=== PATIENT | male | born 1960 | race Caucasian/White ===

== ENCOUNTER 2021-11-06 17:05 | Inpatient (IN) ==
[2021-11-06 17:50] LABS: Basophils # (auto) 0.03 K/uL (0-0.2); Basophils % (auto) 0.2 %; Eosinophils % (auto) 1.3 %; Hematocrit (blood only) 43.1 % (42-52); Hemoglobin 15.1 g/dL (14.0-18.0); Immature Granulocytes # (auto) 0.04 K/uL (0.00-0.02); Immature Granulocytes % (auto) 0.3 %; Lymphocytes # (auto) 2.11 K/uL (1.2-3.4); Lymphocytes % (auto) 13.8 %; Mean Corpuscular Hemoglobin 33.6 pg (25-34); Mean Platelet Volume 9.6 fL (7.4-10.4); Monocytes # (auto) 1.15 K/uL (0.11-0.59); Monocytes % (auto) 7.5 %; Neutrophils # (auto) 11.71 K/uL (1.4-6.5); Neutrophils % (auto) 76.9 %; Platelet Count 227 K/uL (130-400); RDW Coefficient of Variation 13.4 % (11.5-14.5); RDW Standard Deviation 46.8 fL (36.4-46.3); Red Blood Count 4.49 M/uL (4.7-6.1); White Blood Count 15.24 K/uL (4.8-10.8)
[2021-11-06] MEDS ORDERED: SODIUM CHLORIDE 0.9% 1000ML 500 ML IV ONE (17:53)
[2021-11-06] MEDS ORDERED: ONDANSETRON INJ 2 MG/ML 2 ML VIAL IV STA (17:53)
[2021-11-06] MEDS ORDERED: MoRPHine SULFATE 4 MG/ML 1 ML CARP\\VIAL IV PRN (17:53)
--- NOTE | 2021-11-06 18:00 | Emergency Department Note ---
Impression & Plan Pneumothorax, Right rib fracture, Hemothorax, Fall ED Provider Note NAME: FLORENTINO SUGGS JR AGE: 61 SEX: M : 1960 ARRIVES VIA: Walk-In INFORMANT: [Patient] ED PROVIDER(S): [Jensen Banuelos MD] CHIEF COMPLAINT: Rib injury HISTORY OF PRESENT ILLNESS: The patient is a 61-year-old male who states that around 11 hours ago, he slipped while walking outside injuring his right ribs. He had x-rays done in the morning and he had some rib fractures, he believes 3. He has a small pneumothorax. He had a repeat chest x-ray just several hours ago and was told to come to the hospital as his pneumothorax had enlarged a bit. The patient complains of 7/10 chest pain from his rib injury. He was prescribed hydrocodone for pain. He is not really short of breath. His pain worsens if he moves or coughs. He denies hitting his head or injuring his neck. No extremity pain. No back pain, no abdominal pain. He does not take any blood thinning medications. REVIEW OF SYSTEMS: See HPI for pertinent positives and negatives. A total of ten systems were reviewed and were otherwise negative. PMHx/PSHx: See Below SOCIAL HISTORY: See Below. PHYSICAL EXAM: GENERAL: Patient is in no acute distress. HEENT: No acute trauma, normocephalic atraumatic, mucous membranes moist, no nasal congestion, no scleral icterus. NECK: No stridor, no adenopathy, no meningismus, trachea is midline. LUNGS: Slightly diminished breath sounds on the right when compared to left, no wheezing, no respiratory distress. Chest: Tender to the right lateral lower ribs. No contusion. HEART: Without murmurs gallops or rubs, regular rate and rhythm. ABDOMEN: Soft, nontender, bowel sounds positive, no hernias, no peritonitis. No tenderness in the right upper quadrant. EXTREMITIES: No cyanosis or edema, full range of motion of all the joints without pain or difficulty, no signs for acute trauma. NEUROLOGIC: Oriented x 3, no acute motor or sensory deficits, no focal weakness. SKIN: No rash, no jaundice, no diaphoresis. DIFFERENTIAL DIAGNOSIS: Rib fracture, pneumothorax, hemothorax, pulmonary contusion, liver injury, extremity trauma, abdominal trauma, head or neck injury, among others. EMERGENCY DEPARTMENT COURSE/PROCEDURES: MEDICAL DECISION MAKING: There is a moderate leukocytosis, possibly from his pain. There is a normal hemoglobin and platelet count. No coagulopathy. Sodium a bit low but not in need of emergent correction. No renal failure. No evidence for liver enzyme elevation. Urinalysis does not show hematuria or infection. COVID testing returned negative. Chest CT shows 2 rib fractures, a small hemothorax and a small to moderate sized right pneumothorax. The patient only complains of right rib pain. I could not find any other areas of injury by exam. I did speak with the director of assisted living/pulmonary physician instrumentation and controls technician. The patient does not need an emergent chest tube. He was placed on oxygen and is going to be admitted to the hospital for observation. If he does well, he can avoid chest tube placement. If he worsens, a chest tube will be inserted. The patient was told the results of his imaging, he understands the need for a hospital stay. He is currently resting comfortably. I did place the patient on nasal cannula O2. He was given IV morphine and IV Zofran for pain control. He received IV saline, 500 cc. Past Med/Surg History Medical History Acid reflux COPD (chronic obstructive pulmonary disease) WELL CONTROLLED PER PT> RARE INH USE Hx of bronchitis Hyperlipidemia Hypertension Hyponatremia Hypothyroidism Insomnia LPRD (laryngopharyngeal reflux disease) Obesity Osteoarthritis Pancreatitis RESOLVED Trouble swallowing reason for procedure Surgical History History of biopsy History of colonoscopy History of ERCP History of esophagogastroduodenoscopy (EGD) History of oral surgery Hx of LASIK Hx of vasectomy Family History Father Stroke Heart disease Brother Hypertension Mother Hypertension Grandfather (Maternal) Stroke Grandmother (Maternal) Colorectal cancer Other No family history of adverse response to anesthesia No family history of bleeding disorder Social History Smoking Status: Current some day smoker Tobacco Type: Cigarettes packs per day: 0.5; Years Smoked: 45; Second Hand Exposure: Yes; Hx Alcohol Use: Yes Alcohol type: beer, wine and hard liquor Alcohol Intake Frequency Comment: 2-3 drinks/day Hx Substance Use: No Preferred Language: Haitian Communication Ability: Effective Reed Dipper Required: No Beliefs That Will Affect Care: None marital status: Current Living Situation: Spouse current occupational status: employed 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 Feels Safe at Home: Yes Assistive Devices: None Allergies Allergies Allergy/AdvReac Type Severity Reaction Status Date / Time No Known Drug Allergies Allergy Unknown Verified 11/06/21 19:48 Home Meds Home Medications Medication Instructions Recorded Confirmed atorvastatin 20 mg tablet 20 mg PO PM 01/08/21 11/06/21 cholecalciferol (vitamin D3) 125 250 mcg PO QAM 01/08/21 11/06/21 mcg (5,000 unit) capsule hydrochlorothiazide 25 mg tablet 25 mg PO QAM 01/08/21 11/06/21 levothyroxine 137 mcg tablet 137 mcg PO QAM 01/08/21 11/06/21 (Levoxyl) losartan 100 mg tablet 100 mg PO QAM 01/08/21 11/06/21 Beet Juice Extract 1 dose PO DAILY 01/17/21 11/06/21 albuterol sulfate 90 mcg/actuation 2 puff INHALATION QID PRN 01/17/21 11/06/21 aerosol inhaler psyllium 2 packet PO TID 01/17/21 11/06/21 L-Citrine 0 mg PO BID 11/06/21 11/06/21 ascorbic acid (vitamin C) 250 mg 0 mg PO DAILY 11/06/21 11/06/21 tablet (Vitamin C) cyanocobalamin (vitamin B-12) 0 mcg PO DAILY 11/06/21 11/06/21 1,000 mcg tablet (Vitamin B-12) elderberry fruit 200 mg capsule 0 mg PO DAILY 11/06/21 11/06/21 fluticasone 250 mcg-salmeterol 50 1 ea INHALATION BID 11/06/21 11/06/21 mcg/dose blistr powdr for inhalation (Advair Diskus) fluticasone propionate 50 2 spray INTRANASAL DAILY PRN 11/06/21 11/06/21 mcg/actuation nasal spray,suspension hydrocodone 5 mg-acetaminophen 325 1 tab PO Q8 PRN 11/06/21 11/06/21 mg tablet magnesium 250 mg tablet 0 mg PO DAILY 11/06/21 11/06/21 prasterone (dhea) 50 mg tablet 50 mg PO DAILY 11/06/21 11/06/21 (DHEA) trazodone 50 mg tablet 50 - 100 mg PO HS 11/06/21 11/06/21 zinc 50 mg tablet 50 mg PO DAILY 11/06/21 11/06/21 Previous Rx's Medication Instructions Recorded famotidine 20 mg tablet (Acid 20 mg PO DAILY 42 Days #42 tab 07/29/21 Technology And Engineering Teacher (famotidine)) Results & Data (ED) Vital Signs Vital Signs - 24 hr 11/06/21 17:20 11/06/21 18:32 11/06/21 20:35 Temperature 37.3 C Temperature Source Temporal Artery Scan Pulse Rate 79 Pulse Rate [Apical] 75 74 Respiratory Rate 16 20 Respiratory Effort / Characteristics Non-Labored Respiratory Depth Normal Blood Pressure 162/97 H Blood Pressure [Right Arm] 159/91 H Blood Pressure Mean 118 Blood Pressure Mean [Right Arm] 113 Pulse Oximetry 97 98 97 Oxygen Delivery Method Room Air Room Air Sepsis Recent Fever Within 48 Hours No Sepsis New/Unexplained Change in Mental Status N/A Sepsis Action Taken by Nursing No Action Required Home Medications Current Medication List: was personally reviewed by me Laboratory Data Attestation: I reviewed the patient's lab results. Result diagrams: 11/06/21 17:35 11/06/21 17:35 Lab Results 11/06/21 11/06/21 11/06/21 Range/Units 17:35 17:35 17:35 WBC 15.24 H (4.8-10.8) K/uL RBC 4.49 L (4.7-6.1) M/uL Hgb 15.1 (14.0-18.0) g/dL Hct 43.1 (42-52) % MCV 96.0 (80-100) fL MCH 33.6 (25-34) pg MCHC 35.0 (32-36) g/dL RDW Std Deviation 46.8 H (36.4-46.3) fL RDW Coeff of Shaylee 13.4 (11.5-14.5) % Plt Count 227 (130-400) K/uL MPV 9.6 (7.4-10.4) fL Immature Gran % (Auto) 0.3 % Neut % (Auto) 76.9 % Lymph % (Auto) 13.8 % Mayes % (Auto) 7.5 % Eos % (Auto) 1.3 % Baso % (Auto) 0.2 % Neut # (Auto) 11.71 H (1.4-6.5) K/uL Lymph # (Auto) 2.11 (1.2-3.4) K/uL Mayes # (Auto) 1.15 H (0.11-0.59) K/uL Eos # (Auto) 0.20 (0-0.5) K/uL Baso # (Auto) 0.03 (0-0.2) K/uL Immature Gran # (Auto) 0.04 H (0.00-0.02) K/uL PT 10.0 (9.0-12.0) Seconds INR 1.0 (0.9-1.1) APTT 26.4 (21.0-31.0) Seconds PTT Ratio 1.0 Sodium 133 L (136-145) mmol/L Potassium 4.4 (3.5-5.1) mmol/L Chloride 99 (98-107) mmol/L Carbon Dioxide 27 (21-32) mmol/L Anion Gap 7 (3-11) BUN 11 (6-23) mg/dl Creatinine 0.93 (0.6-1.4) mg/dl Est Cr Clr Drug Dosing 85.2 ml/min Est GFR ( Amer) 103.8 ml/min Est GFR (Non-Af Amer) 89.5 ml/min BUN/Creatinine Ratio 11.8 (10-20) Glucose 98 (70-99(Fasting)) mg/dl Calcium 9.8 (8.5-10.1) mg/dl Total Bilirubin 1.0 (0.2-1.0) mg/dl AST 19 (13-39) U/L ALT 16 (7-52) U/L Alkaline Phosphatase 49 (34-104) U/L Total Protein 7.0 (6.0-8.3) gm/dl Albumin 4.5 (3.4-5.0) gm/dl Globulin 2.5 (2.5-4.0) gm/dl Albumin/Globulin Ratio 1.8 (0.9-2) Urine Color Urine Appearance (Clear) Urine pH (4.5-7.5) Ur Specific [place] (1.000-1.030) Urine Protein (Negative) Urine Glucose (UA) (Negative) Urine Ketones (Negative) Urine Blood (Negative) Urine Nitrite (Negative) Urine Bilirubin (Negative) Urine Urobilinogen (Negative) Ur Leukocyte Esterase (Negative) SARS-CoV-2, RNA, NAAT (NEGATIVE) 11/06/21 11/06/21 Range/Units 17:35 17:40 WBC (4.8-10.8) K/uL RBC (4.7-6.1) M/uL Hgb (14.0-18.0) g/dL Hct (42-52) % MCV (80-100) fL MCH (25-34) pg MCHC (32-36) g/dL RDW Std Deviation (36.4-46.3) fL RDW Coeff of Shaylee (11.5-14.5) % Plt Count (130-400) K/uL MPV (7.4-10.4) fL Immature Gran % (Auto) % Neut % (Auto) % Lymph % (Auto) % Mayes % (Auto) % Eos % (Auto) % Baso % (Auto) % Neut # (Auto) (1.4-6.5) K/uL Lymph # (Auto) (1.2-3.4) K/uL Mayes # (Auto) (0.11-0.59) K/uL Eos # (Auto) (0-0.5) K/uL Baso # (Auto) (0-0.2) K/uL Immature Gran # (Auto) (0.00-0.02) K/uL PT (9.0-12.0) Seconds INR (0.9-1.1) APTT (21.0-31.0) Seconds PTT Ratio Sodium (136-145) mmol/L Potassium (3.5-5.1) mmol/L Chloride (98-107) mmol/L Carbon Dioxide (21-32) mmol/L Anion Gap (3-11) BUN (6-23) mg/dl Creatinine (0.6-1.4) mg/dl Est Cr Clr Drug Dosing ml/min Est GFR ( Amer) ml/min Est GFR (Non-Af Amer) ml/min BUN/Creatinine Ratio (10-20) Glucose (70-99(Fasting)) mg/dl Calcium (8.5-10.1) mg/dl Total Bilirubin (0.2-1.0) mg/dl AST (13-39) U/L ALT (7-52) U/L Alkaline Phosphatase (34-104) U/L Total Protein (6.0-8.3) gm/dl Albumin (3.4-5.0) gm/dl Globulin (2.5-4.0) gm/dl Albumin/Globulin Ratio (0.9-2) Urine Color Yellow Urine Appearance Clear (Clear) Urine pH 7.0 (4.5-7.5) Ur Specific [place] 1.007 (1.000-1.030) Urine Protein Negative (Negative) Urine Glucose (UA) Negative (Negative) Urine Ketones Negative (Negative) Urine Blood Negative (Negative) Urine Nitrite Negative (Negative) Urine Bilirubin Negative (Negative) Urine Urobilinogen Negative (Negative) Ur Leukocyte Esterase Negative (Negative) SARS-CoV-2, RNA, NAAT NEGATIVE (NEGATIVE) Administered Medications Morphine Sulfate (Morphine Sulfate 4 Mg/Ml 1 Ml Carp\Vial) 4 mg IV Q30M PRN PRN Reason: Pain Stop: 11/20/21 17:52 Last Admin: 11/06/21 18:26 Dose: 4 mg Documented by: [id number] Discontinued Medications Sodium Chloride (Nss 1000ml) 500 mls @ 999 mls/hr IV .Q31M ONE Stop: 11/06/21 18:23 Last Infusion: 11/06/21 19:01 Dose: 0 mls/hr Documented by: [id number] Admin: 11/06/21 18:26 Dose: 999 mls/hr Documented by: [id number] Ondansetron HCl (Ondansetron Inj 2 Mg/Ml 2 Ml Vial) 4 mg IV NOW STA Stop: 11/06/21 17:54 Last Admin: 11/06/21 18:26 Dose: 4 mg Documented by: [id number] Imaging Data Radiologist's Impression: Chest CT 11/06/21 17:53 CT SCAN OF THE CHEST WITHOUT IV CONTRAST CLINICAL HISTORY: Fall. Pneumothorax. COMPARISON STUDY: Chest CT dated 11/29/2020. Chest radiographs dated 11/06/2021. TECHNIQUE: CT scan of the thorax was performed from the thoracic inlet to the upper abdomen. Images are reviewed in the axial, sagittal, and coronal planes. IV contrast was not administered for this examination as per the referring clinician. A dose lowering technique was utilized adhering to the principles of ALARA. CT DOSE: 478.50 mGy.cm FINDINGS: Thyroid: Atrophic. Thoracic aorta: There is atherosclerotic calcification of the thoracic aorta, which is normal in caliber and demonstrates standard 3-vessel arch anatomy. Heart: The heart is normal in size and without pericardial effusion. The coronary arteries are densely calcified. Lungs and pleural spaces: Emphysematous change is noted. The trachea is clear. Secretions are noted in the right mainstem bronchus. A small amount of hemothorax is seen at the right lung base with dense right lower lobe airspace consolidation. There is a small to moderate right pneumothorax, greatest at the right lung base. A 5 mm pulmonary nodule is again seen at the left lung base on image #232. Mediastinum: There is no mediastinal hematoma or lymphadenopathy. Janiya: Not well assessed without IV contrast. Axillae: There is no axillary lymphadenopathy. Upper abdomen: There is a small hiatal hernia. A 3.1 cm cyst is partially visualized in the interpolar right kidney. Skeletal structures: There are comminuted right posterior 7th and 8th rib fractures. No lytic or blastic bony lesions are seen. IMPRESSION: 1. There are acute comminuted right posterior 7th and 8th rib fractures. 2. Small to moderate right-sided pneumothorax. 3. There is a small amount of hemothorax at the right lung base. 4. Dense airspace consolidation is seen throughout the right lower lobe. 5. Emphysema. 6. Additional findings as above. ACT 112: Negative or not required by law. Electronically signed by: Jensen Chapman M.D. 11/06/2021 7:15 PM Discharge Plan Visit Data Chief Complaint: Rib Injury/Pain Stated Complaint: fall, 3 cracked ribs, lung puncture, DrHermelindo Ref ED Provider: Jensen Banuelos Discharge Problem: Pneumothorax, Right rib fracture, Hemothorax, Fall Patient Disposition: Admitted As Inpatient Condition: Good Forms Stand Alone Forms: My [facility] [employer] Prescriptions Prescriptions: No Action levothyroxine [Levoxyl] 137 mcg tablet 137 mcg PO QAM RF: 0 losartan 100 mg tablet 100 mg PO QAM RF: 0 hydrochlorothiazide 25 mg tablet 25 mg PO QAM RF: 0 atorvastatin 20 mg tablet 20 mg PO PM RF: 0 cholecalciferol (vitamin D3) 125 mcg (5,000 unit) capsule 250 mcg PO QAM RF: 0 famotidine [Acid Technology And Engineering Teacher (famotidine)] 20 mg tablet 20 mg PO DAILY 42 Days Qty: 42 RF: 3 fluticasone propion-salmeterol [Advair Diskus] 250-50 mcg/dose blister with device 1 ea INHALATION BID RF: 0 trazodone 50 mg tablet 50 - 100 mg PO HS RF: 0 hydrocodone-acetaminophen 5-325 mg tablet 1 tab PO Q8 PRN (Reason: Pain) RF: 0 cyanocobalamin (vitamin B-12) [Vitamin B-12] 1,000 mcg Tablet 0 mcg PO DAILY RF: 0 ascorbic acid (vitamin C) [Vitamin C] 250 mg Tablet 0 mg PO DAILY RF: 0 zinc 50 mg Tablet 50 mg PO DAILY RF: 0 magnesium 250 mg Tablet 0 mg PO DAILY RF: 0 Elderberry 200 mg Capsule 0 mg PO DAILY RF: 0 DHEA 50 mg Tablet 50 mg PO DAILY RF: 0 L-Citrine 0 mg PO BID RF: 0 fluticasone propionate 50 mcg/actuation spray,suspension 2 spray intranasal DAILY PRN (Reason: allergies) RF: 0 psyllium Packet 2 packet PO TID RF: 0 albuterol sulfate 90 mcg/actuation Hfa Aerosol Inhaler 2 puff INHALATION QID PRN (Reason: Wheezing) RF: 0 Beet Juice Extract 1 dose PO DAILY RF: 0 Referrals Referrals: Clay Schmidt [Primary Care Provider] -
[2021-11-06 18:02] LABS: Partial Thromboplastin Time 26.4 Seconds (21.0-31.0)
[2021-11-06 18:09] LABS: Albumin Globulin Ratio 1.8 (0.9-2); Albumin Level 4.5 gm/dl (3.4-5.0); BUN Creatinine Ratio 11.8 (10-20); Calcium 9.8 mg/dl (8.5-10.1); Creatinine Clr Calc Pharmacy 85.2 ml/min; Est GFR (African American) 103.8 ml/min; Est GFR (Non-African American) 89.5 ml/min; Globulin 2.5 gm/dl (2.5-4.0); Potassium 4.4 mmol/L (3.5-5.1)
--- NOTE | 2021-11-06 19:17 | CT Scan Report ---
CT SCAN OF THE CHEST WITHOUT IV CONTRAST CLINICAL HISTORY: Fall. Pneumothorax. COMPARISON STUDY: Chest CT dated 11/29/2020. Chest radiographs dated 11/06/2021. TECHNIQUE: CT scan of the thorax was performed from the thoracic inlet to the upper abdomen. Images are reviewed in the axial, sagittal, and coronal planes. IV contrast was not administered for this ex amination as per the referring clinician. A dose lowering technique was utilized adhering to the [facility] [place]. CT DOSE: 478.50 mGy.cm FINDINGS: Thyroid: Atrophic. Thoracic aorta: There is atherosclerotic calcification of the thoracic aorta, which is normal in [place] emma and demonstrates standard 3-vessel arch anatomy. Heart: The heart is normal in size and without pericardial effusion. The coronary arteries are densel y calcified. Lungs and pleural spaces: Emphysematous change is noted. The trachea is clear. Secretions are noted i n the right mainstem bronchus. A small amount of hemothorax is seen at the right lung base with dense right lower lobe airspace consolidation. There is a small to moderate right pneumothorax, greatest a t the right lung base. A 5 mm pulmonary nodule is again seen at the left lung base on image #232. Mediastinum: There is no mediastinal hematoma or lymphadenopathy. Janiya: Not well assessed without IV contrast. Axillae: There is no axillary lymphadenopathy. Upper abdomen: There is a small hiatal hernia. A 3.1 cm cyst is partially visualized in the interpola r right kidney. Skeletal structures: There are comminuted right posterior 7th and 8th rib fractures. No lytic or arben tic bony lesions are seen. IMPRESSION: 1. There are acute comminuted right posterior 7th and 8th rib fractures. 2. Small to moderate right-sided pneumothorax. 3. There is a small amount of hemothorax at the right lung base. 4. Dense airspace consolidation is seen throughout the right lower lobe. 5. Emphysema. 6. Additional findings as above. ACT 112: Negative or not required by law. Electronically signed by: Jensen Chapman M.D. 11/06/2021 7:15 PM
[2021-11-06 20:16] LABS: Appearance Urine Clear (Clear); Bilirubin Urine Negative (Negative); Blood Urine Negative (Negative); Color Urine Yellow; Glucose Urine UA Negative (Negative); Ketones Urine Negative (Negative); Leukocyte Esterase Urine Negative (Negative); Nitrite Urine Negative (Negative); Protein Urine Negative (Negative); Specific Gravity Urine 1.007 (1.000-1.030); Urobilinogen Urine Negative (Negative)
--- NOTE | 2021-11-06 20:55 | History & Physical Report ---
Date of Service November 06, 2021 Assessment & Plan (1) Pneumothorax: Plan: Small to moderate pneumothorax/right posterior seventh and eighth rib fractures/right hemothorax/COPD Admit to monitored bed, with plans to repeat CT scan in a.m. Consult pulmonology Pain control: Acetaminophen 650 mg p.o. every 6 hours. Mild pain or fever Continue hydrocodone/APAP 5/325, 1 p.o. every 6 hours as needed moderate pain Morphine sulfate 2 mg IV every 4 hours as needed severe pain Continue usual inhalers (2) Right rib fracture: Plan: See above (3) Hemothorax: Plan: See above (4) Fall: Plan: Status post fall on black ice (5) HTN (hypertension): Plan: Continue HCTZ and losartan (6) High cholesterol: Plan: Continue atorvastatin 20 mg daily (7) Acid reflux: Plan: Continue famotidine (8) COPD (chronic obstructive pulmonary disease): Plan: See above (9) Hypothyroidism: Plan: Continue levothyroxine 137 mcg every morning (10) Insomnia: Plan: Continue trazodone at 50 mg in the evening History of Present Illness Chief Complaint: The patient presents to the emergency department at the referral from his PCP due to a progression of pneumothorax noted on initial x-ray in the morning that was repeated later in the day Primary Care Provider: Clay Schmidt The patient is a 61-year-old male with a past medical history including hyperlipidemia, hypertension, hypothyroidism, COPD, GERD, [place] B12 deficiency, pancreatitis and insomnia. He reports he is going for a walk this morning, slipped and fell on the ice, and developed acute chest wall pain on the right side. Initial x-ray performed in the outpatient setting showed right rib fractures and a small pneumothorax. Follow-up chest x-ray later in the day was performed as his pain worsened, and pneumothorax had increased in size, and he was advised to come to the ED for assessment. Allergies Allergy/AdvReac Type Severity Reaction Status Date / Time No Known Drug Allergies Allergy Unknown Verified 11/06/21 19:48 Home Medications Medication Instructions Recorded Confirmed Type atorvastatin 20 mg tablet 20 mg PO PM 01/08/21 11/06/21 History cholecalciferol (vitamin D3) 125 250 mcg PO QAM 01/08/21 11/06/21 History mcg (5,000 unit) capsule hydrochlorothiazide 25 mg tablet 25 mg PO QAM 01/08/21 11/06/21 History levothyroxine 137 mcg tablet 137 mcg PO QAM 01/08/21 11/06/21 History (Levoxyl) losartan 100 mg tablet 100 mg PO QAM 01/08/21 11/06/21 History Beet Juice Extract 1 dose PO DAILY 01/17/21 11/06/21 History albuterol sulfate 90 mcg/actuation 2 puff INHALATION QID PRN 01/17/21 11/06/21 History aerosol inhaler psyllium 2 packet PO TID 01/17/21 11/06/21 History famotidine 20 mg tablet (Acid 20 mg PO DAILY 42 Days #42 tab 07/29/21 11/06/21 Rx Forecast Analyst (famotidine)) L-Citrine 0 mg PO BID 11/06/21 11/06/21 History ascorbic acid (vitamin C) 250 mg 0 mg PO DAILY 11/06/21 11/06/21 History tablet (Vitamin C) cyanocobalamin (vitamin B-12) 0 mcg PO DAILY 11/06/21 11/06/21 History 1,000 mcg tablet (Vitamin B-12) elderberry fruit 200 mg capsule 0 mg PO DAILY 11/06/21 11/06/21 History fluticasone 250 mcg-salmeterol 50 1 ea INHALATION BID 11/06/21 11/06/21 History mcg/dose blistr powdr for inhalation (Advair Diskus) fluticasone propionate 50 2 spray INTRANASAL DAILY PRN 11/06/21 11/06/21 History mcg/actuation nasal spray,suspension hydrocodone 5 mg-acetaminophen 325 1 tab PO Q8 PRN 11/06/21 11/06/21 History mg tablet magnesium 250 mg tablet 0 mg PO DAILY 11/06/21 11/06/21 History prasterone (dhea) 50 mg tablet 50 mg PO DAILY 11/06/21 11/06/21 History (DHEA) trazodone 50 mg tablet 50 - 100 mg PO HS 11/06/21 11/06/21 History zinc 50 mg tablet 50 mg PO DAILY 11/06/21 11/06/21 History Past Med/Surg History Medical History (Updated 11/07/21 @ 02:29 by Mulugeta Romero MD) Acid reflux COPD (chronic obstructive pulmonary disease) WELL CONTROLLED PER PT> RARE INH USE Hx of bronchitis Hyperlipidemia Hypertension Hyponatremia Hypothyroidism Insomnia LPRD (laryngopharyngeal reflux disease) Obesity Osteoarthritis Pancreatitis RESOLVED Trouble swallowing reason for procedure Surgical History History of biopsy 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 Schulz on 01/24/21 History of colonoscopy History of ERCP History of esophagogastroduodenoscopy (EGD) History of oral surgery TOOTH EXTRACTIONS Hx of LASIK Hx of vasectomy Family History Father Stroke Heart disease Brother Hypertension Mother Hypertension Grandfather (Maternal) Stroke Grandmother (Maternal) Colorectal cancer Other No family history of adverse response to anesthesia No family history of bleeding disorder Social History Smoking Status: Current every day smoker Tobacco Type: Cigarettes packs per day: 0.5; Years Smoked: 45; Cigarettes Per Day: 1 pack per day; Second Hand Exposure: Yes; Do You Dip or Chew Tobacco: No; Hx Alcohol Use: Yes Alcohol type: beer, wine and hard liquor Alcohol Intake Frequency Comment: 2-3 drinks/day Hx Substance Use: No Preferred Language: Dutch Communication Ability: Effective Returns Supervisor Required: No Beliefs That Will Affect Care: None marital status: Current Living Situation: Spouse current occupational status: employed 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 Feels Safe at Home: Yes Safety Concerns: Feels Safe At This Time Assistive Devices: Oxygen - Continuous Review of Systems Review of Systems: The patient denies palpitations, cough, lower extremity swelling, sore throat, fevers, chills, sweats, nausea, vomiting, diarrhea , constipation, abdominal pain, pelvic pain, blood in urine or stool, dysuria, urinary frequency or urgency, lightheadedness, dizziness, headache, memory loss, loss of consciousness, rash, abnormal bruising or bleeding, imbalance, focal or generalized weakness, numbness or tingling in arms or legs, generalized arthralgias or myalgias, neck pain, or night sweats. The review of systems is otherwise negative other than for that already noted above, and at least 10 systems have been reviewed. Physical Exam Physical Exam: The patient is awake, alert and oriented 3, well developed and well nourished, normocephalic and atraumatic, lying in bed and in no acute distress at rest HEENT--PERRL, EOMI, mucous membranes and oropharynx normal Neck--supple. No JVD. No bruits. Thyroid normal, trachea midline, no adenopathy. Heart--normal S1 and S2. No murmurs, rubs or gallops. Lungs--clear bilaterally, no respiratory distress, no accessory muscle use. Abdomen--normal bowel sounds and soft. Nontender. Nondistended, no hernias or masses, no organomegaly. Extremities--no cyanosis or clubbing. No edema. Dermatologic--normal skin turgor, normal color, no abnormal lymph nodes, no rash. Neurologic--cranial nerves II through XII grossly intact. Rheumatologic--limited by pain Psychiatric--normal affect. Results & Data Results & Data ([facility]) Vital Signs (Past 12 Hours) Vital Signs Temp Pulse Pulse Resp BP BP Pulse Ox 11/06/21 20:35 74 97 11/06/21 18:32 75 20 159/91 H 98 11/06/21 17:20 37.3 C 79 16 162/97 H 97 Laboratory Results Laboratory Results WBC 15.24 K/uL (4.8-10.8) H 11/06/21 17:35 RBC 4.49 M/uL (4.7-6.1) L 11/06/21 17:35 Hgb 15.1 g/dL (14.0-18.0) 11/06/21 17:35 Hct 43.1 % (42-52) 11/06/21 17:35 MCV 96.0 fL (80-100) 11/06/21 17:35 MCH 33.6 pg (25-34) 11/06/21 17:35 MCHC 35.0 g/dL (32-36) 11/06/21 17:35 RDW Std Deviation 46.8 fL (36.4-46.3) H 11/06/21 17:35 RDW Coeff of Shaylee 13.4 % (11.5-14.5) 11/06/21 17:35 Plt Count 227 K/uL (130-400) 11/06/21 17:35 MPV 9.6 fL (7.4-10.4) 11/06/21 17:35 Immature Gran % (Auto) 0.3 % 11/06/21 17:35 Neut % (Auto) 76.9 % 11/06/21 17:35 Lymph % (Auto) 13.8 % 11/06/21 17:35 [place] % (Auto) 7.5 % 11/06/21 17:35 Eos % (Auto) 1.3 % 11/06/21 17:35 Baso % (Auto) 0.2 % 11/06/21 17:35 Neut # (Auto) 11.71 K/uL (1.4-6.5) H 11/06/21 17:35 Lymph # (Auto) 2.11 K/uL (1.2-3.4) 11/06/21 17:35 [place] # (Auto) 1.15 K/uL (0.11-0.59) H 11/06/21 17:35 Eos # (Auto) 0.20 K/uL (0-0.5) 11/06/21 17:35 Baso # (Auto) 0.03 K/uL (0-0.2) 11/06/21 17:35 Immature Gran # (Auto) 0.04 K/uL (0.00-0.02) H 11/06/21 17:35 PT 10.0 Seconds (9.0-12.0) 11/06/21 17:35 INR 1.0 (0.9-1.1) 11/06/21 17:35 APTT 26.4 Seconds (21.0-31.0) 11/06/21 17:35 PTT Ratio 1.0 11/06/21 17:35 Sodium 133 mmol/L (136-145) L 11/06/21 17:35 Potassium 4.4 mmol/L (3.5-5.1) 11/06/21 17:35 Chloride 99 mmol/L (98-107) 11/06/21 17:35 Carbon Dioxide 27 mmol/L (21-32) 11/06/21 17:35 Anion Gap 7 (3-11) 11/06/21 17:35 BUN 11 mg/dl (6-23) 11/06/21 17:35 Creatinine 0.93 mg/dl (0.6-1.4) 11/06/21 17:35 Est Cr Clr Drug Dosing 85.2 ml/min 11/06/21 17:35 Est GFR ( Amer) 103.8 ml/min 11/06/21 17:35 Est GFR (Non-Af Amer) 89.5 ml/min 11/06/21 17:35 BUN/Creatinine Ratio 11.8 (10-20) 11/06/21 17:35 Glucose 98 mg/dl (70-99(Fasting)) 11/06/21 17:35 Calcium 9.8 mg/dl (8.5-10.1) 11/06/21 17:35 Total Bilirubin 1.0 mg/dl (0.2-1.0) 11/06/21 17:35 AST 19 U/L (13-39) 11/06/21 17:35 ALT 16 U/L (7-52) 11/06/21 17:35 Alkaline Phosphatase 49 U/L (34-104) 11/06/21 17:35 Total Protein 7.0 gm/dl (6.0-8.3) 11/06/21 17:35 Albumin 4.5 gm/dl (3.4-5.0) 11/06/21 17:35 Globulin 2.5 gm/dl (2.5-4.0) 11/06/21 17:35 Albumin/Globulin Ratio 1.8 (0.9-2) 11/06/21 17:35 Urine Color Yellow 11/06/21 17:35 Urine Appearance Clear (Clear) 11/06/21 17:35 Urine pH 7.0 (4.5-7.5) 11/06/21 17:35 Ur Specific [place] 1.007 (1.000-1.030) 11/06/21 17:35 Urine Protein Negative (Negative) 11/06/21 17:35 Urine Glucose (UA) Negative (Negative) 11/06/21 17:35 Urine Ketones Negative (Negative) 11/06/21 17:35 Urine Blood Negative (Negative) 11/06/21 17:35 Urine Nitrite Negative (Negative) 11/06/21 17:35 Urine Bilirubin Negative (Negative) 11/06/21 17:35 Urine Urobilinogen Negative (Negative) 11/06/21 17:35 Ur Leukocyte Esterase Negative (Negative) 11/06/21 17:35 SARS-CoV-2, RNA, NAAT NEGATIVE (NEGATIVE) 11/06/21 17:[address] 11/06/21 17:53 CT SCAN OF THE CHEST WITHOUT IV CONTRAST CLINICAL HISTORY: Fall. Pneumothorax. COMPARISON STUDY: Chest CT dated 11/29/2020. Chest radiographs dated 11/06/2021. TECHNIQUE: CT scan of the thorax was performed from the thoracic inlet to the upper abdomen. Images are reviewed in the axial, sagittal, and coronal planes. IV contrast was not administered for this examination as per the referring clinician. A dose lowering technique was utilized adhering to the principles of ALARA. CT DOSE: 478.50 mGy.cm FINDINGS: Thyroid: Atrophic. Thoracic aorta: There is atherosclerotic calcification of the thoracic aorta, which is normal in caliber and demonstrates standard 3-vessel arch anatomy. Heart: The heart is normal in size and without pericardial effusion. The coronary arteries are densely calcified. Lungs and pleural spaces: Emphysematous change is noted. The trachea is clear. Secretions are noted in the right mainstem bronchus. A small amount of hemothorax is seen at the right lung base with dense right lower lobe airspace consolidation. There is a small to moderate right pneumothorax, greatest at the right lung base. A 5 mm pulmonary nodule is again seen at the left lung base on image #232. Mediastinum: There is no mediastinal hematoma or lymphadenopathy. Janiya: Not well assessed without IV contrast. Axillae: There is no axillary lymphadenopathy. Upper abdomen: There is a small hiatal hernia. A 3.1 cm cyst is partially visualized in the interpolar right kidney. Skeletal structures: There are comminuted right posterior 7th and 8th rib fractures. No lytic or blastic bony lesions are seen. IMPRESSION: 1. There are acute comminuted right posterior 7th and 8th rib fractures. 2. Small to moderate right-sided pneumothorax. 3. There is a small amount of hemothorax at the right lung base. 4. Dense airspace consolidation is seen throughout the right lower lobe. 5. Emphysema. 6. Additional findings as above. ACT 112: Negative or not required by law. Electronically signed by: Jensen Chapman M.D. 11/06/2021 7:15 PM Code Status & VTE Plan Code Status Full code VTE Prophylaxis Plan VTE Prophylaxis will be ordered: Yes PG Care Time/CCT Total # of Minutes Spent Total Time Spent with Patient: Total time spent is greater than 50% in coordination of care (as documented) at patient's floor/unit and/or counseling patient: Coding Level of Care Code INT OBSERVATION CARE 70M LVL 3 Diagnoses Pneumothorax S27.0XXA Encounter type: initial encounter Pneumothorax type: traumatic Right rib fracture S22.41XA Encounter type: initial encounter Fracture type: closed Rib fracture type: multiple ribs Hemothorax J94.2 Fall W19.XXXA Encounter type: initial encounter HTN (hypertension) I10 High cholesterol E78.00 Acid reflux K21.9 COPD (chronic obstructive pulmonary disease) J44.9 Hypothyroidism E03.9 Insomnia G47.00 (1) Pneumothorax Encounter type: initial encounter Pneumothorax type: traumatic Qualified Code(s): S27.0XXA - Traumatic pneumothorax, initial encounter (2) Right rib fracture Encounter type: initial encounter Fracture type: closed Rib fracture type: multiple ribs Qualified Code(s): S22.41XA - Multiple fractures of ribs, right side, initial encounter for closed fracture (3) Fall Encounter type: initial encounter Qualified Code(s): W19.XXXA - Unspecified fall, initial encounter
[2021-11-06] MEDS ORDERED: MoRPHine SULFATE 2 MG/ML CARP IV PRN (22:47)
[2021-11-06] MEDS ORDERED: ONDANSETRON INJ 2 MG/ML 2 ML VIAL IV PRN (22:47)
[2021-11-06] MEDS ORDERED: ALBUTEROL HFA 8 GM INHALER INH PRN (22:47)
[2021-11-06] MEDS ORDERED: ACETAMINOPHEN 325 MG TAB PO PRN (22:47)
[2021-11-06] MEDS ORDERED: HYDROCODONE/ACETAMOPHEN 5/325MG TAB PO PRN (22:47)
[2021-11-07] MEDS: ATORVASTATIN 20 MG TAB PO SCH ×2 (00:13→20:11)
[2021-11-07] MEDS: PSYLLIUM 58.6% POWDER PACKET PO SCH ×4 (00:15→20:11)
[2021-11-07] MEDS: traZODone HCL 50 MG TAB PO SCH ×2 (00:15→20:10)
[2021-11-07] MEDS: LEVOTHYROXINE SODIUM 137 MCG TABLET PO SCH (06:06)
--- NOTE | 2021-11-07 07:39 | Critical Care Consultation ---
Date of Consultation November 07, 2021 Assessment & Plan (1) Hypothyroidism: (2) Pneumothorax: (3) Right rib fracture: (4) Hemothorax: Reason Critically Ill: 61-year-old male here with a PMHx significant for HTN, HLD, insomnia, COPD, GERD who presented with acute right-sided rib fractures and pneumothorax and was admitted for worsening of his pneumothorax on imaging as well as worsening pain and shortness of breath. Neuro Continue home trazodone for insomnia. Cardiac Hypertension -- continue HCTZ, losartan HLD -- continue home atorvastatin Respiratory Pneumothorax -- right-sided, secondary to fall resulting in right posterior comminuted fractures. Requiring 2L NC to maintain oxygenation at 93%. Not currently tachypneic. Reports coughing and associated pain but no current hemoptysis. Chest tube placed at bedside today -- tolerated procedure well without complications. GI Regular diet Famotidine 20mg daily for reflux. Renal/Electrolytes No significant electrolyte derangement. Replace lytes as needed. No concerns at this time. Endo Hypothyroidism -- continue home Synthroid Heme Stable H&H. Monitor in the setting of small hemothorax. ID No concerns for infection at this point. Leukocytosis that is likely reactive to stress/pain. Monitor fever curve. Lines/IV Access - PIVs intact. DVT Prophylaxis No chemoppx with current hemothorax. Thank you for allowing us to be part of this patient's care. Please refer to Dr. Oropeza's documentation for any further recommendations. Supervising Physician Co-Signing Physician Notes Dr. Fraga was resident physician during care of patient. I separately evaluated patient for mccauley portions of the history and the exam. I was present during the critical portion of medical decision making, and I discussed the case with the resident. I generally agree with the findings and plan. Interval worsening of right-sided pneumothorax will place chest tube today in place on suction hopefully will be able to place on waterseal within next 12 to 24 hours. History of Present Illness Attending Physician: Jose Lee MD History of Present Illness Jey Auguste is a 60-year-old male with PMH of hyperlipidemia, hypertension, hypothyroidism, COPD, GERD, [place] B12 deficiency, pancreatitis, and insomnia who was admitted due to pneumothorax in the setting of rib fracture. 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 He was seen in the outpatient setting and had CXR done, which showed some rib fractures and a small pneumothorax. Later in the day his right-sided pain continued to worsen, and a repeat CXR showed worsening pneumothorax so he was advised to go to the ED. Chest CT done at that time showed comminuted right posterior 7th and 8th rib fractures, small to moderate right-sided pneumothorax, small hemothorax at right lung base. He is currently breathing comfortably on 2LNC and satting adequately. Not currently tachypneic or with increased WOB. Says his pain is worse when moving or coughing. Allergies Allergy/AdvReac Type Severity Reaction Status Date / Time No Known Drug Allergies Allergy Unknown Verified 11/06/21 19:48 Home Medications Medication Instructions Recorded Confirmed Type atorvastatin 20 mg tablet 20 mg PO PM 01/08/21 11/06/21 History cholecalciferol (vitamin D3) 125 250 mcg PO QAM 01/08/21 11/06/21 History mcg (5,000 unit) capsule hydrochlorothiazide 25 mg tablet 25 mg PO QAM 01/08/21 11/06/21 History levothyroxine 137 mcg tablet 137 mcg PO QAM 01/08/21 11/06/21 History (Levoxyl) losartan 100 mg tablet 100 mg PO QAM 01/08/21 11/06/21 History Beet Juice Extract 1 dose PO DAILY 01/17/21 11/06/21 History albuterol sulfate 90 mcg/actuation 2 puff INHALATION QID PRN 01/17/21 11/06/21 History aerosol inhaler psyllium 2 packet PO TID 01/17/21 11/06/21 History famotidine 20 mg tablet (Acid 20 mg PO DAILY 42 Days #42 tab 07/29/21 11/06/21 Rx Biophysics Scientist (famotidine)) L-Citrine 0 mg PO BID 11/06/21 11/06/21 History ascorbic acid (vitamin C) 250 mg 0 mg PO DAILY 11/06/21 11/06/21 History tablet (Vitamin C) cyanocobalamin (vitamin B-12) 0 mcg PO DAILY 11/06/21 11/06/21 History 1,000 mcg tablet (Vitamin B-12) elderberry fruit 200 mg capsule 0 mg PO DAILY 11/06/21 11/06/21 History fluticasone 250 mcg-salmeterol 50 1 ea INHALATION BID 11/06/21 11/06/21 History mcg/dose blistr powdr for inhalation (Advair Diskus) fluticasone propionate 50 2 spray INTRANASAL DAILY PRN 11/06/21 11/06/21 History mcg/actuation nasal spray,suspension hydrocodone 5 mg-acetaminophen 325 1 tab PO Q8 PRN 11/06/21 11/06/21 History mg tablet magnesium 250 mg tablet 0 mg PO DAILY 11/06/21 11/06/21 History prasterone (dhea) 50 mg tablet 50 mg PO DAILY 11/06/21 11/06/21 History (DHEA) trazodone 50 mg tablet 50 - 100 mg PO HS 11/06/21 11/06/21 History zinc 50 mg tablet 50 mg PO DAILY 11/06/21 11/06/21 History Patient History Medical History (Updated 11/07/21 @ 10:59 by Jose Lee MD) Acid reflux COPD (chronic obstructive pulmonary disease) WELL CONTROLLED PER PT> RARE INH USE Hx of bronchitis Hyperlipidemia Hypertension Hyponatremia Hypothyroidism Insomnia LPRD (laryngopharyngeal reflux disease) Obesity Osteoarthritis Pancreatitis RESOLVED Trouble swallowing reason for procedure Surgical History History of biopsy 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 Schulz on 01/24/21 History of colonoscopy History of ERCP History of esophagogastroduodenoscopy (EGD) History of oral surgery TOOTH EXTRACTIONS Hx of LASIK Hx of vasectomy Family History Father Stroke Heart disease Brother Hypertension Mother Hypertension Grandfather (Maternal) Stroke Grandmother (Maternal) Colorectal cancer Other No family history of adverse response to anesthesia No family history of bleeding disorder Social History Smoking Status: Current every day smoker Tobacco Type: Cigarettes packs per day: 0.5; Years Smoked: 45; Cigarettes Per Day: 1 pack per day; Second Hand Exposure: Yes; Do You Dip or Chew Tobacco: No; Hx Alcohol Use: Yes Alcohol type: beer, wine and hard liquor Alcohol Intake Frequency Comment: 2-3 drinks/day Hx Substance Use: No Preferred Language: Pashto Communication Ability: Effective Constitutional Law Professor Required: No Beliefs That Will Affect Care: None marital status: Current Living Situation: Spouse current occupational status: employed 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 Denies f/c, n/v, abd pain, numbness, tingling, hemoptysis, RANGEL, dizziness. Physical Exam Physical Exam: GENERAL: A&Ox3. NAD. HEENT: Atraumatic, normocephalic. PERRL, EOMI. NECK: No JVD. No lymphadenopathy. CHEST/LUNGS: No crackles, wheezes, rales, rhonchi. Decreased air movement on right side. HEART: RRR. No m/g/r. ABDOMEN: NT/ND, soft. BS+ x4 EXTREMITIES: No cyanosis, no clubbing, no edema. Moves all 4 extremities. SKIN: Warm and dry. No rashes or lesions. PSYCHIATRIC: Euthymic affect, no SI, no pressured speech, no hallucinations NEUROLOGIC: No FND. Results & Data Results & Data ([facility]) Vital Signs (Past 12 Hours) Vital Signs Temp Pulse Pulse Pulse Resp BP Pulse Ox 11/07/21 07:08 81 11/07/21 06:44 36.8 C 74 19 138/88 93 11/07/21 03:16 37.0 C 76 18 108/71 92 11/07/21 00:19 36.6 C 75 20 150/85 H 95 11/06/21 22:53 68 11/06/21 22:47 36.6 C 75 20 150/85 H 95 11/06/21 20:35 74 97 Pulse Ox 11/07/21 07:08 11/07/21 06:44 11/07/21 03:16 11/07/21 00:19 11/06/21 22:53 11/06/21 22:47 95 11/06/21 20:35 Critical Care Results & Data Vital Signs (Past 12 Hours) Vital Signs Temp Pulse Pulse Pulse Resp BP Pulse Ox 11/07/21 07:08 81 11/07/21 06:44 36.8 C 74 19 138/88 93 11/07/21 03:16 37.0 C 76 18 108/71 92 11/07/21 00:19 36.6 C 75 20 150/85 H 95 11/06/21 22:53 68 11/06/21 22:47 36.6 C 75 20 150/85 H 95 11/06/21 20:35 74 97 Pulse Ox 11/07/21 07:08 11/07/21 06:44 11/07/21 03:16 11/07/21 00:19 11/06/21 22:53 11/06/21 22:47 95 11/06/21 20:35 Lab & Micro Results (Past 24 Hours) RBC 4.49 M/uL (4.7-6.1) L 11/06/21 WBC 15.24 K/uL (4.8-10.8) H 11/06/21 Hgb 15.1 g/dL (14.0-18.0) 11/06/21 Hct 43.1 % (42-52) 11/06/21 MCV 96.0 fL (80-100) 11/06/21 MCH 33.6 pg (25-34) 11/06/21 MCHC 35.0 g/dL (32-36) 11/06/21 RDW Standard Deviation 46.8 fL (36.4-46.3) H 11/06/21 RDW Coefficient of Variation 13.4 % (11.5-14.5) 11/06/21 Plt Count 227 K/uL (130-400) 11/06/21 MPV 9.6 fL (7.4-10.4) 11/06/21 Neutrophils (%) (Auto) 76.9 % 11/06/21 Lymphocytes (%) (Auto) 13.8 % 11/06/21 Monocytes # (Auto) 1.15 K/uL (0.11-0.59) H 11/06/21 Eosinophils # (Auto) 0.20 K/uL (0-0.5) 11/06/21 Immature Granulocyte % (Auto) 0.3 % 11/06/21 Neutrophils # (Auto) 11.71 K/uL (1.4-6.5) H 11/06/21 Lymphocytes # (Auto) 2.11 K/uL (1.2-3.4) 11/06/21 Monocytes # (Auto) 1.15 K/uL (0.11-0.59) H 11/06/21 Eosinophils # (Auto) 0.20 K/uL (0-0.5) 11/06/21 Basophils # (Auto) 0.03 K/uL (0-0.2) 11/06/21 Immature Granulocyte # (Auto) 0.04 K/uL (0.00-0.02) H 11/06/21 Na 133 mmol/L (136-145) L 11/06/21 K 4.4 mmol/L (3.5-5.1) 11/06/21 Cl 99 mmol/L (98-107) 11/06/21 CO2 27 mmol/L (21-32) 11/06/21 Anion Gap 7 (3-11) 11/06/21 BUN 11 mg/dl (6-23) 11/06/21 Creatinine 0.93 mg/dl (0.6-1.4) 11/06/21 Estimated GFR ( Amer) 103.8 ml/min 11/06/21 Estimated GFR (Non-Af Amer) 89.5 ml/min 11/06/21 BUN/Creatinine Ratio 11.8 (10-20) 11/06/21 Glu 98 mg/dl (70-99(Fasting)) 11/06/21 Ca 9.8 mg/dl (8.5-10.1) 11/06/21 Total Bilirubin 1.0 mg/dl (0.2-1.0) 11/06/21 AST 19 U/L (13-39) 11/06/21 ALT 16 U/L (7-52) 11/06/21 Alkaline Phosphatase 49 U/L (34-104) 11/06/21 TP 7.0 gm/dl (6.0-8.3) 11/06/21 Albumin 4.5 gm/dl (3.4-5.0) 11/06/21 Globulin 2.5 gm/dl (2.5-4.0) 11/06/21 Albumin/Globulin Ratio 1.8 (0.9-2) 11/06/21 Calcium Level 9.8 mg/dl (8.5-10.1) 11/06/21 17:35 11/06/21 Prothromb Time International Ratio 1.0 (0.9-1.1) 11/06/21 17:35 11/06/21 Diagnostic Findings (Past 24 Hours) Chest CT 11/06/21 17:53 CT SCAN OF THE CHEST WITHOUT IV CONTRAST CLINICAL HISTORY: Fall. Pneumothorax. COMPARISON STUDY: Chest CT dated 11/29/2020. Chest radiographs dated 11/06/2021. TECHNIQUE: CT scan of the thorax was performed from the thoracic inlet to the upper abdomen. Images are reviewed in the axial, sagittal, and coronal planes. IV contrast was not administered for this examination as per the referring clinician. A dose lowering technique was utilized adhering to the principles of ALARA. CT DOSE: 478.50 mGy.cm FINDINGS: Thyroid: Atrophic. Thoracic aorta: There is atherosclerotic calcification of the thoracic aorta, which is normal in caliber and demonstrates standard 3-vessel arch anatomy. Heart: The heart is normal in size and without pericardial effusion. The coronary arteries are densely calcified. Lungs and pleural spaces: Emphysematous change is noted. The trachea is clear. Secretions are noted in the right mainstem bronchus. A small amount of hemothorax is seen at the right lung base with dense right lower lobe airspace c onsolidation. There is a small to moderate right pneumothorax, greatest at the right lung base. A 5 mm pulmonary nodule is again seen at the left lung base on image #232. Mediastinum: There is no mediastinal hematoma or lymphadenopathy. Janiya: Not well assessed without IV contrast. Axillae: There is no axillary lymphadenopathy. Upper abdomen: There is a small hiatal hernia. A 3.1 cm cyst is partially visualized in the interpolar right kidney. Skeletal structures: There are comminuted right posterior 7th and 8th rib fractures. No lytic or blastic bony lesions are seen. IMPRESSION: 1. There are acute comminuted right posterior 7th and 8th rib fractures. 2. Small to moderate right-sided pneumothorax. 3. There is a small amount of hemothorax at the right lung base. 4. Dense airspace consolidation is seen throughout the right lower lobe. 5. Emphysema. 6. Additional findings as above. ACT 112: Negative or not required by law. Electronically signed by: Jensen Chapman M.D. 11/06/2021 7:15 PM I & O Totals 24 Hours 11/06/21 11/07/21 11/08/21 06:59 06:59 06:59 Intake Total 900 / 900 Output Total 600 / 600 Balance 300 / 300 Cumulative 11/06/21 17:05 thru 11/07/21 06:00 Intake Total 900 Output Total 600 Balance 300 RT Ventilator Mngmt (Last Documented) Ventilator Ordered Settings Respiratory Rate 19 11/07/21 06:44 Ventilator - PT Measurements Respiratory Rate 19 Resident Activity Tracking Resident Involvement: Resident Care Provided Care Provided: Adult Hospital Medicine (1) Right rib fracture Encounter type: initial encounter Fracture type: closed Rib fracture type: multiple ribs Qualified Code(s): S22.41XA - Multiple fractures of ribs, right side, initial encounter for closed fracture (2) Pneumothorax Encounter type: initial encounter Pneumothorax type: traumatic Qualified Code(s): S27.0XXA - Traumatic pneumothorax, initial encounter
[2021-11-07] MEDS: FAMOTIDINE 20 MG TAB PO SCH (08:18)
[2021-11-07] MEDS: ASCORBIC ACID 500 MG TAB PO SCH (08:18)
[2021-11-07] MEDS: CHOLECALCIFEROL 5,000 UNITS 125 MCG TAB PO SCH (08:19)
[2021-11-07] MEDS: LOSARTAN POTASSIUM 50 MG TAB PO SCH (08:19)
[2021-11-07] MEDS: hydroCHLOROthiazide 25 MG TAB PO SCH (08:19)
[2021-11-07] MEDS: MAGNESIUM OXIDE 400 MG TAB PO SCH (08:19)
[2021-11-07] MEDS: FLUTICASONE/VILANTEROL 100/25MCG 14 PUFFS/INHALER INH SCH (08:20)
[2021-11-07] MEDS: ZINC SULFATE 220 MG CAPSULE PO SCH (08:20)
--- NOTE | 2021-11-07 09:07 | XRay Report ---
SINGLE VIEW CHEST CLINICAL HISTORY: Pneumothorax. FINDINGS: An AP, portable, upright chest radiograph is compared to chest x-ray and chest CT dated 10/19. The cardiomediastinal silhouette is unremarkable noting atherosclerotic calcification of the thoracic aorta. Sulaiman is edematous change is again noted. There is dense airspace consolidation and atelectasis at the medial right lung base. A small right pleural effusion is observed. A small to mod erate right pneumothorax is similar in appearance to yesterday. This extends from the apex to the sandra g base, with approximately 2 cm of apical pleural separation. Right posterior rib fractures were bett er assessed on the recent CT scan. IMPRESSION: 1. A small to moderate right-sided pneumothorax is similar in appearance to yesterday. 2. There is dense airspace consolidation/atelectasis and a small pleural effusion at the right lung b ase. 3. Right posterior rib fractures were better assessed on CT. ACT 112: Negative or not required by law. Electronically signed by: Jensen Chapman M.D. 11/07/2021 9:06 AM
[2021-11-07] MEDS ORDERED: traMADol HCL 50 MG TABLET PO PRN (10:08)
[2021-11-07] MEDS ORDERED: HYDROmorphone INJ 0.5 MG/0.5 ML SYR IV STA (10:08)
[2021-11-07] MEDS ORDERED: oxyCODONE HCL IR 5 MG TAB (IMMEDIATE RELEASE) PO PRN (10:08)
[2021-11-07] MEDS: ACETAMINOPHEN 500 MG TAB PO SCH ×2 (10:33→18:13)
--- NOTE | 2021-11-07 10:59 | Hospitalist Progress Note ---
Date of Service November 07, 2021 Assessment & Plan (1) Pneumothorax: Plan: Due to fall on ice. CT chest on 11/06 showed acute comminuted right posterior 7th and 8th rib fractures, small/moderate right-sided PTX, and small hemothorax. - CC doctor consulted - Plan for right chest tube - Continue oxygen - Pain control (2) Hemothorax: Plan: See above (3) HTN (hypertension): Plan: BP is 140/90 today. - Continue HCTZ and losartan (4) High cholesterol: Plan: - Continue atorvastatin 20 mg daily (5) Acid reflux: Plan: - Continue famotidine (6) COPD (chronic obstructive pulmonary disease): Plan: No wheezing today. - Continue home maintenance inhaler - Continue albuterol PRN (7) Hypothyroidism: Plan: Last TSH from 2017. - Continue levothyroxine 137 mcg every morning - Repeat TSH (8) Insomnia: Plan: - Continue trazodone at 50 mg in the evening (9) DVT prophylaxis: Plan: SCDs - Defer heparin for hemothorax and plan for chest tube Admission and Anticipated Discharge Date Admission Date: November 06, 2021 Subjective With continue right rib pain. No major shortness of breath. Reports no fevers/chills, shortness of breath, abdominal pain, nausea, or vomiting. Physical Exam Constitutional: WD/WN, vitals as above Eyes: EOM intact bilaterally; no conjunctival abnormality ENMT: external ear and nose normal, oropharynx normal Neck: trachea midline, no thyromegaly normal visual inspection Respiratory: normal respiratory effort, lungs clear to auscultation no respiratory distress Cardiovascular: RRR, no murmur, no edema Gastrointestinal (Abdomen): Inspection/Auscultation: abdomen normal to inspection; abdomen not distended Musculoskeletal: no cyanosis or clubbing, extremities motor strength 5/5 Head/Neck/Chest: + chest tenderness (Right) Skin: no rashes, warm and dry Neurologic: moves all extremities and awake Psychiatric: Orientation: alert, oriented to person and cooperative Results & Data Results & Data ([facility]) Vital Signs (Past 12 Hours) Vital Signs Temp Pulse Pulse Pulse Resp BP Pulse Ox 11/07/21 07:08 81 11/07/21 06:44 36.8 C 74 19 138/88 93 11/07/21 03:16 37.0 C 76 18 108/71 92 11/07/21 00:19 36.6 C 75 20 150/85 H 95 11/06/21 22:53 68 PG Care Time/CCT Total # of Minutes Spent Total Time Spent with Patient: Total time spent is greater than 50% in coordination of care (as documented) at patient's floor/unit and/or counseling patient: Coding Level of Care Code 30642 Subseq Hosp Care Lvl 3 Diagnoses Pneumothorax S27.0XXA Encounter type: initial encounter Pneumothorax type: traumatic Hemothorax J94.2 HTN (hypertension) I10 High cholesterol E78.00 Acid reflux K21.9 COPD (chronic obstructive pulmonary disease) J44.9 Hypothyroidism E03.9 Insomnia G47.00 DVT prophylaxis Z29.9 (1) Pneumothorax Encounter type: initial encounter Pneumothorax type: traumatic Qualified Code(s): S27.0XXA - Traumatic pneumothorax, initial encounter
[2021-11-07] MEDS ORDERED: LIDOCAINE 1% LOCAL 20 ML VIAL ONE (11:06)
--- NOTE | 2021-11-07 12:08 | Billing Data ---
Date of Service November 07, 2021 Coding Level of Care Code 57801 Inpt Consult Level 4
--- NOTE | 2021-11-07 12:10 | Procedure Note ---
Procedure Note Date of Service November 07, 2021 Note Procedure Date: noted above Procedure: Tube thoracostomy Pre-procedure Diagnosis: Pneumothorax Post-procedure Diagnosis: same as above Prior to Procedure: Informed Consent: The risks, benefits, indications, potential complications, and alternatives were explained to the patient and informed consent obtained. Attending Staff: Yinka Oropeza DO Resident/Physician Hydrometeorologist: Philly Indications: The patient is a 61-year-old male with recent fall on ice and traumatic pneumothorax requiring tube thoracostomy The identity of the patient was confirmed and a bedside time out was performed. Description of Procedure: Patient positioned, the right mid clavicular line at the second intercostal space was prepped with chlorhexidine and draped in usual sterile fashion. 5 mL of 1% Lidocaine without epinephrine was used to anesthetize the area. A stab incision was made in the mid mid clavicular line. The Thora vent device was inserted with care over the superior portion of the rib and deflection of the valve was noted. The device was secured. This was connected to a Pleur-evac which did demonstrate a grade 1 air leak. Specimen: Not applicable Complications: None Estimated blood loss: Trace Post procedure chest x-ray has been ordered and reviewed Coding CPT Codes Pulmonary/Thoracic - Pulmonary and Thoracic: 35663 Tube thoracostomy ([id number]) [facility] [place] Procedure Codes ([place]) Pulmonary/Thoracic Procedure 1: Pulmonary and Thoracic: 83739 Tube thoracostomy
--- NOTE | 2021-11-07 12:58 | XRay Report ---
XR chest 1V portable at 12:24 PM CLINICAL HISTORY: Status post chest tube placement on the right. Follow-up pneumothorax.. COMPARISON STUDY: Portable chest from 11/07/2021 and TECHNIQUE: 1 view of the chest FINDINGS: Single frontal view of the chest demonstrates the cardiomediastinal silhouette to be within normal li mits. There has been interval placement of a right-sided chest tube superiorly for pneumothorax. Joshi josie, the pneumothorax is actually increased in size. The left hemithorax is clear. There is no eviden ce for pleural effusion. There is no evidence for vascular congestion. There is no acute osseous path ology. IMPRESSION: Status post placement of right-sided chest tube. However, the previously identified right pneumothorax has actually increased in size. The referring clinician was contacted with these results by [employer] (acquired by [employer] in 2014) ACT 112: Negative or not required by law. Electronically signed by: Altaf Brenner M.D. 11/07/2021 12:56 PM
[2021-11-07] MEDS: HYDROmorphone INJ 0.5 MG/0.5 ML SYR IV PRN ×3 (15:46→23:18)
[2021-11-08] MEDS: ACETAMINOPHEN 500 MG TAB PO SCH ×3 (02:20→17:52)
[2021-11-08] MEDS: LEVOTHYROXINE SODIUM 137 MCG TABLET PO SCH (05:30)
[2021-11-08] MEDS: HYDROmorphone INJ 0.5 MG/0.5 ML SYR IV PRN ×3 (05:38→22:17)
[2021-11-08 06:06] LABS: Hematocrit (blood only) 41.1 % (42-52); Hemoglobin 14.1 g/dL (14.0-18.0); Mean Corpuscular Hemoglobin 33.8 pg (25-34); Mean Corpuscular Hgb Conc 34.3 g/dL (32-36); Mean Corpuscular Volume 98.6 fL (80-100); Mean Platelet Volume 9.9 fL (7.4-10.4); Platelet Count 206 K/uL (130-400); RDW Coefficient of Variation 13.7 % (11.5-14.5); RDW Standard Deviation 49.2 fL (36.4-46.3); Red Blood Count 4.17 M/uL (4.7-6.1); White Blood Count 11.79 K/uL (4.8-10.8)
[2021-11-08 06:34] LABS: Calcium 8.7 mg/dl (8.5-10.1); Creatinine Clr Calc Pharmacy 116.4 ml/min; Est GFR (African American) 116.4 ml/min; Est GFR (Non-African American) 100.4 ml/min
[2021-11-08 06:59] LABS: Thyroid Stimulating Hormone 8.339 uIu/ml (0.300-4.500)
--- NOTE | 2021-11-08 07:13 | XRay Report ---
SINGLE VIEW CHEST CLINICAL HISTORY: Pneumothorax status post chest tube. FINDINGS: An AP, portable, upright chest radiograph is compared to studies dated 11/07/2021. Correlati on is made with chest CT dated 11/06/2021. The cardiomediastinal silhouette is unremarkable noting ath erosclerotic calcification of the thoracic aorta. Emphysematous change is again noted. There is dense airspace consolidation and atelectasis at the medial right lung base. A chest tube has been placed i n the right upper thorax. There is a small residual right apical pneumothorax A small right pleural e ffusion is again noted. Atelectasis is seen at the left lung base. Right posterior rib fractures were better assessed on the recent CT scan. IMPRESSION: 1. A right-sided chest tube has been placed. There is only a small residual right apical pneumothorax . 2. There is dense airspace consolidation/atelectasis and a small pleural effusion at the right lung b ase. 3. Right posterior rib fractures were better assessed on CT. ACT 112: Negative or not required by law. Electronically signed by: Jensen Chapman M.D. 11/08/2021 7:12 AM
[2021-11-08 07:44] LABS: T4 Free Thyroxine 0.85 ng/dl (0.61-1.60)
--- NOTE | 2021-11-08 08:27 | Critical Care Progress Note ---
Date of Service November 08, 2021 Assessment & Plan (1) Pneumothorax: Plan: Continue current chest tube management -Increase wall suction to -20 cm water (2) Bullous emphysema: Plan: Emphysematous changes most likely secondary to tobacco dependence (3) Tobacco dependence: Plan: Discussed need for tobacco abstinence Admission and Anticipated Discharge Date Admission Date: November 07, 2021 Subjective Overnight patient's suction inadvertently became disconnected repeat x-ray was obtained which showed mild improvement and he was reattached to suction Review of Systems Review of Systems: No shortness of breath chest pain at chest tube site when moving as well as pain when coughing secondary to rib fractures Physical Exam Physical Exam: General: Alert. nontoxic. Winces when coughs Skin: Warm, dry, Head: Atraumatic Ears, nose, mouth and throat: airway patent Cardiovascular: Normal peripheral perfusion Respiratory: no respiratory distress, Thora vent present anterior chest mid axillary line -Continued grade 1 airleak Gastrointestinal: Non distended Musculoskeletal: No deformity Results & Data Results & Data ([facility]) Vital Signs (Past 12 Hours) Vital Signs Temp Pulse Resp BP Pulse Ox 11/07/21 23:07 36.6 C 69 18 119/79 94 Critical Care Results & Data Vital Signs (Past 12 Hours) Vital Signs Temp Pulse Resp BP Pulse Ox 11/07/21 23:07 36.6 C 69 18 119/79 94 Lab & Micro Results (Past 24 Hours) RBC 4.17 M/uL (4.7-6.1) L 11/08/21 WBC 11.79 K/uL (4.8-10.8) H 11/08/21 Hgb 14.1 g/dL (14.0-18.0) 11/08/21 Hct 41.1 % (42-52) L 11/08/21 MCV 98.6 fL (80-100) 11/08/21 MCH 33.8 pg (25-34) 11/08/21 MCHC 34.3 g/dL (32-36) 11/08/21 RDW Standard Deviation 49.2 fL (36.4-46.3) H 11/08/21 RDW Coefficient of Variation 13.7 % (11.5-14.5) 11/08/21 Plt Count 206 K/uL (130-400) 11/08/21 MPV 9.9 fL (7.4-10.4) 11/08/21 Na 134 mmol/L (136-145) L 11/08/21 K 4.0 mmol/L (3.5-5.1) 11/08/21 Cl 102 mmol/L (98-107) 11/08/21 CO2 28 mmol/L (21-32) 11/08/21 Anion Gap 4 (3-11) 11/08/21 BUN 9 mg/dl (6-23) 11/08/21 Creatinine 0.75 mg/dl (0.6-1.4) 11/08/21 Estimated GFR ( Amer) 116.4 ml/min 11/08/21 Estimated GFR (Non-Af Amer) 100.4 ml/min 11/08/21 BUN/Creatinine Ratio 12.0 (10-20) 11/08/21 Glu 114 mg/dl (70-99(Fasting)) H 11/08/21 Ca 8.7 mg/dl (8.5-10.1) 11/08/21 Calcium Level 8.7 mg/dl (8.5-10.1) 11/08/21 05:27 11/08/21 Diagnostic Findings (Past 24 Hours) Chest X-Ray 11/07/21 07:34 SINGLE VIEW CHEST CLINICAL HISTORY: Pneumothorax. FINDINGS: An AP, portable, upright chest radiograph is compared to chest x-ray and chest CT dated 11/06/2021. The cardiomediastinal silhouette is unremarkable noting atherosclerotic calcification of the thoracic aorta. Sulaiman is edematous change is again noted. There is dense airspace consolidation and atelectasis at the medial right lung base. A small right pleural effusion is observed. A small to moderate right pneumothorax is similar in appearance to yesterday. This extends from the apex to the lung base, with approximately 2 cm of apical pleural separation. Right posterior rib fractures were better assessed on the recent CT scan. IMPRESSION: 1. A small to moderate right-sided pneumothorax is similar in appearance to yesterday. 2. There is dense airspace consolidation/atelectasis and a small pleural effusion at the right lung base. 3. Right posterior rib fractures were better assessed on CT. ACT 112: Negative or not required by law. Electronically signed by: Jensen Chapman M.D. 11/07/2021 9:06 AM Chest X-Ray 11/07/21 12:04 XR chest 1V portable at 12:24 PM CLINICAL HISTORY: Status post chest tube placement on the right. Follow-up pneumothorax.. COMPARISON STUDY: Portable chest from 11/07/2021 and TECHNIQUE: 1 view of the chest FINDINGS: Single frontal view of the chest demonstrates the cardiomediastinal silhouette to be within normal limits. There has been interval placement of a right-sided chest tube superiorly for pneumothorax. However, the pneumothorax is actually increased in size. The left hemithorax is clear. There is no evidence for pleural effusion. There is no evidence for vascular congestion. There is no acute osseous pathology. IMPRESSION: Status post placement of right-sided chest tube. However, the previously identified right pneumothorax has actually increased in size. The referring clinician was contacted with these results by [employer] ACT 112: Negative or not required by law. Electronically signed by: Altaf Brenner M.D. 11/07/2021 12:56 PM Chest X-Ray 11/07/21 23:53 SINGLE VIEW CHEST CLINICAL HISTORY: Pneumothorax status post chest tube. FINDINGS: An AP, portable, upright chest radiograph is compared to studies dated 11/07/2021. Correlation is made with chest CT dated 11/06/2021. The cardiomediastinal silhouette is unremarkable noting atherosclerotic calcification of the thoracic aorta. Emphysematous change is again noted. There is dense airspace consolidation and atelectasis at the medial right lung base. A chest tube has been placed in the right upper thorax. There is a small residual right apical pneumothorax A small right pleural effusion is again noted. At electasis is seen at the left lung base. Right posterior rib fractures were better assessed on the recent CT scan. IMPRESSION: 1. A right-sided chest tube has been placed. There is only a small residual right apical pneumothorax. 2. There is dense airspace consolidation/atelectasis and a small pleural effusion at the right lung base. 3. Right posterior rib fractures were better assessed on CT. ACT 112: Negative or not required by law. Electronically signed by: Jensen Chapman M.D. 11/08/2021 7:12 AM I & O Totals 24 Hours 11/07/21 11/08/21 11/09/21 06:59 06:59 06:59 Intake Total 900 / 900 Output Total 600 / 600 948 / 948 Balance 300 / 300 -948 / -948 Cumulative 11/06/21 17:05 thru 11/08/21 05:29 Intake Total 900 Output Total 1548 Balance -648 RT Ventilator Mngmt (Last Documented) Ventilator Ordered Settings Respiratory Rate 18 11/07/21 23:07 Ventilator - PT Measurements Respiratory Rate 18 Coding Level of Care Code 37352 Subseq Hosp Care Lvl 2 Diagnoses Pneumothorax S27.0XXA Encounter type: initial encounter Pneumothorax type: traumatic Bullous emphysema J43.9 Tobacco dependence F17.200 (1) Pneumothorax Encounter type: initial encounter Pneumothorax type: traumatic Qualified Code(s): S27.0XXA - Traumatic pneumothorax, initial encounter
[2021-11-08] MEDS: ZINC SULFATE 220 MG CAPSULE PO SCH (08:42)
[2021-11-08] MEDS: CHOLECALCIFEROL 5,000 UNITS 125 MCG TAB PO SCH (08:43)
[2021-11-08] MEDS: hydroCHLOROthiazide 25 MG TAB PO SCH (08:43)
[2021-11-08] MEDS: ASCORBIC ACID 500 MG TAB PO SCH (08:43)
[2021-11-08] MEDS: LOSARTAN POTASSIUM 50 MG TAB PO SCH (08:43)
[2021-11-08] MEDS: MAGNESIUM OXIDE 400 MG TAB PO SCH (08:43)
[2021-11-08] MEDS: PSYLLIUM 58.6% POWDER PACKET PO SCH ×2 (08:44→14:06)
[2021-11-08] MEDS: FAMOTIDINE 20 MG TAB PO SCH (08:44)
[2021-11-08] MEDS: FLUTICASONE/VILANTEROL 100/25MCG 14 PUFFS/INHALER INH SCH (08:45)
--- NOTE | 2021-11-08 17:34 | Hospitalist Progress Note ---
Date of Service November 08, 2021 Assessment & Plan (1) Pneumothorax: Plan: 2nd to trauma with resulting rib fractures. CT chest on 11/06 showed acute comminuted right posterior 7th and 8th rib fractures, small/moderate right-sided PTX, and small hemothorax. Rib fractures could have caused the pneumo OR a bullae ruptured OR both. Either way s/p chest tube on right hospital day #1. Defer management to Dr Oropeza. CXR in am. Pain control. add lidoderm for pain. cont scheduled tylenol. (2) Hemothorax: Plan: See above 2nd trauma (3) Pneumonia: Plan: right basilar consolidation likely RLL collapse but given the purulent sputum can't rule out element of infection start augmentin 875mg BID (4) HTN (hypertension): Plan: continue HCTZ and losartan (5) Hyponatremia: Plan: appears chronic 2nd HCTZ? repeat BMP am (6) High cholesterol: Plan: Continue atorvastatin 20 mg daily (7) Acid reflux: Plan: Continue famotidine (8) COPD (chronic obstructive pulmonary disease): Plan: Cont home inhalers no exacerbation at this time cont O2 for #1 (9) Hypothyroidism: Plan: TSH this am mildly elevated will ask about compliance with levothyroxine 137 mcg daily if compliant then increase to 150mcg/day (10) Insomnia: Plan: Continue trazodone at 50 mg in the evening (11) Constipation: Plan: add senna add miralax (12) Tobacco dependence: Plan: offered nicoderm he declined (13) DVT prophylaxis: Plan: SCDs - Defer heparin 2nd hemothorax Admission and Anticipated Discharge Date Admission Date: November 07, 2021 Subjective pt c/o pleuritic pain over right chest - chest tube site, rib fracture site, etc c/o constipation - no BM since prior to admission also with productive cough with sputum - purulent prior to his fall with rib Fx's/pneumo - was "feeling fine" ongoing tobacco use at home Review of Systems Review of Systems: gen - no fevers cv - see HPI; no central chest pain pulm - no hemoptysis; chest tube is draining some bloody fluid GI - bloating, constipation Physical Exam Physical Exam: gen - sitting at side of bed eating dinner, at bedside; occasional splinting from cough/pleuritic pain mouth - MMM neck - no JVD heart - RRR, s1 s2 lungs - decreased BS right base, occasional wheeze, no rales abd - soft NT; minimal distension; BS+ ext - no edema, pulses 2+ b/l Results & Data Results & Data ([facility]) Vital Signs (Past 12 Hours) Vital Signs Temp Pulse Resp BP BP Pulse Ox 11/08/21 15:10 36.7 C 70 17 131/86 92 11/08/21 11:25 36.5 C 65 17 129/79 92 11/08/21 08:39 36.9 C 68 17 131/80 91 PG Care Time/CCT Total # of Minutes Spent Total Time Spent with Patient: Total time spent is greater than 50% in coordination of care (as documented) at patient's floor/unit and/or counseling patient: Coding Level of Care Code 90592 Subseq Hosp Care Lvl 3 Diagnoses Pneumothorax S27.0XXA Encounter type: initial encounter Pneumothorax type: traumatic Hemothorax J94.2 HTN (hypertension) I10 High cholesterol E78.00 Acid reflux K21.9 COPD (chronic obstructive pulmonary disease) J44.9 Hypothyroidism E03.9 Insomnia G47.00 DVT prophylaxis Z29.9 Hyponatremia E87.1 Constipation K59.00 Pneumonia J18.9 Tobacco dependence F17.200 (1) Pneumothorax Encounter type: initial encounter Pneumothorax type: traumatic Qualified Code(s): S27.0XXA - Traumatic pneumothorax, initial encounter
[2021-11-08] MEDS: SENNA 8.6 MG TAB PO SCH (19:08)
[2021-11-08] MEDS: AMOXICILLIN/CLAVULANATE 875 MG TAB PO SCH (19:08)
[2021-11-08] MEDS: LIDOCAINE 5% 1 PATCH TD SCH (19:09)
[2021-11-08] MEDS: guaiFENesin 600 MG TABCR PO SCH (19:28)
[2021-11-08] MEDS: traZODone HCL 50 MG TAB PO SCH (19:29)
[2021-11-08] MEDS: ATORVASTATIN 20 MG TAB PO SCH (19:29)
[2021-11-09] MEDS: ACETAMINOPHEN 500 MG TAB PO SCH (02:18)
[2021-11-09] MEDS: LEVOTHYROXINE SODIUM 137 MCG TABLET PO SCH (05:38)
[2021-11-09] MEDS: HYDROmorphone INJ 0.5 MG/0.5 ML SYR IV PRN (06:56)
[2021-11-09 08:10] LABS: BUN Creatinine Ratio 11.3 (10-20); Calcium 9.3 mg/dl (8.5-10.1); Creatinine Clr Calc Pharmacy 109.1 ml/min; Est GFR (African American) 113.3 ml/min; Est GFR (Non-African American) 97.8 ml/min; Potassium 4.5 mmol/L (3.5-5.1)
--- NOTE | 2021-11-09 08:39 | Critical Care Progress Note ---
Date of Service November 09, 2021 Assessment & Plan (1) Pneumothorax: Plan: Continue current chest tube management -wall suction to -15 cm water -Chest x-ray improved and air leak is less I am hopeful in the next 24 to 48 hours were able to get on waterseal and discontinue the chest tube. (2) Bullous emphysema: Plan: Emphysematous changes most likely secondary to tobacco dependence (3) Tobacco dependence: Plan: Discussed need for tobacco abstinence Admission and Anticipated Discharge Date Admission Date: November 07, 2021 Subjective Feels improved today still having pain with coughs and deep inspiration Review of Systems Review of Systems: As per subjective Physical Exam Physical Exam: General: Alert. nontoxic. Winces when coughs Skin: Warm, dry, Head: Atraumatic Ears, nose, mouth and throat: airway patent Cardiovascular: Normal peripheral perfusion Respiratory: no respiratory distress, Thora vent present anterior chest mid axillary line -Occasional grade 1 airleak with cough and deep inspiration -Improved when compared to yesterday Gastrointestinal: Non distended Musculoskeletal: No deformity Results & Data Results & Data ([facility]) Vital Signs (Past 12 Hours) Vital Signs Temp Pulse Resp BP Pulse Ox 11/09/21 07:34 36.9 C 73 16 145/91 H 91 11/08/21 22:52 36.6 C 67 16 131/82 93 Coding Level of Care Code 59231 Subseq Hosp Care Lvl 2 Diagnoses Pneumothorax S27.0XXA Encounter type: initial encounter Pneumothorax type: traumatic Bullous emphysema J43.9 Tobacco dependence F17.200 (1) Pneumothorax Encounter type: initial encounter Pneumothorax type: traumatic Qualified Code(s): S27.0XXA - Traumatic pneumothorax, initial encounter
[2021-11-09] MEDS: ASCORBIC ACID 500 MG TAB PO SCH (09:18)
[2021-11-09] MEDS: CHOLECALCIFEROL 5,000 UNITS 125 MCG TAB PO SCH (09:18)
[2021-11-09] MEDS: AMOXICILLIN/CLAVULANATE 875 MG TAB PO SCH ×2 (09:18→18:50)
[2021-11-09] MEDS: guaiFENesin 600 MG TABCR PO SCH ×2 (09:19→19:33)
[2021-11-09] MEDS: FLUTICASONE/VILANTEROL 100/25MCG 14 PUFFS/INHALER INH SCH (09:19)
[2021-11-09] MEDS: SENNA 8.6 MG TAB PO SCH (09:19)
[2021-11-09] MEDS: ZINC SULFATE 220 MG CAPSULE PO SCH (09:19)
[2021-11-09] MEDS: MAGNESIUM OXIDE 400 MG TAB PO SCH (09:20)
[2021-11-09] MEDS: LOSARTAN POTASSIUM 50 MG TAB PO SCH (09:20)
[2021-11-09] MEDS: hydroCHLOROthiazide 25 MG TAB PO SCH (09:20)
[2021-11-09] MEDS: LIDOCAINE 5% 1 PATCH TD SCH (09:20)
[2021-11-09] MEDS: POLYETHYLENE (MIRALAX) 17 GM PACK PO SCH (09:21)
--- NOTE | 2021-11-09 11:26 | XRay Report ---
XR chest 1V portable CLINICAL HISTORY: PTX TECHNIQUE: Single frontal radiograph of the chest was obtained. Comparison: Comparison is made to chest one view 11/07/2021 FINDINGS: A right chest tube is seen. Calcified aortic knob is seen. Lungs are underinflated. A small right api evan pneumothorax is again seen. Small airspace opacities are seen in the right lung base. No evidence of pleural effusion or pneumothorax. IMPRESSION: Stable small right apical pneumothorax. Chest tube is in place. ACT 112: Negative or not required by law. Electronically signed by: Melvin Lora M.D. 11/09/2021 11:24 AM
[2021-11-09] MEDS: FAMOTIDINE 20 MG TAB PO SCH (11:41)
--- NOTE | 2021-11-09 13:56 | Hospitalist Progress Note ---
Date of Service November 09, 2021 Assessment & Plan (1) Pneumothorax: Plan: 2nd to trauma with resulting rib fractures. CT chest on 11/06 showed acute comminuted right posterior 7th and 8th rib fractures, small/moderate right-sided PTX, and small hemothorax. Rib fractures could have caused the pneumo OR a bullae ruptured OR both. Either way s/p chest tube on right hospital day #1. Defer management to Dr Oropeza and pulmonary team. CXR this am with decreasing size of the pneumo. O2 sats on small amount NC O2 stable. Pain control with narcotics. lidoderm for pain. cont scheduled tylenol. pulmonary toilet. (2) Hemothorax: Plan: See above 2nd trauma small, improving (3) Pneumonia: Plan: right basilar consolidation likely RLL collapse but given the purulent sputum can't rule out element of infection cont augmentin 875mg BID - day #2 of such plan 7 days in total of Rx (4) HTN (hypertension): Plan: continue HCTZ and losartan (5) Hyponatremia: Plan: appears chronic 2nd HCTZ? Na today 130 would repeat BMP QOD for stability if any worsening consider serum osm, urine osm, urine Na levels (6) High cholesterol: Plan: Continue atorvastatin 20 mg daily (7) Acid reflux: Plan: Continue famotidine (8) COPD (chronic obstructive pulmonary disease): Plan: Cont home inhalers schedule albuterol 2 puffs QID for wheezing and to aid with cough/mucous clearance/pulm toilet (9) Hypothyroidism: Plan: TSH this am mildly elevated will ask about compliance with levothyroxine 137 mcg daily if compliant then increase to 150mcg/day (10) Insomnia: Plan: Continue trazodone at 50 mg in the evening (11) Constipation: Plan: cont senna cont miralax no evidence of ileus may need increase in 1 or both meds above (12) Tobacco dependence: Plan: offered nicoderm he declined (13) DVT prophylaxis: Plan: SCDs - Defer heparin 2nd hemothorax ambulation Admission and Anticipated Discharge Date Admission Date: November 07, 2021 Subjective no changes since yesterday still no bowel movement passing flatus, however, and denies nausea eating well still coughing - sputum production is ongoing - but a little better main issue still is that of right-sided pleuritic pain Review of Systems Review of Systems: gen - no fevers cv - no central cp; right-sided pain only (pleuritic) pulm - wheezing, cough, sputum production, mild REYES GI - no abd pain despite constipation Physical Exam Physical Exam: gen - looks better today than yesterday mouth - MMM neck - no JVD heart - RRR, s1 s2, 1/6 TRICIA LSB chest - right chest tube present 2nd intercostal space lungs - decreased BS right base, b/l wheezes, no rales abd - soft, NT, ND, BS+ ext - no edema, pulses 2+ b/l Results & Data Results & Data ([facility]) Vital Signs (Past 12 Hours) Vital Signs Temp Pulse Resp BP Pulse Ox 11/09/21 07:34 36.9 C 73 16 145/91 H 91 PG Care Time/CCT Total # of Minutes Spent Total Time Spent with Patient: Total time spent is greater than 50% in coordination of care (as documented) at patient's floor/unit and/or counseling patient: Coding Level of Care Code 15522 Subseq Hosp Care Lvl 2 Diagnoses Pneumothorax S27.0XXA Encounter type: initial encounter Pneumothorax type: traumatic Hemothorax J94.2 Pneumonia J18.9 HTN (hypertension) I10 Hyponatremia E87.1 High cholesterol E78.00 Acid reflux K21.9 COPD (chronic obstructive pulmonary disease) J44.9 Hypothyroidism E03.9 Insomnia G47.00 Constipation K59.00 Tobacco dependence F17.200 DVT prophylaxis Z29.9 (1) Pneumothorax Encounter type: initial encounter Pneumothorax type: traumatic Qualified Code(s): S27.0XXA - Traumatic pneumothorax, initial encounter
[2021-11-09] MEDS: ALBUTEROL HFA 8 GM INHALER INH SCH ×2 (15:37→20:12)
[2021-11-09] MEDS: ATORVASTATIN 20 MG TAB PO SCH (19:33)
[2021-11-09] MEDS: traZODone HCL 50 MG TAB PO SCH (21:24)
[2021-11-10] MEDS: LEVOTHYROXINE SODIUM 137 MCG TABLET PO SCH (05:39)
--- NOTE | 2021-11-10 08:05 | XRay Report ---
XR chest 1V portable HISTORY: 61 years-old Male PTX follow-up study in a patient with right-sided pneumothorax COMPARISON: Chest radiograph 11/09/2021 TECHNIQUE: Portable AP view of the chest FINDINGS: Tiny right apical pneumothorax with pleural separation of 7 mm slightly decreased in size from prior where it measured 10 mm. Chest tube distal tip terminates adjacent to the right lung apex. Cardiomediastinal and hilar silhouettes are unchanged. Trace right pleural effusion with unchanged bi basilar densities. Mild emphysema with interstitial coarsening. Bones appear grossly intact. Calcifie d plaque of the thoracic aorta. IMPRESSION: 1. Right hydropneumothorax with stable to slightly decreased size of the apical pneumothorax componen t. 2. Satisfactory positioning of the right-sided chest tube. 3. Emphysema with chronic interstitial coarsening. ACT 112: Negative or not required by law. The above report was generated using voice recognition software. It may contain grammatical, syntax o r spelling errors. Electronically signed by: Filippo Dwyer M.D. 11/10/2021 8:04 AM
[2021-11-10] MEDS: ALBUTEROL HFA 8 GM INHALER INH SCH ×4 (08:19→21:27)
[2021-11-10] MEDS: POLYETHYLENE (MIRALAX) 17 GM PACK PO SCH ×2 (08:38→21:21)
[2021-11-10] MEDS: FAMOTIDINE 20 MG TAB PO SCH (08:38)
[2021-11-10] MEDS: SENNA 8.6 MG TAB PO SCH (08:38)
[2021-11-10] MEDS: LOSARTAN POTASSIUM 50 MG TAB PO SCH (08:38)
[2021-11-10] MEDS: guaiFENesin 600 MG TABCR PO SCH ×2 (08:39→21:21)
[2021-11-10] MEDS: CHOLECALCIFEROL 5,000 UNITS 125 MCG TAB PO SCH (08:39)
[2021-11-10] MEDS: MAGNESIUM OXIDE 400 MG TAB PO SCH (08:39)
[2021-11-10] MEDS: ZINC SULFATE 220 MG CAPSULE PO SCH (08:39)
[2021-11-10] MEDS: ASCORBIC ACID 500 MG TAB PO SCH (08:39)
[2021-11-10] MEDS: hydroCHLOROthiazide 25 MG TAB PO SCH (08:39)
[2021-11-10] MEDS: AMOXICILLIN/CLAVULANATE 875 MG TAB PO SCH ×2 (08:39→17:29)
[2021-11-10] MEDS: LIDOCAINE 5% 1 PATCH TD SCH (08:40)
[2021-11-10] MEDS: FLUTICASONE/VILANTEROL 100/25MCG 14 PUFFS/INHALER INH SCH (08:40)
--- NOTE | 2021-11-10 09:22 | Hospitalist Progress Note ---
Date of Service November 10, 2021 Assessment & Plan (1) Pneumothorax: Plan: 2nd to trauma with resulting rib fractures. CT chest on 11/06 showed acute comminuted right posterior 7th and 8th rib fractures, small/moderate right-sided PTX, and small hemothorax. Rib fractures could have caused the pneumo OR a bullae ruptured OR both. Either way s/p chest tube on right hospital day #1. Defer management to Dr Oropeza and pulmonary team --> Dr Henry to see later today. Discussed and will place on water seal, repeat CXR in 4 hours CXR with stable/slight improvement as above O2 sats on small amount NC O2 stable -- remaining on 2L continuous for pneumothorax, SpO2 96% Pain control with narcotics. lidoderm for pain. cont scheduled tylenol pulmonary toilet, + mucinex (2) Hemothorax: Plan: See above 2nd trauma small, improving (3) Pneumonia: Plan: right basilar consolidation likely RLL collapse but given the purulent sputum can't rule out element of infection cont augmentin 875mg BID - day #3 of such plan 7 days in total of Rx (4) HTN (hypertension): Plan: continue HCTZ and losartan --> Will hold HCTZ for AM BP controlled, 112/73 currently. Slightly dry mm (5) Hyponatremia: Plan: appears chronic 2nd HCTZ? Na today 127 today --> States taking levothyroxine as prescribed. TSH elevated and will increase synthroid to 150mcg daily. Will need repeat TFT outpatient 4-6 weeks//further adjustments if any worsening consider serum osm, urine osm, urine Na levels -- pending (6) High cholesterol: Plan: Continue atorvastatin 20 mg daily (7) Acid reflux: Plan: Continue famotidine (8) COPD (chronic obstructive pulmonary disease): Plan: Cont home inhalers schedule albuterol 2 puffs QID for wheezing and to aid with cough/mucous clearance/pulm toilet (9) Hypothyroidism: Plan: TSH this am mildly elevated will ask about compliance with levothyroxine 137 mcg daily --> compliant and will increase to 150mcg daily. Need new rx at d/c and f/u PCP for repeat TFT outpatient (10) Insomnia: Plan: Continue trazodone at 50 mg in the evening (11) Constipation: Plan: cont senna cont miralax -- increase to BID no evidence of ileus may need increase in 1 or both meds above (12) Tobacco dependence: Plan: offered nicoderm he declined (13) DVT prophylaxis: Plan: SCDs - Defer heparin 2nd hemothorax ambulation encouraged (14) Vitamin D imbalance: Plan: Ca not elevated, but on supplementation Vit D checked, elevated. Holding futher supplementation Check PTH Monitor calcium levels -- of note, also on HCTZ which can contribute to elevations Plan: continued inpatient stay, repeat CXR this evening as hooking chest tube to suction per discussion with pulmonary who will see later today Admission and Anticipated Discharge Date Admission Date: November 07, 2021 Supervising Physician Co-Signing Physician Notes Attending Attestation - Chart reviewed, care plan d/w NANCIE Oleary. I agree w/ the mccauley components of her documentation. 61yo male with right-sided traumatic rib fractures and pneumothorax/hemothorax on right, s/p chest tube placement the day of presentation. CT management per pulmonary. Pain control. Other plans per Ms Oleary. Kalpesh Cordero MD Subjective patient seen this afternoon sitting up at side of bed eating lunch didn't take anything for pain yet but thinks he may need something -- discussed with RN and to check in 15 min and administer if needed. Clearing up more sputum with the mucinex and states breathing improved. Continued use incentive spirometer. Patient did have TSH slightly elevated in past but no increase and then was over treated prior to that. Had been taking correctly in am prior to other medications and discussed elevation/low sodium and increase to 150mcg daily and will need repeat TFT as outpatient for further adjustments if needed. He noted alternating doses was not ideal in the past but discussed undertreated currently. Review of Systems Review of Systems: All systems reviewed & are unremarkable except as noted in HPI & below Physical Exam Physical Exam: gen - WN, WD, no acute distress, sitting up at side of bed eating lunch mouth - slightly dry MM neck - no JVD heart - RRR, s1 s2, 1/6 TRICIA LSB chest - right chest tube present 2nd intercostal space lungs - decreased BS right base, b/l wheezes, no rales abd - soft, NT, ND, BS+ ext - no edema, pulses 2+ b/l Results & Data Results & Data ([facility]) Vital Signs (Past 12 Hours) Vital Signs Temp Pulse Resp BP Pulse Ox 11/10/21 08:19 60 16 95 11/10/21 07:54 36.5 C 66 16 112/73 90 11/09/21 22:29 36.7 C 77 17 114/75 94 Laboratory Results 11/10/21 11/10/21 11/10/21 Range/Units 11:24 11:24 11:05 WBC (4.8-10.8) K/uL RBC (4.7-6.1) M/uL Hgb (14.0-18.0) g/dL Hct (42-52) % MCV (80-100) fL MCH (25-34) pg MCHC (32-36) g/dL RDW Std Deviation (36.4-46.3) fL RDW Coeff of Shaylee (11.5-14.5) % Plt Count (130-400) K/uL MPV (7.4-10.4) fL Sodium (136-145) mmol/L Potassium (3.5-5.1) mmol/L Chloride (98-107) mmol/L Carbon Dioxide (21-32) mmol/L Anion Gap (3-11) BUN (6-23) mg/dl Creatinine (0.6-1.4) mg/dl Est Cr Clr Drug Dosing ml/min Est GFR ( Amer) ml/min Est GFR (Non-Af Amer) ml/min BUN/Creatinine Ratio (10-20) Glucose (70-99(Fasting)) mg/dl Osmolality 276 L (280-300) mOsm/kg Calcium (8.5-10.1) mg/dl PTH Intact (12.0-88.0) pg/ml Urine Osmolality Pending Ur Random Sodium 45 mmol/L 11/10/21 11/10/21 11/10/21 Range/Units 11:05 09:45 09:45 WBC 12.30 H (4.8-10.8) K/uL RBC 4.21 L (4.7-6.1) M/uL Hgb 14.2 (14.0-18.0) g/dL Hct 40.5 L (42-52) % MCV 96.2 (80-100) fL MCH 33.7 (25-34) pg MCHC 35.1 (32-36) g/dL RDW Std Deviation 46.4 H (36.4-46.3) fL RDW Coeff of Shaylee 13.3 (11.5-14.5) % Plt Count 213 (130-400) K/uL MPV 9.6 (7.4-10.4) fL Sodium 127 L (136-145) mmol/L Potassium 4.0 (3.5-5.1) mmol/L Chloride 92 L (98-107) mmol/L Carbon Dioxide 30 (21-32) mmol/L Anion Gap 5 (3-11) BUN 11 (6-23) mg/dl Creatinine 0.79 (0.6-1.4) mg/dl Est Cr Clr Drug Dosing 110.5 ml/min Est GFR ( Amer) 113.9 ml/min Est GFR (Non-Af Amer) 98.3 ml/min BUN/Creatinine Ratio 13.9 (10-20) Glucose 130 H (70-99(Fasting)) mg/dl Osmolality (280-300) mOsm/kg Calcium 8.9 (8.5-10.1) mg/dl PTH Intact 27.6 (12.0-88.0) pg/ml Urine Osmolality Ur Random Sodium mmol/L Diagnostic Findings Chest X-Ray 11/10/21 07:00 XR chest 1V portable HISTORY: 61 years-old Male PTX follow-up study in a patient with right-sided pneumothorax COMPARISON: Chest radiograph 11/09/2021 TECHNIQUE: Portable AP view of the chest FINDINGS: Tiny right apical pneumothorax with pleural separation of 7 mm slightly decreased in size from prior where it measured 10 mm. Chest tube distal tip terminates adjacent to the right lung apex. Cardiomediastinal and hilar silhouettes are unchanged. Trace right pleural effusion with unchanged bibasilar densities. Mild emphysema with interstitial coarsening. Bones appear grossly intact. Calcified plaque of the thoracic aorta. IMPRESSION: 1. Right hydropneumothorax with stable to slightly decreased size of the apical pneumothorax component. 2. Satisfactory positioning of the right-sided chest tube. 3. Emphysema with chronic interstitial coarsening. ACT 112: Negative or not required by law. The above report was generated using voice recognition software. It may contain grammatical, syntax or spelling errors. Electronically signed by: Filippo Dwyer M.D. 11/10/2021 8:04 AM PG Care Time/CCT Total # of Minutes Spent Total Time Spent with Patient: Total time spent is greater than 50% in coordination of care (as documented) at patient's floor/unit and/or counseling patient: Coding Level of Care Code 52953 Subseq Hosp Care Lvl 3 Diagnoses Pneumothorax S27.0XXA Encounter type: initial encounter Pneumothorax type: traumatic Hemothorax J94.2 Pneumonia J18.9 HTN (hypertension) I10 Hyponatremia E87.1 High cholesterol E78.00 Acid reflux K21.9 COPD (chronic obstructive pulmonary disease) J44.9 Hypothyroidism E03.9 Insomnia G47.00 Constipation K59.00 Tobacco dependence F17.200 DVT prophylaxis Z29.9 Vitamin D imbalance (1) Pneumothorax Encounter type: initial encounter Pneumothorax type: traumatic Qualified Code(s): S27.0XXA - Traumatic pneumothorax, initial encounter
[2021-11-10 10:00] LABS: Hematocrit (blood only) 40.5 % (42-52); Hemoglobin 14.2 g/dL (14.0-18.0); Mean Corpuscular Hemoglobin 33.7 pg (25-34); Mean Corpuscular Hgb Conc 35.1 g/dL (32-36); Mean Corpuscular Volume 96.2 fL (80-100); Mean Platelet Volume 9.6 fL (7.4-10.4); Platelet Count 213 K/uL (130-400); RDW Coefficient of Variation 13.3 % (11.5-14.5); RDW Standard Deviation 46.4 fL (36.4-46.3); Red Blood Count 4.21 M/uL (4.7-6.1)
[2021-11-10 10:18] LABS: BUN Creatinine Ratio 13.9 (10-20); Calcium 8.9 mg/dl (8.5-10.1); Creatinine Clr Calc Pharmacy 110.5 ml/min; Est GFR (African American) 113.9 ml/min; Est GFR (Non-African American) 98.3 ml/min
[2021-11-10] MEDS ORDERED: SODIUM CHLORIDE 0.9% 1000ML 1,000 ML IV SCH (12:30)
[2021-11-10] MEDS: HYDROmorphone INJ 0.5 MG/0.5 ML SYR IV PRN (15:46)
--- NOTE | 2021-11-10 17:24 | Pulmonology Progress Note ---
Date of Service November 10, 2021 Assessment & Plan (1) Traumatic pneumothorax: (2) Pulmonary emphysema: Plan: Thora vent placed to waterseal. We will repeat a chest x-ray at 6 PM. If chest x-ray show stability, will clamp the Thora vent and repeat a chest x-ray in another 4 hours. Continue supplemental oxygen to maintain sats above 92%. May need to consider VATS for definitive management if he continues with the prolonged air leak Discussed with hospitalist team. Admission and Anticipated Discharge Date Admission Date: November 07, 2021 Subjective Patient seen and examined. His is present at bedside. He denies any significant chest pain or shortness of breath. He was on suction earlier and is now on waterseal. He continues to have a small air leak. Review of Systems Review of Systems: All systems reviewed & are unremarkable except as noted in HPI & below Physical Exam Physical Exam: General: Alert. nontoxic. Winces when coughs Skin: Warm, dry, Head: Atraumatic Ears, nose, mouth and throat: airway patent Cardiovascular: Normal peripheral perfusion Respiratory: no respiratory distress, Thora vent present anterior chest mid ax illary line -Occasional grade 1 airleak with cough and deep inspiration Gastrointestinal: Non distended Musculoskeletal: No deformity Neuro: Nonfocal Results & Data Results & Data ([facility]) Vital Signs (Past 12 Hours) Vital Signs Temp Pulse Resp BP Pulse Ox 11/10/21 10:48 58 L 96 11/10/21 08:19 60 16 95 11/10/21 07:54 36.5 C 66 16 112/73 90 PG Care Time/CCT Total # of Minutes Spent Total Time Spent with Patient: Total time spent is greater than 50% in coordination of care (as documented) at patient's floor/unit and/or counseling patient: Coding Level of Care Code 53460 Subseq Hosp Care Lvl 2 Diagnoses Traumatic pneumothorax S27.0XXA Pulmonary emphysema J43.9
--- NOTE | 2021-11-10 21:04 | XRay Report ---
XR chest 1V portable CLINICAL HISTORY: f/u TECHNIQUE: Single frontal radiograph of the chest was obtained. Comparison: Comparison is made to chest one view 11/10/2021 FINDINGS: Right chest tube is seen. Calcified aortic knob is seen. Interval significant enlargement of right pn eumothorax. IMPRESSION: Interval significant increase in right pneumothorax with collapse of the right lower lung. Right ches t tube projects over the right thoracic cavity. A call was placed with the patient's provider Dr. Connelly at the time of dictation. ACT 112: Negative or not required by law. Electronically signed by: Melvin Lora M.D. 11/10/2021 9:02 PM
--- NOTE | 2021-11-10 21:09 | XRay Report ---
XR chest 1V portable CLINICAL HISTORY: follow up enlarging ptx TECHNIQUE: Single frontal radiograph of the chest was obtained. Comparison: Comparison is made to chest one view 11/10/2021 at 1730 hours FINDINGS: Right chest tube is seen. The cardiomediastinal silhouette is normal. Atelectasis is seen at the righ t greater than left lower lung. There is a right pneumothorax which is significantly decreased from p rior exam. IMPRESSION: Interval significant decrease in right pneumothorax. Bilateral atelectatic changes are seen. ACT 112: Negative or not required by law. Electronically signed by: Melvin Lora M.D. 11/10/2021 9:07 PM
[2021-11-10] MEDS: traZODone HCL 50 MG TAB PO SCH (21:21)
[2021-11-10] MEDS: ATORVASTATIN 20 MG TAB PO SCH (21:21)
[2021-11-11] MEDS: LEVOTHYROXINE SODIUM 150 MCG TABLET PO SCH (05:47)
--- NOTE | 2021-11-11 07:41 | Hospitalist Progress Note ---
Date of Service November 11, 2021 Assessment & Plan (1) Pneumothorax: Plan: 2nd to trauma with resulting rib fractures. CT chest on 11/06 showed acute comminuted right posterior 7th and 8th rib fractures, small/moderate right-sided PTX, and small hemothorax. Rib fractures could have caused the pneumo OR a bullae ruptured OR both. Either way s/p chest tube on right hospital day #1. Defer management to Dr Oropeza and pulmonary team --> Dr Henry to see later today. Discussed and will place on water seal, repeat CXR in 4 hours CXR with stable/slight improvement as above O2 sats on small amount NC O2 stable -- remaining on 2L continuous for pneumothorax, SpO2 96% 11/11/21 --> hooked to water seal yesterday, repeat CXR in 4 hours with significant worsening of PTX/collapse of R lobe --> placed back to suction, repeat CXR with some improvement and continued overnight Repeat CXR this morning with improvement and almost resolution, continued opacity r lobe, likely atelectatic Discussed with pulm and would likely need to pursue transfer for consideration for VATS given continued air leak and 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 encouraged use to allow for better inspiration/use of incentive spirometer lidoderm for pain. cont scheduled tylenol pulmonary toilet, + mucinex augmentin for pneumonia (day 4/7) (2) Hemothorax: Plan: See above 2nd trauma small, improving (3) Pneumonia: Plan: right basilar consolidation likely RLL collapse but given the purulent sputum can't rule out element of infection cont augmentin 875mg BID - day #4 of such plan 7 days in total of Rx WBC now wnl, afebrile (4) HTN (hypertension): Plan: continue HCTZ and losartan --> Will hold HCTZ currently for slightly drm mm --> improved BP controlled, 123/77 currently. resume HCTZ in am (5) Hyponatremia: Plan: appears chronic 2nd HCTZ? Na today 127 today --> States taking levothyroxine as prescribed. TSH elevated and will increase synthroid to 150mcg daily. Will need repeat TFT outpatient 4-6 weeks//further adjustments if any worsening consider serum osm, urine osm, urine Na levels -- pending (6) High cholesterol: Plan: Continue atorvastatin 20 mg daily (7) Acid reflux: Plan: Continue famotidine (8) COPD (chronic obstructive pulmonary disease): Plan: Cont home inhalers schedule albuterol 2 puffs QID for wheezing and to aid with cough/mucous clearance/pulm toilet (9) Hypothyroidism: Plan: TSH this am mildly elevated will ask about compliance with levothyroxine 137 mcg daily --> compliant and will increase to 150mcg daily. Need new rx at d/c and f/u PCP for repeat TFT outpatient (10) Insomnia: Plan: Continue trazodone at 50 mg in the evening (11) Constipation: Plan: cont senna cont miralax -- increase to BID no evidence of ileus may need increase in 1 or both meds above half dose mag citrate for today, but continues to pass gas (12) Tobacco dependence: Plan: offered nicoderm he declined (13) DVT prophylaxis: Plan: SCDs - Defer heparin 2nd hemothorax ambulation encouraged (14) Vitamin D imbalance: Plan: Ca not elevated, but on supplementation Vit D checked, elevated. Holding futher supplementation -- STOP at discharge Check PTH -- wnl Monitor calcium levels -- of note, also on HCTZ which can contribute to elevations Plan: [facility] for possible [facility]ATS but continued inpatient stay, stable at this time with chest tube continued hooked to suction Admission and Anticipated Discharge Date Admission Date: November 07, 2021 Supervising Physician Co-Signing Physician Notes Attending Attestation - Chart reviewed, care plan d/w NANCIE Oleary. I agree w/ the mccauley components of her documentation. 61yo male with right-sided traumatic rib fractures and pneumothorax/hemothorax on right, s/p chest tube placement the day of presentation. CT management per pulmonary. Unfortunately he continues to have an air leak. Chest tube placed back to suction today after chest x-ray following water seal showed worsening pneumothorax. Ultimately patient may need a VATS procedure. Cont pain control. Kalpesh Cordero MD Subjective patient eval this morning had increased sob/discomfort last evening after hooking chest tube to water seal. discussed worsening on repeat cxr prior to re-hooking back up to suction. cxr today with improvement. continues to have small air leak -- messaged pulm for review but did discuss with patient possibility of need for transfer for consideration for VATS. He would like some time to discuss with about kehinde vs michelle for preference. having pain today with inspiration but not taking anything -- states he wants to wait a little bit and see prior to when gets here so that he can walk the halls a little. still coughing up sputum. no fever/chills. No increased shortness of breath or chest pain. no fever, chills, abdominal pain, nausea/vomiting or difficulty with eating. Review of Systems Review of Systems: All systems reviewed & are unremarkable except as noted in HPI & below Physical Exam Physical Exam: gen - WN, WD, no acute distress, sitting up in bed, no acute distress mouth - MMM neck - no JVD heart - RRR, s1 s2, 1/6 TRICIA LSB chest - right chest tube present 2nd intercostal space, drain with continued 1+ air leak, bloody drainage lungs - decreased BS right base, b/l wheezes, no rales abd - soft, NT, ND, BS+ ext - no edema, pulses 2+ b/l Results & Data Results & Data ([facility]) Vital Signs (Past 12 Hours) Vital Signs Temp Pulse Resp BP BP Pulse Ox 11/11/21 07:37 36.5 C 65 16 111/75 95 11/10/21 23:29 36.9 C 73 18 115/72 93 Laboratory Results 11/11/21 11/11/21 11/10/21 Range/Units 08:07 08:07 11:24 WBC 9.65 (4.8-10.8) K/uL RBC 4.31 L (4.7-6.1) M/uL Hgb 14.5 (14.0-18.0) g/dL Hct 41.4 L (42-52) % MCV 96.1 (80-100) fL MCH 33.6 (25-34) pg MCHC 35.0 (32-36) g/dL RDW Std Deviation 46.2 (36.4-46.3) fL RDW Coeff of Shaylee 13.2 (11.5-14.5) % Plt Count 232 (130-400) K/uL MPV 9.6 (7.4-10.4) fL Immature Gran % (Auto) 0.2 % Neut % (Auto) 69.9 % Lymph % (Auto) 13.1 % Mathews % (Auto) 9.6 % Eos % (Auto) 6.9 % Baso % (Auto) 0.3 % Neut # (Auto) 6.74 H (1.4-6.5) K/uL Lymph # (Auto) 1.26 (1.2-3.4) K/uL Mathews # (Auto) 0.93 H (0.11-0.59) K/uL Eos # (Auto) 0.67 H (0-0.5) K/uL Baso # (Auto) 0.03 (0-0.2) K/uL Immature Gran # (Auto) 0.02 (0.00-0.02) K/uL Sodium 128 L (136-145) mmol/L Potassium 4.5 (3.5-5.1) mmol/L Chloride 93 L (98-107) mmol/L Carbon Dioxide 29 (21-32) mmol/L Anion Gap 6 (3-11) BUN 13 (6-23) mg/dl Creatinine 0.76 (0.6-1.4) mg/dl Est Cr Clr Drug Dosing 114.9 ml/min Est GFR ( Amer) 115.7 ml/min Est GFR (Non-Af Amer) 99.9 ml/min BUN/Creatinine Ratio 17.1 (10-20) Glucose 109 H (70-99(Fasting)) mg/dl Calcium 8.9 (8.5-10.1) mg/dl Urine Osmolality (500-800) mOsm/kg Ur Random Sodium 45 mmol/L 11/10/ Range/Units 11:24 WBC (4.8-10.8) K/uL RBC (4.7-6.1) M/uL Hgb (14.0-18.0) g/dL Hct (42-52) % MCV (80-100) fL MCH (25-34) pg MCHC (32-36) g/dL RDW Std Deviation (36.4-46.3) fL RDW Coeff of Shaylee (11.5-14.5) % Plt Count (130-400) K/uL MPV (7.4-10.4) fL Immature Gran % (Auto) % Neut % (Auto) % Lymph % (Auto) % Mathews % (Auto) % Eos % (Auto) % Baso % (Auto) % Neut # (Auto) (1.4-6.5) K/uL Lymph # (Auto) (1.2-3.4) K/uL Mathews # (Auto) (0.11-0.59) K/uL Eos # (Auto) (0-0.5) K/uL Baso # (Auto) (0-0.2) K/uL Immature Gran # (Auto) (0.00-0.02) K/uL Sodium (136-145) mmol/L Potassium (3.5-5.1) mmol/L Chloride (98-107) mmol/L Carbon Dioxide (21-32) mmol/L Anion Gap (3-11) BUN (6-23) mg/dl Creatinine (0.6-1.4) mg/dl Est Cr Clr Drug Dosing ml/min Est GFR ( Amer) ml/min Est GFR (Non-Af Amer) ml/min BUN/Creatinine Ratio (10-20) Glucose (70-99(Fasting)) mg/dl Calcium (8.5-10.1) mg/dl Urine Osmolality 255 L (500-800) mOsm/kg Ur Random Sodium mmol/L Diagnostic Findings Chest X-Ray 11/10/21 07:00 XR chest 1V portable HISTORY: 61 years-old Male PTX follow-up study in a patient with right-sided pneumothorax COMPARISON: Chest radiograph 11/09/2021 TECHNIQUE: Portable AP view of the chest FINDINGS: Tiny right apical pneumothorax with pleural separation of 7 mm slightly decreased in size from prior where it measured 10 mm. Chest tube distal tip terminates adjacent to the right lung apex. Cardiomediastinal and hilar silhouettes are unchanged. Trace right pleural effusion with unchanged bibasilar densities. Mild emphysema with interstitial coarsening. Bones appear grossly intact. Calcified plaque of the thoracic aorta. IMPRESSION: 1. Right hydropneumothorax with stable to slightly decreased size of the apical pneumothorax component. 2. Satisfactory positioning of the right-sided chest tube. 3. Emphysema with chronic interstitial coarsening. ACT 112: Negative or not required by law. The above report was generated using voice recognition software. It may contain grammatical, syntax or spelling errors. Electronically signed by: Filippo Dwyer M.D. 11/10/2021 8:04 AM Chest X-Ray 11/10/21 18:00 XR chest 1V portable CLINICAL HISTORY: f/u TECHNIQUE: Single frontal radiograph of the chest was obtained. Comparison: Comparison is made to chest one view 11/10/2021 FINDINGS: Right chest tube is seen. Calcified aortic knob is seen. Interval significant enlargement of right pneumothorax. IMPRESSION: Interval significant increase in right pneumothorax with collapse of the right lower lung. Right chest tube projects over the right thoracic cavity. A call was placed with the patient's provider Dr. Connelly at the time of dictation. ACT 112: Negative or not required by law. Electronically signed by: Melvin Lora M.D. 11/10/2021 9:02 PM Chest X-Ray 11/10/21 20:00 XR chest 1V portable CLINICAL HISTORY: follow up enlarging ptx TECHNIQUE: Single frontal radiograph of the chest was obtained. Comparison: Comparison is made to chest one view 11/10/2021 at 1730 hours FINDINGS: Right chest tube is seen. The cardiomediastinal silhouette is normal. Atelectasis is seen at the right greater than left lower lung. There is a right pneumothorax which is significantly decreased from prior exam. IMPRESSION: Interval significant decrease in right pneumothorax. Bilateral atelectatic changes are seen. ACT 112: Negative or not required by law. Electronically signed by: Melvin Lora M.D. 11/10/2021 9:07 PM PG Care Time/CCT Total # of Minutes Spent Total Time Spent with Patient: Total time spent is greater than 50% in coordination of care (as documented) at patient's floor/unit and/or counseling patient: Coding Level of Care Code 44308 Subseq Hosp Care Lvl 3 Diagnoses Pneumothorax S27.0XXA Encounter type: initial encounter Pneumothorax type: traumatic Hemothorax J94.2 Pneumonia J18.9 HTN (hypertension) I10 Hyponatremia E87.1 High cholesterol E78.00 Acid reflux K21.9 COPD (chronic obstructive pulmonary disease) J44.9 Hypothyroidism E03.9 Insomnia G47.00 Constipation K59.00 Tobacco dependence F17.200 DVT prophylaxis Z29.9 Vitamin D imbalance (1) Pneumothorax Encounter type: initial encounter Pneumothorax type: traumatic Qualified Code(s): S27.0XXA - Traumatic pneumothorax, initial encounter
[2021-11-11] MEDS: POLYETHYLENE (MIRALAX) 17 GM PACK PO SCH ×2 (08:04→21:02)
[2021-11-11] MEDS: FLUTICASONE/VILANTEROL 100/25MCG 14 PUFFS/INHALER INH SCH (08:04)
[2021-11-11] MEDS: LOSARTAN POTASSIUM 50 MG TAB PO SCH (08:05)
[2021-11-11] MEDS: AMOXICILLIN/CLAVULANATE 875 MG TAB PO SCH ×2 (08:05→17:03)
[2021-11-11] MEDS: guaiFENesin 600 MG TABCR PO SCH ×2 (08:05→21:04)
[2021-11-11] MEDS: SENNA 8.6 MG TAB PO SCH (08:05)
[2021-11-11] MEDS: ZINC SULFATE 220 MG CAPSULE PO SCH (08:05)
[2021-11-11] MEDS: ASCORBIC ACID 500 MG TAB PO SCH (08:05)
[2021-11-11] MEDS: LIDOCAINE 5% 1 PATCH TD SCH (08:05)
[2021-11-11] MEDS: MAGNESIUM OXIDE 400 MG TAB PO SCH (08:05)
[2021-11-11] MEDS ORDERED: ALBUTEROL HFA 8 GM INHALER INH PRN (08:15)
[2021-11-11] MEDS: ALBUTEROL HFA 8 GM INHALER INH SCH (08:16)
--- NOTE | 2021-11-11 08:21 | XRay Report ---
XR chest 1V portable CLINICAL HISTORY: f/u ptx TECHNIQUE: Single frontal radiograph of the chest was obtained. Comparison: Comparison is made to chest one view 11/10/2021 FINDINGS: A right chest tube is again noted. The cardiomediastinal silhouette is stable. Minimal right lung bas e opacity is seen. A right pneumothorax is almost completely resolved and is visible most prominent i n the right lung base. IMPRESSION: Right pneumothorax has almost completely resolved. Right chest tube is in place. Redemonstration of o pacity in the right lung base which may represent atelectasis. ACT 112: Negative or not required by law. Electronically signed by: Melvin Lora M.D. 11/11/2021 8:20 AM
[2021-11-11] MEDS: FAMOTIDINE 20 MG TAB PO SCH (08:36)
[2021-11-11 08:40] LABS: Basophils # (auto) 0.03 K/uL (0-0.2); Basophils % (auto) 0.3 %; Eosinophils # (auto) 0.67 K/uL (0-0.5); Eosinophils % (auto) 6.9 %; Hematocrit (blood only) 41.4 % (42-52); Hemoglobin 14.5 g/dL (14.0-18.0); Immature Granulocytes # (auto) 0.02 K/uL (0.00-0.02); Immature Granulocytes % (auto) 0.2 %; Lymphocytes # (auto) 1.26 K/uL (1.2-3.4); Lymphocytes % (auto) 13.1 %; Mean Corpuscular Hemoglobin 33.6 pg (25-34); Mean Corpuscular Volume 96.1 fL (80-100); Mean Platelet Volume 9.6 fL (7.4-10.4); Monocytes # (auto) 0.93 K/uL (0.11-0.59); Monocytes % (auto) 9.6 %; Neutrophils # (auto) 6.74 K/uL (1.4-6.5); Neutrophils % (auto) 69.9 %; Platelet Count 232 K/uL (130-400); RDW Coefficient of Variation 13.2 % (11.5-14.5); RDW Standard Deviation 46.2 fL (36.4-46.3); Red Blood Count 4.31 M/uL (4.7-6.1); White Blood Count 9.65 K/uL (4.8-10.8)
[2021-11-11 09:00] LABS: BUN Creatinine Ratio 17.1 (10-20); Calcium 8.9 mg/dl (8.5-10.1); Creatinine Clr Calc Pharmacy 114.9 ml/min; Est GFR (African American) 115.7 ml/min; Est GFR (Non-African American) 99.9 ml/min; Potassium 4.5 mmol/L (3.5-5.1)
[2021-11-11] MEDS ORDERED: MAGNESIUM CITRATE 296 ML/BTL PO ONE (13:29)
[2021-11-11] MEDS: HYDROmorphone INJ 0.5 MG/0.5 ML SYR IV PRN (15:30)
--- NOTE | 2021-11-11 17:38 | Pulmonology Progress Note ---
Date of Service November 11, 2021 Assessment & Plan (1) Hemothorax: (2) COPD (chronic obstructive pulmonary disease): (3) Pulmonary emphysema: (4) Traumatic pneumothorax: Plan: Attending: Dr. Henry Impression: 61-year-old male status post fall with multiple rib fractures on the right that are comminuted. Patient with hemothorax as well as pneumothorax from trauma. A Thora vent was placed in the right upper chest wall region by Dr. Oropeza 11/07/2021. This continue to be hooked to suction and currently demonstrates a grade 1-2 airleak. Repeat chest x-ray with vent to suction shows near resolution of pneumothorax while on suction. Previously placed to waterseal and pneumothorax recurred. Recommendations: 1. Traumatic right pneumothorax: * Recommend transfer to tertiary care facility for evaluation and consideration of VATS procedure due to persistent air leak * Call made to [facility] by primary team. At this time they are recommending observation for couple more days with serial chest x-rays * Will reduce suction to negative 10 cm of water and repeat chest x-ray in the morning * If pneumothorax recurs, may need to consider surgical chest tube. 2. Right hemothorax: * Secondary to trauma from falls with multiple comminuted rib fractures * Thora vent placed in the right upper chest field * While there is some bloody discharge in the Dai Pleur-evac, patient may require chest tube for hemothorax * Recommended VATS procedure to address hemothorax as well as air leak. At this time, [facility] advises to monitor here * Repeat chest x-ray in the morning 3. COPD with emphysema: * No record of pulmonary function testing * Patient currently on albuterol rescue inhaler and Advair Diskus * Patient currently on supplemental oxygen for traumatic pneumothorax. Maintain supplemental oxygen for a targeted SaO2 of 90 to 92% * Advised patient to abstain from tobacco products 4. Tobacco abuse: * Patient continues to be an every day smoker * Recommend complete abstinence from tobacco products 5. DVT prophylaxis: * Patient currently not on any chemical prophylaxis. We will continue this for now in the event the patient needs surgical chest tube inserted tomorrow * Out of bed to chair as tolerated * Increase activity in room as tolerated Thank you for including us in the care of this patient. We will continue to follow along with you. Admission and Anticipated Discharge Date Admission Date: November 07, 2021 Subjective Attending: Dr. Henry Patient seen and examined in room 355. He continues with Thora vent in the midclavicular right upper chest field hooked to suction. Dai demonstrates a grade 1 to grade 2 airleak. Patient currently is on supplemental oxygen due to pneumothorax and is currently 2 L/min and is saturating 95%. Patient denies any significant discomfort at the site of the insertion of the Thora vent. He has no significant cough. He has no hemoptysis. He has no chest pain. He has no other acute complaints. Review of Systems Review of Systems: All systems reviewed & are unremarkable except as noted in Subjective Physical Exam Physical Exam: GENERAL : No acute distress EYES: No icterus, gaze conjugate NOSE: No evidence of epistaxis MOUTH: No lesions or candidiasis NECK: Supple LUNGS: CTA B/L, no wheezes, rales or rhonchi CHEST: Thora vent placed at the second rib space in the right midclavicular re gion. Appears to be well sealed. Hooked to suction HEART: Regular, rate controlled ABDOMEN: Soft, NT, ND, BS Present EXTREMITIES: No LE edema, pedal pulses intact NEURO: A&OX3 Results & Data Results & Data ([facility]) Vital Signs (Past 12 Hours) Vital Signs Temp Pulse Resp BP BP Pulse Ox 11/11/21 15:45 36.6 C 78 16 129/84 95 11/11/21 11:24 36.5 C 70 18 123/77 96 11/11/21 07:37 36.5 C 65 16 111/75 95 Laboratory Results 11/11/21 08:07 11/11/21 08:07 INR 1.0 (0.9-1.1) 11/06/21 17:35 Diagnostic Findings Chest X-Ray 11/10/21 18:00 XR chest 1V portable CLINICAL HISTORY: f/u TECHNIQUE: Single frontal radiograph of the chest was obtained. Comparison: Comparison is made to chest one view 11/10/2021 FINDINGS: Right chest tube is seen. Calcified aortic knob is seen. Interval significant enlargement of right pneumothorax. IMPRESSION: Interval significant increase in right pneumothorax with collapse of the right lower lung. Right chest tube projects over the right thoracic cavity. A call was placed with the patient's provider Dr. Connelly at the time of dictation. ACT 112: Negative or not required by law. Electronically signed by: Melvin Lora M.D. 11/10/2021 9:02 PM Chest X-Ray 11/10/21 20:00 XR chest 1V portable CLINICAL HISTORY: follow up enlarging ptx TECHNIQUE: Single frontal radiograph of the chest was obtained. Comparison: Comparison is made to chest one view 11/10/2021 at 1730 hours FINDINGS: Right chest tube is seen. The cardiomediastinal silhouette is normal. Atelectasis is seen at the right greater than left lower lung. There is a right pneumothorax which is significantly decreased from prior exam. IMPRESSION: Interval significant decrease in right pneumothorax. Bilateral atelectatic changes are seen. ACT 112: Negative or not required by law. Electronically signed by: Melvin Lora M.D. 11/10/2021 9:07 PM Chest X-Ray 11/11/21 07:36 XR chest 1V portable CLINICAL HISTORY: f/u ptx TECHNIQUE: Single frontal radiograph of the chest was obtained. Comparison: Comparison is made to chest one view 11/10/2021 FINDINGS: A right chest tube is again noted. The cardiomediastinal silhouette is stable. Minimal right lung base opacity is seen. A right pneumothorax is almost completely resolved and is visible most prominent in the right lung base. IMPRESSION: Right pneumothorax has almost completely resolved. Right chest tube is in place. Redemonstration of opacity in the right lung base which may represent atelectasis. ACT 112: Negative or not required by law. Electronically signed by: Melvin Lora M.D. 11/11/2021 8:20 AM PG Care Time/CCT Total # of Minutes Spent Total Time Spent with Patient: Total time spent is greater than 50% in coordination of care (as documented) at patient's floor/unit and/or counseling patient: 35 minutes Coding Level of Care Code 17568 Subseq Hosp Care Lvl 2 Diagnoses Hemothorax J94.2 COPD (chronic obstructive pulmonary disease) J44.9 Pulmonary emphysema J43.9 Traumatic pneumothorax S27.0XXA Time Spent (min) 35
--- NOTE | 2021-11-11 20:00 | XRay Report ---
XR chest 1V portable HISTORY: 61 years-old Male f/u ptx follow-up study in a patient with right-sided pneumothorax COMPARISON: Chest radiograph of same day at 7:40 AM TECHNIQUE: Portable AP view of the chest FINDINGS: Cardiomediastinal and hilar silhouettes are unchanged. A right-sided chest tube is noted with distal tip projected within the right suprahilar distribution. Small right apical pneumothorax with pleural separation of 1.6 cm has mildly increased in size from prior where there is approximately 5 mm of ple ural separation. There are persistent right greater left bibasilar densities. Suggested trace pleural effusions. Calcified plaque of the thoracic aorta. Emphysema with chronic interstitial coarsening. T he bones of the chest appear grossly intact. IMPRESSION: 1. Small right apical pneumothorax has mildly increased in size from prior. 2. Emphysema with chronic interstitial coarsening. 3. Persistent right greater than left bibasilar densities suggestive of atelectasis. ACT 112: Negative or not required by law. The above report was generated using voice recognition software. It may contain grammatical, syntax o r spelling errors. Electronically signed by: Filippo Dwyer M.D. 11/11/2021 7:58 PM
[2021-11-11] MEDS: ATORVASTATIN 20 MG TAB PO SCH (21:02)
[2021-11-11] MEDS: traZODone HCL 50 MG TAB PO SCH (21:02)
[2021-11-12] MEDS: HYDROmorphone INJ 0.5 MG/0.5 ML SYR IV PRN ×4 (04:26→19:43)
[2021-11-12] MEDS: LEVOTHYROXINE SODIUM 150 MCG TABLET PO SCH (05:31)
[2021-11-12 08:57] LABS: Basophils # (auto) 0.03 K/uL (0-0.2); Basophils % (auto) 0.3 %; Eosinophils # (auto) 0.66 K/uL (0-0.5); Eosinophils % (auto) 7.5 %; Hematocrit (blood only) 43.5 % (42-52); Immature Granulocytes # (auto) 0.03 K/uL (0.00-0.02); Immature Granulocytes % (auto) 0.3 %; Lymphocytes # (auto) 1.29 K/uL (1.2-3.4); Lymphocytes % (auto) 14.7 %; Mean Corpuscular Hemoglobin 33.6 pg (25-34); Mean Corpuscular Hgb Conc 34.5 g/dL (32-36); Mean Corpuscular Volume 97.3 fL (80-100); Mean Platelet Volume 9.7 fL (7.4-10.4); Monocytes # (auto) 0.84 K/uL (0.11-0.59); Monocytes % (auto) 9.6 %; Neutrophils # (auto) 5.93 K/uL (1.4-6.5); Neutrophils % (auto) 67.6 %; Platelet Count 263 K/uL (130-400); RDW Coefficient of Variation 13.3 % (11.5-14.5); RDW Standard Deviation 47.4 fL (36.4-46.3); Red Blood Count 4.47 M/uL (4.7-6.1); White Blood Count 8.78 K/uL (4.8-10.8)
[2021-11-12] MEDS: AMOXICILLIN/CLAVULANATE 875 MG TAB PO SCH ×2 (09:00→18:00)
--- NOTE | 2021-11-12 09:04 | XRay Report ---
SINGLE VIEW CHEST CLINICAL HISTORY: Follow-up pneumothorax. FINDINGS: An AP, portable, upright chest radiograph is compared to study performed earlier the same d ay 11/11/2021. The cardiomediastinal silhouette is unremarkable. A chest tube is again seen at the rig ht apex. Positioning is changed from today's earlier examination. There is a small residual right-davidson ed pneumothorax. This has decreased in size from today's earlier examination. A small pleural effusio n and consolidation is seen at the right lung base. No left-sided pneumothorax is seen. The bony thor ax is grossly intact. IMPRESSION: 1. A right-sided chest tube has been repositioned. 2. There is a small residual right apical pneumothorax. This has decreased in size from today's earli er examination. 3. Small right pleural effusion with right basilar consolidation. ACT 112: Negative or not required by law. Electronically signed by: Jensen Chapman M.D. 11/12/2021 9:02 AM
--- NOTE | 2021-11-12 09:05 | XRay Report ---
SINGLE VIEW CHEST CLINICAL HISTORY: Follow-up pneumothorax. FINDINGS: An AP, portable, upright chest radiograph is compared to studies dated 11/11/2021. The cardi omediastinal silhouette is unremarkable. A chest tube is again seen at the right apex. A right-sided chest tube is in place. A right apical pneumothorax has increased in size from yesterday with 1.8 cm of pleural separation. This now tracks to the right lung base. A small pleural effusion and consolida tion is seen at the right lung base. Atelectasis is noted at the left lung base. No left-sided pneumo thorax is identified. The bony thorax is grossly intact. IMPRESSION: 1. A right-sided chest tube is in place. A right-sided pneumothorax has significantly increased in si ze from yesterday. 2. Small right pleural effusion with right basilar consolidation. ACT 112: Negative or not required by law. Electronically signed by: Jensen Chapman M.D. 11/12/2021 9:04 AM
--- NOTE | 2021-11-12 09:18 | Hospitalist Progress Note ---
Date of Service November 12, 2021 Assessment & Plan (1) Pneumothorax: Plan: 2nd to trauma with resulting rib fractures. CT chest on 11/06 showed acute comminuted right posterior 7th and 8th rib fractures, small/moderate right-sided PTX, and small hemothorax. Rib fractures could have caused the pneumo OR a bullae ruptured OR both. Either way s/p chest tube on right hospital day #1. Defer management to Dr Oropeza and pulmonary team --> Dr Henry on service now 11/12 --> discussed with [facility] last evening Dr Sandoval. no need for tx. consideration for placement of surgical chest tube/Heimlich valve if able to perform and discharge that way. --> did not feel need for VATS at this time. Turned suction to 10cm and repeat CXr with worsening, backed up to 15cm and remained stable overnight but did report increased pain. Has been using IS faithfully CXR this morning with signiciant worsening --> CT chest obtained * 1. A chest tube is in place at the anterior right apex. This is located just deep to the pleura and a portion appears to be extrapleural. * 2. Large right-sided hydropneumothorax. The trachea is midline * 3. There is near complete atelectasis/consolidation of the right lower lobe. * 4. Acute right-sided rib fractures as above. * 5. Emphysema. * 6. A 5 mm pulmonary nodule at the left lung base is unchanged. Also noted possible concerns for 9/10th rib fx not previously noted (7/8 on admission comminuted). no displacement/flail chest at this time Reached back out to [facility] today --> Dr. Rachid Sofia. Again no need for transfer at this time Pulmonary team placed chest tube today --> repeat CXR with improvement and plans to remove the thoravent later today --> May still require definitive therapy such as VATS if there continues to be a persistent air leak. --> Dr Sofia able to discuss if needed if continued issues. Placed to [facility] suction currently Continue to monitor Pain control with tylenol/narcotics lidoderm for pain. cont scheduled tylenol pulmonary toilet, + mucinex augmentin for pneumonia (day 5/7) (2) Hemothorax: Plan: See above 2nd trauma (3) Pneumonia: Plan: right basilar consolidation likely RLL collapse but given the purulent sputum can't rule out element of infection cont augmentin 875mg BID - day #5 of such plan 7 days in total of Rx WBC wnl, afebrile (4) HTN (hypertension): Plan: continue losartan --> Will hold HCTZ currently for slightly drm mm --> improved but will continue to hold for now (5) Hyponatremia: Plan: appears chronic 2nd HCTZ? Na today 131 today --> States taking levothyroxine as prescribed. TSH elevated and increased sy nthroid to 150mcg daily. Will need repeat TFT outpatient 4-6 weeks//further adjustments (6) High cholesterol: Plan: Continue atorvastatin 20 mg daily (7) Acid reflux: Plan: Continue famotidine (8) COPD (chronic obstructive pulmonary disease): Plan: Cont home inhalers schedule albuterol 2 puffs QID for wheezing and to aid with cough/mucous clearance/pulm toilet (9) Hypothyroidism: Plan: TSH this am mildly elevated will ask about compliance with levothyroxine 137 mcg daily --> compliant and will increase to 150mcg daily. Need new rx at d/c and f/u PCP for repeat TFT outpatient (10) Insomnia: Plan: Continue trazodone at 50 mg in the evening (11) Constipation: Plan: cont senna cont miralax -- increase to BID no evidence of ileus may need increase in 1 or both meds above half dose mag citrate for today, but continues to pass gas +BM 1/25 (12) Tobacco dependence: Plan: offered nicoderm he declined (13) DVT prophylaxis: Plan: SCDs - Defer heparin 2nd hemothorax and placement of chest tube today as above ambulation encouraged (14) Vitamin D imbalance: Plan: Ca not elevated, but on supplementation Vit D checked, elevated. Holding futher supplementation -- STOP at discharge Check PTH -- wnl Monitor calcium levels -- of note, also on HCTZ which can contribute to elevations Plan: chest tube placed today by Dr Carl Jennings to be removed later today --> if continued leak may still require definitive therapy such as VATS Admission and Anticipated Discharge Date Admission Date: November 07, 2021 Supervising Physician Co-Signing Physician Notes Attending Attestation - Chart reviewed, care plan d/w NANCIE Oleary. I agree w/ the mcaculey components of her documentation. 61yo male with right-sided traumatic rib fractures and pneumothorax/hemothorax on right, s/p chest tube (Thoravent) placement the day of presentation. CT management per pulmonary. Unfortunately he continues to have an air leak. Today his Thoravent was swapped for a larger, traditional chest tube. Ms Oleary discussed his care with [facility] thoracic surgery; Tx for VATs not advised as of today, but remains option in future if hydropneumothorax continues. Kalpesh Cordero MD Subjective patient evaluated this morning slight increase in discomfort today, especially with coughing. continues 2+ air leak today despite having suction turned back up cxr with R sided ptx significantly increase with small R effusion/basilar consolidation ordered CT and call out to [facility] for further discussion for consideration for VATS per pulmonary recommendation at this time no fever/chills. eating/drinking no issue. +BM yesterday. Ambulating halls and has been continually using the incentive spirometer consistently. CT with worsening/possible extrapleural placement of tube. PA at bedside placement of chest tube currently Called [facility] and spoke with Dr Rachid Sofia. No indication for tx at this time and rec surgical chest tube, suction, continued monitoring/no need for surgical intervention at this time. Happy to speak with pulmonary if they would like to call back to transfer center as well as review imaging. Review of Systems Review of Systems: All systems reviewed & are unremarkable except as noted in HPI & below Physical Exam Physical Exam: gen - WD male sitting up in bed, minimally uncomfortable appearing sitting up at side of the bed, on 2L eyes- anicteric, pupils equal, EOMI Mouth- slightly dry mm Neck- no tracheal deviation Resp- anterior chest with crepitus, thoravent to 2nd ICS, 2+ airleak noted on Dai, R base absent breath sounds, crackles above area of absent sounds, no wheezing, on 2L NC. Lidocaine patch to posterior chest wall, no cough, not tachypneic CV: RRR, 1/6 TRICIA LSB, no edema Abd: +BS, soft, non-tender Ext_ no edema Results & Data Results & Data ([facility]) Vital Signs (Past 12 Hours) Vital Signs Temp Pulse Resp BP BP Pulse Ox 11/12/21 11:00 36.7 C 71 18 125/81 92 11/12/21 07:41 37 C 61 18 111/72 94 11/12/21 00:18 36.7 C 59 L 18 107/67 96 11/11/21 15:45 36.6 C 78 16 129/84 95 Intake and Output 11/11/21 11/12/21 11/12/21 22:59 06:59 14:59 Intake Total 675 / 675 Output Total 50 / 1550 700 / 1550 1700 / 1700 Balance -50 / -1000 -700 / -1000 -1025 / -1025 Intake: Oral 675 / 675 Output: Urine 650 / 1450 1400 / 1400 Chest Tube Drainage 50 / 100 50 / 100 300 / 300 Right Mid-Axillary Chest 250 / 250 Right Pleur-Evac Dai 50 / 100 50 / 100 50 / 50 Other: Weight 84.1 kg Patient Weight 11/13/21 06:59 Weight 84.1 kg Laboratory Results 11/12/21 11/12/21 Range/Units 08:43 08:43 WBC 8.78 (4.8-10.8) K/uL RBC 4.47 L (4.7-6.1) M/uL Hgb 15.0 (14.0-18.0) g/dL Hct 43.5 (42-52) % MCV 97.3 (80-100) fL MCH 33.6 (25-34) pg MCHC 34.5 (32-36) g/dL RDW Std Deviation 47.4 H (36.4-46.3) fL RDW Coeff of Shaylee 13.3 (11.5-14.5) % Plt Count 263 (130-400) K/uL MPV 9.7 (7.4-10.4) fL Immature Gran % (Auto) 0.3 % Neut % (Auto) 67.6 % Lymph % (Auto) 14.7 % Alfalfa % (Auto) 9.6 % Eos % (Auto) 7.5 % Baso % (Auto) 0.3 % Neut # (Auto) 5.93 (1.4-6.5) K/uL Lymph # (Auto) 1.29 (1.2-3.4) K/uL Alfalfa # (Auto) 0.84 H (0.11-0.59) K/uL Eos # (Auto) 0.66 H (0-0.5) K/uL Baso # (Auto) 0.03 (0-0.2) K/uL Immature Gran # (Auto) 0.03 H (0.00-0.02) K/uL Sodium 131 L (136-145) mmol/L Potassium 4.3 (3.5-5.1) mmol/L Chloride 95 L (98-107) mmol/L Carbon Dioxide 33 H (21-32) mmol/L Anion Gap 3 (3-11) BUN 12 (6-23) mg/dl Creatinine 0.83 (0.6-1.4) mg/dl Est Cr Clr Drug Dosing 105.2 ml/min Est GFR ( Amer) 111.6 ml/min Est GFR (Non-Af Amer) 96.3 ml/min BUN/Creatinine Ratio 14.5 (10-20) Glucose 114 H (70-99(Fasting)) mg/dl Calcium 8.9 (8.5-10.1) mg/dl Diagnostic Findings Chest X-Ray 11/11/21 20:00 XR chest 1V portable HISTORY: 61 years-old Male f/u ptx follow-up study in a patient with right- sided pneumothorax COMPARISON: Chest radiograph of same day at 7:40 AM TECHNIQUE: Portable AP view of the chest FINDINGS: Cardiomediastinal and hilar silhouettes are unchanged. A right-sided chest tube is noted with distal tip projected within the right suprahilar distribution. Small right apical pneumothorax with pleural separation of 1.6 cm has mildly increased in size from prior where there is approximately 5 mm of pleural separation. There are persistent right greater left bibasilar densities. Suggested trace pleural effusions. Calcified plaque of the thoracic aorta. Emphysema with chronic interstitial coarsening. The bones of the chest appear grossly intact. IMPRESSION: 1. Small right apical pneumothorax has mildly increased in size from prior. 2. Emphysema with chronic interstitial coarsening. 3. Persistent right greater than left bibasilar densities suggestive of atelectasis. ACT 112: Negative or not required by law. The above report was generated using voice recognition software. It may contain grammatical, syntax or spelling errors. Electronically signed by: Filippo Dwyer M.D. 11/11/2021 7:58 PM Chest X-Ray 11/11/21 23:30 SINGLE VIEW CHEST CLINICAL HISTORY: Follow-up pneumothorax. FINDINGS: An AP, portable, upright chest radiograph is compared to study performed earlier the same day 11/11/2021. The cardiomediastinal silhouette is unremarkable. A chest tube is again seen at the right apex. Positioning is changed from today's earlier examination. There is a small residual right-sided pneumothorax. This has decreased in size from today's earlier examination. A small pleural effusion and consolidation is seen at the right lung base. No left-sided pneumothorax is seen. The bony thorax is grossly intact. IMPRESSION: 1. A right-sided chest tube has been repositioned. 2. There is a small residual right apical pneumothorax. This has decreased in size from today's earlier examination. 3. Small right pleural effusion with right basilar consolidation. ACT 112: Negative or not required by law. Electronically signed by: Jensen Chapman M.D. 11/12/2021 9:02 AM Chest X-Ray 11/12/21 07:00 SINGLE VIEW CHEST CLINICAL HISTORY: Follow-up pneumothorax. FINDINGS: An AP, portable, upright chest radiograph is compared to studies dated 11/11/2021. The cardiomediastinal silhouette is unremarkable. A chest tube is again seen at the right apex. A right-sided chest tube is in place. A right apical pneumothorax has increased in size from yesterday with 1.8 cm of pleural separation. This now tracks to the right lung base. A small pleural effusion and consolidation is seen at the right lung base. Atelectasis is noted at the left lung base. No left-sided pneumothorax is identified. The bony thorax is grossly intact. IMPRESSION: 1. A right-sided chest tube is in place. A right-sided pneumothorax has significantly increased in size from yesterday. 2. Small right pleural effusion with right basilar consolidation. ACT 112: Negative or not required by law. Electronically signed by: Jensen Chapman M.D. 11/12/2021 9:[address] 11/12/21 09:14 CT SCAN OF THE CHEST WITH IV CONTRAST CLINICAL HISTORY: Pneumothorax. Chest tube. COMPARISON STUDY: Chest CT scans dated 11/06/2021 and 11/29/2020. Chest radiograph dated 11/12/2021. TECHNIQUE: Following the IV administration of 95 cc of atrophy 20, CT scan of the thorax was performed from the thoracic inlet to the upper abdomen. Images are reviewed in the axial, sagittal, and coronal planes. IV contrast was administered without complication. A dose lowering technique was utilized adhering to the principles of ALARA. CT DOSE: 400.89 mGy.cm FINDINGS: Thyroid: Atrophic. Thoracic aorta: There is atherosclerotic calcification of the thoracic aorta, which is normal in caliber and demonstrates standard 3-vessel arch anatomy. No dissection is seen. Pulmonary arteries: The pulmonary trunk is normal in caliber. There are no filling defects within the central pulmonary vessels to suggest pulmonary embolus. Note that this examination was not protocoled to evaluate the pulmonary arteries. Heart: The heart is normal in size and without pericardial effusion. The coronary arteries are densely calcified. Lungs and pleural spaces: Emphysematous change is noted. A chest tube is present at the anterior right apex entering between the first and second ribs. A portion of the catheter appears to be extrapleural. There is a large right-sided pneumothorax with near complete atelectasis/consolidation of the right lower lobe. There is a small amount of pleural fluid right lung base. The trachea is midline and appears clear. Mild secretions are noted in the right mainstem bronchus. There is left basilar atelectasis. A 5 mm pulmonary nodule is again seen at the left lung base on image #230. Mediastinum: There is no mediastinal hematoma or lymphadenopathy. Janiya: No mediastinal adenopathy is identified. Axillae: There is no axillary lymphadenopathy. Upper abdomen: There is a small hiatal hernia. Partially imaged upper abdominal viscera is otherwise grossly unremarkable. Skeletal structures: There are comminuted right posterior 7th and 8th rib fractures. There are nondisplaced right posterior 9th and 10th rib fractures which are more conspicuous from previous. No lytic or blastic bony lesions are seen. Soft tissues: Subcutaneous emphysema is seen in the right lower neck/anterior chest wall. IMPRESSION: 1. A chest tube is in place at the anterior right apex. This is located just deep to the pleura and a portion appears to be extrapleural. 2. Large right-sided hydropneumothorax. The trachea is midline. 3. There is near complete atelectasis/consolidation of the right lower lobe. 4. Acute right-sided rib fractures as above. 5. Emphysema. 6. A 5 mm pulmonary nodule at the left lung base is unchanged. 7. Additional findings as above. ACT 112: Negative or not required by law. Electronically signed by: Jensen Chapman M.D. 11/12/2021 11:09 AM Chest X-Ray 11/12/21 12:14 XR chest 1V portable CLINICAL HISTORY: right PNX s/p chest tube miid axilla TECHNIQUE: Single frontal radiograph of the chest was obtained. Comparison: Comparison is made to chest one view 11/12/2021 at 0702 hours FINDINGS: Again noted is a right chest tube. Calcified aortic knob is seen. The lungs are clear. Right basilar pneumothorax is seen. IMPRESSION: Right basilar pneumothorax is seen, previously noted right apical pneumothorax is not seen. Overall decreased from prior exam. ACT 112: Negative or not required by law. Electronically signed by: Melvin Lora M.D. 11/12/2021 1:04 PM PG Care Time/CCT Total # of Minutes Spent Total Time Spent with Patient: Total time spent is greater than 50% in coordination of care (as documented) at patient's floor/unit and/or counseling patient: Coding Level of Care Code 42256 Subseq Hosp Care Lvl 3 Diagnoses Pneumothorax S27.0XXA Encounter type: initial encounter Pneumothorax type: traumatic Hemothorax J94.2 Pneumonia J18.9 HTN (hypertension) I10 Hyponatremia E87.1 High cholesterol E78.00 Acid reflux K21.9 COPD (chronic obstructive pulmonary disease) J44.9 Hypothyroidism E03.9 Insomnia G47.00 Constipation K59.00 Tobacco dependence F17.200 DVT prophylaxis Z29.9 Vitamin D imbalance (1) Pneumothorax Encounter type: initial encounter Pneumothorax type: traumatic Qualified Code(s): S27.0XXA - Traumatic pneumothorax, initial encounter
[2021-11-12] MEDS: guaiFENesin 600 MG TABCR PO SCH ×2 (09:41→21:03)
[2021-11-12] MEDS: FLUTICASONE/VILANTEROL 100/25MCG 14 PUFFS/INHALER INH SCH (09:41)
[2021-11-12] MEDS: ZINC SULFATE 220 MG CAPSULE PO SCH (09:41)
[2021-11-12] MEDS: LIDOCAINE 5% 1 PATCH TD SCH (09:42)
[2021-11-12] MEDS: POLYETHYLENE (MIRALAX) 17 GM PACK PO SCH ×2 (09:42→21:04)
[2021-11-12] MEDS: LOSARTAN POTASSIUM 50 MG TAB PO SCH (09:42)
[2021-11-12] MEDS: SENNA 8.6 MG TAB PO SCH (09:43)
[2021-11-12] MEDS: ASCORBIC ACID 500 MG TAB PO SCH (09:43)
[2021-11-12] MEDS: MAGNESIUM OXIDE 400 MG TAB PO SCH (09:43)
[2021-11-12] MEDS: FAMOTIDINE 20 MG TAB PO SCH (09:48)
[2021-11-12 09:58] LABS: BUN Creatinine Ratio 14.5 (10-20); Calcium 8.9 mg/dl (8.5-10.1); Creatinine Clr Calc Pharmacy 105.2 ml/min; Est GFR (African American) 111.6 ml/min; Est GFR (Non-African American) 96.3 ml/min; Potassium 4.3 mmol/L (3.5-5.1)
[2021-11-12] MEDS ORDERED: OPTIRAY 320 100ml IV ONE (11:00)
--- NOTE | 2021-11-12 11:11 | CT Scan Report ---
CT SCAN OF THE CHEST WITH IV CONTRAST CLINICAL HISTORY: Pneumothorax. Chest tube. COMPARISON STUDY: Chest CT scans dated 11/06/2021 and 11/29/2020. Chest radiograph dated 11/12/2021. TECHNIQUE: Following the IV administration of 95 cc of atrophy 20, CT scan of the thorax was performe d from the thoracic inlet to the upper abdomen. Images are reviewed in the axial, sagittal, and coron al planes. IV contrast was administered without complication. A dose lowering technique was utilized adhering to the principles of ALARA. CT DOSE: 400.89 mGy.cm FINDINGS: Thyroid: Atrophic. Thoracic aorta: There is atherosclerotic calcification of the thoracic aorta, which is normal in az emma and demonstrates standard 3-vessel arch anatomy. No dissection is seen. Pulmonary arteries: The pulmonary trunk is normal in caliber. There are no filling defects within the central pulmonary vessels to suggest pulmonary embolus. Note that this examination was not protocole d to evaluate the pulmonary arteries. Heart: The heart is normal in size and without pericardial effusion. The coronary arteries are densel y calcified. Lungs and pleural spaces: Emphysematous change is noted. A chest tube is present at the anterior righ t apex entering between the first and second ribs. A portion of the catheter appears to be extrapleur al. There is a large right-sided pneumothorax with near complete atelectasis/consolidation of the rig ht lower lobe. There is a small amount of pleural fluid right lung base. The trachea is midline and a ppears clear. Mild secretions are noted in the right mainstem bronchus. There is left basilar atelect asis. A 5 mm pulmonary nodule is again seen at the left lung base on image #230. Mediastinum: There is no mediastinal hematoma or lymphadenopathy. Janiya: No mediastinal adenopathy is identified. Axillae: There is no axillary lymphadenopathy. Upper abdomen: There is a small hiatal hernia. Partially imaged upper abdominal viscera is otherwise grossly unremarkable. Skeletal structures: There are comminuted right posterior 7th and 8th rib fractures. There are nondis placed right posterior 9th and 10th rib fractures which are more conspicuous from previous. No lytic or blastic bony lesions are seen. Soft tissues: Subcutaneous emphysema is seen in the right lower neck/anterior chest wall. IMPRESSION: 1. A chest tube is in place at the anterior right apex. This is located just deep to the pleura and a portion appears to be extrapleural. 2. Large right-sided hydropneumothorax. The trachea is midline. 3. There is near complete atelectasis/consolidation of the right lower lobe. 4. Acute right-sided rib fractures as above. 5. Emphysema. 6. A 5 mm pulmonary nodule at the left lung base is unchanged. 7. Additional findings as above. ACT 112: Negative or not required by law. Electronically signed by: Jensen Chapman M.D. 11/12/2021 11:09 AM
[2021-11-12] MEDS ORDERED: LIDOCAINE 1% LOCAL 20 ML VIAL ONE (11:29)
--- NOTE | 2021-11-12 12:40 | Pulmonology Progress Note ---
Date of Service November 12, 2021 Assessment & Plan (1) Traumatic pneumothorax: (2) Persistent air leak: (3) Hemothorax: (4) COPD (chronic obstructive pulmonary disease): (5) Pulmonary emphysema: Plan: Impression: 61-year-old male status post fall with multiple rib fractures on the right that are comminuted. Patient with hemothorax as well as pneumothorax from trauma. A Thora vent was placed in the right upper chest wall region by Dr. Oropeza 11/07/2021. This continue to be hooked to suction and currently demonstrates a grade 1-2 airleak. Recommendations: 1. Traumatic right pneumothorax: * 16 [place] Thal quick chest tube placed due to recurrence of the pneumothorax. Post procedure x-ray demonstrates adequate placement and reexpansion of the lung with a trace basilar pneumothorax. Currently with a grade 1-2 leak. We will remove the Thora vent. May still require definitive therapy such as VATS if there continues to be a persistent air leak. * 2. Right hemothorax: * 16 [place] chest tube noted above Thank you for including us in the care of this patient. We will continue to follow along with you. Admission and Anticipated Discharge Date Admission Date: November 07, 2021 Subjective Patient seen and examined. Underwent CT chest today which demonstrated continued pneumothorax which actually is worsened despite the Thora vent. Patient denies any chest pain, but does have shortness of breath. Occasional cough which causes pleuritic chest pain. Review of Systems Review of Systems: All systems reviewed & are unremarkable except as noted in HPI & below Physical Exam Physical Exam: GENERAL : No acute distress EYES: No icterus, gaze conjugate NOSE: No evidence of epistaxis MOUTH: No lesions or candidiasis NECK: Supple LUNGS: CTA B/L, no wheezes, rales or rhonchi CHEST: Thora vent placed at the second rib space in the right midclavicular region. Appears to be well sealed. Hooked to suction HEART: Regular, rate controlled ABDOMEN: Soft, NT, ND, BS Present EXTREMITIES: No LE edema, pedal pulses intact NEURO: A&OX3 Results & Data Results & Data ([facility]) Vital Signs (Past 12 Hours) Vital Signs Temp Pulse Resp BP BP Pulse Ox 11/12/21 11:00 36.7 C 71 18 125/81 92 11/12/21 07:41 37 C 61 18 111/72 94 vital signs, labs and imaging personally reviewed PG Care Time/CCT Total # of Minutes Spent Total Time Spent with Patient: Total time spent is greater than 50% in coordination of care (as documented) at patient's floor/unit and/or counseling patient: Coding Level of Care Code 76426 Subseq Hosp Care Lvl 2 Diagnoses Hemothorax J94.2 COPD (chronic obstructive pulmonary disease) J44.9 Pulmonary emphysema J43.9 Traumatic pneumothorax S27.0XXA Persistent air leak
--- NOTE | 2021-11-12 12:44 | Procedure Note ---
Procedure Note Date of Service November 12, 2021 Supervising Physician Co-Signing Physician Notes 16 Bruneian right-sided Thal-Quick pneumothorax catheter Procedure: 16 Bruneian Thal-Quick chest tube Indication: Persistent pneumothorax Anesthesia: 25 ml Lidocaine 1% Written consent was obtained and placed on the chart. Timeout was done prior to the procedure. Prior to procedure, chest x-ray films were reviewed by myself and demonstrated a large sized pneumothorax on the right. A time-out was completed verifying correct patient, procedure, site, positioning, and implant(s) or special equipment if applicable. Utilizing bedside ultrasound, chest wall was evaluated for location for optimal chest tube placement. Location between the fifth and sixth ribs were marked on the skin using gentle pressure. The right sided chest wall was prepped with chlorhexidine and draped in the typical sterile fashion. 25 mL of 1% Lidocaine without epinephrine was used to anesthetize the skin down to the dorsal surface of the sixth rib. Air return confirmed entry into the pleural space. Lidocaine was injected into the pleural space for increased anesthetization. Introducer needle on syringe was inserted in perpendicular fashion taking care to ride just above the dorsal surface of the sixth rib. Entry into the pleural space was heralded by air return into the syringe while under gentle aspiration. Guide wire was advanced into the pleural space without resistance and the introducer needle was subsequently removed. Scalpel was used to make small incision of the superficial tissue, parallel to the direction of the rib anatomy. Dilator was advanced uneventfully over the guide wire into the pleural space. 16 Bruneian Thal-Quick Catheter was inserted into the pleural space. Inner introducer and guide wire were removed. Drain was immediately connected to pre-prepared HARRIS pleur-evac system. Chest tube was sutured to the site chest tube was placed to -20 cmH2O suction. Patient tolerated procedure well. Blood Loss: Minimal Complications: None Post procedure Chest X-ray was ordered and reviewed by myself which demonstrated adequate placement. Coding CPT Codes Pulmonary/Thoracic - Pulmonary and Thoracic: 13378 Tube thoracostomy ([id number]) [facility] [place] Procedure Codes (Charges) Pulmonary/Thoracic Procedure 1: Pulmonary and Thoracic: 34141 Tube thoracostomy
--- NOTE | 2021-11-12 13:06 | XRay Report ---
XR chest 1V portable CLINICAL HISTORY: right PNX s/p chest tube miid axilla TECHNIQUE: Single frontal radiograph of the chest was obtained. Comparison: Comparison is made to chest one view 11/12/2021 at 0702 hours FINDINGS: Again noted is a right chest tube. Calcified aortic knob is seen. The lungs are clear. Right basilar pneumothorax is seen. IMPRESSION: Right basilar pneumothorax is seen, previously noted right apical pneumothorax is not seen. Overall d ecreased from prior exam. ACT 112: Negative or not required by law. Electronically signed by: Melvin Lora M.D. 11/12/2021 1:04 PM
[2021-11-12] MEDS ORDERED: CETIRIZINE HCL 10 MG TABLET PO ONE (14:55)
[2021-11-12] MEDS: ATORVASTATIN 20 MG TAB PO SCH (21:03)
[2021-11-12] MEDS: traZODone HCL 50 MG TAB PO SCH (21:12)
[2021-11-13] MEDS: HYDROmorphone INJ 0.5 MG/0.5 ML SYR IV PRN ×5 (01:47→23:42)
[2021-11-13] MEDS: LEVOTHYROXINE SODIUM 150 MCG TABLET PO SCH (06:17)
--- NOTE | 2021-11-13 07:28 | XRay Report ---
XR chest 1V portable HISTORY: 61 years-old Male follow up ptx follow-up study in a patient with recent right-sided pneumo thorax COMPARISON: Chest radiograph 11/12/2021 TECHNIQUE: Portable AP view of the chest FINDINGS: Cardiomediastinal and hilar silhouettes are unchanged. Calcified plaque of the thoracic aorta. Possib le trace residual subcutaneous emphysema within the right supraclavicular tissues. Blunting of the co stophrenic angles with unchanged bibasilar densities. Interval removal of the right anterior chest tu be. A right-sided chest tube distal tip projects over the right lung apex. There is a questioned trac e apical residual right pneumothorax. See noted basilar component is not definitively seen. Acute rig ht-sided rib fractures again noted. IMPRESSION: 1. Right-sided chest tube in place with questioned trace residual right apical pneumothorax. 2. Persistent bibasilar opacities with acute right-sided rib fractures. ACT 112: Negative or not required by law. The above report was generated using voice recognition software. It may contain grammatical, syntax o r spelling errors. Electronically signed by: Filippo Dwyer M.D. 11/13/2021 7:27 AM
[2021-11-13 07:47] LABS: Basophils # (auto) 0.03 K/uL (0-0.2); Basophils % (auto) 0.3 %; Eosinophils # (auto) 0.82 K/uL (0-0.5); Hemoglobin 14.2 g/dL (14.0-18.0); Immature Granulocytes # (auto) 0.02 K/uL (0.00-0.02); Immature Granulocytes % (auto) 0.2 %; Lymphocytes % (auto) 10.7 %; Mean Corpuscular Hemoglobin 33.1 pg (25-34); Mean Corpuscular Hgb Conc 33.8 g/dL (32-36); Mean Corpuscular Volume 97.9 fL (80-100); Mean Platelet Volume 9.6 fL (7.4-10.4); Monocytes # (auto) 1.19 K/uL (0.11-0.59); Monocytes % (auto) 11.6 %; Neutrophils # (auto) 7.14 K/uL (1.4-6.5); Neutrophils % (auto) 69.2 %; Platelet Count 260 K/uL (130-400); RDW Coefficient of Variation 13.3 % (11.5-14.5); RDW Standard Deviation 47.5 fL (36.4-46.3); Red Blood Count 4.29 M/uL (4.7-6.1)
[2021-11-13] MEDS: ZINC SULFATE 220 MG CAPSULE PO SCH (08:09)
[2021-11-13] MEDS: FAMOTIDINE 20 MG TAB PO SCH (08:09)
[2021-11-13] MEDS: AMOXICILLIN/CLAVULANATE 875 MG TAB PO SCH ×2 (08:10→16:02)
[2021-11-13] MEDS: guaiFENesin 600 MG TABCR PO SCH ×2 (08:10→20:45)
[2021-11-13] MEDS: LOSARTAN POTASSIUM 50 MG TAB PO SCH (08:10)
[2021-11-13] MEDS: SENNA 8.6 MG TAB PO SCH (08:10)
[2021-11-13] MEDS: ASCORBIC ACID 500 MG TAB PO SCH (08:10)
[2021-11-13] MEDS: MAGNESIUM OXIDE 400 MG TAB PO SCH (08:10)
[2021-11-13] MEDS: POLYETHYLENE (MIRALAX) 17 GM PACK PO SCH ×2 (08:11→20:46)
[2021-11-13] MEDS: FLUTICASONE/VILANTEROL 100/25MCG 14 PUFFS/INHALER INH SCH (08:11)
[2021-11-13] MEDS: LIDOCAINE 5% 1 PATCH TD SCH (08:11)
[2021-11-13 08:33] LABS: BUN Creatinine Ratio 14.5 (10-20); Calcium 8.6 mg/dl (8.5-10.1); Creatinine Clr Calc Pharmacy 105.2 ml/min; Est GFR (African American) 111.6 ml/min; Est GFR (Non-African American) 96.3 ml/min; Potassium 4.8 mmol/L (3.5-5.1)
--- NOTE | 2021-11-13 08:45 | Hospitalist Progress Note ---
Date of Service November 13, 2021 Assessment & Plan (1) Pneumothorax: Plan: 2nd to trauma with resulting rib fractures. CT chest on 11/06 showed acute comminuted right posterior 7th and 8th rib fractures, small/moderate right-sided PTX, and small hemothorax. Rib fractures could have caused the pneumo OR a bullae ruptured OR both. Either way s/p chest tube on right hospital day #1. Defer management to Dr Oropeza and pulmonary team --> Dr Henry on service now 11/13 --> [place] [facility] Sandoval. no need for tx. consideration for placement of surgical chest tube/Heimlich valve if able to perform and discharge that way. --> did not feel need for VATS at this time. Turned suction to 10cm and repeat CXr with worsening, backed up to 15cm and remained stable overnight but did report increased pain. Reached back out on 11/12 given findings below and rec for chest tube/no need for transfer at this time for VATs -- per Dr Rachid Sofia cardiothoracic CXR worsened/CT chest obtained on 11/12 which showed chest tube possibly with portion extrapleural and large R sided hydro ptx with near complete atelectasis/consolidation of RLL with acute rib fx possibly 06/27 when prior 7th/8th comminuted s/p 16 Luxembourgish Thal quick chest tube placed due to recurrence of the pneumothorax with Dr Henry 11/12 CXR this morning with improvement : 1. Right-sided chest tube in place with questioned trace residual right apical pneumothorax. 2. Persistent bibasilar opacities with acute right-sided rib fractures. No further air leak this morning --> pulmonary hooked chest tube to water seal and plans for repeat cXR this afternoon around 2pm for further eval Has been using IS faithfully Pain control with tylenol/narcotics lidoderm for pain. cont scheduled tylenol pulmonary toilet, + mucinex Augmentin continued --> day 6/7 but may need to consider extending to 10 days given above Continue to monitor Appreciate assistance from pulmonary team regarding management of chest tube (2) Hemothorax: Plan: See above 2nd trauma (3) Pneumonia: Plan: right basilar consolidation likely RLL collapse but given the purulent sputum can't rule out element of infection cont augmentin 875mg BID - day #6 of such plan 7 days in total of Rx but may need to extend to 10 days but will mpnitor for now WBC wnl, afebrile (4) HTN (hypertension): Plan: continue losartan, but will continue to hold HCTZ given slightly dry mm BPs have remained stable, 119/75 (5) Hyponatremia: Plan: appears chronic 2nd HCTZ? as well as hypothyroidism --> increased synthroid to 150mcg daily Na 132 today BMP for stability (6) High cholesterol: Plan: Continue atorvastatin 20 mg daily (7) Acid reflux: Plan: Continue famotidine (8) COPD (chronic obstructive pulmonary disease): Plan: Cont home inhalers schedule albuterol 2 puffs QID for wheezing and to aid with cough/mucous clearance/pulm toilet (9) Hypothyroidism: Plan: TSH mildly elevated 8.3 will ask about compliance with levothyroxine 137 mcg daily --> compliant and will increase to 150mcg daily. Need new rx at d/c and f/u PCP for repeat TFT outpatient (10) Insomnia: Plan: Continue trazodone at 50 mg in the evening (11) Constipation: Plan: cont senna, miralax BID + BM 11/11 after mag citrate and continues to have active BS. Continued to encourage ambulation -- plans on walking this morning and feels like he has to have one Monitor (12) Tobacco dependence: Plan: offered nicoderm he declined encourage continued cessation at d/c (13) DVT prophylaxis: Plan: SCDs - Defer heparin 2nd hemothorax and placement of chest tube 11/12 continue ambulation encouraged (14) Vitamin D imbalance: Plan: Ca not elevated, but on supplementation Vit D checked, elevated. Holding futher supplementation -- STOP at discharge Check PTH -- wnl Monitor calcium levels -- of note, also on HCTZ which can contribute to elevations Admission and Anticipated Discharge Date Admission Date: November 07, 2021 Supervising Physician Co-Signing Physician Notes Attending Attestation - Chart reviewed, care plan d/w NANCIE Oleary. I agree w/ the mccauley components of her documentation. 61yo male with right-sided traumatic rib fractures and pneumothorax/hemothorax on right, s/p chest tube (Thoravent) placement the day of presentation. CT management per pulmonary since admission. Unfortunately he has had persistent air leak s/p larger, traditional chest tube placed yesterday; Thoravent removed. Pneumothorax is improved today. Cont chest tube per pulmonary. Augmentin for suspected RLL pneumonia. Hyponatremia - stable. Kalpesh Cordero MD Subjective patient evaluated this morning doing better pain controlled with oral /iv pain control cxr with improvement no air leak currently, only grade 1 with coughing eating/drinking, less abd fullness. passing gas. about to ambulate in the halls and feels like he will have to have BM following. said he was seen by pulmonary, Jensen, this morning, and plans for repeat cxr this afternoon around 2pm. No fever, chills, abd pain, nausea, vomiting, dyrusia or other complaints at this time. Review of Systems Review of Systems: All systems reviewed & are unremarkable except as noted in HPI & below Physical Exam Physical Exam: gen - WD male sitting up in bed, NAD, on 2L NC eyes- anicteric, pupils equal, EOMI Mouth- slightly dry mm (improving) Neck- no tracheal deviation Resp- diminished in the bases with associated crackles, no wheezing. thoravent previously in 2nd ICS anterior chest since removed, dressing c/d/i. chest tube to R axillae, currently to water seal. no air leak at present time. 96% on 2L NC. no cough/tachypnea CV: RRR, 1/6 TRICIA LSB, no edema Abd: +BS, soft, non-tender Ext:no edema Results & Data Results & Data ([facility]) Vital Signs (Past 12 Hours) Vital Signs Temp Pulse Resp BP BP Pulse Ox 11/13/21 06:54 36.4 C L 57 L 16 119/75 96 11/12/21 23:53 36.7 C 71 18 107/67 95 Laboratory Results 11/13/21 11/13/21 11/12/21 Range/Units 07:11 07:11 08:43 WBC 10.30 (4.8-10.8) K/uL RBC 4.29 L (4.7-6.1) M/uL Hgb 14.2 (14.0-18.0) g/dL Hct 42.0 (42-52) % MCV 97.9 (80-100) fL MCH 33.1 (25-34) pg MCHC 33.8 (32-36) g/dL RDW Std Deviation 47.5 H (36.4-46.3) fL RDW Coeff of Shaylee 13.3 (11.5-14.5) % Plt Count 260 (130-400) K/uL MPV 9.6 (7.4-10.4) fL Immature Gran % (Auto) 0.2 % Neut % (Auto) 69.2 % Lymph % (Auto) 10.7 % Weakley % (Auto) 11.6 % Eos % (Auto) 8.0 % Baso % (Auto) 0.3 % Neut # (Auto) 7.14 H (1.4-6.5) K/uL Lymph # (Auto) 1.10 L (1.2-3.4) K/uL Weakley # (Auto) 1.19 H (0.11-0.59) K/uL Eos # (Auto) 0.82 H (0-0.5) K/uL Baso # (Auto) 0.03 (0-0.2) K/uL Immature Gran # (Auto) 0.02 (0.00-0.02) K/uL Sodium 132 L 131 L (136-145) mmol/L Potassium 4.8 4.3 (3.5-5.1) mmol/L Chloride 97 L 95 L (98-107) mmol/L Carbon Dioxide 29 33 H (21-32) mmol/L Anion Gap 6 3 (3-11) BUN 12 12 (6-23) mg/dl Creatinine 0.83 0.83 (0.6-1.4) mg/dl Est Cr Clr Drug Dosing 105.2 105.2 ml/min Est GFR ( Amer) 111.6 111.6 ml/min Est GFR (Non-Af Amer) 96.3 96.3 ml/min BUN/Creatinine Ratio 14.5 14.5 (10-20) Glucose 111 H 114 H (70-99(Fasting)) mg/dl Calcium 8.6 8.9 (8.5-10.1) mg/dl 11/12/21 Range/Units 08:43 WBC 8.78 (4.8-10.8) K/uL RBC 4.47 L (4.7-6.1) M/uL Hgb 15.0 (14.0-18.0) g/dL Hct 43.5 (42-52) % MCV 97.3 (80-100) fL MCH 33.6 (25-34) pg MCHC 34.5 (32-36) g/dL RDW Std Deviation 47.4 H (36.4-46.3) fL RDW Coeff of Shaylee 13.3 (11.5-14.5) % Plt Count 263 (130-400) K/uL MPV 9.7 (7.4-10.4) fL Immature Gran % (Auto) 0.3 % Neut % (Auto) 67.6 % Lymph % (Auto) 14.7 % Weakley % (Auto) 9.6 % Eos % (Auto) 7.5 % Baso % (Auto) 0.3 % Neut # (Auto) 5.93 (1.4-6.5) K/uL Lymph # (Auto) 1.29 (1.2-3.4) K/uL Weakley # (Auto) 0.84 H (0.11-0.59) K/uL Eos # (Auto) 0.66 H (0-0.5) K/uL Baso # (Auto) 0.03 (0-0.2) K/uL Immature Gran # (Auto) 0.03 H (0.00-0.02) K/uL Sodium (136-145) mmol/L Potassium (3.5-5.1) mmol/L Chloride (98-107) mmol/L Carbon Dioxide (21-32) mmol/L Anion Gap (3-11) BUN (6-23) mg/dl Creatinine (0.6-1.4) mg/dl Est Cr Clr Drug Dosing ml/min Est GFR ( Amer) ml/min Est GFR (Non-Af Amer) ml/min BUN/Creatinine Ratio (10-20) Glucose (70-99(Fasting)) mg/dl Calcium (8.5-10.1) mg/dl Diagnostic Findings Chest X-Ray 11/11/21 23:30 SINGLE VIEW CHEST CLINICAL HISTORY: Follow-up pneumothorax. FINDINGS: An AP, portable, upright chest radiograph is compared to study performed earlier the same day 11/11/2021. The cardiomediastinal silhouette is unremarkable. A chest tube is again seen at the right apex. Positioning is changed from today's earlier examination. There is a small residual right-sided pneumothorax. This has decreased in size from today's earlier examination. A small pleural effusion and consolidation is seen at the right lung base. No left-sided pneumothorax is seen. The bony thorax is grossly intact. IMPRESSION: 1. A right-sided chest tube has been repositioned. 2. There is a small residual right apical pneumothorax. This has decreased in size from today's earlier examination. 3. Small right pleural effusion with right basilar consolidation. ACT 112: Negative or not required by law. Electronically signed by: Jensen Chapman M.D. 11/12/2021 9:02 AM Chest X-Ray 11/12/21 07:00 SINGLE VIEW CHEST CLINICAL HISTORY: Follow-up pneumothorax. FINDINGS: An AP, portable, upright chest radiograph is compared to studies dated 11/11/2021. The cardiomediastinal silhouette is unremarkable. A chest tube is again seen at the right apex. A right-sided chest tube is in place. A right apical pneumothorax has increased in size from yesterday with 1.8 cm of pleural separation. This now tracks to the right lung base. A small pleural effusion and consolidation is seen at the right lung base. Atelectasis is noted at the left lung base. No left-sided pneumothorax is identified. The bony thorax is grossly intact. IMPRESSION: 1. A right-sided chest tube is in place. A right-sided pneumothorax has significantly increased in size from yesterday. 2. Small right pleural effusion with right basilar consolidation. ACT 112: Negative or not required by law. Electronically signed by: Jensen Chapman M.D. 11/12/2021 9:[address] 11/12/21 09:14 CT SCAN OF THE CHEST WITH IV CONTRAST CLINICAL HISTORY: Pneumothorax. Chest tube. COMPARISON STUDY: Chest CT scans dated 11/06/2021 and 11/29/2020. Chest radiograph dated 11/12/2021. TECHNIQUE: Following the IV administration of 95 cc of atrophy 20, CT scan of the thorax was performed from the thoracic inlet to the upper abdomen. Images are reviewed in the axial, sagittal, and coronal planes. IV contrast was administered without complication. A dose lowering technique was utilized adhering to the principles of ALARA. CT DOSE: 400.89 mGy.cm FINDINGS: Thyroid: Atrophic. Thoracic aorta: There is atherosclerotic calcification of the thoracic aorta, which is normal in caliber and demonstrates standard 3-vessel arch anatomy. No dissection is seen. Pulmonary arteries: The pulmonary trunk is normal in caliber. There are no filling defects within the central pulmonary vessels to suggest pulmonary embolus. Note that this examination was not protocoled to evaluate the pulmonary arteries. Heart: The heart is normal in size and without pericardial effusion. The coronary arteries are densely calcified. Lungs and pleural spaces: Emphysematous change is noted. A chest tube is present at the anterior right apex entering between the first and second ribs. A portion of the catheter appears to be extrapleural. There is a large right-sided pneumothorax with near complete atelectasis/consolidation of the right lower lobe. There is a small amount of pleural fluid right lung base. The trachea is midline and appears clear. Mild secretions are noted in the right mainstem bronchus. There is left basilar atelectasis. A 5 mm pulmonary nodule is again seen at the left lung base on image #230. Mediastinum: There is no mediastinal hematoma or lymphadenopathy. Janiya: No mediastinal adenopathy is identified. Axillae: There is no axillary lymphadenopathy. Upper abdomen: There is a small hiatal hernia. Partially imaged upper abdominal viscera is otherwise grossly unremarkable. Skeletal structures: There are comminuted right posterior 7th and 8th rib fractures. There are nondisplaced right posterior 9th and 10th rib fractures which are more conspicuous from previous. No lytic or blastic bony lesions are seen. Soft tissues: Subcutaneous emphysema is seen in the right lower neck/anterior chest wall. IMPRESSION: 1. A chest tube is in place at the anterior right apex. This is located just deep to the pleura and a portion appears to be extrapleural. 2. Large right-sided hydropneumothorax. The trachea is midline. 3. There is near complete atelectasis/consolidation of the right lower lobe. 4. Acute right-sided rib fractures as above. 5. Emphysema. 6. A 5 mm pulmonary nodule at the left lung base is unchanged. 7. Additional findings as above. ACT 112: Negative or not required by law. Electronically signed by: Jensen Chapman M.D. 11/12/2021 11:09 AM Chest X-Ray 11/12/21 12:14 XR chest 1V portable CLINICAL HISTORY: right PNX s/p chest tube miid axilla TECHNIQUE: Single frontal radiograph of the chest was obtained. Comparison: Comparison is made to chest one view 11/12/2021 at 0702 hours FINDINGS: Again noted is a right chest tube. Calcified aortic knob is seen. The lungs are clear. Right basilar pneumothorax is seen. IMPRESSION: Right basilar pneumothorax is seen, previously noted right apical pneumothorax is not seen. Overall decreased from prior exam. ACT 112: Negative or not required by law. Electronically signed by: Melvin Lora M.D. 11/12/2021 1:04 PM Chest X-Ray 11/13/21 06:00 XR chest 1V portable HISTORY: 61 years-old Male follow up ptx follow-up study in a patient with recent right-sided pneumothorax COMPARISON: Chest radiograph 11/12/2021 TECHNIQUE: Portable AP view of the chest FINDINGS: Cardiomediastinal and hilar silhouettes are unchanged. Calcified plaque of the thoracic aorta. Possible trace residual subcutaneous emphysema within the right supraclavicular tissues. Blunting of the costophrenic angles with unchanged bibasilar densities. Interval removal of the right anterior chest tube. A right- sided chest tube distal tip projects over the right lung apex. There is a questioned trace apical residual right pneumothorax. See noted basilar component is not definitively seen. Acute right-sided rib fractures again noted. IMPRESSION: 1. Right-sided chest tube in place with questioned trace residual right apical pneumothorax. 2. Persistent bibasilar opacities with acute right-sided rib fractures. ACT 112: Negative or not required by law. The above report was generated using voice recognition software. It may contain grammatical, syntax or spelling errors. Electronically signed by: Filippo Dwyer M.D. 11/13/2021 7:27 AM PG Care Time/CCT Total # of Minutes Spent Total Time Spent with Patient: Total time spent is greater than 50% in coordination of care (as documented) at patient's floor/unit and/or counseling patient: Coding Level of Care Code 51875 Subseq Hosp Care Lvl 2 Diagnoses Pneumothorax S27.0XXA Encounter type: initial encounter Pneumothorax type: traumatic Hemothorax J94.2 Pneumonia J18.9 HTN (hypertension) I10 Hyponatremia E87.1 High cholesterol E78.00 Acid reflux K21.9 COPD (chronic obstructive pulmonary disease) J44.9 Hypothyroidism E03.9 Insomnia G47.00 Constipation K59.00 Tobacco dependence F17.200 DVT prophylaxis Z29.9 Vitamin D imbalance (1) Pneumothorax Encounter type: initial encounter Pneumothorax type: traumatic Qualified Code(s): S27.0XXA - Traumatic pneumothorax, initial encounter
--- NOTE | 2021-11-13 10:44 | Pulmonology Progress Note ---
Date of Service November 13, 2021 Assessment & Plan (1) Traumatic pneumothorax: (2) Persistent air leak: (3) Hemothorax: (4) COPD (chronic obstructive pulmonary disease): (5) Pulmonary emphysema: Plan: Impression: 61-year-old male status post fall with multiple rib fractures on the right that are comminuted. Patient with hemothorax as well as pneumothorax from trauma. A Thora vent was placed in the right upper chest wall region by Dr. Oropeza 11/07/2021. This continue to be hooked to suction and currently demonstrates a grade 1-2 airleak. Recommendations: 1. Traumatic right pneumothorax: * 16 Palauan Thal quick chest tube placed due to recurrence of the pneumothorax. Tiny apical pneumo seen at the right apex. Patient continues with persistent low grade air leak. Currently -10 cm H2O. Discussed with thoracic surgery in [place]. They are willing to accept the patient if he continues to have persistent air leak by Wednesday to consider VATS. He is at high risk for recurrence of pneumothorax given emphysema and blebs. * 2. Right hemothorax: * 16 Palau[place] chest tube noted above. Continue drainage. Thank you for including us in the care of this patient. We will continue to follow along with you. Discussed with hospitalist service. Admission and Anticipated Discharge Date Admission Date: November 07, 2021 Subjective Patient seen and examined. Continues with cough that occasionally is productive of sputum. He does have pleurisy when coughing and rib pain. No fevers or chills. Saturating well on room air. Review of Systems Review of Systems: All systems reviewed & are unremarkable except as noted in HPI & below Physical Exam Physical Exam: GENERAL : No acute distress EYES: No icterus, gaze conjugate NOSE: No evidence of epistaxis MOUTH: No lesions or candidiasis NECK: Supple LUNGS: CTA B/L, no wheezes, rales or rhonchi CHEST: 16 [place] chest tube in place in the right chest wall. Lungs diminished in the right lower lobe. Clear to auscultation elsewhere. HEART: Regular, rate controlled ABDOMEN: Soft, NT, ND, BS Present EXTREMITIES: No LE edema, pedal pulses intact NEURO: A&OX3 Results & Data Results & Data ([facility]) Vital Signs (Past 12 Hours) Vital Signs Temp Pulse Resp BP BP Pulse Ox 11/13/21 06:54 36.4 C L 57 L 16 119/75 96 11/12/21 23:53 36.7 C 71 18 107/67 95 Vitals, labs and imaging personally reviewed PG Care Time/CCT Total # of Minutes Spent Total Time Spent with Patient: Total time spent is greater than 50% in coordination of care (as documented) at patient's floor/unit and/or counseling patient: Coding Level of Care Code 06668 Subseq Hosp Care Lvl 3 Diagnoses Traumatic pneumothorax S27.0XXA Persistent air leak Hemothorax J94.2 COPD (chronic obstructive pulmonary disease) J44.9 Pulmonary emphysema J43.9
--- NOTE | 2021-11-13 14:08 | XRay Report ---
XR chest 1V portable HISTORY: 61 years-old Male Right PNX now on water seal follow up study in a patient with right-sided pneumothorax COMPARISON: Chest radiograph 11/13/2021, chest CT 11/12/2021. TECHNIQUE: Portable AP view of the chest FINDINGS: The positioning of the right apical pneumothorax. Cardiac mediastinal and hilar silhouettes are withi n normal limits. Small right pneumothorax has increased in size from prior with 9 mm pleural separati on at the apex. There are persistent bibasilar densities. Calcified plaque of the thoracic aorta. Acu te right-sided rib fractures. Degenerative changes of the shoulders and spine. IMPRESSION: 1. Stable positioning of the right-sided chest tube. Small right-sided pneumothorax has slightly incr eased in size from prior. 2. Acute right-sided rib fractures are better seen on the comparison chest CT. 3. Bibasilar densities suggestive of atelectasis redemonstrated. ACT 112: Negative or not required by law. The above report was generated using voice recognition software. It may contain grammatical, syntax o r spelling errors. Electronically signed by: Filippo Dwyer M.D. 11/13/2021 2:06 PM
[2021-11-13] MEDS: ATORVASTATIN 20 MG TAB PO SCH (20:45)
[2021-11-13] MEDS: traZODone HCL 50 MG TAB PO SCH (20:50)
[2021-11-14] MEDS: LEVOTHYROXINE SODIUM 150 MCG TABLET PO SCH (06:00)
--- NOTE | 2021-11-14 07:17 | XRay Report ---
XR chest 1V portable HISTORY: 61 years-old Male follow up ptx right-sided pneumothorax follow-up COMPARISON: Chest radiograph 11/13/2021, chest CT 11/12/2021. TECHNIQUE: Portable AP view of the chest FINDINGS: Cardiomediastinal and hilar silhouettes are unchanged. Blunting of the costophrenic angles with mild persistent bibasilar densities. Acute right-sided rib fractures are better seen on comparison chest C T. A right-sided chest tube is noted with distal tip projecting adjacent to the right lung apex. Tiny right apical pneumothorax demonstrates pleural separation of 4 mm, previously 9 mm. IMPRESSION: 1. Right-sided chest tube in place with persistent tiny right apical pneumothorax. 2. Bibasilar opacities suggestive of atelectasis redemonstrated. 3. Acute right-sided rib fractures are better characterized on the comparison chest CT. ACT 112: Negative or not required by law. The above report was generated using voice recognition software. It may contain grammatical, syntax o r spelling errors. Electronically signed by: Filippo Dwyer M.D. 11/14/2021 7:16 AM
[2021-11-14] MEDS: HYDROmorphone INJ 0.5 MG/0.5 ML SYR IV PRN ×3 (07:31→18:11)
[2021-11-14] MEDS: FAMOTIDINE 20 MG TAB PO SCH (08:14)
[2021-11-14] MEDS: guaiFENesin 600 MG TABCR PO SCH ×2 (08:14→21:15)
[2021-11-14] MEDS: SENNA 8.6 MG TAB PO SCH (08:15)
[2021-11-14] MEDS: ZINC SULFATE 220 MG CAPSULE PO SCH (08:15)
[2021-11-14] MEDS: ASCORBIC ACID 500 MG TAB PO SCH (08:15)
[2021-11-14] MEDS: MAGNESIUM OXIDE 400 MG TAB PO SCH (08:15)
[2021-11-14] MEDS: LOSARTAN POTASSIUM 50 MG TAB PO SCH (08:15)
[2021-11-14] MEDS: POLYETHYLENE (MIRALAX) 17 GM PACK PO SCH ×2 (08:15→21:14)
[2021-11-14] MEDS: FLUTICASONE/VILANTEROL 100/25MCG 14 PUFFS/INHALER INH SCH (08:16)
[2021-11-14] MEDS: LIDOCAINE 5% 1 PATCH TD SCH (08:16)
[2021-11-14] MEDS: AMOXICILLIN/CLAVULANATE 875 MG TAB PO SCH ×2 (08:16→16:08)
[2021-11-14 08:33] LABS: Basophils # (auto) 0.02 K/uL (0-0.2); Basophils % (auto) 0.2 %; Eosinophils # (auto) 0.83 K/uL (0-0.5); Eosinophils % (auto) 8.5 %; Hematocrit (blood only) 43.5 % (42-52); Hemoglobin 14.6 g/dL (14.0-18.0); Immature Granulocytes # (auto) 0.02 K/uL (0.00-0.02); Immature Granulocytes % (auto) 0.2 %; Lymphocytes % (auto) 12.3 %; Mean Corpuscular Hgb Conc 33.6 g/dL (32-36); Mean Corpuscular Volume 98.2 fL (80-100); Mean Platelet Volume 9.8 fL (7.4-10.4); Monocytes # (auto) 1.04 K/uL (0.11-0.59); Monocytes % (auto) 10.6 %; Neutrophils # (auto) 6.68 K/uL (1.4-6.5); Neutrophils % (auto) 68.2 %; Platelet Count 283 K/uL (130-400); RDW Coefficient of Variation 13.4 % (11.5-14.5); RDW Standard Deviation 47.9 fL (36.4-46.3); Red Blood Count 4.43 M/uL (4.7-6.1); White Blood Count 9.79 K/uL (4.8-10.8)
--- NOTE | 2021-11-14 08:51 | Hospitalist Progress Note ---
Date of Service November 14, 2021 Assessment & Plan (1) Pneumothorax: Plan: 2nd to trauma with resulting rib fractures. CT chest on 11/06 showed acute comminuted right posterior 7th and 8th rib fractures, small/moderate right-sided PTX, and small hemothorax. Rib fractures could have caused the pneumo OR a bullae ruptured OR both. Either way s/p chest tube on right hospital day #1. Defer management to Dr Oropeza and pulmonary team --> Dr Henry on service now 11/14 --> discussed with [facility] evening 11/[address] Sandoval. no need for tx. consideration for placement of surgical chest tube/Heimlich valve if able to perform and discharge that way. --> did not feel need for VATS at this time. Turned suction to 10cm and repeat CXr with worsening, backed up to 15cm and remained stable overnight but did report increased pain. Reached back out on 11/12 given findings below and rec for chest tube/no need for transfer at this time for VATs -- per Dr Rachid Sofia cardiothoracic CXR worsened/CT chest obtained on 11/12 which showed chest tube possibly with portion extrapleural and large R sided hydro ptx with near complete atelectasis/consolidation of RLL with acute rib fx possibly 06/27 when prior 7th/8th comminuted s/p 16 [place] Thal quick chest tube placed due to recurrence of the pneumothorax with Dr Henry 11/12 Continue IS, pain control, lidoderm patch scheduled tylenol mucinex Augmentin 7/10 days, extended given above Currently on 10cm suction, no air leak except with deep cough at times --> continued suction at current. titration to water seal per pulm Discussed likely inpatient/monitoring through weekend. Pulm spoke with thoracic surgon in [facility] (Dr Mendez) who is willing to accept in transfer wednesday if continued air leak (2) Hemothorax: Plan: See above 2nd trauma (3) Pneumonia: Plan: right basilar consolidation likely RLL collapse but given the purulent sputum can't rule out element of infection cont augmentin 875mg BID - day #6 of such plan 7 days in total of Rx but extended to 10 days WBC wnl, afebrile (4) HTN (hypertension): Plan: continue losartan, but will continue to hold HCTZ given slightly dry mm BPs have remained stable, 135/82 Can consider resuming HCTZ in AM if continues to be elevated but suspect some due to pain Hydralazine prn (5) Hyponatremia: Plan: appears chronic 2nd HCTZ? as well as hypothyroidism --> increased synthroid to 150mcg daily Na further improved to 133 today Monitor BMP (6) High cholesterol: Plan: Continue atorvastatin 20 mg daily (7) Acid reflux: Plan: Continue famotidine (8) COPD (chronic obstructive pulmonary disease): Plan: Cont home inhalers schedule albuterol 2 puffs QID for wheezing and to aid with cough/mucous clearance/pulm toilet (9) Hypothyroidism: Plan: TSH mildly elevated 8.3 will ask about compliance with levothyroxine 137 mcg daily --> compliant and will increased to 150mcg daily. Need new rx at d/c and f/u PCP for repeat TFT outpatient (10) Insomnia: Plan: Continue trazodone at 50 mg in the evening (11) Constipation: Plan: cont senna, miralax BID + BM 11/11 after mag citrate and continues to have active BS. Continued to encourage ambulation -- plans on walking this morning and feels like he has to have one +BM small 11/14 Monitor (12) Tobacco dependence: Plan: offered nicoderm he declined encourage continued cessation at d/c (13) DVT prophylaxis: Plan: SCDs - Defer heparin 2nd hemothorax and placement of chest tube 11/12 continue ambulation encouraged (14) Vitamin D imbalance: Plan: Ca not elevated, but on supplementation Vit D checked, elevated. Holding futher supplementation -- STOP at discharge Check PTH -- wnl Monitor calcium levels -- of note, also on HCTZ which can contribute to elevations Plan: monitoring inpatient through weekend chest tube management per pulmonary if continued air leak on wednesday, ana paula willing to accept in transfer (Dr Mendez) Admission and Anticipated Discharge Date Admission Date: November 07, 2021 Supervising Physician Co-Signing Physician Notes Attending Attestation - Chart reviewed, care plan d/w NANCIE Oleary. I agree w/ the mccauley components of her documentation. 61yo male with right-sided traumatic rib fractures and pneumothorax/hemothorax on right, s/p chest tube (Thoravent) placement the day of presentation. CT management per pulmonary since admission. Unfortunately he has had persistent air leak; thus, on 11/12, a larger chest tube was placed by Dr Henry. Thoravent was removed. Pneumothorax has improved considerably but still with mild air leak. Cont chest tube per pulmonary. Augmentin for suspected RLL pneumonia. Hyponatremia - stable. Vitals stable. Kalpesh Cordero MD Subjective patient eval this morning pain controlled with ordered medications on room air no air leak at present but grade 1 with cough. continuing suction 10cm currently. cxr with improvement discussed transfer if not able to manage conservatively -- ok with current plan will keep to 10cm until seen by pulm. possibly continue overnight vs water seal this afternoon/evening. continues incentive spirometer. If needed, he is agreeable to have us contact [facility] for transfer as well. of note, feels like not clearing as much secretions and has not gotten any breathing treatments other than the Breo daily. Will change the albuterol back to scheduled for now. entending augmentin to total 10 days given clinical picture. WBC wnl Review of Systems Review of Systems: All systems reviewed & are unremarkable except as noted in HPI & below Physical Exam Physical Exam: gen - WD male laying in bed, no acute distress, on room air eyes- anicteric, pupils equal, EOMI Mouth- mmm Neck- no tracheal deviation Resp- diminished in the bases with associated crackles, no wheezing. thoravent previously in 2nd ICS anterior chest since removed, dressing c/d/i. chest tube to R axillae, currently to 10cm suction, on room air. no air leak (except with cough grade 1 at times) not tachypneic CV: RRR, 1/6 TRICIA LSB, no edema Abd: +BS, soft, non-tender Ext:no edema Results & Data Results & Data ([facility]) Vital Signs (Past 12 Hours) Vital Signs Temp Pulse Resp BP Pulse Ox 11/14/21 07:09 36.5 C 61 18 122/79 93 11/13/21 22:45 36.8 C 68 16 128/84 91 Laboratory Results 11/14/21 11/14/21 Range/Units 07:35 07:35 WBC 9.79 (4.8-10.8) K/uL RBC 4.43 L (4.7-6.1) M/uL Hgb 14.6 (14.0-18.0) g/dL Hct 43.5 (42-52) % MCV 98.2 (80-100) fL MCH 33.0 (25-34) pg MCHC 33.6 (32-36) g/dL RDW Std Deviation 47.9 H (36.4-46.3) fL RDW Coeff of Shaylee 13.4 (11.5-14.5) % Plt Count 283 (130-400) K/uL MPV 9.8 (7.4-10.4) fL Immature Gran % (Auto) 0.2 % Neut % (Auto) 68.2 % Lymph % (Auto) 12.3 % [place] % (Auto) 10.6 % Eos % (Auto) 8.5 % Baso % (Auto) 0.2 % Neut # (Auto) 6.68 H (1.4-6.5) K/uL Lymph # (Auto) 1.20 (1.2-3.4) K/uL [place] # (Auto) 1.04 H (0.11-0.59) K/uL Eos # (Auto) 0.83 H (0-0.5) K/uL Baso # (Auto) 0.02 (0-0.2) K/uL Immature Gran # (Auto) 0.02 (0.00-0.02) K/uL Sodium 133 L (136-145) mmol/L Potassium 4.5 (3.5-5.1) mmol/L Chloride 99 (98-107) mmol/L Carbon Dioxide 27 (21-32) mmol/L Anion Gap 7 (3-11) BUN 14 (6-23) mg/dl Creatinine 0.80 (0.6-1.4) mg/dl Est Cr Clr Drug Dosing 109.1 ml/min Est GFR ( Amer) 113.3 ml/min Est GFR (Non-Af Amer) 97.8 ml/min BUN/Creatinine Ratio 17.5 (10-20) Glucose 108 H (70-99(Fasting)) mg/dl Calcium 8.9 (8.5-10.1) mg/dl Total Bilirubin 0.5 (0.2-1.0) mg/dl AST 11 L (13-39) U/L ALT 13 (7-52) U/L Alkaline Phosphatase 49 (34-104) U/L Total Protein 6.5 (6.0-8.3) gm/dl Albumin 3.8 (3.4-5.0) gm/dl Globulin 2.7 (2.5-4.0) gm/dl Albumin/Globulin Ratio 1.4 (0.9-2) Diagnostic Findings Chest X-Ray 11/13/21 14:00 XR chest 1V portable HISTORY: 61 years-old Male Right PNX now on water seal follow up study in a patient with right-sided pneumothorax COMPARISON: Chest radiograph 11/13/2021, chest CT 11/12/2021. TECHNIQUE: Portable AP view of the chest FINDINGS: The positioning of the right apical pneumothorax. Cardiac mediastinal and hilar silhouettes are within normal limits. Small right pneumothorax has increased in size from prior with 9 mm pleural separation at the apex. There are persistent bibasilar densities. Calcified plaque of the thoracic aorta. Acute right-sided rib fractures. Degenerative changes of the shoulders and spine. IMPRESSION: 1. Stable positioning of the right-sided chest tube. Small right-sided pneumothorax has slightly increased in size from prior. 2. Acute right-sided rib fractures are better seen on the comparison chest CT. 3. Bibasilar densities suggestive of atelectasis redemonstrated. ACT 112: Negative or not required by law. The above report was generated using voice recognition software. It may contain grammatical, syntax or spelling errors. Electronically signed by: Filippo Dwyer M.D. 11/13/2021 2:06 PM Chest X-Ray 11/14/21 06:00 XR chest 1V portable HISTORY: 61 years-old Male follow up ptx right-sided pneumothorax follow-up COMPARISON: Chest radiograph 11/13/2021, chest CT 11/12/2021. TECHNIQUE: Portable AP view of the chest FINDINGS: Cardiomediastinal and hilar silhouettes are unchanged. Blunting of the costophrenic angles with mild persistent bibasilar densities. Acute right-sided rib fractures are better seen on comparison chest CT. A right-sided chest tube is noted with distal tip projecting adjacent to the right lung apex. Tiny right apical pneumothorax demonstrates pleural separation of 4 mm, previously 9 mm. IMPRESSION: 1. Right-sided chest tube in place with persistent tiny right apical pneumothorax. 2. Bibasilar opacities suggestive of atelectasis redemonstrated. 3. Acute right-sided rib fractures are better characterized on the comparison chest CT. ACT 112: Negative or not required by law. The above report was generated using voice recognition software. It may contain grammatical, syntax or spelling errors. Electronically signed by: Filippo Dwyer M.D. 11/14/2021 7:16 AM PG Care Time/CCT Total # of Minutes Spent Total Time Spent with Patient: Total time spent is greater than 50% in coordination of care (as documented) at patient's floor/unit and/or counseling patient: Coding Level of Care Code 48783 Subseq Hosp Care Lvl 2 Diagnoses Pneumothorax S27.0XXA Encounter type: initial encounter Pneumothorax type: traumatic Hemothorax J94.2 Pneumonia J18.9 HTN (hypertension) I10 Hyponatremia E87.1 High cholesterol E78.00 Acid reflux K21.9 COPD (chronic obstructive pulmonary disease) J44.9 Hypothyroidism E03.9 Insomnia G47.00 Constipation K59.00 Tobacco dependence F17.200 DVT prophylaxis Z29.9 Vitamin D imbalance (1) Pneumothorax Encounter type: initial encounter Pneumothorax type: traumatic Qualified Code(s): S27.0XXA - Traumatic pneumothorax, initial encounter
[2021-11-14 09:11] LABS: Albumin Globulin Ratio 1.4 (0.9-2); Albumin Level 3.8 gm/dl (3.4-5.0); BUN Creatinine Ratio 17.5 (10-20); Bilirubin,Total 0.5 mg/dl (0.2-1.0); Calcium 8.9 mg/dl (8.5-10.1); Creatinine Clr Calc Pharmacy 109.1 ml/min; Est GFR (African American) 113.3 ml/min; Est GFR (Non-African American) 97.8 ml/min; Globulin 2.7 gm/dl (2.5-4.0); Potassium 4.5 mmol/L (3.5-5.1); Total Protein 6.5 gm/dl (6.0-8.3)
[2021-11-14] MEDS ORDERED: hydrALAZINE HCL 20 MG/ML VIAL IV PRN (15:25)
[2021-11-14] MEDS: ALBUTEROL HFA 8 GM INHALER INH SCH ×3 (16:09→19:00)
[2021-11-14] MEDS: traZODone HCL 50 MG TAB PO SCH (21:14)
[2021-11-14] MEDS: ATORVASTATIN 20 MG TAB PO SCH (21:15)
[2021-11-15] MEDS: HYDROmorphone INJ 0.5 MG/0.5 ML SYR IV PRN ×4 (01:17→22:18)
[2021-11-15] MEDS: LEVOTHYROXINE SODIUM 150 MCG TABLET PO SCH (06:12)
[2021-11-15] MEDS: ALBUTEROL HFA 8 GM INHALER INH SCH ×4 (07:53→20:44)
[2021-11-15] MEDS: POLYETHYLENE (MIRALAX) 17 GM PACK PO SCH ×2 (09:13→22:18)
[2021-11-15] MEDS: LIDOCAINE 5% 1 PATCH TD SCH (09:15)
[2021-11-15] MEDS: guaiFENesin 600 MG TABCR PO SCH ×2 (09:15→22:17)
[2021-11-15] MEDS: AMOXICILLIN/CLAVULANATE 875 MG TAB PO SCH ×2 (09:15→17:19)
[2021-11-15] MEDS: ASCORBIC ACID 500 MG TAB PO SCH (09:15)
[2021-11-15] MEDS: SENNA 8.6 MG TAB PO SCH (09:16)
[2021-11-15] MEDS: ZINC SULFATE 220 MG CAPSULE PO SCH (09:16)
[2021-11-15] MEDS: FLUTICASONE/VILANTEROL 100/25MCG 14 PUFFS/INHALER INH SCH (09:16)
[2021-11-15] MEDS: MAGNESIUM OXIDE 400 MG TAB PO SCH (09:16)
[2021-11-15 09:21] LABS: Hematocrit (blood only) 41.7 % (42-52); Hemoglobin 14.3 g/dL (14.0-18.0); Mean Corpuscular Hemoglobin 33.7 pg (25-34); Mean Corpuscular Hgb Conc 34.3 g/dL (32-36); Mean Corpuscular Volume 98.3 fL (80-100); Mean Platelet Volume 9.4 fL (7.4-10.4); Platelet Count 301 K/uL (130-400); RDW Coefficient of Variation 13.2 % (11.5-14.5); RDW Standard Deviation 47.6 fL (36.4-46.3); Red Blood Count 4.24 M/uL (4.7-6.1); White Blood Count 12.03 K/uL (4.8-10.8)
[2021-11-15] MEDS: FAMOTIDINE 20 MG TAB PO SCH (09:23)
[2021-11-15] MEDS: LOSARTAN POTASSIUM 50 MG TAB PO SCH (09:23)
--- NOTE | 2021-11-15 09:34 | Hospitalist Progress Note ---
Date of Service November 15, 2021 Assessment & Plan (1) Pneumothorax: Plan: 2nd to trauma with resulting rib fractures. CT chest on 11/06 showed acute comminuted right posterior 7th and 8th rib fractures, small/moderate right-sided PTX, and small hemothorax. Rib fractures could have caused the pneumo OR a bullae ruptured OR both. Either way s/p chest tube on right hospital day #1. Defer management to Dr Oropeza and pulmonary team --> Dr Henry on service now --> discussed with [facility] evening 11/[address] Sandoval. no need for tx. consideration for placement of surgical chest tube/Heimlich valve if able to perform and discharge that way. --> did not feel need for VATS at this time. Turned suction to 10cm and repeat CXr with worsening, backed up to 15cm and remained stable overnight but did report increased pain. Reached back out on 11/12 given findings below and rec for chest tube/no need for transfer at this time for VATs -- per Dr Rachid Sofia cardiothoracic CXR worsened/CT chest obtained on 11/12 which showed chest tube possibly with portion extrapleural and large R sided hydro ptx with near complete atelectasis/consolidation of RLL with acute rib fx possibly 06/27 when prior 7th/8th comminuted s/p 16 [place] Thal quick chest tube placed due to recurrence of the pneumothorax with Dr Henry 11/12 Continue IS, pain control, lidoderm patch scheduled tylenol mucinex Scheduled albuterol HFA -- improvement per patient in breathing/congestion Augmentin 8/10 days, extended given above Currently on 10cm suction, grade 1 leak still present --> continued suction at current 10cm. Discussed likely inpatient/monitoring through weekend. Pulm spoke with thoracic surgon in [facility] (Dr Mendez) who is willing to accept in transfer wednesday if continued air leak (present) (2) Hemothorax: Plan: See above 2nd trauma (3) Pneumonia: Plan: right basilar consolidation likely RLL collapse but given the purulent sputum can't rule out element of infection cont augmentin 875mg BID - day #8 of such WBC elevated slightly but no fever planned 8 days in total of Rx but extended to 10 days (4) HTN (hypertension): Plan: continue losartan, but will continue to hold HCTZ given slightly dry mm (IMPROVING) BPs have remained stable, 135/82 Have not given HCTZ in several days --> suspect patient may not need this at discharge as no swelling/BPs well controlled. Could consider using prn edema once diet changes in outpatient setting but will continue to hold ofr now Hydralazine prn if needed (5) Hyponatremia: Plan: appears chronic 2nd HCTZ? as well as hypothyroidism --> increased synthroid to 150mcg daily Na further improved to 135 today Monitor BMP (6) High cholesterol: Plan: Continue atorvastatin 20 mg daily (7) Acid reflux: Plan: Continue famotidine (8) COPD (chronic obstructive pulmonary disease): Plan: Cont home inhalers schedule albuterol 2 puffs QID for wheezing and to aid with cough/mucous clearance/pulm toilet (9) Hypothyroidism: Plan: TSH mildly elevated 8.3 will ask about compliance with levothyroxine 137 mcg daily --> compliant and will increased to 150mcg daily. Need new rx at d/c and f/u PCP for repeat TFT outpatient (10) Insomnia: Plan: Continue trazodone at 50 mg in the evening (11) Constipation: Plan: cont senna, miralax BID + BM 11/11 after mag citrate and continues to have active BS. Continued to encourage ambulation -- plans on walking this morning and feels like he has to have one +BM small 11/14 +BS, no pain Monitor (12) Tobacco dependence: Plan: offered nicoderm he declined encourage continued cessation at d/c (13) DVT prophylaxis: Plan: SCDs - Defer heparin 2nd hemothorax and placement of chest tube 11/12 continue ambulation encouraged (14) Vitamin D imbalance: Plan: Ca not elevated, but on supplementation Vit D checked, elevated. Holding futher supplementation -- STOP at discharge Check PTH -- wnl Monitor calcium levels -- of note, also on HCTZ which can contribute to elevations however this likely would not need to be resume at d/c as above Plan: monitoring inpatient through weekend chest tube management per pulmonary if continued air leak on wednesday, ana paula willing to accept in transfer (Dr Mendez) Admission and Anticipated Discharge Date Admission Date: November 07, 2021 Supervising Physician Co-Signing Physician Notes Attending Attestation - Chart reviewed, care plan d/w NANCIE Oleary. I agree w/ the mccauley components of her documentation. 61yo male with right-sided traumatic rib fractures and pneumothorax/hemothorax on right, s/p chest tube (Thoravent) placement the day of presentation. CT management per pulmonary since admission. Unfortunately he has had persistent air leak; thus, on 11/12, a larger chest tube was placed by Dr Henry. Thoravent was removed. Pneumothorax has improved considerably but still with mild air leak. [facility] was contacted and thoracic surgery there would be willing to accept in transfer for possible VATS this coming Wednesday if still with pneumothorax/air leak. Cont chest tube per pulmonary. Augmentin for suspected RLL pneumonia. Hyponatremia - resolved. Kalpesh Cordero MD Subjective eval this morning pain controlled not much change no airleak at rest/without movement but with any cough/movement grade 1 still present. agreeable to continue course as definite management likely in transfer on wednesday to [facility] if continues as such pulm continues to follow no further questions/concerns outside of insurance and will check with CM Review of Systems Review of Systems: All systems reviewed & are unremarkable except as noted in HPI & below Physical Exam Physical Exam: gen - WD male sitting up at side of bed, no acute distress, on room air eyes- anicteric, pupils equal, EOMI Mouth- mmm Neck- no tracheal deviation Resp- diminished in RLL, clear throughout elsewhere compared to prior day with rales/crackle. chest tube to R axillae, no airleak at rest, immediate grade 1 with any movement/talking not tachypneic CV: RRR, 1/6 TRICIA LSB, no edema Abd: +BS, soft, non-tender Ext:no edema Psych; aox3, cooperative and pleasant Results & Data Results & Data ([facility]) Vital Signs (Past 12 Hours) Vital Signs Temp Pulse Resp BP Pulse Ox 11/15/21 09:23 36.8 C 71 18 121/69 92 11/15/21 07:54 70 16 90 11/14/21 23:53 36.5 C 95 H 16 119/77 90 Laboratory Results 11/15/21 11/15/21 Range/Units 08:59 08:59 WBC 12.03 H (4.8-10.8) K/uL RBC 4.24 L (4.7-6.1) M/uL Hgb 14.3 (14.0-18.0) g/dL Hct 41.7 L (42-52) % MCV 98.3 (80-100) fL MCH 33.7 (25-34) pg MCHC 34.3 (32-36) g/dL RDW Std Deviation 47.6 H (36.4-46.3) fL RDW Coeff of Shaylee 13.2 (11.5-14.5) % Plt Count 301 (130-400) K/uL MPV 9.4 (7.4-10.4) fL Sodium 135 L (136-145) mmol/L Potassium 4.5 (3.5-5.1) mmol/L Chloride 100 (98-107) mmol/L Carbon Dioxide 30 (21-32) mmol/L Anion Gap 5 (3-11) BUN 14 (6-23) mg/dl Creatinine 0.85 (0.6-1.4) mg/dl Est Cr Clr Drug Dosing 102.7 ml/min Est GFR ( Amer) 110.5 ml/min Est GFR (Non-Af Amer) 95.4 ml/min BUN/Creatinine Ratio 16.5 (10-20) Glucose 139 H (70-99(Fasting)) mg/dl Calcium 8.7 (8.5-10.1) mg/dl Diagnostic Findings Chest X-Ray 11/15/21 08:37 XR chest 1V portable HISTORY: 61 years-old Male follow up ptx follow-up study in a patient with a right-sided pneumothorax COMPARISON: Chest radiograph 11/14/2021, chest CT 11/12/2021. TECHNIQUE: Portable AP view of the chest FINDINGS: Cardiomediastinal and hilar silhouettes are unchanged. Blunting of the costophrenic angles with mild persistent bibasilar densities. Acute right-sided rib fractures are better seen on comparison chest CT. A right-sided chest tube is noted with distal tip projecting adjacent to the right lung apex. Tiny right apical pneumothorax demonstrates pleural separation of 4 mm, unchanged IMPRESSION: 1. Right-sided chest tube in place with unchanged tiny right apical pneumothorax. 2. Bibasilar opacities suggestive of atelectasis redemonstrated. 3. Acute right-sided rib fractures are better characterized on the comparison chest CT. ACT 112: Negative or not required by law. The above report was generated using voice recognition software. It may contain grammatical, syntax or spelling errors. Electronically signed by: Filippo Dwyer M.D. 11/15/2021 9:59 AM PG Care Time/CCT Total # of Minutes Spent Total Time Spent with Patient: Total time spent is greater than 50% in coordination of care (as documented) at patient's floor/unit and/or counseling patient: Coding Level of Care Code 94306 Subseq Hosp Care Lvl 2 Diagnoses Pneumothorax S27.0XXA Encounter type: initial encounter Pneumothorax type: traumatic Hemothorax J94.2 Pneumonia J18.9 HTN (hypertension) I10 Hyponatremia E87.1 High cholesterol E78.00 Acid reflux K21.9 COPD (chronic obstructive pulmonary disease) J44.9 Hypothyroidism E03.9 Insomnia G47.00 Constipation K59.00 Tobacco dependence F17.200 DVT prophylaxis Z29.9 Vitamin D imbalance (1) Pneumothorax Encounter type: initial encounter Pneumothorax type: traumatic Qualified Code(s): S27.0XXA - Traumatic pneumothorax, initial encounter
[2021-11-15 10:00] LABS: BUN Creatinine Ratio 16.5 (10-20); Calcium 8.7 mg/dl (8.5-10.1); Creatinine Clr Calc Pharmacy 102.7 ml/min; Est GFR (African American) 110.5 ml/min; Est GFR (Non-African American) 95.4 ml/min; Potassium 4.5 mmol/L (3.5-5.1)
--- NOTE | 2021-11-15 10:01 | XRay Report ---
XR chest 1V portable HISTORY: 61 years-old Male follow up ptx follow-up study in a patient with a right-sided pneumothora x COMPARISON: Chest radiograph 11/14/2021, chest CT 11/12/2021. TECHNIQUE: Portable AP view of the chest FINDINGS: Cardiomediastinal and hilar silhouettes are unchanged. Blunting of the costophrenic angles with mild persistent bibasilar densities. Acute right-sided rib fractures are better seen on comparison chest C T. A right-sided chest tube is noted with distal tip projecting adjacent to the right lung apex. Tiny right apical pneumothorax demonstrates pleural separation of 4 mm, unchanged IMPRESSION: 1. Right-sided chest tube in place with unchanged tiny right apical pneumothorax. 2. Bibasilar opacities suggestive of atelectasis redemonstrated. 3. Acute right-sided rib fractures are better characterized on the comparison chest CT. ACT 112: Negative or not required by law. The above report was generated using voice recognition software. It may contain grammatical, syntax o r spelling errors. Electronically signed by: Filippo Dwyer M.D. 11/15/2021 9:59 AM
--- NOTE | 2021-11-15 12:35 | Pulmonology Progress Note ---
Date of Service November 15, 2021 Assessment & Plan (1) Traumatic pneumothorax: (2) Persistent air leak: (3) Hemothorax: (4) COPD (chronic obstructive pulmonary disease): (5) Pulmonary emphysema: Plan: Impression: 61-year-old male status post fall with multiple rib fractures on the right that are comminuted. Patient with hemothorax as well as pneumothorax from trauma. A Thora vent was placed in the right upper chest wall region by Dr. Oropeza 11/07/2021. Recommendations: 1. Traumatic right pneumothorax: * 16 Macedonian Thal quick chest tube placed by me 11/12 due to traumatic hemopneumothorax. Tiny apical pneumo seen at the right apex persists. Patient continues with persistent low grade air leak. Currently -10 cm H2O. Discussed with thoracic surgery in [place]. They are willing to accept the patient if he continues to have persistent air leak by Wednesday to consider VATS. He is at high risk for recurrence of pneumothorax given emphysema and blebs. 2. Right hemothorax: * 16 Macedonian chest tube noted above. Continue drainage. Thank you for including us in the care of this patient. We will continue to follow along with you. Admission and Anticipated Discharge Date Admission Date: November 07, 2021 Subjective No changes from yesterday. Continues with low-grade airleak on the Dai drain. Review of Systems Review of Systems: All systems reviewed & are unremarkable except as noted in HPI & below Physical Exam Physical Exam: GENERAL : No acute distress EYES: No icterus, gaze conjugate NOSE: No evidence of epistaxis MOUTH: No lesions or candidiasis NECK: Supple LUNGS: CTA B/L, no wheezes, rales or rhonchi CHEST: 16 [address]onian chest tube in place in the right chest wall. Lungs diminished in the right lower lobe. Clear to auscultation elsewhere. HEART: Regular, rate controlled ABDOMEN: Soft, NT, ND, BS Present EXTREMITIES: No LE edema, pedal pulses intact NEURO: A&OX3 Results & Data Results & Data ([facility]) Vital Signs (Past 12 Hours) Vital Signs Temp Pulse Resp BP Pulse Ox 11/15/21 11:29 64 18 96 11/15/21 09:23 36.8 C 71 18 121/69 92 11/15/21 07:54 70 16 90 PG Care Time/CCT Total # of Minutes Spent Total Time Spent with Patient: Total time spent is greater than 50% in coordination of care (as documented) at patient's floor/unit and/or counseling patient: Coding Level of Care Code 46867 Subseq Hosp Care Lvl 2 Diagnoses Traumatic pneumothorax S27.0XXA Persistent air leak Hemothorax J94.2 COPD (chronic obstructive pulmonary disease) J44.9 Pulmonary emphysema J43.9
[2021-11-15] MEDS: ATORVASTATIN 20 MG TAB PO SCH (22:17)
[2021-11-15] MEDS: traZODone HCL 50 MG TAB PO SCH (22:18)
[2021-11-16] MEDS: LEVOTHYROXINE SODIUM 150 MCG TABLET PO SCH (06:00)
[2021-11-16] MEDS: HYDROmorphone INJ 0.5 MG/0.5 ML SYR IV PRN ×3 (06:02→15:49)
[2021-11-16 06:31] LABS: Basophils # (auto) 0.04 K/uL (0-0.2); Basophils % (auto) 0.4 %; Eosinophils % (auto) 10.9 %; Hematocrit (blood only) 39.2 % (42-52); Hemoglobin 13.3 g/dL (14.0-18.0); Immature Granulocytes # (auto) 0.02 K/uL (0.00-0.02); Immature Granulocytes % (auto) 0.2 %; Lymphocytes # (auto) 1.82 K/uL (1.2-3.4); Mean Corpuscular Hemoglobin 33.1 pg (25-34); Mean Corpuscular Hgb Conc 33.9 g/dL (32-36); Mean Corpuscular Volume 97.5 fL (80-100); Mean Platelet Volume 9.3 fL (7.4-10.4); Monocytes # (auto) 0.93 K/uL (0.11-0.59); Monocytes % (auto) 9.2 %; Neutrophils # (auto) 6.21 K/uL (1.4-6.5); Neutrophils % (auto) 61.3 %; Platelet Count 289 K/uL (130-400); RDW Coefficient of Variation 13.3 % (11.5-14.5); RDW Standard Deviation 47.8 fL (36.4-46.3); Red Blood Count 4.02 M/uL (4.7-6.1); White Blood Count 10.12 K/uL (4.8-10.8)
[2021-11-16 06:58] LABS: BUN Creatinine Ratio 15.7 (10-20); Calcium 8.3 mg/dl (8.5-10.1); Creatinine Clr Calc Pharmacy 98.1 ml/min; Est GFR (African American) 108.5 ml/min; Est GFR (Non-African American) 93.6 ml/min
--- NOTE | 2021-11-16 07:44 | XRay Report ---
XR chest 1V portable CLINICAL HISTORY: f/u ptx COMPARISON STUDY: Chest radiograph November 15, 2021. FINDINGS: Right chest tube is in place. A small right apical pneumothorax with superior pleural separ ation of 6 mm is similar to prior exam. Bibasilar opacities persist. Several right-sided rib fracture s are better depicted on prior chest CT per there is no evidence for pulmonary edema. There is no lef t pneumothorax. Trace right pleural effusion. IMPRESSION: 1. Right chest tube in place. No significant change in a small right apical pneumothorax. 2. Persistent bibasilar opacities. Trace right pleural effusion. ACT 112: Negative or not required by law. Electronically signed by: Mo Campa M.D. 11/16/2021 7:43 AM
[2021-11-16] MEDS: ALBUTEROL HFA 8 GM INHALER INH SCH ×3 (07:52→14:58)
--- NOTE | 2021-11-16 08:25 | Hospitalist Progress Note ---
Date of Service November 16, 2021 Assessment & Plan Admission and Anticipated Discharge Date Admission Date: November 07, 2021 Subjective patient eval this morning doing ok, some pain but feels might have slept weird still with grade 1 airleak, but at rest. grade 2 with cough. asked RN to turn suction back to 15cm and monitor. discussed calling [facility] to see if any bed available sooner given persistent/worsening air leak. No fever, chills. Pain controlled with ordered medications. Eating/drinking no issues, bowels moved this morning. Per [facility], trauma surgeon Dr Jerome, to turn suction to 20cm and will accept in transfer. They have empty bed currently and cleaning. Given number to fax face sheet to charge master coordinator, burned images to disc, copied chart. Asked RN to turn suction up to 20cm per trauma surgeon given airleak Results & Data Results & Data ([facility]) Vital Signs (Past 12 Hours) Vital Signs Temp Pulse Resp BP BP Pulse Ox 11/16/21 08:04 61 18 92 11/16/21 07:39 36.7 C 60 18 115/74 94 11/15/21 21:58 36.7 C 79 18 130/72 91 11/15/21 20:45 77 18 97 Laboratory Results 11/16/21 11/16/21 11/15/21 Range/Units 05:58 05:58 08:59 WBC 10.12 (4.8-10.8) K/uL RBC 4.02 L (4.7-6.1) M/uL Hgb 13.3 L (14.0-18.0) g/dL Hct 39.2 L (42-52) % MCV 97.5 (80-100) fL MCH 33.1 (25-34) pg MCHC 33.9 (32-36) g/dL RDW Std Deviation 47.8 H (36.4-46.3) fL RDW Coeff of Shaylee 13.3 (11.5-14.5) % Plt Count 289 (130-400) K/uL MPV 9.3 (7.4-10.4) fL Immature Gran % (Auto) 0.2 % Neut % (Auto) 61.3 % Lymph % (Auto) 18.0 % Banks % (Auto) 9.2 % Eos % (Auto) 10.9 % Baso % (Auto) 0.4 % Neut # (Auto) 6.21 (1.4-6.5) K/uL Lymph # (Auto) 1.82 (1.2-3.4) K/uL Banks # (Auto) 0.93 H (0.11-0.59) K/uL Eos # (Auto) 1.10 H (0-0.5) K/uL Baso # (Auto) 0.04 (0-0.2) K/uL Immature Gran # (Auto) 0.02 (0.00-0.02) K/uL Sodium 134 L 135 L (136-145) mmol/L Potassium 4.0 4.5 (3.5-5.1) mmol/L Chloride 101 100 (98-107) mmol/L Carbon Dioxide 28 30 (21-32) mmol/L Anion Gap 5 5 (3-11) BUN 14 14 (6-23) mg/dl Creatinine 0.89 0.85 (0.6-1.4) mg/dl Est Cr Clr Drug Dosing 98.1 102.7 ml/min Est GFR ( Amer) 108.5 110.5 ml/min Est GFR (Non-Af Amer) 93.6 95.4 ml/min BUN/Creatinine Ratio 15.7 16.5 (10-20) Glucose 120 H 139 H (70-99(Fasting)) mg/dl Calcium 8.3 L 8.7 (8.5-10.1) mg/dl 11/15/21 Range/Units 08:59 WBC 12.03 H (4.8-10.8) K/uL RBC 4.24 L (4.7-6.1) M/uL Hgb 14.3 (14.0-18.0) g/dL Hct 41.7 L (42-52) % MCV 98.3 (80-100) fL MCH 33.7 (25-34) pg MCHC 34.3 (32-36) g/dL RDW Std Deviation 47.6 H (36.4-46.3) fL RDW Coeff of Shaylee 13.2 (11.5-14.5) % Plt Count 301 (130-400) K/uL MPV 9.4 (7.4-10.4) fL Immature Gran % (Auto) % Neut % (Auto) % Lymph % (Auto) % Banks % (Auto) % Eos % (Auto) % Baso % (Auto) % Neut # (Auto) (1.4-6.5) K/uL Lymph # (Auto) (1.2-3.4) K/uL Banks # (Auto) (0.11-0.59) K/uL Eos # (Auto) (0-0.5) K/uL Baso # (Auto) (0-0.2) K/uL Immature Gran # (Auto) (0.00-0.02) K/uL Sodium (136-145) mmol/L Potassium (3.5-5.1) mmol/L Chloride (98-107) mmol/L Carbon Dioxide (21-32) mmol/L Anion Gap (3-11) BUN (6-23) mg/dl Creatinine (0.6-1.4) mg/dl Est Cr Clr Drug Dosing ml/min Est GFR ( Amer) ml/min Est GFR (Non-Af Amer) ml/min BUN/Creatinine Ratio (10-20) Glucose (70-99(Fasting)) mg/dl Calcium (8.5-10.1) mg/dl Diagnostic Findings Chest X-Ray 11/15/21 08:37 XR chest 1V portable HISTORY: 61 years-old Male follow up ptx follow-up study in a patient with a right-sided pneumothorax COMPARISON: Chest radiograph 11/14/2021, chest CT 11/12/2021. TECHNIQUE: Portable AP view of the chest FINDINGS: Cardiomediastinal and hilar silhouettes are unchanged. Blunting of the costophrenic angles with mild persistent bibasilar densities. Acute right-sided rib fractures are better seen on comparison chest CT. A right-sided chest tube is noted with distal tip projecting adjacent to the right lung apex. Tiny right apical pneumothorax demonstrates pleural separation of 4 mm, unchanged IMPRESSION: 1. Right-sided chest tube in place with unchanged tiny right apical pneumothorax. 2. Bibasilar opacities suggestive of atelectasis redemonstrated. 3. Acute right-sided rib fractures are better characterized on the comparison chest CT. ACT 112: Negative or not required by law. The above report was generated using voice recognition software. It may contain grammatical, syntax or spelling errors. Electronically signed by: Filippo Dwyer M.D. 11/15/2021 9:59 AM Chest X-Ray 11/16/21 06:00 XR chest 1V portable CLINICAL HISTORY: f/u ptx COMPARISON STUDY: Chest radiograph November 15, 2021. FINDINGS: Right chest tube is in place. A small right apical pneumothorax with superior pleural separation of 6 mm is similar to prior exam. Bibasilar opacities persist. Several right-sided rib fractures are better depicted on prior chest CT per there is no evidence for pulmonary edema. There is no left pneumothorax. Trace right pleural effusion. IMPRESSION: 1. Right chest tube in place. No significant change in a small right apical pneumothorax. 2. Persistent bibasilar opacities. Trace right pleural effusion. ACT 112: Negative or not required by law. Electronically signed by: Mo Campa M.D. 11/16/2021 7:43 AM PG Care Time/CCT Total # of Minutes Spent Total Time Spent with Patient: Total time spent is greater than 50% in coordination of care (as documented) at patient's floor/unit and/or counseling patient: Coding
[2021-11-16] MEDS: SENNA 8.6 MG TAB PO SCH (08:34)
[2021-11-16] MEDS: POLYETHYLENE (MIRALAX) 17 GM PACK PO SCH (08:34)
[2021-11-16] MEDS: AMOXICILLIN/CLAVULANATE 875 MG TAB PO SCH ×2 (08:36→15:49)
[2021-11-16] MEDS: FAMOTIDINE 20 MG TAB PO SCH (08:36)
[2021-11-16] MEDS: LIDOCAINE 5% 1 PATCH TD SCH (08:36)
[2021-11-16] MEDS: ASCORBIC ACID 500 MG TAB PO SCH (08:36)
[2021-11-16] MEDS: ZINC SULFATE 220 MG CAPSULE PO SCH (08:36)
[2021-11-16] MEDS: MAGNESIUM OXIDE 400 MG TAB PO SCH (08:36)
[2021-11-16] MEDS: LOSARTAN POTASSIUM 50 MG TAB PO SCH (08:36)
[2021-11-16] MEDS: guaiFENesin 600 MG TABCR PO SCH (08:36)
[2021-11-16] MEDS: FLUTICASONE/VILANTEROL 100/25MCG 14 PUFFS/INHALER INH SCH (08:37)
--- NOTE | 2021-11-16 12:10 | Discharge Summary ---
Date of Service November 16, 2021 Admission HPI Per Admitting Provider The patient is a 61-year-old male with a past medical history including hyperlipidemia, hypertension, hypothyroidism, COPD, GERD, [place] B12 deficiency, pancreatitis and insomnia. He reports he is going for a walk this morning, slipped and fell on the ice, and developed acute chest wall pain on the right side. Initial x-ray performed in the outpatient setting showed right rib fractures and a small pneumothorax. Follow-up chest x-ray later in the day was performed as his pain worsened, and pneumothorax had increased in size, and he was advised to come to the ED for assessment. Admission Exam Per Admitting Provider The patient is awake, alert and oriented 3, well developed and well nourished, normocephalic and atraumatic, lying in bed and in no acute distress at rest HEENT--PERRL, EOMI, mucous membranes and oropharynx normal Neck--supple. No JVD. No bruits. Thyroid normal, trachea midline, no adenopathy. Heart--normal S1 and S2. No murmurs, rubs or gallops. Lungs--clear bilaterally, no respiratory distress, no accessory muscle use. Abdomen--normal bowel sounds and soft. Nontender. Nondistended, no hernias or masses, no organomegaly. Extremities--no cyanosis or clubbing. No edema. Dermatologic--normal skin turgor, normal color, no abnormal lymph nodes, no rash. Neurologic--cranial nerves II through XII grossly intact. Rheumatologic--limited by pain Psychiatric--normal affect. Principal Diagnosis Pneumothorax Discharge Exam gen - WD male sitting up at side of bed, no acute distress, on room air eyes- anicteric, pupils equal, EOMI Mouth- mmm Neck- no tracheal deviation Resp- diminished in RLL, clear throughout elsewhere compared to prior day with rales/crackles, on rooma air. chest tube to R axillae, grade 1 airleak at rest, 2+ with cough, on 10CM suction (instructed RN to turn up to 20cm per [facility] trauma surgeon) not tachypneic CV: RRR, 1/6 TRICIA LSB, no edema Abd: +BS, soft, non-tender Ext:no edema Psych; aox3, cooperative and pleasant Discharge Data Allergies Allergy/AdvReac Type Severity Reaction Status Date / Time No Known Drug Allergies Allergy Unknown Verified 11/06/21 19:48 Consultations 11/06/21 19:19 ED Decision to Admit Stat 11/07/21 02:33 Consult Chemical Production Engineer Routine Ordered Studies Chest CT 11/06/21 17:53 CT SCAN OF THE CHEST WITHOUT IV CONTRAST CLINICAL HISTORY: Fall. Pneumothorax. COMPARISON STUDY: Chest CT dated 11/29/2020. Chest radiographs dated 11/06/2021. TECHNIQUE: CT scan of the thorax was performed from the thoracic inlet to the upper abdomen. Images are reviewed in the axial, sagittal, and coronal planes. IV contrast was not administered for this examination as per the referring clinician. A dose lowering technique was utilized adhering to the principles of ALARA. CT DOSE: 478.50 mGy.cm FINDINGS: Thyroid: Atrophic. Thoracic aorta: There is atherosclerotic calcification of the thoracic aorta, which is normal in caliber and demonstrates standard 3-vessel arch anatomy. Heart: The heart is normal in size and without pericardial effusion. The coronary arteries are densely calcified. Lungs and pleural spaces: Emphysematous change is noted. The trachea is clear. Secretions are noted in the right mainstem bronchus. A small amount of hemothorax is seen at the right lung base with dense right lower lobe airspace consolidation. There is a small to moderate right pneumothorax, greatest at the right lung base. A 5 mm pulmonary nodule is again seen at the left lung base on image #[id number]. Mediastinum: There is no mediastinal hematoma or lymphadenopathy. Janiya: Not well assessed without IV contrast. Axillae: There is no axillary lymphadenopathy. Upper abdomen: There is a small hiatal hernia. A 3.1 cm cyst is partially visualized in the interpolar right kidney. Skeletal structures: There are comminuted right posterior 7th and 8th rib fractures. No lytic or blastic bony lesions are seen. IMPRESSION: 1. There are acute comminuted right posterior 7th and 8th rib fractures. 2. Small to moderate right-sided pneumothorax. 3. There is a small amount of hemothorax at the right lung base. 4. Dense airspace consolidation is seen throughout the right lower lobe. 5. Emphysema. 6. Additional findings as above. ACT 112: Negative or not required by law. Electronically signed by: Jensen Chapman M.D. 11/06/2021 7:15 PM Chest X-Ray 11/07/21 07:34 SINGLE VIEW CHEST CLINICAL HISTORY: Pneumothorax. FINDINGS: An AP, portable, upright chest radiograph is compared to chest x-ray and chest CT dated 11/06/2021. The cardiomediastinal silhouette is unremarkable noting atherosclerotic calcification of the thoracic aorta. Sulaiman is edematous change is again noted. There is dense airspace consolidation and atelectasis at the medial right lung base. A small right pleural effusion is observed. A small to moderate right pneumothorax is similar in appearance to yesterday. This extends from the apex to the lung base, with approximately 2 cm of apical ple ural separation. Right posterior rib fractures were better assessed on the recent CT scan. IMPRESSION: 1. A small to moderate right-sided pneumothorax is similar in appearance to yesterday. 2. There is dense airspace consolidation/atelectasis and a small pleural effusion at the right lung base. 3. Right posterior rib fractures were better assessed on CT. ACT 112: Negative or not required by law. Electronically signed by: Jensen Chapman M.D. 11/07/2021 9:06 AM Chest X-Ray 11/07/21 12:04 XR chest 1V portable at 12:24 PM CLINICAL HISTORY: Status post chest tube placement on the right. Follow-up pneumothorax.. COMPARISON STUDY: Portable chest from 11/07/2021 and TECHNIQUE: 1 view of the chest FINDINGS: Single frontal view of the chest demonstrates the cardiomediastinal silhouette to be within normal limits. There has been interval placement of a right-sided chest tube superiorly for pneumothorax. However, the pneumothorax is actually increased in size. The left hemithorax is clear. There is no evidence for pleural effusion. There is no evidence for vascular congestion. There is no acute osseous pathology. IMPRESSION: Status post placement of right-sided chest tube. However, the previously identified right pneumothorax has actually increased in size. The referring clinician was contacted with these results by [employer] ACT 112: Negative or not required by law. Electronically signed by: Altaf Brenner M.D. 11/07/2021 12:56 PM Chest X-Ray 11/07/21 23:53 SINGLE VIEW CHEST CLINICAL HISTORY: Pneumothorax status post chest tube. FINDINGS: An AP, portable, upright chest radiograph is compared to studies dated 11/07/2021. Correlation is made with chest CT dated 11/06/2021. The cardiomediastinal silhouette is unremarkable noting atherosclerotic calcification of the thoracic aorta. Emphysematous change is again noted. There is dense airspace consolidation and atelectasis at the medial right lung base. A chest tube has been placed in the right upper thorax. There is a small residual right apical pneumothorax A small right pleural effusion is again noted. Atelectasis is seen at the left lung base. Right posterior rib fractures were better assessed on the recent CT scan. IMPRESSION: 1. A right-sided chest tube has been placed. There is only a small residual right apical pneumothorax. 2. There is dense airspace consolidation/atelectasis and a small pleural effusion at the right lung base. 3. Right posterior rib fractures were better assessed on CT. ACT 112: Negative or not required by law. Electronically signed by: Jensen Chapman M.D. 11/08/2021 7:12 AM Chest X-Ray 11/09/21 07:00 XR chest 1V portable CLINICAL HISTORY: PTX TECHNIQUE: Single frontal radiograph of the chest was obtained. Comparison: Comparison is made to chest one view 11/07/2021 FINDINGS: A right chest tube is seen. Calcified aortic knob is seen. Lungs are underinflated. A small right apical pneumothorax is again seen. Small airspace opacities are seen in the right lung base. No evidence of pleural effusion or pneumothorax. IMPRESSION: Stable small right apical pneumothorax. Chest tube is in place. ACT 112: Negative or not required by law. Electronically signed by: Melvin Lora M.D. 11/09/2021 11:24 AM Chest X-Ray 11/10/21 07:00 XR chest 1V portable HISTORY: 61 years-old Male PTX follow-up study in a patient with right-sided pneumothorax COMPARISON: Chest radiograph 11/09/2021 TECHNIQUE: Portable AP view of the chest FINDINGS: Tiny right apical pneumothorax with pleural separation of 7 mm slightly decreased in size from prior where it measured 10 mm. Chest tube distal tip terminates adjacent to the right lung apex. Cardiomediastinal and hilar silhouettes are unchanged. Trace right pleural effusion with unchanged bibasilar densities. Mild emphysema with interstitial coarsening. Bones appear grossly intact. Calcified plaque of the thoracic aorta. IMPRESSION: 1. Right hydropneumothorax with stable to slightly decreased size of the apical pneumothorax component. 2. Satisfactory positioning of the right-sided chest tube. 3. Emphysema with chronic interstitial coarsening. ACT 112: Negative or not required by law. The above report was generated using voice recognition software. It may contain grammatical, syntax or spelling errors. Electronically signed by: Filippo Dwyer M.D. 11/10/2021 8:04 AM Chest X-Ray 11/10/21 18:00 XR chest 1V portable CLINICAL HISTORY: f/u TECHNIQUE: Single frontal radiograph of the chest was obtained. Comparison: Comparison is made to chest one view 11/10/2021 FINDINGS: Right chest tube is seen. Calcified aortic knob is seen. Interval significant enlargement of right pneumothorax. IMPRESSION: Interval significant increase in right pneumothorax with collapse of the right lower lung. Right chest tube projects over the right thoracic cavity. A call was placed with the patient's provider Dr. Connelly at the time of dictation. ACT 112: Negative or not required by law. Electronically signed by: Melvin Lora M.D. 11/10/2021 9:02 PM Chest X-Ray 11/10/21 20:00 XR chest 1V portable CLINICAL HISTORY: follow up enlarging ptx TECHNIQUE: Single frontal radiograph of the chest was obtained. Comparison: Comparison is made to chest one view 11/10/2021 at 1730 hours FINDINGS: Right chest tube is seen. The cardiomediastinal silhouette is normal. Atelectasis is seen at the right greater than left lower lung. There is a right pneumothorax which is significantly decreased from prior exam. IMPRESSION: Interval significant decrease in right pneumothorax. Bilateral atelectatic changes are seen. ACT 112: Negative or not required by law. Electronically signed by: Melvin Lora M.D. 11/10/2021 9:07 PM Chest X-Ray 11/11/21 07:36 XR chest 1V portable CLINICAL HISTORY: f/u ptx TECHNIQUE: Single frontal radiograph of the chest was obtained. Comparison: Comparison is made to chest one view 11/10/2021 FINDINGS: A right chest tube is again noted. The cardiomediastinal silhouette is stable. Minimal right lung base opacity is seen. A right pneumothorax is almost completely resolved and is visible most prominent in the right lung base. IMPRESSION: Right pneumothorax has almost completely resolved. Right chest tube is in place. Redemonstration of opacity in the right lung base which may represent atelectasis. ACT 112: Negative or not required by law. Electronically signed by: Melvin Lora M.D. 11/11/2021 8:20 AM Chest X-Ray 11/11/21 20:00 XR chest 1V portable HISTORY: 61 years-old Male f/u ptx follow-up study in a patient with right- sided pneumothorax COMPARISON: Chest radiograph of same day at 7:40 AM TECHNIQUE: Portable AP view of the chest FINDINGS: Cardiomediastinal and hilar silhouettes are unchanged. A right-sided chest tube is noted with distal tip projected within the right suprahilar distribution. Small right apical pneumothorax with pleural separation of 1.6 cm has mildly increased in size from prior where there is approximately 5 mm of pleural separation. There are persistent right greater left bibasilar densities. Suggested trace pleural effusions. Calcified plaque of the thoracic aorta. Emphysema with chronic interstitial coarsening. The bones of the chest appear grossly intact. IMPRESSION: 1. Small right apical pneumothorax has mildly increased in size from prior. 2. Emphysema with chronic interstitial coarsening. 3. Persistent right greater than left bibasilar densities suggestive of atelectasis. ACT 112: Negative or not required by law. The above report was generated using voice recognition software. It may contain grammatical, syntax or spelling errors. Electronically signed by: Filippo Dwyer M.D. 11/11/2021 7:58 PM Chest X-Ray 11/11/21 23:30 SINGLE VIEW CHEST CLINICAL HISTORY: Follow-up pneumothorax. FINDINGS: An AP, portable, upright chest radiograph is compared to study performed earlier the same day 11/11/2021. The cardiomediastinal silhouette is unremarkable. A chest tube is again seen at the right apex. Positioning is changed from today's earlier examination. There is a small residual right-sided pneumothorax. This has decreased in size from today's earlier examination. A small pleural effusion and consolidation is seen at the right lung base. No left-sided pneumothorax is seen. The bony thorax is grossly intact. IMPRESSION: 1. A right-sided chest tube has been repositioned. 2. There is a small residual right apical pneumothorax. This has decreased in size from today's earlier examination. 3. Small right pleural effusion with right basilar consolidation. ACT 112: Negative or not required by law. Electronically signed by: Jensen Chapman M.D. 11/12/2021 9:02 AM Chest X-Ray 11/12/21 07:00 SINGLE VIEW CHEST CLINICAL HISTORY: Follow-up pneumothorax. FINDINGS: An AP, portable, upright chest radiograph is compared to studies dated 11/11/2021. The cardiomediastinal silhouette is unremarkable. A chest tube is again seen at the right apex. A right-sided chest tube is in place. A right apical pneumothorax has increased in size from yesterday with 1.8 cm of pleural separation. This now tracks to the right lung base. A small pleural effusion and consolidation is seen at the right lung base. Atelectasis is noted at the left lung base. No left-sided pneumothorax is identified. The bony thorax is grossly intact. IMPRESSION: 1. A right-sided chest tube is in place. A right-sided pneumothorax has significantly increased in size from yesterday. 2. Small right pleural effusion with right basilar consolidation. ACT 112: Negative or not required by law. Electronically signed by: Jensen Chapman M.D. 11/12/2021 9:[address] 11/12/21 09:14 CT SCAN OF THE CHEST WITH IV CONTRAST CLINICAL HISTORY: Pneumothorax. Chest tube. COMPARISON STUDY: Chest CT scans dated 11/06/2021 and 11/29/2020. Chest radiograph dated 11/12/2021. TECHNIQUE: Following the IV administration of 95 cc of atrophy 20, CT scan of the thorax was performed from the thoracic inlet to the upper abdomen. Images are reviewed in the axial, sagittal, and coronal planes. IV contrast was administered without complication. A dose lowering technique was utilized adhering to the principles of ALARA. CT DOSE: 400.89 mGy.cm FINDINGS: Thyroid: Atrophic. Thoracic aorta: There is atherosclerotic calcification of the thoracic aorta, which is normal in caliber and demonstrates standard 3-vessel arch anatomy. No dissection is seen. Pulmonary arteries: The pulmonary trunk is normal in caliber. There are no fi lling defects within the central pulmonary vessels to suggest pulmonary embolus. Note that this examination was not protocoled to evaluate the pulmonary arteries. Heart: The heart is normal in size and without pericardial effusion. The coronary arteries are densely calcified. Lungs and pleural spaces: Emphysematous change is noted. A chest tube is present at the anterior right apex entering between the first and second ribs. A portion of the catheter appears to be extrapleural. There is a large right-sided pneumothorax with near complete atelectasis/consolidation of the right lower lobe. There is a small amount of pleural fluid right lung base. The trachea is midline and appears clear. Mild secretions are noted in the right mainstem bronchus. There is left basilar atelectasis. A 5 mm pulmonary nodule is again seen at the left lung base on image #230. Mediastinum: There is no mediastinal hematoma or lymphadenopathy. Janiya: No mediastinal adenopathy is identified. Axillae: There is no axillary lymphadenopathy. Upper abdomen: There is a small hiatal hernia. Partially imaged upper abdominal viscera is otherwise grossly unremarkable. Skeletal structures: There are comminuted right posterior 7th and 8th rib fractures. There are nondisplaced right posterior 9th and 10th rib fractures which are more conspicuous from previous. No lytic or blastic bony lesions are seen. Soft tissues: Subcutaneous emphysema is seen in the right lower neck/anterior chest wall. IMPRESSION: 1. A chest tube is in place at the anterior right apex. This is located just deep to the pleura and a portion appears to be extrapleural. 2. Large right-sided hydropneumothorax. The trachea is midline. 3. There is near complete atelectasis/consolidation of the right lower lobe. 4. Acute right-sided rib fractures as above. 5. Emphysema. 6. A 5 mm pulmonary nodule at the left lung base is unchanged. 7. Additional findings as above. ACT 112: Negative or not required by law. Electronically signed by: Jensen Chapman M.D. 11/12/2021 11:09 AM Chest X-Ray 11/12/21 12:14 XR chest 1V portable CLINICAL HISTORY: right PNX s/p chest tube miid axilla TECHNIQUE: Single frontal radiograph of the chest was obtained. Comparison: Comparison is made to chest one view 11/12/2021 at 0702 hours FINDINGS: Again noted is a right chest tube. Calcified aortic knob is seen. The lungs are clear. Right basilar pneumothorax is seen. IMPRESSION: Right basilar pneumothorax is seen, previously noted right apical pneumothorax is not seen. Overall decreased from prior exam. ACT 112: Negative or not required by law. Electronically signed by: Melvin Lora M.D. 11/12/2021 1:04 PM Chest X-Ray 11/13/21 06:00 XR chest 1V portable HISTORY: 61 years-old Male follow up ptx follow-up study in a patient with recent right-sided pneumothorax COMPARISON: Chest radiograph 11/12/2021 TECHNIQUE: Portable AP view of the chest FINDINGS: Cardiomediastinal and hilar silhouettes are unchanged. Calcified plaque of the thoracic aorta. Possible trace residual subcutaneous emphysema within the right supraclavicular tissues. Blunting of the costophrenic angles with unchanged bibasilar densities. Interval removal of the right anterior chest tube. A right- sided chest tube distal tip projects over the right lung apex. There is a questioned trace apical residual right pneumothorax. See noted basilar component is not definitively seen. Acute right-sided rib fractures again noted. IMPRESSION: 1. Right-sided chest tube in place with questioned trace residual right apical pneumothorax. 2. Persistent bibasilar opacities with acute right-sided rib fractures. ACT 112: Negative or not required by law. The above report was generated using voice recognition software. It may contain grammatical, syntax or spelling errors. Electronically signed by: Filippo Dwyer M.D. 11/13/2021 7:27 AM Chest X-Ray 11/13/21 14:00 XR chest 1V portable HISTORY: 61 years-old Male Right PNX now on water seal follow up study in a patient with right-sided pneumothorax COMPARISON: Chest radiograph 11/13/2021, chest CT 11/12/2021. TECHNIQUE: Portable AP view of the chest FINDINGS: The positioning of the right apical pneumothorax. Cardiac mediastinal and hilar silhouettes are within normal limits. Small right pneumothorax has increased in size from prior with 9 mm pleural separation at the apex. There are persistent bibasilar densities. Calcified plaque of the thoracic aorta. Acute right-sided rib fractures. Degenerative changes of the shoulders and spine. IMPRESSION: 1. Stable positioning of the right-sided chest tube. Small right-sided pneumothorax has slightly increased in size from prior. 2. Acute right-sided rib fractures are better seen on the comparison chest CT. 3. Bibasilar densities suggestive of atelectasis redemonstrated. ACT 112: Negative or not required by law. The above report was generated using voice recognition software. It may contain grammatical, syntax or spelling errors. Electronically signed by: Filippo Dwyer M.D. 11/13/2021 2:06 PM Chest X-Ray 11/14/21 06:00 XR chest 1V portable HISTORY: 61 years-old Male follow up ptx right-sided pneumothorax follow-up COMPARISON: Chest radiograph 11/13/2021, chest CT 11/12/2021. TECHNIQUE: Portable AP view of the chest FINDINGS: Cardiomediastinal and hilar silhouettes are unchanged. Blunting of the costophrenic angles with mild persistent bibasilar densities. Acute right-sided rib fractures are better seen on comparison chest CT. A right-sided chest tube is noted with distal tip projecting adjacent to the right lung apex. Tiny right apical pneumothorax demonstrates pleural separation of 4 mm, previously 9 mm. IMPRESSION: 1. Right-sided chest tube in place with persistent tiny right apical pneumothorax. 2. Bibasilar opacities suggestive of atelectasis redemonstrated. 3. Acute right-sided rib fractures are better characterized on the comparison chest CT. ACT 112: Negative or not required by law. The above report was generated using voice recognition software. It may contain grammatical, syntax or spelling errors. Electronically signed by: Filippo Dwyer M.D. 11/14/2021 7:16 AM Chest X-Ray 11/15/21 08:37 XR chest 1V portable HISTORY: 61 years-old Male follow up ptx follow-up study in a patient with a right-sided pneumothorax COMPARISON: Chest radiograph 11/14/2021, chest CT 11/12/2021. TECHNIQUE: Portable AP view of the chest FINDINGS: Cardiomediastinal and hilar silhouettes are unchanged. Blunting of the costophrenic angles with mild persistent bibasilar densities. Acute right-sided rib fractures are better seen on comparison chest CT. A right-sided chest tube is noted with distal tip projecting adjacent to the right lung apex. Tiny right apical pneumothorax demonstrates pleural separation of 4 mm, unchanged IMPRESSION: 1. Right-sided chest tube in place with unchanged tiny right apical pneumothorax. 2. Bibasilar opacities suggestive of atelectasis redemonstrated. 3. Acute right-sided rib fractures are better characterized on the comparison chest CT. ACT 112: Negative or not required by law. The above report was generated using voice recognition software. It may contain grammatical, syntax or spelling errors. Electronically signed by: Filippo Dwyer M.D. 11/15/2021 9:59 AM Chest X-Ray 11/16/21 06:00 XR chest 1V portable CLINICAL HISTORY: f/u ptx COMPARISON STUDY: Chest radiograph November 15, 2021. FINDINGS: Right chest tube is in place. A small right apical pneumothorax with superior pleural separation of 6 mm is similar to prior exam. Bibasilar opacities persist. Several right-sided rib fractures are better depicted on prior chest CT per there is no evidence for pulmonary edema. There is no left pneumothorax. Trace right pleural effusion. IMPRESSION: 1. Right chest tube in place. No significant change in a small right apical pneumothorax. 2. Persistent bibasilar opacities. Trace right pleural effusion. ACT 112: Negative or not required by law. Electronically signed by: Mo Campa M.D. 11/16/2021 7:43 AM Hospital Course (1) Pneumothorax: 2nd to trauma with resulting rib fractures. CT chest on 11/06 showed acute comminuted right posterior 7th and 8th rib fractures, small/moderate right-sided PTX, and small hemothorax. Rib fractures could have caused the pneumo OR a bullae ruptured OR both. Either way s/p chest tube on right hospital day #1. Defer management to Dr Oropeza and pulmonary team --> Dr Henry on service now --> discussed with [facility] evening 11/[address] Sandoval. no need for tx. consideration for placement of surgical chest tube/Heimlich valve if able to perform and discharge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
--- NOTE | 2021-11-16 16:10 | Pulmonology Progress Note ---
Date of Service November 16, 2021 Assessment & Plan (1) Traumatic pneumothorax: (2) Persistent air leak: (3) Hemothorax: (4) COPD (chronic obstructive pulmonary disease): (5) Pulmonary emphysema: Plan: Impression: 61-year-old male status post fall with multiple rib fractures on the right that are comminuted. Patient with hemothorax as well as pneumothorax from trauma. A Thora vent was placed in the right upper chest wall region by Dr. Oropeza 11/07/2021. Recommendations: 1. Traumatic right pneumothorax: * 16 Lao Thal quick chest tube placed by [facility] 11/12 due to traumatic hemopneumothorax. Tiny apical pneumo seen at the right apex persists. Patient continues with persistent air leak that has increased today. Discussed with thoracic surgery in [place]. Patient accepted to [place] will be transferred today. Will likely need definitive management which may include VATS. 2. Right hemothorax: * 16 Lao chest tube noted above. Continue drainage. Thank you for including us in the care of this patient. We will continue to follow along with you. Admission and Anticipated Discharge Date Admission Date: November 07, 2021 Subjective Condition unchanged from yesterday. Still has pain with cough. Airleak has increased from grade 1 to grade 4 on the Dai drainage device. Review of Systems Review of Systems: All systems reviewed & are unremarkable except as noted in HPI & below Physical Exam Physical Exam: GENERAL : No acute distress EYES: No icterus, gaze conjugate NOSE: No evidence of epistaxis MOUTH: No lesions or candidiasis NECK: Supple LUNGS: CTA B/L, no wheezes, rales or rhonchi CHEST: 16 Lao chest tube in place in the right chest wall. Lungs diminished in the right lower lobe. Clear to auscultation elsewhere. HEART: Regular, rate controlled ABDOMEN: Soft, NT, ND, BS Present EXTREMITIES: No LE edema, pedal pulses intact NEURO: A&OX3 Results & Data Results & Data ([facility]) Vital Signs (Past 12 Hours) Vital Signs Temp Pulse Pulse Resp BP BP Pulse Ox 11/16/21 15:05 36.7 C 75 64 16 115/74 130/72 98 11/16/21 14:59 64 16 98 11/16/21 14:51 36.7 C 75 76 22 115/74 130/72 95 11/16/21 12:26 36.7 C 75 76 22 115/74 130/72 95 11/16/21 11:52 76 22 95 11/16/21 09:51 16 95 11/16/21 08:04 61 18 92 11/16/21 07:39 36.7 C 60 18 115/74 94 PG Care Time/CCT Total # of Minutes Spent Total Time Spent with Patient: Total time spent is greater than 50% in coordination of care (as documented) at patient's floor/unit and/or counseling patient: Coding Level of Care Code 16539 Subseq Hosp Care Lvl 2 Diagnoses Traumatic pneumothorax S27.0XXA Persistent air leak Hemothorax J94.2 COPD (chronic obstructive pulmonary disease) J44.9 Pulmonary emphysema J43.9
== END 2021-11-16 17:59 | disposition short-term general hospital (02) | DRG 199 ==
LOC: ED 17:05 → 2N 17:05 → SUATTDRO 20:51 → 2N 22:15 → SUATTDRO 11-07 10:59 → 3W 11-07 15:44

== ENCOUNTER 2024-11-07 05:13 | Observation (INO) ==
--- NOTE | 2024-10-02 10:38 | PAT Medication Instructions ---
Medication Instructions Date of Service October 02, 2024 Home Medications Medication Instructions Recorded fluticasone propionate 115 2 puff inhalation BID #12 grams 01/08/23 mcg-salmeterol 21 mcg/actuation HFA inhaler (Advair HFA) Beet Juice Extract 1 dose PO DAILY albuterol sulfate 90 mcg/actuation aerosol inhaler 2 puff inhalation QID PRN Wheezing L-Citrine 1 cap PO BID ascorbic acid (vitamin C) 250 mg tablet (Vitamin C) 250 mg PO QAM cyanocobalamin (vitamin B-12) 1,000 mcg tablet (Vitamin B-12) 1,000 mcg PO QAM prasterone (dhea) 50 mg tablet (DHEA) 50 mg PO QAM trazodone 50 mg tablet 100 mg PO HS fluticasone propionate 115 mcg-salmeterol 21 mcg/actuation HFA inhaler (Advair HFA) 2 puff inhalation BID amlodipine 10 mg tablet 10 mg PO QAM eplerenone 25 mg tablet (Inspra) 25 mg PO QAM omeprazole 20 mg capsule,delayed release 20 mg PO QAM valsartan 320 mg tablet 320 mg PO QAM ashwagandha extract 1 dose PO QPM aspirin 81 mg tablet,delayed release 81 mg PO QPM atorvastatin 40 mg tablet (Lipitor) 40 mg PO QPM cholecalciferol (vitamin D3) 125 mcg (5,000 unit) tablet (Vitamin D3) 125 mcg PO BID fluticasone propionate 50 mcg/actuation nasal spray,suspension 2 spray intranasal DAILY allergies congestion krill oil 1 cap PO QAM levothyroxine 175 mcg tablet (Levoxyl) 175 mcg PO QAM magnesium 100 mg capsule 100 mg PO HS metformin 500 mg tablet 500 mg PO QPM psyllium husk 0.4 gram capsule (Metamucil) 2.4 g PO QAM tadalafil 10 mg tablet (Cialis) 10 mg PO DAILY PRN Sexual Activity vitamin E 1 cap PO QAM vitamin K2 100 mcg capsule 100 mcg PO QAM zinc 25 mg tablet 25 mg PO HS ASK your prescriber and surgeon aspirin 81 mg tablet,delayed release 81 mg PO QPM STOP taking 2 weeks before surgery (or as soon as possible if surgery is within 2 weeks) Beet Juice Extract 1 dose PO DAILY L-Citrine 1 cap PO BID prasterone (dhea) 50 mg tablet (DHEA) 50 mg PO QAM ashwagandha extract 1 dose PO QPM krill oil 1 cap PO QAM vitamin E 1 cap PO QAM vitamin K2 100 mcg capsule 100 mcg PO QAM zinc 25 mg tablet 25 mg PO HS DO NOT take the morning of surgery ascorbic acid (vitamin C) 250 mg tablet (Vitamin C) 250 mg PO QAM cyanocobalamin (vitamin B-12) 1,000 mcg tablet (Vitamin B-12) 1,000 mcg PO QAM eplerenone 25 mg tablet (Inspra) 25 mg PO QAM valsartan 320 mg tablet 320 mg PO QAM cholecalciferol (vitamin D3) 125 mcg (5,000 unit) tablet (Vitamin D3) 125 mcg PO BID psyllium husk 0.4 gram capsule (Metamucil) 2.4 g PO QAM tadalafil 10 mg tablet (Cialis) 10 mg PO DAILY PRN Sexual Activity Take morning of surgery With a small sip of water, OTHERWISE NOTHING TO EAT OR DRINK AFTER MIDNIGHT: albuterol sulfate 90 mcg/actuation aerosol inhaler 2 puff inhalation QID PRN Wheezing (use if needed; please bring rescue inhaler with you to hospital day of surgery if possible) fluticasone propionate 115 mcg-salmeterol 21 mcg/actuation HFA inhaler (Advair HFA) 2 puff inhalation BID amlodipine 10 mg tablet 10 mg PO QAM omeprazole 20 mg capsule,delayed release 20 mg PO QAM fluticasone propionate 50 mcg/actuation nasal spray,suspension 2 spray intranasal DAILY allergies congestion (if needed) levothyroxine 175 mcg tablet (Levoxyl) 175 mcg PO QAM Take evening before surgery albuterol sulfate 90 mcg/actuation aerosol inhaler 2 puff inhalation QID PRN Wheezing (if needed) trazodone 50 mg tablet 100 mg PO HS fluticasone propionate 115 mcg-salmeterol 21 mcg/actuation HFA inhaler (Advair HFA) 2 puff inhalation BID atorvastatin 40 mg tablet (Lipitor) 40 mg PO QPM cholecalciferol (vitamin D3) 125 mcg (5,000 unit) tablet (Vitamin D3) 125 mcg PO BID fluticasone propionate 50 mcg/actuation nasal spray,suspension 2 spray intran murray DAILY allergies congestion (if needed) magnesium 100 mg capsule 100 mg PO HS metformin 500 mg tablet 500 mg PO QPM Other Notes If you have any questions please call us at [phone] or [phone] or [phone] or [phone]
--- NOTE | 2024-10-03 09:57 | Anesthesiology Consultation ---
Date of Service October 03, 2024 Assessment & Plan (1) Encounter for pre-operative examination: Chart Review Chart Review: Acceptable Risk for Surgery (pending surgeon ordered pulm, PCP and cardio clearance, 10/13/24 stress test and abdominal duplex, and most recent cardio note) and Patient seen in Pre Admission Testing - Awaiting pulm clearance 10/24/23 ([place]) - Awaiting PCP clearance 10/27/23 ([facility]) - Please obtain most recent cardio note (Dr. Gomez). Awaiting stress test and abdominal duplex 10/13/24 and surgeon ordered cardio clearance - Check BSG AM DOS Moderate aortic stenosis- will leave to anesthesiologist discretion if surgery to be done under SAB vs GA - Patient is NOT an ideal OPJ candidate (currently 23 hour obs) Per PAT appt on 10/03/24, no recent illness/disease exposures, illness related symptoms, or recent illness/disease positive tests. Will leave to surgeon's discretion if preop Covid testing needed Teaching & Discussion Pre-Anesthesia Teaching/Discussion Notes: Instructed NPO after midnight before surgery,except medications with 15 cc of water. Medication instructions provided according to the PAT guidelines. History Surgery Operation Date: 11/07/24 10:00 Proposed Procedures p Right Total Knee Arthroplasty - Codey Attila Martinez MD Height/Weight Height: 5 ft 10.5 in Weight: 92.6 kg Allergies Allergy/AdvReac Type Severity Reaction Status Date / Time No Known Drug Allergies Allergy Unknown Verified 10/02/24 08:03 Medications Home Medications Medication Instructions Recorded Confirmed Last Taken Beet Juice Extract 1 dose PO DAILY 01/17/21 10/02/24 Unknown albuterol sulfate 90 mcg/actuation 2 puff inhalation QID PRN Wheezing 01/17/21 10/02/24 Unknown aerosol inhaler L-Citrine 1 cap PO BID 11/06/21 10/02/24 Unknown ascorbic acid (vitamin C) 250 mg 250 mg PO QAM 11/06/21 10/02/24 Unknown tablet (Vitamin C) cyanocobalamin (vitamin B-12) 1,000 mcg PO QAM 11/06/21 10/02/24 Unknown 1,000 mcg tablet (Vitamin B-12) prasterone (dhea) 50 mg tablet 50 mg PO QAM 11/06/21 10/02/24 Unknown (DHEA) trazodone 50 mg tablet 100 mg PO HS 11/06/21 10/02/24 Unknown fluticasone propionate 115 2 puff inhalation BID #12 grams 01/08/23 10/02/24 Unknown mcg-salmeterol 21 mcg/actuation HFA inhaler (Advair HFA) amlodipine 10 mg tablet 10 mg PO QAM 01/07/24 10/02/24 Unknown eplerenone 25 mg tablet (Inspra) 25 mg PO QAM 01/07/24 10/02/24 Unknown omeprazole 20 mg capsule,delayed 20 mg PO QAM 01/07/24 10/02/24 Unknown release valsartan 320 mg tablet 320 mg PO QAM 01/07/24 10/02/24 Unknown ashwagandha extract 1 dose PO QPM 10/02/24 10/02/24 Unknown aspirin 81 mg tablet,delayed 81 mg PO QPM 10/02/24 10/02/24 Unknown release atorvastatin 40 mg tablet (Lipitor) 40 mg PO QPM 10/02/24 10/02/24 Unknown cholecalciferol (vitamin D3) 125 125 mcg PO BID 10/02/24 10/02/24 Unknown mcg (5,000 unit) tablet (Vitamin D3) fluticasone propionate 50 2 spray intranasal DAILY allergies 10/02/24 10/02/24 Unknown mcg/actuation nasal congestion spray,suspension krill oil 1 cap PO QAM 10/02/24 10/02/24 Unknown levothyroxine 175 mcg tablet 175 mcg PO QAM 10/02/24 10/02/24 Unknown (Levoxyl) magnesium 100 mg capsule 100 mg PO HS 10/02/24 10/02/24 Unknown metformin 500 mg tablet 500 mg PO QPM 10/02/24 10/02/24 Unknown psyllium husk 0.4 gram capsule 2.4 g PO QAM 10/02/24 10/02/24 Unknown (Metamucil) tadalafil 10 mg tablet (Cialis) 10 mg PO DAILY PRN Sexual Activity 10/02/24 10/02/24 Unknown vitamin E 1 cap PO QAM 10/02/24 10/02/24 Unknown vitamin K2 100 mcg capsule 100 mcg PO QAM 10/02/24 10/02/24 Unknown zinc 25 mg tablet 25 mg PO HS 10/02/24 10/02/24 Unknown Past Medical History Medical History Acid reflux well controlled and stable Adverse reaction to anesthetic agent - Remote history "with my procedure with Dr Schulz (2020)- when I came out I had trouble breathing." - Per anesthesia record 01/24/21= right direct laryngoscopy 01/24/21= Done under GA with Grade 2 view with MAC #3. Atraumatic DVL x 1 - Per operative report "The patient did have an episode of desaturation after extubation that resolved with supplemental oxygen and bag mask ventilation." - Patient states possibly due to Novocain used during biopsy- no allergy to Novocain- has had many times before without incidence. No issues with anesthesia with subsequent surgeries Aortic stenosis Moderate per 02/[address] Gomez Ascending aorta dilation Per 02/2024 ECHO- Dilated aortic root (4.3cm) and ascending aorta (4.0cm) Dr Gomez Asthma-COPD overlap syndrome prn inhaler use breathing stable and controlled [facility] Pulm History of pneumothorax 10/2021 - hemopneumothorax after fall- chest tube placed- [facility] s/ robotic right VATS (thorascopy)- excision/plication of bleb disease and partial pleurectomy at [facility] 11/19/21 - no pneumothorax noted on 12/[address] Hx of Lyme disease completed antibiotic tx (around 2021) Hyperlipidemia Hypertension Hypothyroidism on levothyroxine Insomnia Migraines "Few and far between" Osteoarthritis Pancreatitis hx - resolved- diet controlled Prediabetes Oral meds Sleep apnea cpap Exercise / Class Metabolic Activity II 4-5 Yardwork/Stairs/Walk up hill (one flight of stairs - no chest pain or SOB ) Past Family History Family History Father Stroke Heart disease Brother Hypertension Mother Hypertension Grandfather (Maternal) Stroke Grandmother (Maternal) Colorectal cancer Other No family history of adverse response to anesthesia No family history of bleeding disorder Past Surgical History Surgical History History of biopsy 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 Schulz on 01/24/21 History of colonoscopy History of ERCP History of esophagogastroduodenoscopy (EGD) History of lung surgery VATS [facility] 11/2021 History of oral surgery Tooth extractions Hx of LASIK Hx of vasectomy Past Anesthesia History No Hx of Anesthesia Complications (with exception to remote hx in 2020 with desaturation after extubation that resolved with supplemental oxygen and bag mask ventilation- no issues with subsequent surgeries ) and No Family Hx of Anesthesia Complications Social History Smoking Status: Former smoker tobacco type: cigarettes Smoking cigarettes per day: >1 pack per day Do You Dip or Chew Tobacco: No Smoking End Date: January 2022 Hx Alcohol Use: Yes Alcohol type: wine alcohol intake frequency: 0-2 drinks per day (4-5 glasses/wine per day ) Hx Substance Use: No substance use type: does not use Review of Systems - Very mild chest tightness with activity (reason for upcoming stress test) - Mild REYES (due to knee pain- physical limitations) - Very mild cough since starting Metformin - approximately one week Patient denies shortness of breath at rest, wheezing, palpitations. No hx of seizures, stroke, NE. No hx of blood clots or blood transfusions Physical Exam Vital Signs VITALS BP 136/76 P 81 TEMP 97.8 SP02 97% RESP 16 Constitutional no acute distress ENMT Mouth: no TMJ clicking Thyromental Distance: > or= 3.5 Finger Breadths (3.5) Mallampati Class: I Mouth / Teeth: 2 1. Capped Neck neck extension not limited Respiratory normal respiratory effort; no respiratory distress Auscultation: lungs clear to auscultation bilaterally; no wheezes Cardiovascular Rate/Rhythm: regular rate and regular rhythm Heart Sounds: + murmur (III/ murmur ) Vessels: no carotid bruit Musculoskeletal Spine: no pain with cervical ROM Extremities: extremities normal to inspection Psychiatric Orientation: alert Lab Results Anesthesia Preop Results Results Anesthesia Widget: 2 WBC 7.74 K/ul (4.8-10.8) 10/03/24 Hgb 14.5 g/dl (14.0-18.0) 10/03/24 Hct 41.7 % (42.0-52.0) L 10/03/24 Plt 187 K/uL (130-400) 10/03/24 Na 131 mmol/L (136-145) L 10/03/24 K 4.2 mmol/L (3.5-5.1) 10/03/24 Cl 96 mmol/L (98-107) L 10/03/24 CO2 27 mmol/L (21-32) 10/03/24 BUN 16 mg/dl (6-23) 10/03/24 Creat 0.91 mg/dl (0.6-1.4) 10/03/24 Glucose Level 134 mg/dl (70-99(Fasting)) H 10/03/24 PT 10.4 Seconds (9.0-12.0) 10/03/24 PTT 26 Seconds (21-31) 10/03/24 INR 1.0 (0.9-1.1) 10/03/24 HA1c 6.4 % (4.5-5.6) H 10/03/24 Urine Color Yellow 10/03/24 Urine Appearance Clear (Clear) 10/03/24 Urine pH 7.5 (4.5-7.5) 10/03/24 Urine Specific [place] 1.011 (1.000-1.030) 10/03/24 Urine Protein Negative (Negative) 10/03/24 Urine Glucose (UA) Negative (Negative) 10/03/24 Urine Ketones 1+ (Negative) H 10/03/24 Urine Blood Negative (Negative) 10/03/24 Urine Nitrite Negative (Negative) 10/03/24 Urine Bilirubin Negative (Negative) 10/03/24 Urine Urobilinogen Negative (Negative) 10/03/24 Urine Leukocyte Esterase Negative (Negative) 10/03/24 Blood Type A Positive 10/03/24 Antibody Screen NEGATIVE 10/03/24 Testing Laboratory Results Hyponatremia chronic Electrocardiogram Date: 08/28/24 Findings: + NSR @ (70bpm) Normal EKG per cardio Chest X-Ray Date: 10/03/24 Findings: + NAD Lungs and pleural spaces: There is mild hyperinflation and minimal basilar pleural and parenchymal scarring. No consolidation or pulmonary edema. No pleural effusion or pneumothorax. Echocardiogram Date: 02/16/24 EF: 60% LV Function: normal RWMA: + none Other Findings: + LVH (mild/concentric) All other chambers are normal in size and function Heavily calcified, tricuspid AV with moderate aortic stenosis (NAIDA 1.2cm2, mean PG 15mmHg, AV peak velocity 2.8m/s) Mild MR Normal estimated PASP at 32mmHg Dilated aortic root (4.3cm) and ascending aorta (4.0cm) Compared to previous study performed 08/13/2023, there has been no significant change Other Testing Low dose lung CT 01/10/24= No suspicious pulmonary nodules. No change in a 5 mm left lower lobe nodule from earlier exams. This is benign given stability. Stable postoperative findings within the right lung apex.
--- OUTSIDE RECORDS SUMMARY | 2024-11-07 05:19 | External Medical Summary | Continuity of Care Document ---
Author Name Unknown Organization [facility] [address] [place] [phone] Care Team Providers Care Fmd Teacher Name Role Phone Clay Schmidt Primary Care Physician [phone] [id number] Date(s): 10/27/24 - 10/27/24 [facility] [address] [address] [phone] Encounter Diagnosis Body mass index [BMI] 29.0-29.9, adult(Discharge Diagnosis) - 10/27/24 Preop testing(Discharge Diagnosis) - 10/27/24 COPD with emphysema(Discharge Diagnosis) - 10/27/24 Chronic pancreatitis(Discharge Diagnosis) - 10/27/24 Ascending aorta dilatation(Discharge Diagnosis) - 10/27/24 HTN (hypertension)(Discharge Diagnosis) - 10/27/24 Hypothyroid(Discharge Diagnosis) - 10/27/24 Prediabetes(Discharge Diagnosis) - 10/27/24 Fatty liver(Discharge Diagnosis) - 10/27/24 Discharge Disposition: Home or Self Care Attending Physician: MD Schmidt Dongsheng Allergies, Adverse Reactions, Alerts Substance Criticality Severity Reaction Reaction Severity Status felodipine leg swelling Active spironolactone breast lumps/soreness Active lisinopril pancreatitis Active Assessment and Plan Extracted from: Title:Office Visit Note Author:MD Schmidt Dongsh eng Date:10/27/24 1.Preop testing Patient's METS score is 4. Negstressecho in Sep.This is a class I (0 point) on reviewed cardiac risk index so there is about0.4-0.5% risk of cardiac complications (cardiac , nonfatal cardiac arrest, AR, pulmonary edema, ventricular fibrillation, primary cardiac arrest, and complete heart block).For an intermediate procedure, patient is at acceptable risk. 2.COPD with emphysema STATUS: Chronic, stable DATA: Labs reviewed GOAL: Maintain stability PLAN: continue Advair and prn albuterol QID. Stopped smoking. f/u pulmmed. yearly LDCT- UTD 3.Chronic pancreatitis STATUS: Chronic stable: x Chronic uncontrolled: Acute uncomplicated: Acute illness with systemic symptoms: Undiagnosed new problems with uncertain prognosis: Chronic illnesses with exacerbation, progression, or side effects of treatment: 1 acute complicated injury: DATA: Review of prior external note(s) from each unique source: Review of the result(s) of each unique test: lipase Ordering of each unique test: Assessment requiring independent historian(s): GOAL: Resolution PLAN: f/u GI advised. avoid alcohol. ordered lipase 4.Ascending aorta dilatation STATUS: Chronic stable: x Chronic uncontrolled: Acute uncomplicated: Acute illness with systemic symptoms: Undiagnosed new problems with uncertain prognosis: Chronic illnesses with exacerbation, progression, or side effects of treatment: 1 acute complicated injury: DATA: Review of prior external note(s) from each unique source: Review of the result(s) of each unique test: Ordering of each unique test: Assessment requiring independent historian(s): GOAL: Maintain stability PLAN: f/u cardiology . Treat HTN, HLD. stoppedsmoking. 5.HTN (hypertension) STATUS: Chronic, at goal DATA: Labs reviewed : cmp GOAL: BP<140/90 PLAN:continue valsartan, amlodipine, eplerenone.DASH and exercise. home BP. 6.Hypothyroid STATUS: Chronic not at goal DATA: Reviewed labs tSH GOAL: TSH WNL PLAN: no h/o CA.cut downlevothyroxine to 150mg. vit D/Ca.ordered TSH 7.Prediabetes STATUS: Chronic stable: Chronic uncontrolled: x Acute uncomplicated: Acute illness with systemic symptoms: Undiagnosed new problems with uncertain prognosis: Chronic illnesses with exacerbation, progression, or side effects of treatment: 1 acute complicated injury: DATA: Review of prior external note(s) from each unique source: Review of the result(s) of each unique test: a1c Ordering of each unique test: Assessment requiring independent historian(s): GOAL: Resolution PLAN: can't do exercise due to knee pain soonmetformin - will hold 2 days before surgery. ordered A1c 8.Fatty liver STATUS: Chronic, uncontrolled DATA: Labs reviewed cmp GOAL: resolution PLAN:stop alcohol. No NSAIDs. Hep A/B UTD. WT loss. still on vit E. f/u GI advised. ordered afp and US call prn.f/u 2 mos Time spent: Pre-visit planning/chart review: 5 minutes Ling-ac-bshg visit: 26 minutes Post-visit documentation: minutes Care coordination: minutes Time spent on disease management/counseling in addition to CPE/AWV/WCC: minutes Total visit time: 31 minutes Immunizations Given and Recorded Vaccine Date Status Refusal Reason influenza virus vaccine, inactivated 07/16/22 Give n influenza virus vaccine, inactivated 07/21/21 Dong rded influenza virus vaccine, inactivated 07/06/20 Dong rded influenza virus vaccine, inactivated 09/07/19 Give n influenza virus vaccine, inactivated 06/27/18 Give n influenza virus vaccine, inactivated 1 07/14/17 Re corded influenza virus vaccine, inactivated 2 07/07/16 Re corded influenza virus vaccine, inactivated 3 07/03/14 Re corded influenza virus vaccine, inactivated 4 07/04/13 Re corded influenza virus vaccine, inactivated 5 07/02/12 Re corded influenza virus vaccine, inactivated 6 08/25/11 Re corded influenza virus vaccine, inactivated 7 09/22/10 Re corded influenza virus vaccine, inactivated 8 06/21/09 Re corded influenza virus vaccine, inactivated 9 10/01/08 Re corded influenza virus vaccine, inactivated 10 12/14/06 R ecorded influenza virus vaccine, inactivated 11 08/21/05 R ecorded influenza virus vaccine, inactivated 12 08/08/03 R ecorded influenza virus vaccine, inactivated 13 08/03/02 R ecorded influenza virus vaccine, inactivated 14 09/07/01 R ecorded influenza virus vaccine, inactivated 15 08/20/99 R ecorded influenza virus vaccine, inactivated 16 08/27/98 R ecorded SARS-CoV-2 (COVID-19) ChAdOx1 vaccine 01/10/21 Rec orded SARS-CoV-2 (COVID-19) ChAdOx1 vaccine 12/20/20 Rec orded zoster vaccine, inactivated 17 01/01/20 Recorded tetanus/diphtheria/pertuss, acel (Tdap) 18 08/27/19 Recorded tetanus/diphtheria/pertuss, acel (Tdap) 19 06/21/09 Recorded hepatitis A-hepatitis B vaccine 20 09/06/18 Record ed hepatitis A-hepatitis B vaccine 04/04/18 Recorded hepatitis A-hepatitis B vaccine 03/01/18 Recorded hepatitis A-hepatitis B vaccine 21 02/28/18 Record ed pneumococcal 23-valent vaccine 11/29/17 Given tetanus toxoids-diphtheria, Td (Adult) 22 06/18/99 Recorded 1Result Comment: 2017-10-22: Historical information-source unspecified 2Result Comment: 2017-10-22: Historical information-source unspecified 3Result Comment: 2017-10-22: Historical information-source unspecified 4Result Comment: 2017-10-22: Historical information-source unspecified 5Result Comment: 2017-10-22: Historical information-source unspecified 6Result Comment: 2017-10-22: Historical information-source unspecified 7Result Comment: 2017-10-22: Historical information-source unspecified 8Result Comment: 2017-10-22: Historical information-source unspecified 9Result Comment: 2017-10-22: Historical information-source unspecified 10Result Comment: 2017-10-22: Historical information-source unspecified 11Result Comment: 2017-10-22: Historical information-source unspecified 12Result Comment: 2017-10-22: Historical information-source unspecified 13Result Comment: 2017-10-22: Historical information-source unspecified 14Result Comment: 2017-10-22: Historical information-source unspecified 15Result Comment: 2017-10-22: Historical information-source unspecified 16Result Comment: 2017-10-22: Historical information-source unspecified 17Result Comment: 2021-07-22: Historical information-source unspecified 18Result Comment: 2021-07-22: Historical information-source unspecified 19Result Comment: 2017-10-22: Historical information-source unspecified 20Result Comment: 2021-07-22: Historical information-source unspecified 21Result Comment: 2021-07-22: Historical information-source unspecified 22Result Comment: 2017-10-22: Historical information-source unspecified Medications Advair HFA 115 mcg-21 mcg Start: 02/14/24 9:04:00 AM EDT, 2 puff, inhaled, bid, Disp# 12 g, Refills: 11, AND THROAT AFTER USE., Brand Medically Necessary, Pharmacy: [id number] Start Date: 02/14/24 Status: Ordered agwashanda Start: 02/23/22 3:05:00 PM EDT, agwashanda Start Date: 02/23/22 Status: Ordered Albuterol (Eqv-ProAir HFA) 90 mcg/inh inhalation aerosol Start: 06/29/23 10:20:00 AM EDT, 2 puff, inhaled, q6h, Disp# 3 each, Refills: 3, as need for cough/wheezing, Pharmacy: [facility] [address] Start Date: 06/29/23 Status: Ordered amLODIPine 5 mg oral tablet Start: 07/24/24 9:01:00 AM EDT, 2 tab, PO, Daily, Disp# 180 tab, Refills: 3, Pharmacy: [facility] [id number] Start Date: 07/24/24 Status: Ordered aspirin 81 mg oral delayed release tablet Start: 07/28/22 8:03:00 AM EDT, 1 tab, PO, Daily Start Date: 07/28/22 Status: Ordered atorvastatin 40 mg oral tablet Start: 10/02/24 12:41:00 PM EST, 1 tab, PO, Daily, Disp# 30 tab, Refills: 3, Pharmacy: [facility] [id number] Start Date: 10/02/24 Status: Ordered Cialis 10 mg oral tablet Start: 10/29/21 8:17:00 AM EST, 1 tab, PO, Daily, Disp# 30 tab, as needed one hour before sex Start Date: 10/29/21 Status: Ordered DHEA 50 mg oral tablet Start: 10/29/21 8:02:00 AM EST, 1 tab, PO, Daily Start Date: 10/29/21 Status: Ordered eplerenone 25 mg oral tablet Start: 02/23/24 10:16:00 AM EDT, 1 tab, PO, Daily, Disp# 90 tab, Refills: 3, Note to Pharmacy: stop spironolactone;, Pharmacy: [facility] [id number] Start Date: 02/23/24 Status: Ordered fluticasone 50 mcg/inh nasal spray Start: 10/13/24 10:46:00 AM EST, 2 spray, intranasal, Daily, Disp# 16 g, Refills: 0, PRN: NEEDEDFOR ALLERGIES, Pharmacy: [facility] [id number] Start Date: 10/13/24 Status: Ordered L-Arginine 1000 mg oral tablet Start: 06/27/18 11:06:00 AM EDT, 1 tab, PO, bid, also contains L-citrulline Start Date: 06/27/18 Status: Ordered levothyroxine 150 mcg (0.15 mg) oral tablet Start: 10/27/24 2:57:00 PM EST, 1 tab, PO, Daily, Disp# 90 tab, Pharmacy: [facility] [id number] Start Date: 10/27/24 Stop Date: 01/25/25 Status: Ordered magnesium amino acids chelate 100 mg oral tablet Start: 02/14/21 9:12:00 AM EDT, 1 tab, PO, Daily Start Date: 02/14/21 Status: Ordered Metamucil 3.4 g/5.2 g oral powder for reconstitution Start: 12/10/20 12:53:00 PM EST, tid Start Date: 12/10/20 Status: Ordered MetFORMIN (Eqv-Glucophage XR) 500 mg oral tablet, extended release Start: 09/20/24 2:26:00 PM EST, 1 tab, PO, Daily, Disp# 30 tab, Refills: 5, with evening meal, Pharmacy: [facility] [id number] Start Date: 09/20/24 Stop Date: 03/19/25 Status: Ordered omeprazole 20 mg oral delayed release capsule Start: 08/18/24 12:54:00 PM EDT, 1 cap, PO, Daily, Disp# 90 cap, Refills: 0, Pharmacy: [facility] [id number] Start Date: 08/18/24 Status: Ordered traZODone 50 mg oral tablet Start: 08/18/24 12:54:00 PM EDT, 2 tab, PO, qhs, Disp# 180 tab, Refills: 0, WITH FOOD., Pharmacy: [facility] [id number] Start Date: 08/18/24 Status: Ordered valsartan 320 mg oral tablet Start: 01/05/24 9:28:00 AM EDT, 1 tab, PO, Daily, Disp# 30 tab, Refills: 11, Pharmacy: [facility] [id number] Start Date: 01/05/24 Status: Ordered Vitamin D3 5000 intl units (125 mcg) oral capsule Start: 12/10/20 12:53:00 PM EST, 1 cap, PO, bid Start Date: 12/10/20 Status: Ordered vitamin E Start: 10/29/21 8:01:00 AM EST, See Instructions, 1 tablet daily Start Date: 10/29/21 Status: Ordered Vitamin K2 Start: 05/12/22 11:08:00 AM EDT Start Date: 05/12/22 Status: Ordered zinc (as acetate) 25 mg oral capsule Start: 02/14/21 9:13:00 AM EDT Start Date: 02/14/21 Status: Ordered Mental Status 10/27/24 Barriers to Learning one year None evide nt Mandatory Health Literacy Documentation Yes Health Literacy Communication Barriers N ever Primary Language Turkish Problem List Condition Confirmation Course Effective Dates Status H ealth Status Informant Aortic stenosis Confirmed Active Arthritis of left ankle Confirmed Active Ascending aorta dilatation Confirmed Active Breast lump Confirmed Active Chronic pancreatitis Confirmed Active Chronic rhinitis Confirmed Active Renal cyst Confirmed Active History of prior cigarette smoking Confirmed Active GERD (gastroesophageal reflux disease) Confirmed Active Hyperlipidemia Confirmed Active HTN (hypertension) Confirmed Active Hypothyroid Confirmed Active ED (erectile dysfunction) Confirmed Active Insomnia Confirmed Active IBS (irritable bowel syndrome) Confirmed Active Hepatomegaly Confirmed Active Aortic stenosis, mild Confirmed Active KATHY (obstructive sleep apnea) Confirmed Active Osteoarthritis of right knee Confirmed Active Prediabetes Confirmed Active Bilateral primary osteoarthritis of knee Confirmed Active COPD with emphysema Confirmed Active Fatty liver Confirmed Active Leg swelling Confirmed Active Tricuspid regurgitation Confirmed Active Diagnosis Diagnosis Type Effective Dates Health Status Clinical Service Informant Preop testing Discharge Diagnosis 10/27/24 Non-Specified Chronic pancreatitis Discharge Diagnosis 10/27/24 Non-Specified Ascending aorta dilatation Discharge Diagnosis 10/27/24 Non-Specified Hypothyroid Discharge Diagnosis 10/27/24 Non-Specified Prediabetes Discharge Diagnosis 10/27/24 Non-Specified Body mass index [BMI] 29.0-29.9, adult Discharge Diagnosis 10/27/24 Non-Specified COPD with emphysema Discharge Diagnosis 10/27/24 Non-Specified HTN (hypertension) Discharge Diagnosis 10/27/24 Non-Specified Fatty liver Discharge Diagnosis 10/27/24 Non-Specified Procedures Procedure Date Related Diagnosis Body Site Status Colonoscopy 1, 2, 3 08/24/23 Compl eted Polysomnogram 4 08/06/22 Completed Ultrasound--abdomen 5 01/29/[address] lung 6 01/05/22 Completed VATS (video-assisted thoraco scopic surgery) lobectomy 11/19/[address] 7 11/12/21 Completed Chest X-ray 8 11/10/21 Completed Chest X-ray 9 11/10/21 Completed Chest X-ray 10 11/10/21 Completed Chest X-ray 11 11/09/21 Completed Cervical spine X-ray 12 11/07/21 C ompleted Chest X-ray 13 11/07/21 Completed Chest X-ray 14 11/07/[address] 15 11/06/21 Completed Hydrogen breath test 16 05/27/21 C ompleted EGD (esophagogastroduodenosc opy) gastric outlet reduction 17 01/21/21 Comp leted Esophagogastroduodenoscopy 18 01/21/21 Completed Upper GI endoscopy 19 01/21/21 Com pleted Lung cancer screening 20 11/29/20 Completed Pulmonary function test 21 12/05/[address] of chest without contrast 22 11/30/[address] of chest without contrast 23, 24, 25 11/28/18 Completed Colonoscopy 26, 27, 28, 29 08/18/18 Completed Diagnostic mammogram 30 06/22/18 C ompleted MRI of abdomen 31 08/14/17 Complet ed US EXAM ABDOM COMPLETE 32 07/16/17 Completed Exercise stress echocardiography 33 03/24/15 Completed Upper GI endoscopy 34 10/30/09 Com pleted Vasectomy 09/03/06 Completed LASIK Completed 1A) Polyp, colon at 35 cm, biopsy: Tubular adenoma. B) Polyp x2, rectum, polypectomies: Hyperplastic polyp x2 with changes of trauma/prolapse. 2- One 4 mm polyp at 35 cm proximal to the anus, removed with a cold snare. Resected and retrieved. - Two 2 to 3 mm polyps in the rectum, removed with a cold biopsy forceps. Resected and retrieved. - Diverticulosis in the left colon. - The examination was otherwise normal on direct and retroflexion views. 3Repeat colonoscopy in 5 years. 4severe KATHY 51) Unremarkable right upper quadrant abdominal US 2) 3.2 cm complex cyst of the superior pole right kidney 61. A few subcentimeter pulmonary nodules as described above with the largest in the left lower lobemeausring 5 mm. 2. Interval postoperative changes within the right lung apex. A 2.5cm area of soft tissue thickening/fat adjacent to the suture material favors postoperative change. This bears watching further examinations. 3. A small partially loculated right pleural effusion. There is a puncate focus of gas withing the right pleural space consistent with a reidual tiny pneumothorax. 4. Emphysema. 5. Multiple healing right posterior rib fractures. There are 6. Stable mild aneurysmal dilation of the ascending thoracic aorta measuring up to 4 cm in diameter. 7IMPRESSION: 1. A chest tube is in place at the anterior right apex. This is located just deep to the pleura gerard portion appears to be extrapleural. 2. Large right-sided hydropneumothorax. The trachea is midline. 3. There is near complete atelectasis/consolidation of the right lower lobe. 4. Acute right-sided rib fractures as above. 5. Emphysema. 6. A 5 mm pulmonary nodule at the left lung base is unchanged. 7. Additional findings as above. 8impression: Interval significant decrease in right pneumothorax. Bilateral atelectatic changes seen 9impression: interval significant increase in right pneumothorax with collapse of the right lung, right chest tube projects over the right thoracic cavity 10impression: 1. right hydropneumothorax with stable to slightly decreased size of the apical pneumothorac component, 2. Satisfactory positioing of the right side chest tube 3. Emphysema with chronic interstitial coarsening 11impression: Stable small right apical pneumothorax, chest tube is in place 12Impression: No fracture or subluxation within the cervical spine. 13impression: 1. A small to mderate right-sided pneumothorax is similar in appearance to yesterday 2. there is dense airspace consolidation/atelectasis and a small pleural effusion at the right lung 3. Right posterior rib fractures where better assesed on CT 14impression: 1. A right sided chest tube has been place 15Impression: 1. There are acute comminuted right posterior 7th and 8th rib fractures. 2. Small to moderate right sided pneumothorax. 3. There is a small amount of hemothorax at the right lung base. 4. Dense airspace consolidation is seen throughout the right lower lobe. 5. Emphysema. 6. Additional findings as above. 16Findings not consistent with lactose intolerance 17Follow up as needed 18EGD irregular Z line bx, mid esophagus nl bx 19Impression: Z-line irregular, 45 cm from the incisors. Biopsied Normal middle third of esophagus. Biopsied Normal stomach Normal examined duodenum The examination was otherwise normal 201. No suspicious pulmonary nodules. 2. Emphysema. 21Spirometry indicates a moderate obstructive ventilatory defect with no significant post-bronchodilator response. Clinical correlation is required. 221. No new suspicious pulmonary nodule. Continue annual lung cancer screening. 2. Emphysema. 3. Coronary artery calcification. Overall Lung RADS Category: 2 - Benign appearance or behavior - Nodules with a very low likelihood of becoming a clinically active cancer due to size or lack of growth. Continue annual screening. 23No suspicious pulmonary nodules or findings. No change in two 4mm pulmonary nodules since chest CT of 03-05-15, these are benign given stability. moderate emphysema. 24No suspicious pulmonary nodules - considered Lung RADS 2 study. Moderate emphysema. Moderate coronary artery calcification. Repeat 1 year. 25repeat 1 year 26Repeat is 5 years (08/2023) due to personal h/o colon polyps 27diverticulosis. One 5 mm polyp in the rectum, retrieved. Await pathology. 28repeat 10 years 29Pathology: Benign 30There is right gynecomstia, seen both mammographically and on ultrasound, correlating with the areapalpable concern in the right retroareolar breast. No mammographic or targeted sonographic evidenceof malignancy. Cilincal follow-up is recommended as to possible underlying cause. 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 Diffuse hepatic steatosis. 321. hepatomegaly. 2. diffusely increased echotexture of the liver. Fatty infiltraion is a consideration among other diffuse hepatocelluar processes. 3. 2.3cm lobulated cystic lesion with septation and internal echoes in the right kidney. neoplasticetiologies not excluded. MRI with & without contrast is a consideration for further evalutation. 33EKG reponse normal. Occastional PVCs were noted with stress. Occaional PACs were noted during stress. Baseline ECG was normal. Test was terminated due to fatigue and shortness of breath. No chest discomfort was reported. Heart rate and blood pressure response to stress was normal. Exercise capacityis average. 34irregular z-line. await path. Vital Signs Most recent to oldest [Reference Range]: 1 Height 178.4 cm (10/27/24 2:40 PM) Patient Weight 93.2 kg (10/27/24 2:40 PM) Body Mass Index 29.28 kg/m2 (10/27/24 2:40 PM) Heart Rate 78 bpm (10/27/24 2:40 PM) Respiratory Rate 18 br/min (10/27/24 2:40 PM) Blood Pressure 110/68mmHg (10/27/24 2:40 PM) Cuff Pulse Pressure 42 mmHg (10/27/24 2:40 PM) Social History Social History Type Response Tobacco Cigarettes 1 Smoking Status Former Smoker, quit > 1 yr Sex Male Sex Representation Male (finding) 1quit a few years ago, but occasionally may have one FCM Outpt Note * MD Brayan, [facility]: PERFORM Event Display: FCM Outpt Note Authored Date: [id number] Chief Complaint Preop for knee replacement on 11/07/24. History of Present Illness Pre-op: Surgery: R knee replacement Surgeon: [facility] Date: 11/07/24 Anesthesia: general? no paperwork Fax: Last surgery: 2022 rib surgery Complications with anesthesia: none High-risk surgery (intraperitoneal, intrathoracic, or vascular): no H/o heart disease/AR/CHF: no h/o CVA/TIA: no h/o DM on insulin: no h/o kidney disease with Cr >2: no h/o RA: no Activity: can climb a hill or at least 1 flight of stairs without chest pain or unusual SOB or difficulty KATHY: on cpap URI illness in the past month: no Alcohol use: 3-4 daily Tobacco use: no Drug use: no HTN: on meds. home BP COPD: on advair daily. doing well. thyroid: on med. Review of Systems No fever/chills. No headache. No other respiratory symptoms. No chest pain/shortness of breath. No nausea/vomiting. No abdominal pain. No change with bowels. No urinary symptoms. No rash. No bleeding.No new joint pain. No anxiety/depression. Other systems reviewed and are neg. Physical Exam Vitals & Measurements HR:78(Monitored) RR:18 BP:110/68 SpO2:96% HT:178.4cm WT:93.200kg(Dosing) WT:93.2kg BMI:29.28 PHQ2 Data(Data Documented on:10/27/2024 14:39) Emotional health assessment NEGATIVE General: No acute distress. Nontoxic. Head:Normocephalic, Atraumatic. Eyes:Pupils are equal, round Normal conjunctiva. Throat:No pharyngeal erythema, no abnormal masses or lesions. Neck:Supple, Non-tender, No thyromegaly, No jugular venous distention, No lymphadenopathy Respiratory:Lungs are clear to auscultation, Respirations non-labored, Breath sounds equal DAPHNIE. Cardiovascular:Normal rate, Regular rhythm, No murmur, Rubs, gallops. Gastrointestinal:Soft, Non-tender, Non-distended, Normal bowel sounds. Musculoskeletal:no pitting edema Neurologic:Alert, Oriented, No focal deficits. Psychiatric:Cooperative, Appropriate mood & affect. Assessment/Plan 1.Preop testing Patient's METS score is 4. Negstressecho in Dec.This is a class I (0 point) on reviewed cardiac risk index so there is about0.4-0.5% risk of cardiac complications (cardiac , nonfatal cardiac arrest, AR, pulmonary edema, ventricular fibrillation, primary cardiac arrest, and complete heart block).For an intermediate procedure, patient is at acceptable risk. 2.COPD with emphysema STATUS: Chronic, stable DATA: Labs reviewed GOAL: Maintain stability PLAN: continue Advair and prn albuterol QID. Stopped smoking. f/u pulmmed. yearly LDCT- UTD 3.Chronic pancreatitis STATUS: Chronic stable: x Chronic uncontrolled: Acute uncomplicated: Acute illness with systemic symptoms: Undiagnosed new problems with uncertain prognosis: Chronic illnesses with exacerbation, progression, or side effects of treatment: 1 acute complicated injury: DATA: Review of prior external note(s) from each unique source: Review of the result(s) of each unique test: lipase Ordering of each unique test: Assessment requiring independent historian(s): GOAL: Resolution PLAN: f/u GI advised. avoid alcohol.ordered lipase 4.Ascending aorta dilatation STATUS: Chronic stable: x Chronic uncontrolled: Acute uncomplicated: Acute illness with systemic symptoms: Undiagnosed new problems with uncertain prognosis: Chronic illnesses with exacerbation, progression, or side effects of treatment: 1 acute complicated injury: DATA: Review of prior external note(s) from each unique source: Review of the result(s) of each unique test: Ordering of each unique test: Assessment requiring independent historian(s): GOAL: Maintain stability PLAN: f/u cardiology. Treat HTN, HLD. stoppedsmoking. 5.HTN (hypertension) STATUS: Chronic, at goal DATA: Labs reviewed : cmp GOAL: BP<140/90 PLAN:continue valsartan, amlodipine, eplerenone.DASH and exercise. home BP. 6.Hypothyroid STATUS: Chronic not at goal DATA: Reviewed labs tSH GOAL: TSH WNL PLAN: no h/o CA.cut downlevothyroxine to 150mg. vit D/Ca.ordered TSH 7.Prediabetes STATUS: Chronic stable: Chronic uncontrolled: x Acute uncomplicated: Acute illness with systemic symptoms: Undiagnosed new problems with uncertain prognosis: Chronic illnesses with exacerbation, progression, or side effects of treatment: 1 acute complicated injury: DATA: Review of prior external note(s) from each unique source: Review of the result(s) of each unique test: a1c Ordering of each unique test: Assessment requiring independent historian(s): GOAL: Resolution PLAN: can't do exercise due to knee pain soonmetformin- will hold 2 days before surgery. ordered A1c 8.Fatty liver STATUS: Chronic, uncontrolled DATA: Labs reviewed cmp GOAL: resolution PLAN:stop alcohol. No NSAIDs. Hep A/B UTD. WT loss. still on vit E. f/u GI advised.ordered afp and US call prn.f/u 2 mos Time spent: Pre-visit planning/chart review: 5 minutes Ggew-rm-lled visit: 26 minutes Post-visit documentation: minutes Care coordination: minutes Time spent on disease management/counseling in addition to CPE/AWV/WCC: minutes Total visit time: 31 minutes Problem List/Past Medical History Ongoing Aortic stenosis Aortic stenosis, mild Arthritis of left ankle Ascending aorta dilatation Benign neoplasm of colon| Status: Inactive Bilateral primary osteoarthritis of knee Breast lump Chronic pancreatitis Chronic rhinitis COPD with emphysema Deviated nasal septum| Status: Inactive Diverticulosis| Status: Inactive ED (erectile dysfunction) Fatty liver GERD (gastroesophageal reflux disease) Hepatomegaly History of prior cigarette smoking HTN (hypertension) Hyperlipidemia Hypothyroid IBS (irritable bowel syndrome) Insomnia Leg swelling KATHY (obstructive sleep apnea) Osteoarthritis of right knee Prediabetes Renal cyst Renal cyst, right| Status: Inactive Tricuspid regurgitation Resolved Acute adjustment disorder with depressed mood Diarrhea Laceration Laceration of little finger without complication Pancreatitis Smoker Tobacco user Visit for suture removal Procedure/Surgical History Colonoscopy| Service Date: 3Polysomnogram| Service Date: 08/06/2022Ultrasound--abdomen| Service Date: 01/29/2022 lung| Service Date: 01/05/2022VATS (video-assisted thoracoscopic surgery) lobectomy| Service Date: 11/19/2021 CT| Service Date: 11/12/2021 X-ray| Service Date: 11/10/2021 X-ray| Service Date: 11/10/2021 X-ray| Service Date: 11/10/2021 X-ray| Service Date: 11/09/2021t X-ray| Service Date: 11/07/2021 X-ray| Service Date: 11/07/2021ervical spine X-ray| Service Date: 11/07/2021 CT| Service Date: 11/06/2021Hydrogen breath test| Service Date: 05/27/2021GD (esophagogastroduodenoscopy) gastric outlet reduction| Service Date: 01/21/2021Upper GI endoscopy| Service Date: 01/21/2021sop hagogastroduodenoscopy| Service Date: 01/21/2021ung cancer screening| Service Date: 11/29/2020ulmonary function test| Service Date: 12/05/2019Low dose CT of chest without contrast| ServiceDate: 11/30/2019Low dose CT of chest without contrast| Service Date: 11/28/2018Colonoscopy| Service Date: 08/18/2018Diagnostic mammogram| Service Date: 06/22/2018MRI of abdomen| Service Date: 08/14/2017US EXAM ABDOM COMPLETE| Service Date: 07/16/2017Exercise stress echocardiography| Service Date: 03/24/2015Upper GI endoscopy| Service Date: 10/30/2009Vasectomy| Service Date: 09/03/2006LASIK Medications albuterol(Albuterol (Eqv-ProAir HFA) 90 mcg/inh inhalation aerosol), 2 puff, inhaled, q6h, 3 refills amLODIPine(amLODIPine 5 mg oral tablet), 10 mg= 2 tab, PO, Daily, 3 refills arginine(L-Arginine 1000 mg oral tablet), 1000 mg= 1 tab, PO, bid aspirin(aspirin 81 mg oral delayed release tablet), 81 mg= 1 tab, PO, Daily atorvastatin(atorvastatin 40 mg oral tablet), 40 mg= 1 tab, PO, Daily, 3 refills cholecalciferol(Vitamin D3 5000 intl units (125 mcg) oral capsule), 125 mcg= 1 cap, PO, bid dehydroepiandrosterone(DHEA 50 mg oral tablet), 50 mg= 1 tab, PO, Daily DOBUTamine 500 mg + Dextrose 5% in Water 250 mL(DOBUTamine 500 mg + dextrose 5% (normalized drips) 250 mL), 250 mL, titrate, Order Calculation Weight: 93.6 kg, IV Drip, Routine, 10/13/24 16:25:00 EST, 60 day, Hard Stop, 12/12/24 16:24:00 EST, 10/13/24 16:25:00 EST eplerenone(eplerenone 25 mg oral tablet), 25 mg= 1 tab, PO, Daily, 3 refills fluticasone nasal(fluticasone 50 mcg/inh nasal spray), 2 spray, intranasal, Daily, PRN fluticasone-salmeterol(Advair HFA 115 mcg-21 mcg), 2 puff, inhaled, bid levothyroxine(levothyroxine 150 mcg (0.15 mg) oral tablet), 150 mcg= 1 tab, PO, Daily magnesium amino acids chelate(magnesium amino acids chelate 100 mg oral tablet), 100 mg= 1 tab, PO,Daily menaquinone(Vitamin K2) metFORMIN(MetFORMIN (Eqv-Glucophage XR) 500 mg oral tablet, extended release), 500 mg= 1 tab, PO, Daily, 5 refills omeprazole(omeprazole 20 mg oral delayed release capsule), 1 cap, PO, Daily psyllium(Metamucil 3.4 g/5.2 g oral powder for reconstitution), tid tadalafil(Cialis 10 mg oral tablet), 10 mg= 1 tab, PO, Daily traZODone(traZODone 50 mg oral tablet), 2 tab, PO, qhs unknown medication(agwashanda) valsartan(valsartan 320 mg oral tablet), 320 mg= 1 tab, PO, Daily, 11 refills vitamin E, See Instructions zinc acetate(zinc (as acetate) 25 mg oral capsule) Allergies felodipineleg swelling lisinoprilpancreatitis spironolactonebreast lumps/soreness Social History Smoking Status Former Smoker, quit > 1 yr Alcohol - Low Risk Substance Abuse - Denies Substance Abuse Tobacco - Low Risk Type:Cigarettes - Comments: quit a few years ago, but occasionally may have one Family History Cancer of colon: Unknown. Cardiovascular disease: Father. Heart attack: Father. Heart disease: Mother and Father. Stroke: Father. Type II diabetes mellitus: Mother. Health Status Family Member(s) Immunizations Vaccine Date Status influenza virus vaccine, inactivated 07/16/2022 Given influenza virus vaccine, inactivated 07/21/2021 Recorded SARS-CoV-2 (COVID-19) ChAdOx1 vaccine 01/10/2021 Recorded SARS-CoV-2 (COVID-19) ChAdOx1 vaccine 12/20/2020 Recorded influenza virus vaccine, inactivated 07/06/2020 Recorded zoster vaccine, inactivated 01/01/2020 Recorded Comments : 2021-07-22: Historical information-source unspecified influenza virus vaccine, inactivated 2019 Given tetanus/diphtheria/pertuss, acel (Tdap) 08/27/2019 Recorded Comments : 2021-07-22: Historical information-source unspecified hepatitis A-hepatitis B vaccine 09/06/2018 Recorded Comments : 2021-07-22: Historical information-source unspecified influenza virus vaccine, inactivated 06/27/2018 Given hepatitis A-hepatitis B vaccine 04/04/2018 Recorded hepatitis A-hepatitis B vaccine 03/01/2018 Recorded hepatitis A-hepatitis B vaccine 02/28/2018 Recorded Comments : 2021-07-22: Historical information-source unspecified pneumococcal 23-valent vaccine 11/29/2017 Given influenza virus vaccine, inactivated 07/14/2017 Recorded Comments : 2017-10-22: Historical information-source unspecified influenza virus vaccine, inactivated 07/07/2016 Recorded Comments : 2017-10-22: Historical information-source unspecified influenza virus vaccine, inactivated 07/03/2014 Recorded Comments : 2017-10-22: Historical information-source unspecified influenza virus vaccine, inactivated 07/04/2013 Recorded Comments : 2017-10-22: Historical information-source unspecified influenza virus vaccine, inactivated 07/02/2012 Recorded Comments : 2017-10-22: Historical information-source unspecified influenza virus vaccine, inactivated 08/25/2011 Recorded Comments : 2017-10-22: Historical information-source unspecified influenza virus vaccine, inactivated 09/22/2010 Recorded Comments : 2017-10-22: Historical information-source unspecified tetanus/diphtheria/pertuss, acel (Tdap) 06/21/2009 Recorded Comments : 2017-10-22: Historical information-source unspecified influenza virus vaccine, inactivated 06/21/2009 Recorded Comments : 2017-10-22: Historical information-source unspecified influenza virus vaccine, inactivated 10/01/2008 Recorded Comments : 2017-10-22: Historical information-source unspecified influenza virus vaccine, inactivated 12/14/2006 Recorded Comments : 2017-10-22: Historical information-source unspecified influenza virus vaccine, inactivated 08/21/2005 Recorded Comments : 2017-10-22: Historical information-source unspecified influenza virus vaccine, inactivated 08/08/2003 Recorded Comments : 2017-10-22: Historical information-source unspecified influenza virus vaccine, inactivated 08/03/2002 Recorded Comments : 2017-10-22: Historical information-source unspecified influenza virus vaccine, inactivated 2001 Recorded Comments : 2017-10-22: Historical information-source unspecified influenza virus vaccine, inactivated 08/20/1999 Recorded Comments : 2017-10-22: Historical information-source unspecified tetanus toxoids-diphtheria, Td (Adult) 06/18/1999 Recorded Comments : 2017-10-22: Historical information-source unspecified influenza virus vaccine, inactivated 08/27/1998 Recorded Comments : 2017-10-22: Historical information-source unspecified Recommendations Health Maintenance Pending(in the next year) OverDue Adult Influenza Vaccine due04/17/24and every 1year Due Adult COVID-19 Vaccination due10/27/24Unknown Frequency Adult Social Determinants of Health Screening due10/27/24Unknown Frequency Pneumococcal Vaccine Adults and Adolescents with Chronic Illness due10/27/24One-time only Shingles Vaccine due10/27/24One-time only Satisfied(in the past 1 year) Satisfied Body Mass Index on10/27/24.Satisfied by ROSALBA Juarez Vanessa T Electronic Signature on File Electronically Reviewed/Signed by: Clay Schmidt MD Author Signature Dt/Tm:10/27/2024 03:19 PM Department of Family Medicine DJ Patient Care team information Care Team Personnel Name: MD Schmidt Dongsheng Position: Physician - Family Med Member Role: Primary Care Provider Address: [address] [address] Name: ALLIE Burt Dawn M Position: Physician Asst Exmpt - Dermatology Member Role: Lifetime Relationship Address: [address] [place] [id number] Care Team Related Persons Name: BRIAN SUGGS"
--- OUTSIDE RECORDS SUMMARY | 2024-11-07 05:19 | External Medical Summary | Continuity of Care Document ---
Author Name Unknown Organization [facility] [address] [facility] Address [address] [place], [place] [id number] Care Team Providers Care Marble Supervisor Name Role Phone Clay Schmidt Primary Care Physician [phone] [id number] Date(s): 11/02/24 - 11/02/24 [facility] [address] [place] [address] [phone] Discharge Disposition: Home or Self Care Attending Physician: ARCADIO Blair Sarah A Referring Physician: ARCADIO Blair Sarah A Allergies, Adverse Reactions, Alerts Substance Criticality Severity Reaction Reaction Severity Status felodipine leg swelling Active spironolactone breast lumps/soreness Active lisinopril pancreatitis Active Immunizations Given and Recorded Vaccine Date Status [...] 12/14/06 R ecorded influenza virus vaccine, inactivated 08/21/05 R ecorded influenza virus vaccine, inactivated [...] THROAT AFTER USE., Brand Medically Necessary, Pharmacy: [facility] Start Date: 02/14/24 Status: Ordered agwashanda Start: 02/23/22 3:05:00 PM EDT, agwashanda Start Date: 02/23/22 Status: Ordered Albuterol (Eqv-ProAir HFA) 90 mcg/inh inhalation aerosol Start: 06/29/23 10:20:00 AM EDT, 2 puff, inhaled, q6h, Disp# 3 each, Refills: 3, as need for cough/wheezing, Pharmacy: [facility] [address] Start Date: 06/29/23 Status: Ordered amLODIPine 5 mg oral tablet Start: 07/24/24 9:01:00 AM EDT, 2 tab, PO, Daily, Disp# 180 tab, Refills: 3, Pharmacy: [facility] [address] Start Date: 07/24/24 Status: Ordered aspirin 81 mg oral delayed release tablet Start: 07/28/22 8:03:00 AM EDT, 1 tab, PO, Daily Start Date: 07/28/22 Status: Ordered atorvastatin 40 mg oral tablet Start: 10/02/24 12:41:00 PM EST, 1 tab, PO, Daily, Disp# 30 tab, Refills: 3, Pharmacy: [facility] [address] Start Date: 10/02/24 Status: Ordered Cialis 10 [...] 3, Note to Pharmacy: stop spironolactone;, Pharmacy: [facility] [address] Start Date: 02/23/24 Status: Ordered fluticasone 50 mcg/inh nasal spray Start: 10/13/24 10:46:00 AM EST, 2 spray, intranasal, Daily, Disp# 16 g, Refills: 0, PRN: NEEDEDFOR ALLERGIES, Pharmacy: [place] [id number] Start Date: 10/13/24 Status: Ordered L-Arginine 1000 mg oral tablet Start: 06/27/18 11:06:00 AM EDT, 1 tab, PO, bid, also contains L-citrulline Start Date: 06/27/18 Status: Ordered levothyroxine 150 mcg (0.15 mg) oral tablet Start: 10/27/24 2:57:00 PM EST, 1 tab, PO, Daily, Disp# 90 tab, Pharmacy: [place] [id number] Start Date: 10/27/24 Stop Date: 01/25/25 Status: [...] tab, Refills: 5, with evening meal, Pharmacy: [place] [id number] Start Date: 09/20/24 Stop Date: 03/19/25 Status: Ordered omeprazole 20 mg oral delayed release capsule Start: 08/18/24 12:54:00 PM EDT, 1 cap, PO, Daily, Disp# 90 cap, Refills: 0, Pharmacy: [facility] Start Date: 08/18/24 Status: Ordered traZODone 50 mg oral tablet Start: 08/18/24 12:54:00 PM EDT, 2 tab, PO, qhs, Disp# 180 tab, Refills: 0, WITH FOOD., Pharmacy: [facility] Start Date: 08/18/24 Status: Ordered valsartan 320 mg oral tablet Start: 01/05/24 9:28:00 AM EDT, 1 tab, PO, Daily, Disp# 30 tab, Refills: 11, Pharmacy: [facility] Start Date: 01/05/24 Status: Ordered Vitamin D3 [...] AM EDT Start Date: 02/14/21 Status: Ordered Problem List Condition Confirmation Course Effective Dates [...] swelling Confirmed Active Tricuspid regurgitation Confirmed Active Procedures Procedure Date Related Diagnosis Body Site [...] Exercise capacityis average. 34irregular z-line. await path. Results Radiology Reports * Exam Date Time Procedure Performing Provider Status 11/02/24 11:22 AM Echo TransTHORacic TTE Limited Victoria Howe; Final Notes: (Echo TransTHORacic TTE Limited) Reason For Exam: aortic stenosis Echo TransTHORacic TTE Limited Report Signatures Finalized by Dr. Lico Gomez MD on 11/02/2024 04:07 PM [place] Act 112: No-No further action needed Summary 1. Limited 2D, color Doppler and limited spectral Doppler imaging performed to re-evaluate the degree of aortic stenosis prior to surgery. 2. Heavily calcified, tricuspid aortic valve with moderate aortic stenosis (DI 0.33; NAIDA 1.1 cm2, peak velocity 2.8 m/s, mean gradient 16 mmHg). 3. Dilated aortic root (4.4 cm) and ascending aorta (3.9 cm). 4. Normal left ventricular size and systolic function. 5. Estimated ejection fraction is 65%. 6. Mild left ventricular hypertrophy. 7. Compared to the previous study performed 02/16/2024, there is no change in the degree of aortic stenosis. Patient Info Name: FLORENTINO SUGGS Age: 64 years : 1960 Gender: Male Ht: 178 cm Wt: 93 kg BSA: 2.17 m2 HR: 57 bpm BP: 152 / 80 mmHg Heart Rhythm: Sinus Bradycardia Technical Quality: Good Exam Date: 11/02/2024 11:05 AM Exam Location: [facility] Patient Status: Outpatient Staff Ordering Physician: Jacki Blair Treer: Victoria Howe RDCS, T Attending Physician: Jacki Blair Study Info CPT 76606 - 27151 - 81600 - Indications I350 - Nonrheumatic aortic (valve) stenosis Procedure(s) * A limited two-dimensional transthoracic echocardiogram was performed. * Color Doppler was performed. * Limited spectral Doppler was performed. Exam Type: Cardiac Basic Left Ventricle Normal left ventricular size and systolic function. Estimated ejection fraction is 65%. Mild left ventricular hypertrophy. Aortic Valve Heavily calcified, tricuspid aortic valve with moderate aortic stenosis (DI 0.33; NAIDA 1.1 cm2, peak velocity 2.8 m/s, mean gradient 16 mmHg). Pericardium/Pleural No pericardial effusion. Aorta The aortic root at the sinus of Valsalva is dilated, measuring 4.4 cm with an index of 2.01 cm/m2. The ascending aorta is dilated, measuring 3.9 cm with an index of 1.82 cm/m2. Left Ventricular Outflow Tract Name Value Normal LVOT 2D LVOT Diameter 2.0 cm LVOT Doppler LVOT Peak Velocity 0.99 m/s LVOT Peak Gradient 4 mmHg LVOT Mean Gradient 2 mmHg LVOT VTI 23.08 cm LVOT VTI/AV VTI Ratio 0.33 LVOT Stroke Volume 73.97 ml LVOT Stroke Volume Index 0.03 l/m2 LVOT Cardiac Output 4.22 l/min LVOT Cardiac Index 1.95 L/min/m2 Aorta Name Value Normal Ascending Aorta Sinus of Valsalva Diameter 4.4 cm 3.1-3.7 Sinus of Valsalva Index 2.01 cm/m2 1.50-1.90 Prox Asc Ao Diameter 3.9 cm 2.6-3.4 Prox Asc Ao Diameter Index 1.82 cm/m2 1.30-1.70 Thoracic Aorta Ao Arch Diameter 2.6 cm Aortic Valve Name Value Normal AV Doppler AV Peak Velocity 2.75 m/s <2.00 AV Peak Gradient 30 mmHg AV Mean Gradient 16 mmHg <20 AV VTI 69.58 cm AV Area (Cont Eq VTI) 1.1 cm2 >=2.0 AV Area Index (Cont Eq VTI) 0.49 cm2/m2 AV Area (Cont Eq Miguelito) 1.2 cm2 AV Area Index (Cont Eq Miguelito) 0.53 cm2/m2 AV V1/V2 Ratio 0.36 AV Regurgitation 2D LVOT Area 3.2 cm2 Ventricles Name Value Normal LV Dimensions 2D/MM IVS Diastolic Thickness (2D) 1.1 cm 0.6-1.0 LVID Diastole (2D) 4.8 cm 3.6-5.6 LVIW Diastolic Thickness (2D) 1.0 cm 0.6-1.0 LVID Systole (2D) 3.1 cm 2.5-4.0 LVOT Diameter 2.0 cm LV Mass (2D Cubed) 189.28 g 88.00-224.00 LV Mass Index (2D Cubed) 0.01 g/cm2 0.00-0.01 Relative Wall Thickness (2D) 0.42 LV Fractional Shortening/Ejection Fraction 2D/MM LV Fractional Shortening (2D) 36 % 25-43 LV EF (2D Teicholz) 66 % 52-100 Final Signed by:DO Gomez Jason D Signed (Electronic Signature):11/02/2024 11:05 Social History Social History Type Response Tobacco Cigarettes 1 Smoking Status Former Smoker, quit > 1 yr Sex Male Sex Representation Male (finding) 1quit a few years ago, but occasionally may have one Patient Care team information Care Team Personnel Name: MD Brayan, Clay Position: Physician - Family Med Member Role: Primary Care Provider Address: [address] [facility] [address] [place] [address] Name: ALLIE Burt, Tamika Valladares Position: Physician Asst Exmpt - Dermatology Member Role: Lifetime Relationship Address: [address] [place] [address] [place] Care Team Related Persons Name: BRIAN SUGGS
[2024-11-07] MEDS: CeleBREX 200 MG CAP PO SCH (06:02)
[2024-11-07] MEDS: Scopolamine 1 MG TDSY TD SCH (06:02)
[2024-11-07] MEDS: ACETAMINOPHEN 500 MG TAB PO SCH ×2 (06:02→13:42)
[2024-11-07] MEDS: LR 60ML/HR IV SCH (06:03)
[2024-11-07] MEDS: LR 500ML BOLUS, THEN 15ML/HR IV SCH (06:03)
[2024-11-07] MEDS ORDERED: ROPIVACAINE 0.5% 5 MG/ML 30 ML VIAL ONE (06:16)
[2024-11-07] MEDS ORDERED: BUPIVACAINE 0.5 % 5 MG/1 ML PF 10ML VIAL ONE (06:16)
--- NOTE | 2024-11-07 06:33 | History & Physical Bridge Note ---
Date of Service November 07, 2024 History & Physical Bridge Note I have examined the patient, reviewed the History & Physical and in the interval since the performance of the History & Physical I have noted the following changes of clinical significance: no changes noted
[2024-11-07] MEDS ORDERED: PROPOFOL IV EMULSION 10 MG/ML 100 ML VIAL IV ONE ×2 (06:35→08:12)
[2024-11-07] MEDS ORDERED: MIDAZOLAM HCL 1 MG/ML 2ML VIAL ONE (06:36)
[2024-11-07] MEDS ORDERED: fentaNYL citrate PF 100 MCG/2 ML VIAL ONE (06:36)
[2024-11-07] MEDS ORDERED: PROPOFOL IV EMULSION 10 MG/ML 20 ML VIAL IV ONE (06:38)
[2024-11-07] MEDS: TRANEXAMIC ACID 1,000 MG **IV Pre-op IV SCH (06:48)
[2024-11-07] MEDS: ceFAZolin 2000MG 2,000 MG/15 ML SYR IV SCH ×2 (07:03→15:48)
[2024-11-07] MEDS: ROPIV 0.5% 246mg, Ketorolac 30mg, EPINEPHrine 0.5mg in NSS INFIL SCH (07:33)
[2024-11-07] MEDS: ORTHO JOINT ANESTHETIC ONE (07:34)
[2024-11-07] MEDS ORDERED: PHENYLEPHRINE 100MCG/ML 5ML SYR ONE (07:47)
[2024-11-07] MEDS: TRANEXAMIC ACID 1,000 MG **IV Intra-op IV SCH (08:59)
--- NOTE | 2024-11-07 09:18 | Operative Report ---
Post Operative Report Pre & Post Diagnosis Operation Date: 11/07/24 07:00 Pre-Op Diagnosis: Right Knee Osteoarthritis Post-Op Diagnosis: Right Knee Osteoarthritis I identified the patient and participated in the time-out.: Yes Procedure Operation Date: 11/07/24 07:00 Actual Procedures p Right Total Knee Arthroplasty(Right) - Codey Martinez MD Surgeon Codey Martinez MD Statistics Intern Blaine James PA-C (No fellow avail) Estimated Blood Loss 75 Findings See Below Fluids 1200 cc Specimens Right knee contents Anesthesia Type MAC Spinal Regional Complications none Description of Procedure IMPLANTS: 1. Femur: Triathlon #5 Right PS. 2. Tibia: Triathlon #5 [place]. 3. Insert: Triathlon #5 x 9 mm PS X3 poly. 4. Patella: Triathlon A38 x 11 mm X3 poly. 5. [place] cement. Blaine James PA-C is assisting with positioning, retracting, and closure due to fellow not available. Procedure: The patient was taken to the Operating Room and placed in the supine position after spinal and adductor canal nerve block was administered. My initials and a multidisciplinary time-out were used to identify the right leg as the correct operative limb. A tourniquet was placed high in the thigh. Prior to the incision, 2 grams of intravenous Ancef were given. One g of TXA was given pre- operatively and another after the tourniquet was released. The right leg was then prepped and draped in a standard sterile fashion. An Esmarch was used to exsanguinate the leg and the tourniquet was inflated to 250 mmHg. The planned mid-line 20 cm incision was created exposing the extensor mechanism. The medial parapatellar arthrotomy was made and the patella was everted. The patella was addressed first. It was prepared by reaming from 25 mm down to 14 mm. An A38 button was found to fit best. The peg holes were made in the standard fashion. The femur was addressed next and using computer assisted OrthoAlign with 3 degrees of flexion and 0 degrees of valgus, removing 10 mm in the standard fashion for the distal cut. The cut was made and the 4-in-1 cutting block for a size 5 femur was placed. These cuts and the cuts to place the box were made in the standard fashion. Our attention was then drawn to the tibia cut with using imageless computer assisted OrthoAlign, taking 2 mm from the medial low side. After preforming a medial release there was excellent stablitiy in flexinon and extension. A #5 Tibial baseplate fit well. A trial with a 9 mm spacer showed excellent stability in both flexion and extension, with good ligament balance, and thumbs free patellar tracking. Range of motion of 0-135 degrees. The tibial baseplate was prepped for the keel and stem. All components were removed. 90 ml of total knee cocktail were injected into the soft tissues and periosteum. All surfaces were copiously irrigated prior to placement of the components. The Tibial baseplate followed by femoral component were cemented in place and the 9 mm X3 poly was placed. Next, the patellar button was placed using the same cement. Once the cement had cured, the range of motion and stability were unchanged. The tourniquet was deflated. Hemostasis was obtained. Another 1g TXA was given. The extensor mechanism was closed with 1-0 Vicryl and 0 Stratafix with the knee bent approximately 60 degrees in a standard fashion. The peritenon and deep fascia was closed with 2-0 Vicryl. The subcutaneous layer was closed with 3-0 Vicryl. The skin was closed with Zipline and shield. The limb was cleaned and dried. 4x4 dressing was placed over top followed by ABDs, sterile Webril, and a foot to thigh Bhupendra bandage. The patient was then transferred to the Recovery Room in stable condition. The sponge and needle counts were correct. POST-OP INSTRUCTIONS: The patient will be WBAT. The patient will be admitted to the hospital. Complete 24-hour course antibiotics. Labs will be obtained during the stay. DVT prophylaxis will include aspirin for 6 weeks, TEDs, and mechanical foot pumps. The dressing will be changed postop day #2-3 and covered with a Silverlon dressing. I attest to the content of the Intraoperative Record and any orders documented therein. Any exceptions are noted below.
--- NOTE | 2024-11-07 09:18 | Post Operative Brief Note ---
Immediate Post Op Note Date of Surgery November 07, 2024 Pre & Post Diagnosis Operation Date: 11/07/24 07:00 Pre-Op Diagnosis: Right Knee Osteoarthritis Post-Op Diagnosis: Right Knee Osteoarthritis I identified the patient and participated in the time-out.: Yes Procedure Operation Date: 11/07/24 07:00 Actual Procedures p Right Total Knee Arthroplasty(Right) - Codey Martinez MD Surgeon Codey Martinez MD Boiler Tester Blaine James PA-C (No fellow avail) Estimated Blood Loss 75 Findings Consistent with Post-Op Diagnosis Fluids 1200 cc Specimens Right knee contents Anesthesia Type MAC Spinal Regional Complications none
[2024-11-07] MEDS ORDERED: PHENYLEPHRINE HCL 10 MG/ML VIAL ONE (09:19)
[2024-11-07] MEDS ORDERED: ePHEDrine sulfate 50 MG/ML AMP IV PRN (09:22)
[2024-11-07] MEDS ORDERED: ATROPINE SULFATE 0.1 MG/ML 10ML SYR IV PRN (09:22)
[2024-11-07] MEDS ORDERED: HYDROmorphone INJ 2 MG/ML SYR/VIAL IV PRN (09:22)
[2024-11-07] MEDS ORDERED: METOCLOPRAMIDE HCL INJ 5 MG/ML 2 ML VIAL IV PRN (10:50)
[2024-11-07] MEDS ORDERED: ONDANSETRON INJ 2 MG/ML 2 ML VIAL IV PRN (10:50)
[2024-11-07] MEDS ORDERED: TAMSULOSIN HCL 0.4 MG CAP PO PRN (10:50)
[2024-11-07] MEDS ORDERED: bisacodyL 10 MG SUPP PR PRN (10:50)
[2024-11-07] MEDS ORDERED: MAGNESIUM HYDROXIDE SUSP 30 ML UDC PO PRN (10:50)
[2024-11-07] MEDS ORDERED: ALBUTEROL HFA 8 GM INHALER INH PRN (10:50)
[2024-11-07] MEDS ORDERED: NALOXONE HCL 0.4 MG/1 ML VIAL/CARP IV PRN (10:50)
[2024-11-07] MEDS ORDERED: PHARMACY GLYCEMIC MGMT CONSULT PRN (10:50)
--- NOTE | 2024-11-07 10:52 | XRay Report ---
XR knee RT 1 or 2V routine CLINICAL HISTORY: Postoperative evaluation. COMPARISON: Right knee radiographs December 14, 2023. FINDINGS: Alignment of the total right knee arthroplasty is anatomic. There is no periprosthetic fra cture or unexpected radiopaque foreign body. IMPRESSION: Expected findings following total right knee arthroplasty. ACT 112: Negative or not required by law. Electronically signed by: Mo Campa M.D. 11/07/2024 10:50 AM
--- NOTE | 2024-11-07 11:26 | Hospitalist Consultation ---
Date of Consultation November 07, 2024 Assessment & Plan (1) Asthma-COPD overlap syndrome: (2) HTN (hypertension): (3) Prediabetes: (4) Hypothyroidism: Plan Jey is a 64M with a PMHx aortic stenosis, chronic pancreatitis, asthma-COPD overlap syndrome, GERD, HTN, HLD, hypothyroid, KATHY, and prediabetes who presents to the hospital for elective knee surgery with Dr. Martinez. #Asthma-COD overlap syndrome baseline is room air. Continue home inhalers Encourage IS #HTN/CAD/ Moderate Aortic Stenosis continue amlodipine. Valsartan/Eplerenone held pending AM labs Continue [id number], Statin Monitor for dehydration with moderate Aortic stenosis #Prediabetes Hold Metformin. Recent A1c 09/2024: 6.4 Pharmacy glycemic consult per primary #hx of Right Knee surgery S/p Right Total Knee Arthroplasty with Dr. Martinez 11/07 Pain control/dvt proh/abx/discharge planning per primary team Agree with AM CBC and BMP. EBL 75. iron BIDM listed on pt home med list - pt does not think he takes this, not anemic on September 2024 labs and can contribute to constipation. Iron d/c'ed Hypothyroid - continue Synthroid GERD - continue PPI KATHY - may use home CPAP Thank you for allowing us to participate in the care of this patient, please reach out with any questions or concerns. Medicine will continue to follow. Supervising Physician Co-Signing Physician Notes Attending Attestation and Consult Note - Pt seen/examined, chart reviewed, consult care plan d/w NANCIE Valdez. I agree w/ the mccauley components of her documentation. 64yo with aortic stenosis, chronic pancreatitis, asthma-COPD overlap syndrome, GERD, HTN, hypothyroid, KATHY, and prediabetes who underwent R TKR today by Dr. Codey Martinez. EBL ~75cc. He was resting comfortably in bed post-op without any complaints of cp, dyspnea, abd pain, nausea. PMH/PSH/allergies/meds/sochx/famhx - reviewed VSS, afebrile gen - NAD, pleasant neck - no JVD heart - 2/6 systolic murmur RUSB, s1 s2, RRR lungs - CTA b/l abd - soft NT BS+ musculo - right knee in large dressings ext - pulses b/l feet 2+ A/P: 1. HTN - agree with holding valsartan & Inspra; check BMP am 2. Hypothyroidism - cont levothyroxine; f/u PCP for TSH monitoring 3. pre-DM / DM - pharmacy glycemic team has placed orders for glycemic control 4. s/p R TKR - defer Rx to primary ortho team 5. DVT Proph - asa 81mg BID Thank you for this consult. Will follow. Kalpesh Cordero MD History of Present Illness Reason for Consultation: medical management Requesting Physician: Dr. Martinez Attending Physician: Codey Martinez MD History of Present Illness Jey is a 64M with a PMHx aortic stenosis, chronic pancreatitis, asthma-COPD overlap syndrome, GERD, HTN, HLD, hypothyroid, KATHY, and prediabetes who presents to the hospital for elective knee surgery with Dr. Martinez. Patient seen postoperatively in room 322. present at bedside. No pain currently. Denies nausea or vomiting post anesthesia. Confirmed home medications with me. Has CPAP machine in the car. No acute concerns. Allergies Allergy/AdvReac Type Severity Reaction Status Date / Time No Known Drug Allergies Allergy Unknown Verified 10/25/24 18:02 felodipine AdvReac Unknown Verified 11/07/24 05:39 hydrochlorothiazide AdvReac Unknown Verified 11/07/24 05:39 lisinopril AdvReac Unknown Verified 11/07/24 05:39 spironolactone AdvReac Unknown Verified 11/07/24 05:39 Home Medications Medication Instructions Recorded Confirmed Type Beet Juice Extract 1 dose PO DAILY 01/17/21 11/07/24 History albuterol sulfate 90 mcg/actuation 2 puff inhalation QID PRN Wheezing 01/17/21 11/07/24 History aerosol inhaler L-Citrine 1 cap PO BID 11/06/21 11/07/24 History ascorbic acid (vitamin C) 250 mg 250 mg PO QAM 11/06/21 11/07/24 History tablet (Vitamin C) cyanocobalamin (vitamin B-12) 1,000 mcg PO QAM 11/06/21 11/07/24 History 1,000 mcg tablet (Vitamin B-12) prasterone (dhea) 50 mg tablet 50 mg PO QAM 11/06/21 11/07/24 History (DHEA) trazodone 50 mg tablet 100 mg PO HS 11/06/21 11/07/24 History fluticasone propionate 115 2 puff inhalation BID #12 grams 01/08/23 11/07/24 Rx mcg-salmeterol 21 mcg/actuation HFA inhaler (Advair HFA) amlodipine 10 mg tablet 10 mg PO QAM 01/07/24 11/07/24 History eplerenone 25 mg tablet (Inspra) 25 mg PO QAM 01/07/24 11/07/24 History omeprazole 20 mg capsule,delayed 20 mg PO QAM 01/07/24 11/07/24 History release valsartan 320 mg tablet 320 mg PO QAM 01/07/24 11/07/24 History ashwagandha extract 1 dose PO QPM 10/02/24 11/07/24 History aspirin 81 mg tablet,delayed 81 mg PO QPM 10/02/24 11/07/24 History release atorvastatin 40 mg tablet (Lipitor) 40 mg PO QPM 10/02/24 11/07/24 History cholecalciferol (vitamin D3) 125 125 mcg PO BID 10/02/24 11/07/24 History mcg (5,000 unit) tablet (Vitamin D3) fluticasone propionate 50 2 spray intranasal DAILY allergies 10/02/24 11/07/24 History mcg/actuation nasal congestion spray,suspension krill oil 1 cap PO QAM 10/02/24 11/07/24 History levothyroxine 175 mcg tablet 175 mcg PO QAM 10/02/24 11/07/24 History (Levoxyl) magnesium 100 mg capsule 100 mg PO HS 10/02/24 11/07/24 History metformin 500 mg tablet 500 mg PO QPM 10/02/24 11/07/24 History psyllium husk 0.4 gram capsule 2.4 g PO QAM 10/02/24 11/07/24 History (Metamucil) tadalafil 10 mg tablet (Cialis) 10 mg PO DAILY PRN Sexual Activity 10/02/24 11/07/24 History vitamin E 1 cap PO QAM 10/02/24 11/07/24 History vitamin K2 100 mcg capsule 100 mcg PO QAM 10/02/24 11/07/24 History zinc 25 mg tablet 25 mg PO HS 10/02/24 11/07/24 History acetaminophen 500 mg tablet 1,000 mg (2 x 500 mg) PO Q8 #90 11/07/24 Rx (Tylenol Extra Strength) tabs ascorbic acid (vitamin C) 500 mg 500 mg PO BIDM 14 days #28 tabs 11/07/24 Rx tablet (Vitamin C) aspirin 81 mg tablet,delayed 81 mg PO BID 42 days #84 tabs 11/07/24 Rx release ferrous sulfate 325 mg (65 mg 325 mg PO BID 14 days #28 tabs 11/07/24 Rx iron) tablet,delayed release oxycodone 5 mg tablet 5 - 10 mg (1 - 2 x 5 mg) PO Q4H 11/07/24 Rx PRN pain #18 tabs celecoxib 200 mg capsule (Celebrex) 200 mg PO BID #28 caps 11/09/24 Rx Patient History Medical History Acid reflux well controlled and stable Adverse reaction to anesthetic agent - Remote history "with my procedure with Dr Schulz (2020)- when I came out I had trouble breathing." - Per anesthesia record 01/24/21= right direct laryngoscopy 01/24/21= Done under [facility] with Grade 2 view with MAC #3. Atraumatic DVL x 1 - Per operative report "The patient did have an episode of desaturation after extubation that resolved with supplemental oxygen and bag mask ventilation." - Patient states possibly due to Novocain used during biopsy- no allergy to Novocain- has had many times before without incidence. No issues with anesthesia with subsequent surgeries Aortic stenosis Moderate per 02/[address] Gomez Ascending aorta dilation Per 02/2024 ECHO- Dilated aortic root (4.3cm) and ascending aorta (4.0cm) Dr Gomez Asthma-COPD overlap syndrome prn inhaler use breathing stable and controlled [facility] History of pneumothorax 10/2021 - hemopneumothorax after fall- chest tube placed- [facility] s/ robotic right VATS (thorascopy)- excision/plication of bleb disease and partial pleurectomy at [facility] 11/19/21 - no pneumothorax noted on 12/[address] Hx of Lyme disease completed antibiotic tx (around 2021) Hyperlipidemia Hypertension Hypothyroidism on levothyroxine Insomnia Migraines "Few and far between" Osteoarthritis Pancreatitis hx - resolved- diet controlled Prediabetes Oral meds Sleep apnea cpap Surgical History History of biopsy 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 Schulz on 01/24/21 History of colonoscopy History of ERCP History of esophagogastroduodenoscopy (EGD) History of lung surgery VATS S 11/2021 History of oral surgery Tooth extractions Hx of LASIK Hx of vasectomy Family History Father Stroke Heart disease Brother Hypertension Mother Hypertension Grandfather (Maternal) Stroke Grandmother (Maternal) Colorectal cancer Other No family history of adverse response to anesthesia No family history of bleeding disorder Social History (Updated 01/07/24 @ 16:11 by [place] LPN) Smoking Status: Former smoker Tobacco Type: Cigarettes packs per day: 0.5; Cigarettes Per Day: >1 pack per day; Second Hand Exposure: Yes; Do You Dip or Chew Tobacco: No; Hx Alcohol Use: Yes Alcohol type: wine Alcohol Intake Frequency Comment: 2-3 drinks/day Hx Substance Use: No Preferred Language: Portuguese Communication Ability: Effective Software Engineering Supervisor Required: No Beliefs That Will Affect Care: None marital status: Current Living Situation: Spouse current occupational status: employed 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 SCDs in place bilaterally, able to wiggle toes Neuro: A&O x3, Results & Data Results & Data Vital Signs (Past 12 Hours) Vital Signs Temp Pulse Pulse Resp BP Pulse Ox O2 Del Method 11/07/24 10:45 98.2 F 64 14 111/71 95 Room Air 11/07/24 10:30 54 L 16 108/70 96 Nasal Cannula 11/07/24 10:15 58 L 14 113/72 95 Nasal Cannula 11/07/24 10:00 98.2 F 55 L 12 99/66 L 97 Nasal Cannula 11/07/24 09:50 53 L 16 101/63 94 Nasal Cannula 11/07/24 09:40 63 16 106/71 92 Nasal Cannula 11/07/24 09:30 97.3 F L 69 14 97/64 L 96 Oxymask 11/07/24 05:48 98.6 F 89 18 132/80 96 Room Air O2 Flow Rate 11/07/24 10:45 11/07/24 10:30 2 11/07/24 10:15 2 11/07/24 10:00 2 11/07/24 09:50 2 11/07/24 09:40 2 11/07/24 09:30 6 11/07/24 05:48 PG Care Time/CCT Total # of Minutes Spent Total Time Spent with Patient: Total time spent is greater than 50% in coordination of care (as documented) at patient's floor/unit and/or counseling patient: Coding Level of Care Code 30838 IN/OBS CONSULT LVL 3,45M Diagnoses Asthma-COPD overlap syndrome J44.9 HTN (hypertension) I10 Prediabetes R73.03 Hypothyroidism E03.9
--- NOTE | 2024-11-07 11:27 | Anesthesiology Progress Note ---
Date of Service November 07, 2024 Anesthesia Post Procedure Vital Signs Vital Signs: Temp Pulse Pulse Resp BP Pulse Ox O2 Del Method 11/07/24 11:15 36.4 C L 58 L 14 119/74 97 Room Air 11/07/24 10:45 36.8 C 64 14 111/71 95 Room Air 11/07/24 10:30 54 L 16 108/70 96 Nasal Cannula 11/07/24 10:15 58 L 14 113/72 95 Nasal Cannula 11/07/24 10:00 36.8 C 55 L 12 99/66 L 97 Nasal Cannula 11/07/24 09:50 53 L 16 101/63 94 Nasal Cannula 11/07/24 09:40 63 16 106/71 92 Nasal Cannula 11/07/24 09:30 36.3 C L 69 14 97/64 L 96 Oxymask 11/07/24 05:48 37 C 89 18 132/80 96 Room Air O2 Flow Rate 11/07/24 11:15 11/07/24 10:45 11/07/24 10:30 2 11/07/24 10:15 2 11/07/24 10:00 2 11/07/24 09:50 2 11/07/24 09:40 2 11/07/24 09:30 6 11/07/24 05:48 Pain Intensity Bilateral Knee: Pain Intensity: 1 Transfer of Care Handoff Completed per policy Notes Mental Status: alert / awake / arousable Patient Amnestic to Procedure: Yes Nausea / Vomiting: adequately controlled Pain: adequately controlled Airway Patency, RR, SpO2: stable & adequate BP & HR: stable & adequate Hydration State: stable & adequate Neuraxial Anesthesia: was administered and sensory block is resolving Anesthetic Complications: no major complications apparent
[2024-11-07] MEDS: INSULIN ASPART PER UNIT CHARGE SC SCH (12:17)
--- NOTE | 2024-11-07 14:04 | Pharmacy Report ---
Pharmacy Glycemic Short Note 2 - Date of Service November 07, 2024 - Glycemic Short BSG Results (Last 24 hours): 11/07/24 11/07/24 05:34 11:45 POC Glucose 137 H 132 H OUTPATIENT ANTIDIABETIC REGIMEN: * metformin 500mg QPM * HbA1c 6.4% (10/03/24) ASSESSMENT: * Jey is a 64 YOM admitted status post right total knee arthroplasty with a history of pre-diabetes. Pharmacy has been consulted to assist with glycemic management while inpatient. * Preop-operative BSG within goal range this morning, no steroids appear to have been administered, will hold off on basal insulin at this time. * No indication for aggressive dosing with controlled A1C at this time. Will add correctional insulin only and plan to restart metformin tomorrow if renal function and PO intake are adequate. PLAN FOR INPATIENT GLYCEMIC CONTROL: * Hold outpatient oral diabetes medications * Basal insulin * Hold * Bolus insulin * NovoLog per scale ACHS or Q6hrs while NPO * Goal Range: Low 120 mg/dL - High 160 mg/dL * Correction Factor: 25 mg/dL/unit * Nutritional / Prandial insulin per carb ratio of 1 unit per NONE grams CHO consumed
[2024-11-07] MEDS: SODIUM CHLORIDE 0.65% NA SOLN 45 ML (OCEAN) ONE (15:48)
[2024-11-07] MEDS: Scopolamine CHECK PATCH PLACEMENT SCH (15:49)
--- NOTE | 2024-11-07 15:53 | Orthopedic Progress Note ---
Date of Service November 07, 2024 Assessment & Plan (1) Status post total knee replacement: Plan: POD 0 s/p total knee arthroplasty WBAT with walker PT/OT Diet - Carb control, heart healthy Frequently ice and elevate with blankets stacked under ankle DVT prophylaxis: ASA 81mg BID x 6 weeks starting tomorrow AM 11/08, TEDS x 3 weeks, foot pumps while in hospital Pain control: Tylenol 1000mg q 8hrs, oxycodone 5-10mg q4-6 hrs for moderate pain, Dilaudid 0.5mg IV for severe/breakthrough pain Vitamin C and Iron supplementation BID x 2 weeks Dressing: leave in place, will change on in our office Discharge home with home health x 2 weeks, anticipate discharge tomorrow pending PT AM labs tomorrow Pt c/o some sinus drainage, spoke with nursing who is going to give him a saline spray to try Follow up as scheduled with [facility] for dressing change and again in 2 weeks for Zipline removal Admission and Anticipated Discharge Date Admission Date: November 07, 2024 Subjective Pt seen and examined bedside POD 0 s/p RTKA. Doing well. Pain controlled. Block is still somewhat in affect. Physical Exam Physical Exam: General: Pt laying in hospital bed AA&O, in NAD, calm and cooperative during exam Lower Extremity: Dressing in tact and not saturated. Pt has full ROM of ankle and all 5 digits. Pt has 5/5 strength with resisted DF/PF. Unable to do a straight leg raise. Sensation intact distally to light touch. Results & Data Vital Signs (Past 12 Hours) Vital Signs Temp Pulse Pulse Resp BP Pulse Ox O2 Del Method 11/07/24 13:43 36.5 C 62 16 114/74 95 Room Air 11/07/24 12:46 36.4 C L 63 16 117/77 96 Room Air 11/07/24 11:48 36.4 C L 63 16 128/81 98 Room Air 11/07/24 11:15 36.4 C L 58 L 14 119/74 97 Room Air 11/07/24 10:45 36.8 C 64 14 111/71 95 Room Air 11/07/24 10:30 54 L 16 108/70 96 Nasal Cannula 11/07/24 10:15 58 L 14 113/72 95 Nasal Cannula 11/07/24 10:00 36.8 C 55 L 12 99/66 L 97 Nasal Cannula 11/07/24 09:50 53 L 16 101/63 94 Nasal Cannula 11/07/24 09:40 63 16 106/71 92 Nasal Cannula 11/07/24 09:30 36.3 C L 69 14 97/64 L 96 Oxymask 11/07/24 05:48 37 C 89 18 132/80 96 Room Air O2 Flow Rate 11/07/24 13:43 11/07/24 12:46 11/07/24 11:48 11/07/24 11:15 11/07/24 10:45 11/07/24 10:30 2 11/07/24 10:15 2 11/07/24 10:00 2 11/07/24 09:50 2 11/07/24 09:40 2 11/07/24 09:30 6 11/07/24 05:48
[2024-11-07] MEDS ORDERED: FERROUS GLUCONATE 324 MG TAB PO SCH (17:00)
[2024-11-07] MEDS: ASCORBIC ACID 500 MG TAB PO SCH (17:39)
[2024-11-07] MEDS: guaiFENesin 600 MG TABCR PO SCH (19:53)
[2024-11-07] MEDS ORDERED: [UNRECOGNIZED DRUG - OTHER] PO SCH (21:00)
[2024-11-07] MEDS ORDERED: [UNRECOGNIZED DRUG - OTHER] PO SCH (21:00)
[2024-11-07] MEDS ORDERED: NON-FORMULARY MEDICATION (Zinc 25 mg Tablet) PO SCH (21:00)
[2024-11-07] MEDS: SENNA 8.6 MG TAB PO SCH (21:41)
[2024-11-07] MEDS: DOCUSATE SODIUM 100 MG CAP PO SCH (21:41)
[2024-11-07] MEDS: diphenhydrAMINE Capsule 25 MG CAP PO PRN (21:41)
[2024-11-07] MEDS: oxyCODONE HCL IR 5 MG TAB (IMMEDIATE RELEASE) PO PRN (21:42)
[2024-11-07] MEDS: traZODone HCL 100 MG TAB PO SCH (21:43)
[2024-11-07] MEDS: MAGNESIUM OXIDE 400 MG TAB PO SCH (21:43)
[2024-11-07] MEDS: CHOLECALCIFEROL 125 MCG (5,000 UNITS) TAB PO SCH (21:43)
[2024-11-07] MEDS: ATORVASTATIN 40 MG TAB PO SCH (21:43)
[2024-11-08 07:18] LABS: Hematocrit (blood only) 35.2 % (42.0-52.0); Hemoglobin 12.1 g/dl (14.0-18.0); Mean Corpuscular Hemoglobin 32.3 pg (25.0-34.0); Mean Corpuscular Hgb Conc 34.4 g/dL (32.0-36.0); Mean Corpuscular Volume 93.9 fL (80.0-100.0); Mean Platelet Volume 10.1 fL (9.4-12.4); Platelet Count 143 K/uL (130-400); RDW Coefficient of Variation 13.2 % (11.5-14.5); RDW Standard Deviation 45.3 fL (36.4-46.3); Red Blood Count 3.75 M/uL (4.70-6.10); White Blood Count 7.51 K/ul (4.8-10.8)
[2024-11-08 07:34] LABS: BUN Creatinine Ratio 13.6 (10-20); Calcium 8.9 mg/dl (8.6-10.3); Creatinine Clr Calc Pharmacy 99.4 ml/min
--- NOTE | 2024-11-08 08:09 | Hospitalist Progress Note ---
Date of Service November 08, 2024 Assessment & Plan (1) Status post total knee replacement: (2) HTN (hypertension): (3) Asthma-COPD overlap syndrome: (4) Prediabetes: (5) Hypothyroidism: (6) Obstructive sleep apnea: Plan Jey is a 64M with a PMHx aortic stenosis, chronic pancreatitis, asthma-COPD overlap syndrome, GERD, HTN, HLD, hypothyroid, KATHY, and prediabetes who presents to the hospital for elective knee surgery with Dr. Martinez. #status post knee replacement, RIGHT S/p Right Total Knee Arthroplasty with Dr. Martinez 11/07 . EBL 75cc WBC wnl Hgb 12.1 from 14.5 and was provided 1300cc IVF with surgery and suspect acute blood loss anemia from surgery as well as partially from dilutional aspect from IVF. -Asymptomatic from hgb, no CP/SOB, 95% on RA. No lightheaded/dizziness w/ ambulation Pain control per primary service -- may need adjustment pending repeat evals, just medicated w/ PO oxycodone about 15 min prior to eval and tramadol reported ineffective. Consider dose toradol rec'd Bowel regimen/PT/OT per primary service DVT proph w/ ASA 81mg BID ordered #HTN/CAD/ Moderate Aortic Stenosis BP stable, home meds resumed continues on statin/aspirin no overload #Asthma-COD overlap syndrome baseline is room air. Continue home inhalers Encourage IS , 95% on RA #Prediabetes Hold Metformin. Recent A1c 09/2024: 6.4 Pharmacy glycemic consult per primary iron BIDM listed on pt home med list - pt does not think he takes this, not anemic on September 2024 labs and can contribute to constipation. Iron d/c'ed Hypothyroid - continue Synthroid GERD - continue PPI KATHY - may use home CPAP Dispo: continue inpatient stay, possible dc if pain improved this afternoon. Please contact hospitalist with any questions/concerns. Admission and Anticipated Discharge Date Admission Date: November 07, 2024 Supervising Physician Co-Signing Physician Notes The patient was not seen by me. The chart was reviewed. Case discussed with NANCIE Mueller. Agree with assessment and plan Subjective Eval this afternoon around lunch, reporting having difficulty getting his pain under control. Sensation intact/no calf tenderness, pain is primarily to anterior portion of the knee. Did get tramadol this morning, just received oxycodone about 15 minutes ago. Discussed with nursing to consider dose of toradol if ok with primary service. Other than pain control, pain denies any fever/chills, chest pain, shortness of breath, nausea or vomiting at this time. Ortho PA to eval this afternoon to see if pain better controlled for discharge but otherwise may need adjustment to pain regimen. Questions/concerns addressed at this time. Physical Exam 2 Physical Exam: General: 64yo male sitting up in bed, NAD but reporting ongoing/uncontrolled pain to his RIGHT knee, anterior/superior aspect, TETO wrap/dressing c/d/i, sensation intact, pulses present, compartments supple and NO calf pain/tenderness. VSS wnl Head atraumatic, normocephalic, mmm, trachea midline Resp even/unlabored, no tachypnea/wheezing, on ROOM AIR CV: RRR, no m/r/g, no pitting edema/calf tenderness GI: +BS, soft/NT MSK/Neuro: dressing to RIGHT knee c/d/i, teto wrap in place with ice pack, SCDs present, toes mobile, cap refill wnl Psych: AOx3, cooperative with exam Results & Data Results & Data Vital Signs (Past 12 Hours) Vital Signs Temp Pulse Resp BP Pulse Ox O2 Del Method 11/08/24 07:43 36.7 C 74 18 138/79 95 Room Air 11/08/24 02:11 36.5 C 62 16 103/62 95 Room Air 11/07/24 23:54 36.4 C L 58 L 19 120/79 95 Room Air 11/07/24 21:45 Room Air, CPAP 11/07/24 20:08 36.4 C L 57 L 18 125/75 96 Room Air Laboratory Results 11/08/24 06:57 11/08/24 06:57 PG Care Time/CCT Total # of Minutes Spent Total Time Spent with Patient: Total time spent is greater than 50% in coordination of care (as documented) at patient's floor/unit and/or counseling patient: Coding Level of Care Code 66294 SUB INP/OBS CARE 3/50MIN Diagnoses Status post total knee replacement Z96.659 HTN (hypertension) I10 Asthma-COPD overlap syndrome J44.9 Prediabetes R73.03 Hypothyroidism E03.9 Obstructive sleep apnea G47.33
[2024-11-08] MEDS: FLUTICASONE/VILANTEROL 200/25MCG 14 PUFFS/INHALER INH SCH (08:30)
[2024-11-08] MEDS: FLUTICASONE PROPIONATE NA SPR 16 GM BTL NAE SCH (08:30)
[2024-11-08] MEDS: ASPIRIN 81 MG ECTAB PO SCH (08:32)
[2024-11-08] MEDS: TOCOPHERYL, DL-ALPHA 400 UNITS 180 MG CAP PO SCH (08:34)
[2024-11-08] MEDS: MULTIVITAMIN TAB PO SCH (08:34)
[2024-11-08] MEDS: CYANOCOBALAMIN (B-12) 500 MCG TABLET PO SCH (08:34)
[2024-11-08] MEDS: PANTOprazole 40 MG TAB PO SCH (08:35)
[2024-11-08] MEDS: PSYLLIUM or GUAR GUM FIBER 4GM PACKET PO SCH (08:35)
[2024-11-08] MEDS: LEVOTHYROXINE SODIUM 175 MCG TABLET PO SCH (08:35)
[2024-11-08] MEDS: amLODIPine BESYLATE 5 MG TAB PO SCH (08:37)
--- NOTE | 2024-11-08 08:58 | Orthopedic Progress Note ---
Date of Service November 08, 2024 Assessment & Plan (1) Status post total knee replacement: Plan: POD 1 s/p total knee arthroplasty WBAT with walker PT/OT - still pending; will await to see how he does in PT/OT prior to discharge. Diet - Carb control, heart healthy Frequently ice and elevate with blankets stacked under ankle DVT prophylaxis: ASA 81mg BID x 6 weeks started, TEDS x 3 weeks, foot pumps while in hospital Pain control: Tylenol 1000mg q 8hrs, oxycodone 5-10mg q4-6 hrs for moderate pain, Dilaudid 0.5mg IV for severe/breakthrough pain. Continue oral pain medications. Will plan to add in Tramadol to alternate with Oxycodone for breakthrough pain as needed. Vitamin C and Iron supplementation BID x 2 weeks Dressing: leave in place, will change on in our office if discharged today; otherwise will change in house tomorrow. Discharge home with home health x 2 weeks, anticipate discharge today pending PT and pain control. Will reassess later this morning or early afternoon. Follow up as scheduled with [facility] in 2 weeks for Zipline removal Discharge instructions reviewed. Medications have been sent to the pharmacy. Patient understands and agrees with the plan. Will discuss findings with Dr. Martinez. Admission and Anticipated Discharge Date Admission Date: November 07, 2024 Subjective Patient is resting in bed. States he was out of bed to the chair last night with nursing but had a lot of pain. He is having a lot of pain now. He states that he has not been out of bed with physical therapy occupational therapy. He is not sure if he will be able to go home today due to the amount of pain that he is having. He has been taking 2 oxycodone tablets. Last dose was at 6 AM. Physical Exam Musculoskeletal: Exam of his right lower extremity: He is able to independently straight leg so se his leg off the bed. He has no calf discomfort with palpation. Full ankle range of motion and normal strength. Postoperative dressings are clean, dry and intact. Dorsalis pedis and posterior tibial pulses are 1+. Sensation is normal throughout the toes and foot. Capillary refill is brisk. No distal edema. Tolerates logrolling of the right hip without discomfort. Results & Data Vital Signs (Past 12 Hours) Vital Signs Temp Pulse Resp BP Pulse Ox O2 Del Method 11/08/24 07:43 36.7 C 74 18 138/79 95 Room Air 11/08/24 02:11 36.5 C 62 16 103/62 95 Room Air 11/07/24 23:54 36.4 C L 58 L 19 120/79 95 Room Air 11/07/24 21:45 Room Air, CPAP Laboratory Results 11/08/24 11/08/24 11/07/24 Range/Units 07:31 06:57 20:28 WBC 7.51 (4.8-10.8) K/ul RBC 3.75 L (4.70-6.10) M/uL Hgb 12.1 L (14.0-18.0) g/dl Hct 35.2 L (42.0-52.0) % MCV 93.9 (80.0-100.0) fL MCH 32.3 (25.0-34.0) pg MCHC 34.4 (32.0-36.0) g/dL RDW Std Deviation 45.3 (36.4-46.3) fL RDW Coeff of Shaylee 13.2 (11.5-14.5) % Plt Count 143 (130-400) K/uL MPV 10.1 (9.4-12.4) fL Sodium 137 (136-145) mmol/L Potassium 4.0 (3.5-5.1) mmol/L Chloride 105 (98-107) mmol/L Carbon Dioxide 26 (21-32) mmol/L Anion Gap 6 (3-11) BUN 12 (6-23) mg/dl Creatinine 0.88 (0.6-1.4) mg/dl Est Cr Clr Drug Dosing 99.4 ml/min eGFR 97.22 BUN/Creatinine Ratio 13.6 (10-20) Glucose 137 H (70-99(Fasting)) mg/dl POC Glucose 135 H 104 H (70-99) mg/dl Calcium 8.9 (8.6-10.3) mg/dl 11/07/24 11/07/24 Range/Units 16:11 11:45 WBC (4.8-10.8) K/ul RBC (4.70-6.10) M/uL Hgb (14.0-18.0) g/dl Hct (42.0-52.0) % MCV (80.0-100.0) fL MCH (25.0-34.0) pg MCHC (32.0-36.0) g/dL RDW Std Deviation (36.4-46.3) fL RDW Coeff of Shaylee (11.5-14.5) % Plt Count (130-400) K/uL MPV (9.4-12.4) fL Sodium (136-145) mmol/L Potassium (3.5-5.1) mmol/L Chloride (98-107) mmol/L Carbon Dioxide (21-32) mmol/L Anion Gap (3-11) BUN (6-23) mg/dl Creatinine (0.6-1.4) mg/dl Est Cr Clr Drug Dosing ml/min eGFR BUN/Creatinine Ratio (10-20) Glucose (70-99(Fasting)) mg/dl POC Glucose 106 H 132 H (70-99) mg/dl Calcium (8.6-10.3) mg/dl Diagnostic Findings Knee X-Ray 11/07/24 09:50 XR knee RT 1 or 2V routine CLINICAL HISTORY: Postoperative evaluation. COMPARISON: Right knee radiographs December 14, 2023. FINDINGS: Alignment of the total right knee arthroplasty is anatomic. There is no periprosthetic fracture or unexpected radiopaque foreign body. IMPRESSION: Expected findings following total right knee arthroplasty. ACT 112: Negative or not required by law. Electronically signed by: Mo Campa M.D. 11/07/2024 10:50 AM
[2024-11-08] MEDS ORDERED: [UNRECOGNIZED DRUG - OTHER] PO SCH (09:00)
[2024-11-08] MEDS ORDERED: PRASTERONE 50 MG PO SCH (09:00)
[2024-11-08] MEDS ORDERED: NON-FORMULARY MEDICATION (Vitamin K2 100 mcg Capsule) PO SCH (09:00)
[2024-11-08] MEDS ORDERED: NON-FORMULARY MEDICATION (Krill Oil 1 CAP) PO SCH (09:00)
--- NOTE | 2024-11-08 09:24 | Discharge Summary ---
Date of Service November 08, 2024 Discharge Data Consultations 11/07/24 10:50 Consult Hospitalist Routine Procedures Performed Operation Date: 11/07/24 07:00 Actual Procedures p Right Total Knee Arthroplasty(Right) - Codey Martinez MD Hospital Course (1) Status post total knee replacement: Patient was kept in observation at [facility] after undergoing an elective right total knee arthroplasty with Dr. Martinez on November 07, 2024. Surgery was performed with spinal anesthesia and a peripheral nerve block. He tolerated the procedure well without any intraoperative complications. Postoperative x-rays performed in the recovery room showed a stable right knee prosthesis. He was allowed out of bed, weight-bear as tolerated on his right lower extremity with the assistance of a walker. He was given a carb controlled heart healthy diet. A glycemic consult was placed. Hospitalist consult was also placed for management of his underlying medical conditions. He was instructed to ice and elevate the right lower extremity as frequently as possible. He was placed on aspirin 81 mg p.o. twice daily for 6 weeks for DVT prophylaxis along with JAMES stockings and AV impulse boots while in the hospital. Pain medication was ordered. We he was provided Tylenol 1000 mg every 8 hours, oxycodone 5 to 10 mg every 4-6 hours for pain as well as IV Dilaudid. On postoperative day 1 he continued to have pain with oral medications and tramadol 50 mg 1 to 2 tablets every 4-6 hours was added to his pain medication regimen. On postoperative day 1, his pain was controlled enough for discharge to home.He was given vitamin C and iron supplementation twice daily for 2 weeks after surgery to assist with postoperative anemia. His postoperative dressing was clean, dry and intact. This was left in place and will be changed on either in the hospital or as an outpatient. Physical therapy and Occupational T herapy evaluated the patient. He was deemed safe for discharge to home. He will follow-up as scheduled tomorrow for dressing change [facility]. Discharge instructions were reviewed. All questions were answered. Medications were sent to the pharmacy. He may continue his home medications as instructed. He was discharged home in stable condition on November 08, 2024.
[2024-11-08] MEDS: traMADol HCL 50 MG TABLET PO PRN (09:30)
[2024-11-08] MEDS: FERROUS GLUCONATE 324 MG TAB PO SCH (10:08)
[2024-11-08] MEDS: VALSARTAN 80 MG TAB PO SCH (10:08)
[2024-11-08] MEDS: CeleBREX 200 MG CAP PO SCH (13:06)
[2024-11-08] MEDS: HYDROmorphone INJ 0.5 MG/0.5 ML SYR IV PRN (13:37)
[2024-11-08] MEDS: metFORMIN HCL ER 500 MG TABCR PO SCH (17:05)
[2024-11-08 20:47] VITALS: O2SAT 96
[2024-11-09 07:21] VITALS: BP 161/91; RESP 24; TEMP 98.1
--- NOTE | 2024-11-09 08:33 | Hospitalist Progress Note ---
Date of Service November 09, 2024 Assessment & Plan Admission and Anticipated Discharge Date Admission Date: November 07, 2024 Results & Data Results & Data Vital Signs (Past 12 Hours) Vital Signs Temp Pulse Resp BP Pulse Ox O2 Del Method 11/09/24 07:20 36.7 C 108 H 24 161/91 H 96 Room Air 11/08/24 20:47 36.8 C 100 H 16 161/92 H 96 Room Air PG Care Time/CCT Total # of Minutes Spent Total Time Spent with Patient: Total time spent is greater than 50% in coordination of care (as documented) at patient's floor/unit and/or counseling patient: Coding
--- NOTE | 2024-11-09 10:16 | Orthopedic Progress Note ---
Date of Service November 09, 2024 Assessment & Plan (1) Status post total knee replacement: Plan: The patient was educated regarding today's findings. Conservative care measures were discussed. Wound dressing was changed to a Silverlon dressing. This will stay in place until he is seen in the office. He may get it wet in the shower starting today. No soaking or submerging. Continue WBAT with walker Start with home health tomorrow. Diet - Carb control, heart healthy Frequently ice and elevate with blankets stacked under ankle DVT prophylaxis: ASA 81mg BID x 6 weeks started, TEDS x 3 weeks Pain control: Tylenol 1000mg q 8hrs, oxycodone 5-10mg q4-6 hrs for moderate pain, Celebrex 200 mg twice daily x 2 weeks has been sent to his pharmacy. Will plan to add in Tramadol to alternate with Oxycodone for breakthrough pain as needed. Vitamin C and Iron supplementation BID x 2 weeks Discharge home with home health x 2 weeks, anticipate discharge today Follow up as scheduled with [facility] in 2 weeks for Zipline removal Discharge instructions reviewed. Medications have been sent to the pharmacy. Admission and Anticipated Discharge Date Admission Date: November 07, 2024 Subjective This 64 year old male is seen this morning in his room. He is postop day 2 from right total knee arthroplasty. He was participating in physical therapy when I arrived. He is ambulating with a significantly slow antalgic gait secondary to pain. He rates it as a 7/10. He denies any chest pain, shortness of breath, nausea, or vomiting. He states the pain level is occasionally making him break out in sweats. His is present today. He feels ready for discharge to home. No other complaints. Physical Exam Physical Exam: General: Well-developed, well-nourished, middle-aged male, in no acute distress. Obvious discomfort. Laying in bed. Alert and oriented. Skin: Warm and dry with good turgor. Expected postoperative ecchymosis and edema at the knee. Postsurgical dressings are in place. Upon removal, Zipline is in place. There is no active drainage. Musculoskeletal: The patient has intact motor function to the hip, knee, ankle, and toes. He is able to perform a straight leg raise with encouragement. He hamilton s full extension. Flexion at this point is limited to around 45 degrees secondary to pain and swelling. Neurologic: Gross sensation is intact across the right leg by soft touch. Results & Data Vital Signs (Past 12 Hours) Vital Signs Temp Pulse Resp BP Pulse Ox O2 Del Method 11/09/24 07:20 36.7 C 108 H 24 161/91 H 96 Room Air Laboratory Results Glucose this morning was 151.
[2024-11-09 11:40] VITALS: PULSE 54
[2024-11-09 11:40] LABS: Hematocrit (blood only) 33.1 % (42.0-52.0); Hemoglobin 11.3 g/dl (14.0-18.0); Mean Corpuscular Hemoglobin 32.3 pg (25.0-34.0); Mean Corpuscular Hgb Conc 34.1 g/dL (32.0-36.0); Mean Corpuscular Volume 94.6 fL (80.0-100.0); Mean Platelet Volume 10.3 fL (9.4-12.4); Platelet Count 140 K/uL (130-400); RDW Coefficient of Variation 13.3 % (11.5-14.5); RDW Standard Deviation 45.9 fL (36.4-46.3); White Blood Count 9.84 K/ul (4.8-10.8)
[2024-11-09 11:46] LABS: BUN Creatinine Ratio 9.9 (10-20); Calcium 8.9 mg/dl (8.6-10.3); Potassium 4.1 mmol/L (3.5-5.1)
[2024-11-22] MEDS ORDERED: FERROUS GLUCONATE 324 MG TAB PO SCH (17:00)
== END 2024-11-09 12:59 | disposition home health service (06) ==
LOC: 3E 05:13 → ASU 05:13

== ENCOUNTER 2025-08-21 05:26 | Observation (INO) ==
--- NOTE | 2025-08-10 12:37 | Anesthesiology Consultation ---
Date of Service August 10, 2025 Assessment & Plan Chart Review Chart Review: Acceptable Risk for Surgery and Patient NOT seen in Pre Admission Testing Consults Requested none History Surgery Operation Date: 08/21/25 07:00 Proposed Procedures p Left Total Knee Arthroplasty - Codey Attila Martinez MD Height/Weight Height: 5 ft 10.5 in Weight: 88.904 kg Allergies Allergy/AdvReac Type Severity Reaction Status Date / Time felodipine AdvReac Intermediate Leg Verified 08/09/25 15:33 Swelling hydrochlorothiazide AdvReac Intermediate "salt Verified 08/09/25 15:33 levels" spironolactone AdvReac Intermediate Lumps on Verified 08/09/25 15:33 Breast lisinopril AdvReac Unknown Unknown Verified 08/09/25 15:33 Medications Home Medications Medication Instructions Recorded Confirmed Last Taken Beet Juice Extract 1 dose PO DAILY 01/17/21 08/09/25 10/24/24 albuterol sulfate 90 mcg/actuation 2 puff inhalation QID PRN Wheezing 01/17/21 08/09/25 11/06/24 21:30 aerosol inhaler L-Citrine 1 cap PO BID 11/06/21 08/09/25 10/24/24 cyanocobalamin (vitamin B-12) 1,000 mcg PO QAM 11/06/21 08/09/25 11/06/24 13:00 1,000 mcg tablet (Vitamin B-12) trazodone 50 mg tablet 100 mg PO HS 11/06/21 08/09/25 11/06/24 21:30 fluticasone propionate 115 2 puff inhalation BID #12 grams 01/08/23 08/09/25 11/07/24 03:30 mcg-salmeterol 21 mcg/actuation HFA inhaler (Advair HFA) amlodipine 10 mg tablet 10 mg PO QAM 01/07/24 08/09/25 11/07/24 03:30 eplerenone 25 mg tablet (Inspra) 25 mg PO QAM 01/07/24 08/09/25 11/06/24 13:00 omeprazole 20 mg capsule,delayed 20 mg PO QAM 01/07/24 08/09/25 11/07/24 03:30 release valsartan 320 mg tablet 320 mg PO QAM 01/07/24 08/09/25 11/06/24 13:00 kirsty extract 1 dose PO QPM 10/02/24 08/09/25 10/24/24 aspirin 81 mg tablet,delayed 81 mg PO QPM 10/02/24 08/09/25 11/01/24 release atorvastatin 40 mg tablet (Lipitor) 40 mg PO QPM 10/02/24 08/09/25 11/06/24 21:30 fluticasone propionate 50 2 spray intranasal DAILY PRN 10/02/24 08/09/25 11/07/24 03:30 mcg/actuation nasal allergies congestion spray,suspension krill oil 1 cap PO QPM 10/02/24 08/09/25 10/24/24 magnesium 100 mg capsule 100 mg PO HS 10/02/24 08/09/25 10/24/24 metformin 500 mg tablet 500 mg PO QPM 10/02/24 08/09/25 11/04/24 psyllium husk 0.4 gram capsule 2.4 g PO BID 10/02/24 08/09/25 10/31/24 (Metamucil) tadalafil 10 mg tablet (Cialis) 10 mg PO DAILY PRN Sexual Activity 10/02/24 08/09/25 11/04/24 vitamin E 1 cap PO QPM 10/02/24 08/09/25 10/24/24 zinc 25 mg tablet 25 mg PO HS 10/02/24 08/09/25 10/24/24 acetaminophen 500 mg tablet 1,000 mg PO DAILY PRN Pain 08/09/25 08/09/25 Unknown (Tylenol Extra Strength) celecoxib 200 mg capsule (Celebrex) 200 mg PO BID PRN Pain 08/09/25 08/09/25 Unknown cetirizine 10 mg tablet (Zyrtec) 10 mg PO QAM 08/09/25 08/09/25 Unknown levothyroxine 150 mcg tablet 150 mcg PO QAM 08/09/25 08/09/25 Unknown melatonin 10 mg tablet 10 mg PO HS 08/09/25 08/09/25 Unknown multivitamin 1 tab PO QPM 08/09/25 08/09/25 Unknown semaglutide (weight loss) 1.7 1.7 mg subcut WK 08/09/25 08/09/25 08/05/25 mg/0.75 mL subcutaneous pen injector (Wegovy) vitamin D3 1,250 mcg (50,000 1 cap PO BID 08/09/25 08/09/25 Unknown unit)-vitamin K2 200 mcg capsule Past Medical History Medical History (Updated 08/09/25 @ 15:55 by Priti Haley, JARON) Encounter for pre-operative examination Adverse reaction to anesthetic agent - Remote history "with my procedure with Dr Schulz (2020)- when I came out I had trouble breathing." - Per anesthesia record 01/24/21= right direct laryngoscopy 01/24/21= Done under [facility] with Grade 2 view with MAC #3. Atraumatic DVL x 1 - Per operative report "The patient did have an episode of desaturation after extubation that resolved with supplemental oxygen and bag mask ventilation." - Patient states possibly due to Novocain used during biopsy- no allergy to Novocain- has had many times before without incidence. No issues with anesthesia with subsequent surgeries *No issues with procedure/anesthesia 11/07/24 as per patient Hx of Lyme disease completed antibiotic tx (around 2021) Migraines "Few and far between" Sleep apnea cpap Hypothyroidism on levothyroxine History of pneumothorax 10/2021 - hemopneumothorax after fall- chest tube placed- [facility] s/ robotic right VATS (thorascopy)- excision/plication of bleb disease and partial pleurectomy at [facility] 11/19/21 - no pneumothorax noted on 12/[address] Ascending aorta dilation Per 02/2024 ECHO- Dilated aortic root (4.3cm) and ascending aorta (4.0cm) Dr Gomez Aortic stenosis Moderate per 02/[address] Gomez Prediabetes Oral/Weekly Inj Asthma-COPD overlap syndrome prn inhaler use breathing stable and controlled [facility] Osteoarthritis Pancreatitis hx - resolved- diet controlled Insomnia Hypertension Hyperlipidemia Acid reflux well controlled and stable Past Family History Family History Father Stroke Heart disease Brother Hypertension Mother Hypertension Grandfather (Maternal) Stroke Grandmother (Maternal) Colorectal cancer Other No family history of adverse response to anesthesia No family history of bleeding disorder Past Surgical History Surgical History (Updated 08/09/25 @ 15:55 by Priti Sudha, RN) History of arthroplasty of right knee (11/07/24) History of lung surgery VATS S 11/2021 History of biopsy 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 Schulz on 01/24/21 Hx of vasectomy History of ERCP History of esophagogastroduodenoscopy (EGD) History of colonoscopy Hx of LASIK History of oral surgery Tooth extractions Social History Smoking Status: Former smoker tobacco type: cigarettes Smoking cigarettes per day: >1 pack per day Do You Dip or Chew Tobacco: No Smoking End Date: 3-4 years ago Hx Alcohol Use: Yes Alcohol type: wine alcohol intake frequency: 0-2 drinks per day Hx Substance Use: No substance use type: does not use Testing Echocardiogram Date: 11/02/24 EF: 65 LV Function: normal Valvular Disease: + Stress Test Date: 10/13/24 Type: DSE Findings: + WNL Resting LV Function: normal Valvular Disease:
[2025-08-21] MEDS: LR 15ML/HR IV SCH (06:05)
[2025-08-21] MEDS: CeleBREX 200 MG CAP PO SCH ×2 (06:06→20:42)
[2025-08-21] MEDS: ACETAMINOPHEN 500 MG TAB PO SCH ×2 (06:06→14:05)
[2025-08-21] MEDS: LR 60ML/HR IV SCH (06:07)
[2025-08-21] MEDS ORDERED: MIDAZOLAM HCL 1 MG/ML 2ML VIAL ONE (06:30)
[2025-08-21] MEDS ORDERED: KETAMINE HCL 10MG/ML SYR ONE ×2 (06:31→08:40)
[2025-08-21] MEDS ORDERED: PROPOFOL IV EMULSION 10 MG/ML 20 ML VIAL IV ONE ×6 (06:31→08:41)
--- NOTE | 2025-08-21 06:31 | History & Physical Bridge Note ---
Date of Service August 21, 2025 History & Physical Bridge Note I have examined the patient, reviewed the History & Physical and in the interval since the performance of the History & Physical I have noted the following changes of clinical significance: no changes noted
[2025-08-21] MEDS ORDERED: ROPIVACAINE 0.5% 5 MG/ML 30 ML VIAL ONE (06:33)
[2025-08-21] MEDS ORDERED: BUPIVACAINE 0.5 % 5 MG/1 ML PF 10ML VIAL ONE (06:33)
[2025-08-21] MEDS ORDERED: ONDANSETRON INJ 2 MG/ML 2 ML VIAL IV PRN ×2 (06:35→10:39)
[2025-08-21] MEDS ORDERED: ATROPINE SULFATE 0.1 MG/ML 10ML SYR IV PRN (06:35)
[2025-08-21] MEDS: TRANEXAMIC ACID 1,000 MG **IV Pre-op IV SCH (06:40)
[2025-08-21] MEDS ORDERED: PHENYLEPHRINE 100MCG/ML 5ML SYR ONE (07:28)
[2025-08-21] MEDS ORDERED: ONDANSETRON INJ 2 MG/ML 2 ML VIAL ONE ×2 (07:41)
[2025-08-21] MEDS ORDERED: DEXAMETHASONE SOD INJ 4 MG/ML VIAL ONE (07:41)
[2025-08-21] MEDS ORDERED: PHENYLEPHRINE HCL 10 MG/ML VIAL ONE (07:44)
[2025-08-21] MEDS: ORTHO JOINT ANESTHETIC ONE (07:45)
[2025-08-21] MEDS: ROPIV 0.5% 246mg, Ketorolac 30mg, EPINEPHrine 0.5mg in NSS INFIL SCH (09:04)
--- NOTE | 2025-08-21 09:21 | Operative Report ---
Post Operative Report Pre & Post Diagnosis Operation Date: 08/21/25 07:00 Pre-Op Diagnosis: Left Knee Osteoarthritis Post-Op Diagnosis: Left Knee Osteoarthritis I identified the patient and participated in the time-out.: Yes Procedure Operation Date: 08/21/25 07:00 Actual Procedures p Left Total knee replacement, imageless computer assisted navigation (Left) - Codey Martinez MD Surgeon Codey Martinez MD Cut Order Hand Attila Poon PA-C (No fellow avail) Estimated Blood Loss 50 Findings See Below Examined Under Anesthesia: ROM -- There was 5 degrees to 125 degrees of flexion Ligamentous examination -- revealed stable Jasmyn, posterior drawer, varus and valgus stress at 0 and 30 degrees. [place]bridge Grade IV changes of Medial & Patellofemoral compartments, grade III changes Lateral compartment. Bucket handle medial meniscus. Fluids 1500 cc Specimens Left knee contents Anesthesia Type MAC Spinal Regional Complications none Indications This is a 64-year-old male who has clinical and radiographic findings consistent with osteoarthritis of the left knee. I recommended that a left total knee replacement be performed. The patient understands the risks of surgery, which include but not limited to: bleeding, infection, re-operation, damage to nerves and arteries, continued knee pain, knee stiffness, DVT, and . The patient understands all these instructions and explanations, all his questions have been satisfactorily addressed, and the patient has elected to proceed. Informed consent was signed. Description of Procedure IMPLANTS: 1. Femur: Triathlon #5 left PS. 2. Tibia: Triathlon #5 [place]. 3. Insert: Triathlon #5 x 9 mm PS X3 poly. 4. Patella: Triathlon A38 x 11 mm X3 poly. 5. Palacos cement. Attila Poon PA-C is assisting with positioning, retracting, and closure due to fellow not available. Procedure: The patient was taken to the Operating Room and placed in the supine position after spinal and adductor canal nerve block was administered. My initials and a multidisciplinary time-out were used to identify the left leg as the correct operative limb. A tourniquet was placed high on the thigh. Prior to the incision, 2 grams of intravenous Ancef were given. One g of TXA was given pre- operatively and another after the tourniquet was released. The left leg was then prepped and draped in a standard sterile fashion. An Esmarch was used to exsanguinate the leg, and the tourniquet was inflated to 250 mmHg. The planned mid-line 20 cm incision was created exposing the extensor mechanism. The medial parapatellar arthrotomy was made and the patella was everted. The patella was addressed first. It was prepared by reaming from 26 mm down to 15 mm. An A38 button was found to fit best. The peg holes were made in the standard fashion. The femur was addressed next and using computer assisted OrthoAlign with 3 degrees of flexion and 0 degrees of valgus, removing 10 mm in the standard fashion for the distal cut. The cut was made and after making the Tibial cut and checking the balancing using OrthoAlign Lantern, Flexion/Extension gap 9 mm laterally & 9 mm medially. The Lantern was set to 9 which matched exactly the posterior referencing guide. The 4-in-1 cutting block for a size 6 femur was placed. This was AP shifted 1.5 mm anterior. These cuts and the cuts to place the box were made in the standard fashion. The tibia cut with using imageless computer assisted OrthoAlign, taking 2 mm from the medial low side. A #5 Tibial baseplate fit well. A trial with a 9 mm spacer showed excellent stability in both flexion and extension, with good ligament balance, and thumbs free patellar tracking. Range of motion of 0-130 degrees. The tibial baseplate was prepped for the keel and stem. All components were removed. 90 ml of total knee cocktail were injected into the soft tissues and periosteum. All surfaces were copiously irrigated prior to placement of the components. The Tibial baseplate followed by femoral component were cemented in place and the 9 mm X3 poly was placed. Next, the patellar button was placed using the same cement. Once the cement had cured, the range of motion and stability were unchanged. The tourniquet was deflated. Hemostasis was obtained. Another 1g TXA was given. The extensor mechanism was closed with 1-0 Vicryl and 0 Stratafix with the knee bent approximately 60 degrees in a standard fashion. The peritenon and deep fascia was closed with 2-0 Vicryl. The subcutaneous layer was closed with 3-0 Vicryl. The skin was closed with Zipline and shield. The limb was cleaned and dried. 4x4 dressing was placed over top followed by ABDs, sterile Webril, and a foot to thigh Bhupendra bandage. The patient was then transferred to the Recovery Room in stable condition. The sponge and needle counts were correct. POST-OP INSTRUCTIONS: The patient will be WBAT. The patient will be admitted to the hospital. Complete 24-hour course antibiotics. Labs will be obtained during the stay. DVT prophylaxis will include aspirin for 6 weeks, TEDs, and mechanical foot pumps. The dressing will be changed, postop day #2-3, and covered with a Silverlon dressing. I attest to the content of the Intraoperative Record and any orders documented therein. Any exceptions are noted below.
--- NOTE | 2025-08-21 09:21 | Post Operative Brief Note ---
Immediate Post Op Note Date of Surgery August 21, 2025 Pre & Post Diagnosis Operation Date: 08/21/25 07:00 Pre-Op Diagnosis: Left Knee Osteoarthritis Post-Op Diagnosis: Left Knee Osteoarthritis I identified the patient and participated in the time-out.: Yes Procedure Operation Date: 08/21/25 07:00 Actual Procedures p Left Total Knee Arthroplasty(Left) - Codey Martinez MD Surgeon Codey Martinez MD Oil Well Gun Perforator Operator Attila Poon PA-C (No fellow avail) Estimated Blood Loss 50 Findings Consistent with Post-Op Diagnosis Fluids 1500 cc Specimens Left knee contents Anesthesia Type MAC Spinal Regional Complications none
--- NOTE | 2025-08-21 09:55 | Operative Report ---
Post Operative Report Pre & Post Diagnosis Operation Date: 08/21/25 07:00 Pre-Op Diagnosis: Left Knee Osteoarthritis Post-Op Diagnosis: Left Knee Osteoarthritis I identified the patient and participated in the time-out.: Yes Procedure Operation Date: 08/21/25 07:00 Actual Procedures p Left Total Knee Arthroplasty(Left) - Codey Martinez MD Surgeon Codey Martinez MD Manager Terminal Attila Poon PA-C (No fellow avail) Estimated Blood Loss 50 Findings Consistent with Post-Op Diagnosis Specimens Routine bone and soft tissue Description of Procedure I was present for the case. I assisted with patient positioning, prepping, draping, retraction, suctioning, hardware, wound closure, dressing application. Please refer to Dr. Martinez's procedure note for full details. I attest to the content of the Intraoperative Record and any orders documented therein. Any exceptions are noted below.
--- NOTE | 2025-08-21 10:16 | XRay Report ---
XR knee LT 1 or 2V routine CLINICAL HISTORY: Surgical Post Op COMPARISON: None FINDINGS: Left knee prosthesis shows no hardware complication. There is expected soft tissue gas. IMPRESSION: Unremarkable postoperative exam. ACT 112: Negative or not required by law. Electronically signed by: Dhaval Monge M.D. 08/21/2025 10:14 AM
[2025-08-21] MEDS ORDERED: TAMSULOSIN HCL 0.4 MG CAP PO PRN (10:39)
[2025-08-21] MEDS ORDERED: METOCLOPRAMIDE HCL INJ 5 MG/ML 2 ML VIAL IV PRN (10:39)
[2025-08-21] MEDS ORDERED: NALOXONE HCL 0.4 MG/1 ML VIAL/CARP IV PRN (10:39)
[2025-08-21] MEDS ORDERED: FLUTICASONE PROPIONATE NA SPR 16 GM BTL PRN (10:39)
[2025-08-21] MEDS ORDERED: diphenhydrAMINE Capsule 25 MG CAP PO PRN (10:39)
[2025-08-21] MEDS ORDERED: MAGNESIUM HYDROXIDE SUSP 30 ML UDC PO PRN (10:39)
[2025-08-21] MEDS ORDERED: ALBUTEROL HFA 8 GM INHALER INH PRN (10:39)
[2025-08-21] MEDS ORDERED: ALUMINUM/MAGNESIUM SUSP 30 ML UDC PO PRN (10:39)
[2025-08-21] MEDS ORDERED: HYDROmorphone INJ 0.5 MG/0.5 ML SYR IV PRN (10:39)
[2025-08-21] MEDS: SODIUM CHLORIDE 0.9% 1,000 ML IV SCH (11:12)
--- NOTE | 2025-08-21 11:22 | Hospitalist Consultation ---
Date of Consultation August 21, 2025 Assessment & Plan (1) Status post total knee replacement: Assessment: 1. End-stage osteoarthritis status post left total knee arthroplasty postop day 0 today. Doing well postoperatively. 2. Diabetes mellitus. We have changed the patient's diet from heart healthy to a diabetic diet. We have ordered blood glucose monitoring hemoglobin A1c in the morning. AC and at bedtime. To be notified if less than 80 or greater than 180. Sliding scale will be initiated if appropriate. The patient is on Wegovy. It is due tomorrow. As far as we are concerned if patient wants to take his home Wegovy if he is still an inpatient tomorrow that [facility] unless glycemic control indicated otherwise. 3. Hypothyroidism. Continue home replacement therapy and check a level TSH in the morning. 4. Dyslipidemia. Continue home medications as appropriate. 5. Hypertension. Home meds as appropriate. 6. GERD. Continue PPI. Plan: As discussed above. Please refer to orders for further planning. We thank you for the opportunity to participate in the care of Mr. Auguste as he convalesces his left total knee arthroplasty here at [facility]. Will continue to follow daily and as needed. History of Present Illness Reason for Consultation: Medical management Attending Physician: Codey Martinez MD History of Present Illness This is a pleasant 64-year-old male who presented to [facility] today to undergo elective left total knee arthroplasty. The patient underwent the procedure with orthopedics and was admitted to their service. The patient tolerated the procedure well and we were consulted for medical management of the patient. Allergies Allergy/AdvReac Type Severity Reaction Status Date / Time felodipine AdvReac Intermediate Leg Verified 08/21/25 05:38 Swelling hydrochlorothiazide AdvReac Intermediate "salt Verified 08/21/25 05:38 levels" spironolactone AdvReac Intermediate Lumps on Verified 08/21/25 05:38 Breast lisinopril AdvReac Unknown pancreatiti Verified 08/21/25 05:38 s Home Medications Medication Instructions Recorded Confirmed Type Beet Juice Extract 1 dose PO DAILY 01/17/21 08/21/25 History albuterol sulfate 90 mcg/actuation 2 puff inhalation QID PRN Wheezing 01/17/21 08/21/25 History aerosol inhaler L-Citrine 1 cap PO BID 11/06/21 08/21/25 History cyanocobalamin (vitamin B-12) 1,000 mcg PO QAM 11/06/21 08/21/25 History 1,000 mcg tablet (Vitamin B-12) trazodone 50 mg tablet 100 mg PO HS 11/06/21 08/21/25 History fluticasone propionate 115 2 puff inhalation BID #12 grams 01/08/23 08/21/25 Rx mcg-salmeterol 21 mcg/actuation HFA inhaler (Advair HFA) amlodipine 10 mg tablet 10 mg PO QAM 01/07/24 08/21/25 History eplerenone 25 mg tablet (Inspra) 25 mg PO QAM 01/07/24 08/21/25 History omeprazole 20 mg capsule,delayed 20 mg PO QAM 01/07/24 08/21/25 History release valsartan 320 mg tablet 320 mg PO QAM 01/07/24 08/21/25 History ashwagandha extract 1 dose PO QPM 10/02/24 08/21/25 History aspirin 81 mg tablet,delayed 81 mg PO QPM 10/02/24 08/21/25 History release atorvastatin 40 mg tablet (Lipitor) 40 mg PO QPM 10/02/24 08/21/25 History fluticasone propionate 50 2 spray intranasal DAILY PRN 10/02/24 08/21/25 History mcg/actuation nasal allergies congestion spray,suspension krill oil 1 cap PO QPM 10/02/24 08/21/25 History magnesium 100 mg capsule 100 mg PO HS 10/02/24 08/21/25 History metformin 500 mg tablet 500 mg PO QPM 10/02/24 08/21/25 History psyllium husk 0.4 gram capsule 2.4 g PO BID 10/02/24 08/21/25 History (Metamucil) tadalafil 10 mg tablet (Cialis) 10 mg PO DAILY PRN Sexual Activity 10/02/24 08/21/25 History vitamin E 1 cap PO QPM 10/02/24 08/21/25 History zinc 25 mg tablet 25 mg PO HS 10/02/24 08/21/25 History acetaminophen 500 mg tablet 1,000 mg PO DAILY PRN Pain 08/09/25 08/21/25 History (Tylenol Extra Strength) celecoxib 200 mg capsule (Celebrex) 200 mg PO BID PRN Pain 08/09/25 08/21/25 History cetirizine 10 mg tablet (Zyrtec) 10 mg PO QAM 08/09/25 08/21/25 History levothyroxine 150 mcg tablet 150 mcg PO QAM 08/09/25 08/21/25 History melatonin 10 mg tablet 10 mg PO HS 08/09/25 08/21/25 History multivitamin 1 tab PO QPM 08/09/25 08/21/25 History semaglutide (weight loss) 1.7 1.7 mg subcut WK 08/09/25 08/21/25 History mg/0.75 mL subcutaneous pen injector (Wegovy) vitamin D3 1,250 mcg (50,000 1 cap PO BID 08/09/25 08/21/25 History unit)-vitamin K2 200 mcg capsule Patient History Medical History Encounter for pre-operative examination Adverse reaction to anesthetic agent - Remote history "with my procedure with Dr Schulz (2020)- when I came out I had trouble breathing." - Per anesthesia record 01/24/21= right direct laryngoscopy 01/24/21= Done under [facility] with Grade 2 view with MAC #3. Atraumatic DVL x 1 - Per operative report "The patient did have an episode of desaturation after extubation that resolved with supplemental oxygen and bag mask ventilation." - Patient states possibly due to Novocain used during biopsy- no allergy to Novocain- has had many times before without incidence. No issues with anesthesia with subsequent surgeries *No issues with procedure/anesthesia 11/07/24 as per patient Hx of Lyme disease completed antibiotic tx (around 2021) Migraines "Few and far between" Sleep apnea cpap Hypothyroidism on levothyroxine History of pneumothorax 10/2021 - hemopneumothorax after fall- chest tube placed- [facility] s/ robotic right VATS (thorascopy)- excision/plication of bleb disease and partial pleurectomy at [facility] 11/19/21 - no pneumothorax noted on 12/[address] Ascending aorta dilation Per 02/2024 ECHO- Dilated aortic root (4.3cm) and ascending aorta (4.0cm) Dr Gomez Aortic stenosis Moderate per 02/[address] Gomez Prediabetes Oral/Weekly Inj Asthma-COPD overlap syndrome prn inhaler use breathing stable and controlled [facility] Pulm Osteoarthritis Pancreatitis hx - resolved- diet controlled Insomnia Hypertension Hyperlipidemia Acid reflux well controlled and stable Surgical History History of arthroplasty of right knee (11/07/24) History of lung surgery [facility] 11/2021 History of biopsy 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 Schulz on 01/24/21 Hx of vasectomy History of ERCP History of esophagogastroduodenoscopy (EGD) History of colonoscopy Hx of LASIK History of oral surgery Tooth extractions Family History Father Stroke Heart disease Brother Hypertension Mother Hypertension Grandfather (Maternal) Stroke Grandmother (Maternal) Colorectal cancer Other No family history of adverse response to anesthesia No family history of bleeding disorder Social History (Updated 01/07/24 @ 16:11 by [place]y [place] LPN) Smoking Status: Former smoker Tobacco Type: Cigarettes packs per day: 0.5; Cigarettes Per Day: >1 pack per day; Smoking End Date: 3-4 years ago; Second Hand Exposure: No; Do You Dip or Chew Tobacco: No; Tobacco Cessation Education Requested by Patient: No Hx Alcohol Use: Yes Alcohol type: wine Alcohol Intake Frequency Comment: 2-3 drinks/day Hx Substance Use: No Preferred Language: Yoruba Communication Ability: Effective Magnetometer Operator Required: No Beliefs That Will Affect Care: None marital status: Current Living Situation: Spouse current occupational status: employed 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 Physical Exam Physical Exam: In General: In general very pleasant 64-year-old male who is alert and oriented x 3 at the time my exam. 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 He is accompanied by his at the time of my exam. He interacts appropriately and pleasantly. He denies any postoperative complaints. HEENT: Normocephalic atraumatic pupils are equal round and reactive to light bilaterally. No scleral icterus no conjunctival injection external auditory canals are patent septum is in the midline nose is without discharge oral mucosa is pink and dry without lesion. NECK: Supple no rigidity no lymphadenopathy no thyromegaly no carotid bruits no JVD no masses. HEART: Regular rate and rhythm I do not appreciate any ectopy or rub. No murmur. LUNGS: Clear to auscultation bilaterally and anteriorly with no evidence of adventitious sounds/wheezes rales or rhonchi. ABDOMEN: Soft nontender, no rebound, no peritoneal signs, positive bowel sounds, no appreciable organomegaly. EXTREMITIES: Intact, no peripheral cyanosis, clubbing or edema. The left knee is postoperatively dressed dressings intact clean and dry and the extremity is neurovascularly intact. NEUROLOGICAL: Cranial nerves II through XII are grossly intact with no focal deficit elicited upon examination. Results & Data Results & Data Vital Signs (Past 12 Hours) Vital Signs Temp Pulse Pulse Resp BP Pulse Ox O2 Del Method 08/21/25 11:09 36.6 C 65 16 118/73 94 Room Air 08/21/25 10:40 36.4 C L 68 16 108/68 96 Room Air 08/21/25 10:25 61 14 109/66 94 Nasal Cannula 08/21/25 10:10 62 13 111/69 94 Nasal Cannula 08/21/25 10:00 36.4 C L 67 14 99/69 L 97 Nasal Cannula 08/21/25 09:50 73 12 102/73 93 Nasal Cannula 08/21/25 09:40 75 19 103/68 90 Room Air 08/21/25 09:34 36.3 C L 81 12 101/70 91 Room Air 08/21/25 05:43 36.6 C 73 20 124/77 95 Room Air O2 Flow Rate 08/21/25 11:09 08/21/25 10:40 08/21/25 10:25 2 08/21/25 10:10 2 08/21/25 10:00 2 08/21/25 09:50 2 08/21/25 09:40 08/21/25 09:34 11/04/25 05:43 PG Care Time/CCT Total # of Minutes Spent Total Time Spent with Patient: Total time spent is greater than 50% in coordination of care (as documented) at patient's floor/unit and/or counseling patient: Coding Level of Care Code 03796 IN/OBS CONSULT LVL 4,60M Diagnoses Status post total knee replacement Z96.659
--- NOTE | 2025-08-21 14:33 | Anesthesiology Progress Note ---
Date of Service August 21, 2025 Anesthesia Post Procedure Vital Signs Vital Signs: Temp Pulse Pulse Resp BP Pulse Ox O2 Del Method 08/21/25 14:30 36.7 C 75 16 113/70 94 Room Air 08/21/25 13:57 36.4 C L 73 15 114/70 95 Room Air 08/21/25 12:58 36.6 C 87 16 122/72 96 Room Air 08/21/25 11:38 36.6 C 62 16 117/74 96 Room Air 08/21/25 11:09 36.6 C 65 16 118/73 94 Room Air 08/21/25 10:40 36.4 C L 68 16 108/68 96 Room Air 08/21/25 10:25 61 14 109/66 94 Nasal Cannula 08/21/25 10:10 62 13 111/69 94 Nasal Cannula 08/21/25 10:00 36.4 C L 67 14 99/69 L 97 Nasal Cannula 08/21/25 09:50 73 12 102/73 93 Nasal Cannula 08/21/25 09:40 75 19 103/68 90 Room Air 08/21/25 09:34 36.3 C L 81 12 101/70 91 Room Air 08/21/25 05:43 36.6 C 73 20 124/77 95 Room Air O2 Flow Rate 08/21/25 14:30 08/21/25 13:57 08/21/25 12:58 08/21/25 11:38 08/21/25 11:09 08/21/25 10:40 08/21/25 10:25 2 08/21/25 10:10 2 08/21/25 10:00 2 08/21/25 09:50 2 08/21/25 09:40 08/21/25 09:34 08/21/25 05:43 Pain Intensity Left Knee: Pain Intensity: 0 Notes Mental Status: alert / awake / arousable Patient Amnestic to Procedure: Yes Nausea / Vomiting: adequately controlled Pain: adequately controlled Airway Patency, RR, SpO2: stable & adequate BP & HR: stable & adequate Hydration State: stable & adequate Neuraxial Anesthesia: was administered and sensory block is resolving Anesthetic Complications: no major complications apparent
[2025-08-21] MEDS: ASCORBIC ACID 500 MG TAB PO SCH (16:11)
[2025-08-21] MEDS: Scopolamine CHECK PATCH PLACEMENT SCH (16:11)
[2025-08-21] MEDS: FERROUS GLUCONATE 324 MG TAB PO SCH (16:11)
[2025-08-21] MEDS: MELATONIN 3 MG TAB PO SCH (20:42)
[2025-08-21] MEDS: SENNA 8.6 MG TAB PO SCH (20:42)
[2025-08-21] MEDS: ATORVASTATIN 40 MG TAB PO SCH (20:42)
[2025-08-21] MEDS: DOCUSATE SODIUM 100 MG CAP PO SCH (20:42)
[2025-08-21] MEDS: FLUTICASONE/VILANTEROL 200/25MCG 14 PUFFS/INHALER INH SCH (20:42)
[2025-08-21] MEDS: PSYLLIUM HUSK 4GM PACKET PO SCH (20:43)
[2025-08-21] MEDS ORDERED: NON-FORMULARY MEDICATION (Magnesium 100 mg Capsule) PO SCH (21:00)
[2025-08-21 22:58] VITALS: RESP 16
[2025-08-22] MEDS: LEVOTHYROXINE SODIUM 150 MCG TABLET PO SCH (06:09)
[2025-08-22 07:12] LABS: Hematocrit (blood only) 31.9 % (42.0-52.0); Hemoglobin 11.0 g/dl (14.0-18.0); Immature Granulocytes # (auto) 0.06 K/uL (0.01-0.20); Immature Granulocytes % (auto) 0.4 %; Mean Corpuscular Hemoglobin 31.7 pg (25.0-34.0); Mean Corpuscular Volume 91.9 fL (80.0-100.0); Platelet Count 182 K/uL (130-400); RDW Standard Deviation 41.7 fL (36.4-46.3); Red Blood Count 3.47 M/uL (4.70-6.10); White Blood Count 15.73 K/ul (4.8-10.8)
[2025-08-22 07:24] LABS: Hemoglobin A1C 5.9 % (4.5-5.6)
[2025-08-22 07:26] LABS: Alanine Aminotransferase 23.0 U/L (7-52); Albumin Globulin Ratio 1.9 (0.9-2); Albumin Level 3.7 gm/dl (3.4-5.0); Alkaline Phosphatase 34.0 U/L (34-104); Anion Gap 6.0 (3-11); Bilirubin,Total 0.6 mg/dl (0.2-1.0); Blood Urea Nitrogen 11.0 mg/dl (6-23); Calcium 8.4 mg/dl (8.6-10.3); Carbon Dioxide 26.0 mmol/L (21-32); Chloride 105.0 mmol/L (98-107); Creatinine Clr Calc Pharmacy 89.3 ml/min; Globulin 2.0 gm/dl (2.5-4.0); Glucose 133.0 mg/dl (70-99(Fasting)); Potassium 3.8 mmol/L (3.5-5.1); Sodium 137.0 mmol/L (136-145); Total Protein 5.7 gm/dl (6.0-8.3)
[2025-08-22] MEDS: VALSARTAN 80 MG TAB PO SCH (07:35)
[2025-08-22] MEDS: ASPIRIN 81 MG ECTAB PO SCH (07:36)
[2025-08-22] MEDS: MULTIVITAMIN TAB PO SCH (07:36)
[2025-08-22] MEDS: dexAMETHasone 10 MG in SYRINGE 0 ML IV SCH (07:37)
[2025-08-22] MEDS: CETIRIZINE HCL 10 MG TABLET PO SCH (07:38)
[2025-08-22 07:40] LABS: Thyroid Stimulating Hormone 0.082 uIu/ml (0.300-4.500)
[2025-08-22 07:57] VITALS: TEMP 97.9
[2025-08-22 08:16] LABS: T4 Free Thyroxine 1.14 ng/dl (0.61-1.60)
--- NOTE | 2025-08-22 08:38 | Orthopedic Progress Note ---
Date of Service August 22, 2025 Assessment & Plan (1) Osteoarthritis of left knee: Plan: POD #0 s/p L TKA, doing as well as expected. Resume diet. WBAT with walker. OOB to chair. Continue pain control. Check labs tomorrow. DVT prophylaxis: TEDs 3 weeks, foot pumps while in hospital, ASA 81 mg BID for 6 weeks. PT/OT. D/C planning. Dressing to be changed POD 2-3 to Silverlon type dressing. Admission and Anticipated Discharge Date Admission Date: August 21, 2025 Subjective Doing well Physical Exam Physical Exam: LLE:BCR < 2 sec. Sensation to light touch intact distally. Wiggling ankle and toes. Calf soft and non-tender. Dressing is clean, dry, intact. Able to perform straight leg raise. Results & Data Vital Signs (Past 12 Hours) Vital Signs Temp Pulse Resp BP Pulse Ox O2 Del Method 08/22/25 07:00 36.6 C 77 16 123/75 97 Room Air 08/22/25 03:12 36.3 C L 70 16 101/63 95 Room Air 08/21/25 22:56 36.5 C 83 16 106/66 95 Room Air Diagnostic Findings XR knee LT 1 or 2V routine CLINICAL HISTORY: Surgical Post Op COMPARISON: None FINDINGS: Left knee prosthesis shows no hardware complication. There is expected soft tissue gas. IMPRESSION: Unremarkable postoperative exam.
--- NOTE | 2025-08-22 09:42 | Orthopedic Progress Note ---
Date of Service August 22, 2025 Assessment & Plan (1) Osteoarthritis of left knee: Plan: POD #1 s/p L TKA, doing as well as expected. Postoperative x-rays were reviewed and demonstrate expected findings Postoperative labs show a leukocytosis at 15.73 likely secondary to surgery and receiving steroids. Mild anemia with a hemoglobin of 11.0 likely secondary to acute blood loss from surgery. A1c 5.9. Total protein and albumin slightly low however albumin is normal. TSH was low at 0.082, free T4 was normal at 1.14. Coordinated with Dr. Cordero who recommended that the patient follow-up with his primary care provider regarding this to have repeat blood work done in 1 month. No dosage adjustments to his thyroid medication at this time. Vitals are stable. Patient will be evaluated by PT and OT. Anticipate discharge home with home health, which is set up. Patient will take aspirin 81 mg twice daily for 6 weeks for DVT prophylaxis. He will use JAMES stockings for 3 weeks. Weightbearing as tolerated with walker. He confirmed he has a walker, raised toilet seat, and shower bench at home. Pain control with Tylenol, Celebrex, and oxycodone. PDMP was reviewed with no concerns. Prescriptions for Celebrex and oxycodone were sent to [facility] pharmacy. He was instructed to take vitamin C and iron twice daily for the next 2 weeks. Advised him to elevate this under her heel to promote extension. He was instructed to work on her home physical therapy exercises. Ice 5 times daily 20 minutes at a time. Patient will follow-up in our office this coming 08/24/2025 for dressing change and silverlon application. This was reviewed with him. He will leave the Bhupendra wrap dressing in place until then. Patient was advised to contact our clinic with any questions or concerns. Admission and Anticipated Discharge Date Admission Date: August 21, 2025 Darryl Garza is seen in bed this morning. He states that he is doing as well as expected. He received oxycodone this morning as well as overnight which helped with his pain. He is still able to do a straight leg raise. Experiences a little bit of numbness right at the front of his knee but denies any numbness or tingling down his leg or into his toes. He denies any fevers, chills, chest pain or shortness of breath. He has home health scheduled once he is discharged home. He states that he feels being discharged home as long as he is cleared by OT and PT. Physical Exam Constitutional: Resting comfortably in no distress. In bed. Pleasant Cardiovascular: Left PT pulse 1+ Musculoskeletal: Left lower extremity: Bhupendra wrap dressing is clean, dry, intact. Patient is able to perform a straight leg raise. Strength 5/5 with ankle plantarflexion, dorsiflexion, eversion. Moves all toes. Neurologic: No sensory deficits in left toes to light touch Results & Data Vital Signs (Past 12 Hours) Vital Signs Temp Pulse Resp BP Pulse Ox O2 Del Method 08/22/25 07:00 97.9 F 77 16 123/75 97 Room Air 08/22/25 03:12 97.3 F L 70 16 101/63 95 Room Air 08/21/25 22:56 97.7 F 83 16 106/66 95 Room Air Laboratory Results 08/22/25 08/22/25 08/21/25 07:16 06:43 20:25 WBC 15.73 H RBC 3.47 L Hgb 11.0 L Hct 31.9 L MCV 91.9 MCH 31.7 MCHC 34.5 RDW Std Deviation 41.7 RDW Coeff of Shaylee 12.6 Plt Count 182 MPV 10.2 Immature Gran % (Auto) 0.4 Neut % (Auto) 83.0 Lymph % (Auto) 7.6 [place] % (Auto) 8.9 Eos % (Auto) 0.0 Baso % (Auto) 0.1 Neut # (Auto) 13.06 H Lymph # (Auto) 1.19 L [place] # (Auto) 1.40 H Eos # (Auto) 0.00 Baso # (Auto) 0.02 Immature Gran # (Auto) 0.06 Sodium 137 Potassium 3.8 Chloride 105 Carbon Dioxide 26 Anion Gap 6 BUN 11 Creatinine 0.90 Est Cr Clr Drug Dosing 89.3 eGFR 96.57 BUN/Creatinine Ratio 12.2 Glucose 133 H POC Glucose 130 H 181 H Estimat Average Glucose 123 Hemoglobin A1c 5.9 H Calcium 8.4 L Total Bilirubin 0.6 AST 17 ALT 23 Alkaline Phosphatase 34 Total Protein 5.7 L Albumin 3.7 Globulin 2.0 L Albumin/Globulin Ratio 1.9 TSH 0.082 L Free T4 1.14 Hepatitis C Ab Screen 08/21/25 08/21/25 08/21/25 16:46 11:58 11:37 WBC RBC Hgb Hct MCV MCH MCHC RDW Std Deviation RDW Coeff of Shaylee Plt Count MPV Immature Gran % (Auto) Neut % (Auto) Lymph % (Auto) [place] % (Auto) Eos % (Auto) Baso % (Auto) Neut # (Auto) Lymph # (Auto) [place] # (Auto) Eos # (Auto) Baso # (Auto) Immature Gran # (Auto) Sodium Potassium Chloride Carbon Dioxide Anion Gap BUN Creatinine Est Cr Clr Drug Dosing eGFR BUN/Creatinine Ratio Glucose POC Glucose 185 H 131 H Estimat Average Glucose Hemoglobin A1c Calcium Total Bilirubin AST ALT Alkaline Phosphatase Total Protein Albumin Globulin Albumin/Globulin Ratio TSH Free T4 Hepatitis C Ab Screen Negative Diagnostic Findings Knee X-Ray 08/21/25 09:49 XR knee LT 1 or 2V routine CLINICAL HISTORY: Surgical Post Op COMPARISON: None FINDINGS: Left knee prosthesis shows no hardware complication. There is expected soft tissue gas. IMPRESSION: Unremarkable postoperative exam. ACT 112: Negative or not required by law. Electronically signed by: Dhaval Monge M.D. 08/21/2025 10:14 AM
--- NOTE | 2025-08-22 10:41 | Discharge Summary ---
Date of Service August 22, 2025 Principal Diagnosis s/p left total knee arthroplasty secondary to left knee osteoarthritis Discharge Data Allergies Allergy/AdvReac Type Severity Reaction Status Date / Time felodipine AdvReac Intermediate Leg Verified 08/21/25 05:38 Swelling hydrochlorothiazide AdvReac Intermediate "salt Verified 08/21/25 05:38 levels" spironolactone AdvReac Intermediate Lumps on Verified 08/21/25 05:38 Breast lisinopril AdvReac Unknown pancreatiti Verified 08/21/25 05:38 s Consultations 08/16/25 12:20 Consult Hospitalist Routine Procedures Performed Operation Date: 08/21/25 07:00 Actual Procedures p Left Total Knee Arthroplasty(Left) - Codey Martinez MD Ordered Studies 08/21/25 05:00 US - OR guided needle placemen Routine Hospital Course (1) Osteoarthritis of left knee: Greg Auguste is a 64-year-old male who underwent an uncomplicated left total knee arthroplasty with Dr. Martinez on 08/21/2025. He was observed in the hospital overnight and did not have any adverse events. His vital signs remained stable. He received 24 hours of IV Ancef. His pain was controlled with Tylenol, Celebrex, and oxycodone. Postoperative x-rays demonstrated expected findings. Postoperative labs show a leukocytosis at 15.73 likely secondary to surgery and receiving steroids. Mild anemia with a hemoglobin of 11.0 likely secondary to acute blood loss from surgery. A1c 5.9. Total protein and albumin slightly low however albumin is normal. TSH was low at 0.082, free T4 was normal at 1.14. Coordinated with Dr. Cordero who recommended that the patient follow-up with his primary care provider regarding this to have repeat blood work done in 1 month. No dosage adjustments to his thyroid medication at this time. Patient was evaluated by physical therapy and Occupational Therapy the following day after surgery and was cleared to be discharged home. He confirmed he has a walker, raised toilet seat, and shower bench at home. Patient will be discharged home with instructions to use Tylenol as first-line for pain control. He was provided with prescriptions for Celebrex as well as oxycodone for additional pain control. Patient will be taking aspirin 81 mg twice daily for 6 weeks for DVT prophylaxis, JAMES stockings for the next 3 weeks. He will be weightbearing as tolerated with a walker. He will participate with home health and home physical therapy for the next 2 weeks. He was advised to take vitamin C and iron for the next 2 weeks to help recover from surgery. Advised him to elevate this under her heel to promote knee extension. He was instructed to work on home physical therapy exercises. Patient was advised to ice 5 times daily for 20 minutes at a time over the next 3 to 5 days and then as needed. Patient was advised to keep his dressing in place until his follow-up appointment on 08/24/2025 for dressing change. He patient expressed understanding of instructions, and will contact the clinic with any questions or concerns in the interim. Total Time Total Time Spent Total Time Spent (In Minutes): 20 Discharge Plan Discharge Items Patient Disposition: Home - Home Health Services Reason For Visit: Left Knee Osteoarthritis Discharge Diagnosis: s/p left total knee arthroplasty Condition on Discharge: Good Activity: Per Instructions section Non-emergency contact: Surgeon Call non-emergency contact if: your symptoms worsen, your pain is worsening, you have a fever, your wound has increased redness, your wound has increased drainage and your wound pain has increased Follow-up/Referrals: Clay Schmidt [Primary Care Provider] - Samm Poon PA [Physician Crane Ladle Person] - 08/24/25 3:00 pm Diet: Carb Consistent or DM2 Addtl Attending Provider Instructions: POST OPERATIVE DISCHARGE INSTRUCTIONS Pain Control Please take the follow medications for pain control, as well as icing and elevating your operative extremity. Pain after surgery is to be expected. We may not be able to take away all of your pain, but the goal is to make your pain manageable - Extra strength Tylenol 1,000mg (2 tabs) every 8 hours - Celebrex 200mg twice a day for two weeks with food - Oxycodone as prescribed, as needed for breakthrough pain. Blood clot prevention With any surgery, you are at increased risk for blood clots. Please take the follow measures to prevent blood clots and read the warning signs to watch for. Please take the follow anticoagulant: Aspirin 81mg twice a day for 6 weeks If you were given JAMES compression stockings, these are to be worn on both legs for 18-20 hours daily for 3 weeks Warning signs: Calf pain, lower extremity swelling, numbness/tingling, skin discoloration, increased pain, shortness of breath, chest pain. Please contact our office if you experience any of these symptoms or call 911 if you are having trouble breathing. Ice Ice your operative site at least 5 times a day for 15-30 minutes at a time, for the first three days, then as needed. This will help to reduce swelling and pain. Make sure you have a thin cloth between the ice or cooling unit and your skin to prevent mack bite. This is especially important if you received a nerve block. When you are icing, prop your leg up with pillows/blankets under the ankle, NOT under the knee, to avoid getting a flexion contracture and to help get the knee extended. Diet/Nausea/Vomiting Start by drinking clear liquids and eating crackers. If you can tolerate this, then you may resume your normal diet. If you feel nauseated or vomit, take Zofran/ondansetron (if prescribed). Please call our office if you have intractable nausea or vomiting, or, if after hours, you may go to the Emergency Room for help. Surgical Dressing Please leave on any dressing until you are seen by the PA for your post- operative appointment. If there are any issues with your dressing please notify your home health nurse or give our office a call. Weight bearing, Range of Motion, Activity You will be weight bearing as tolerated on your operative site. You will need a walker to assist in ambulation. You can begin doing range of motion immediately You are encouraged to stand and walk short distances in the house as tolerated with your walker Physical therapy You will do your rehab for the first two weeks with home health. Then you will begin outpatient physical therapy. It is very important you follow your rehab protocol and do your exercises as instructed by your provider and physical therapist. Wound Care and Showering We will inspect your wound at your first post-operative visit. It is normal to see some dried blood on the dressing. Do not remove your dressing, paper strips or sutures yourself unless otherwise instructed. Showering is allowed post op day 3. Once your dressing is changed in the office to the water-resistant dressing. You can shower with this on as long as all the edges are in tact. You may want to reinforce with waterproof covering (i.e Press N Seal) To promote wound healing, we recommend taking a multi-vitamin, or taking 500mg Vitamin C supplement twice a day for two weeks and 325mg Iron supplement twice a day for two weeks. Constipation Constipation is a common side effect of narcotic pain medication, dehydration after surgery and iron supplement (if you were instructed to begin that after surgery). We recommend purchasing an [id number] laxative such as Milk of Magnesia, Colace, Dulcolax, Miralax or Senna from a local pharmacy, and taking it as instructed. Stay hydrated and you may increase your fiber in your diet as well. Call our clinic if any questions. Driving You may not drive while taking narcotic pain medication and until you have full function of your leg. Length of time you can expect to be unable to drive varies from person to person, and depends on which knee is getting replaced, but as a general rule of thumb plan for 4-6 weeks no [address] Driving will be discussed at your first post op appointment Travel Avoid long distance travel (greater than 1 hour) in airplanes and cars for the first 6 weeks after surgery. Follow-up Please attend your post operative appointments as scheduled. At these appoint ments, we may do dressing change and remove any sutures/jersey/Zip-line 10-14 days after your surgery. If you do not know your post operative appointment dates or times please call the office at [phone]. Please follow up with your PCP regarding your thyroid levels. The hospitalist recommended repeating your bloodwork in 1 month. No dosage adjustments to your thyroid medications at this time. When to call the office It is normal to have swelling and bruising in the limb that was operated on. This will improve with time. It is also normal to have fevers for the first 2 days after surgery. Reasons you should call your doctor include: Uncontrolled pain; Nausea, vomiting, or constipation that does not improve with medication; Fevers over 101.5, chills, sweats; Drainage or bleeding from the wound; Foul odor; Spreading areas of redness; calf pain or swelling, shortness of breath, chest pain; Any other concerns You may call the office at [phone]. If it is a medical emergency please call [phone]. Pending Studies at Discharge: Yes Studies:: Routine bone and soft tissue Stand-Alone Forms: My To The Tops, Smoking Cessation Medications and DC Order Prescriptions: New acetaminophen [Tylenol Extra Strength] 500 mg Tablet 1,000 mg PO Q8H Qty: 30 0RF ferrous gluconate 324 mg (38 mg iron) Tablet 324 mg PO BIDM Qty: 30 0RF aspirin 81 mg Tablet,Delayed Release (Dr/Ec) 81 mg PO BID Qty: 30 0RF celecoxib [Celebrex] 200 mg Capsule 200 mg PO BID 14 Days Qty: 28 0RF oxycodone 5 mg Tablet 5 - 10 mg PO Q4H MDD 6 tabs/day PRN (Reason: pain) Qty: 18 0RF ascorbic acid (vitamin C) [Vitamin C] 500 mg Tablet 500 mg PO BIDM 14 Days Qty: 28 0RF Continued valsartan 320 mg tablet 320 mg PO QAM amlodipine 10 mg tablet 10 mg PO QAM eplerenone [Inspra] 25 mg tablet 25 mg PO QAM omeprazole 20 mg capsule,delayed release(DR/EC) 20 mg PO QAM Advair HFA 115-21 mcg/actuation HFA aerosol inhaler 2 puff inhalation BID Qty: 12 2RF trazodone 50 mg tablet 100 mg PO HS cyanocobalamin (vitamin B-12) [Vitamin B-12] 1,000 mcg Tablet 1,000 mcg PO QAM albuterol sulfate 90 mcg/actuation Hfa Aerosol Inhaler 2 puff INHALATION QID PRN (Reason: Wheezing) Beet Juice Extract 1 dose PO DAILY Rx Instructions: mix with [place] atorvastatin [Lipitor] 40 mg Tablet 40 mg PO QPM metformin 500 mg Tablet 500 mg PO QPM magnesium 100 mg Capsule 100 mg PO HS tadalafil [Cialis] 10 mg Tablet 10 mg PO DAILY PRN (Reason: Sexual Activity) Rx Instructions: administer approximately 30min before sexual activity; do not use more than 1 dose per 24hrs psyllium husk [Metamucil] 0.4 gram Capsule 2.4 g PO BID Rx Instructions: with meals fluticasone propionate 50 mcg/actuation spray,suspension 2 spray intranasal DAILY PRN (Reason: allergies congestion) Rx Instructions: administer into each nostril multivitamin Tablet 1 tab PO QPM cetirizine [Zyrtec] 10 mg Tablet 10 mg PO QAM levothyroxine 150 mcg tablet 150 mcg PO QAM melatonin 10 mg Tablet 10 mg PO HS vitamin D3-vitamin K2 1,250-200 mcg Capsule 1 cap PO BID Wegovy 1.7 mg/0.75 mL pen injector 1.7 mg SUBCUT WK Patient Comments: "My prescribing doctor told me to take it Wednesday08/13/25 and then nothing until after surgery on 08/21/25" Rx Instructions: Sundays usually Held L-Citrine 1 cap PO BID Hold Instructions: Resume on 10/03/25. aspirin 81 mg Tablet,Delayed Release (Dr/Ec) 81 mg PO QPM Hold Instructions: Resume on 12/20/24. Once done with Aspirin BID x 6 weeks for DVT prophylaxis, you can resume your normal dose of Aspirin daily. zinc 25 mg Tablet 25 mg PO HS Hold Instructions: Resume on 09/19/25. ashwagandha extract 1 dose PO QPM Hold Instructions: Resume on 10/03/25. Rx Instructions: In a tea mixture vitamin E 1 cap PO QPM Hold Instructions: Resume on 10/03/25. krill oil 1 cap PO QPM Hold Instructions: Resume on 10/03/25. celecoxib [Celebrex] 200 mg capsule 200 mg PO BID PRN (Reason: Pain) Hold Instructions: Resume on 09/05/25. acetaminophen [Tylenol Extra Strength] 500 mg tablet 1,000 mg PO DAILY PRN (Reason: Pain) Hold Instructions: Resume on 09/19/25. Krames/Other Patient Handouts: Knee Replace Home Recovery, Knee Replace 1st Month, Knee Replace Control Swelling Admission Data Admit Date/Time: 08/21/25 09:49 Attending Provider: Codey Martinez Admit Provider: Codey Martinez Primary Care Provider: Clay Schmidt Other Providers: [facility]; Klapesh Cordero Edward C Other Interventions: Discharge Summary Assessment (RN) Last Done: 08/22/25 09:46
[2025-08-22 10:59] VITALS: BP 112/69; PULSE 79; O2SAT 94
[2025-08-24] MEDS ORDERED: Scopolamine REMOVE TRANSDERM PATCH ONE (08:00)
== END 2025-08-22 11:58 | disposition home health service (06) ==
LOC: 3E 05:26 → ASU 05:26